=== PATIENT | male | born 1945 | race Caucasian/White ===

== ENCOUNTER 2019-11-07 08:45 | Inpatient (IN) | payer MEDICARE, BC ==
[2019-11-07] MEDS ORDERED: ASPIRIN 325 MG TAB ONE (08:57)
[2019-11-07] MEDS ORDERED: ATORVASTATIN 80 MG TAB PO STA (09:07)
[2019-11-07] MEDS ORDERED: SODIUM CHLORIDE 0.9% 1,000 ML in EMPTY BAG 1 BAG IV ONE (09:07)
[2019-11-07] MEDS ORDERED: ALPRAZolam 0.25 MG TAB PO PRN (09:07)
[2019-11-07] MEDS ORDERED: NITROGLYCERIN SL TABS 0.4 MG TAB SUBLINGUAL PRN ×2 (09:07→09:52)
[2019-11-07] MEDS ORDERED: ASPIRIN 325 MG TAB PO STA (09:07)
[2019-11-07] MEDS ORDERED: ALPRAZolam 0.5 MG TAB PO PRN (09:07)
[2019-11-07] MEDS ORDERED: VERAPAMIL SYRINGE (5 MG/10 ML) INTRAARTER ONE ×2 (09:30→09:46)
[2019-11-07] MEDS ORDERED: LIDOCAINE 1% INJ 10MG/ML (20 ML MDV) SQ ONE (09:30)
[2019-11-07] MEDS ORDERED: MIDAZOLAM 2 MG/2 ML VIAL IVP ONE (09:34)
[2019-11-07] MEDS ORDERED: CLOPIDOGREL 75 MG TAB PO ONE (09:34)
[2019-11-07] MEDS ORDERED: BIVALIRUDIN BOLUS 250 MG/50 ML IV ONE (09:36)
[2019-11-07] MEDS ORDERED: BIVALIRUDIN 250 MG in SODIUM CHLORIDE 0.9% 50 ML IV ONE (09:38)
[2019-11-07] MEDS ORDERED: NITROGLYCERIN 1000MCG/10ML SYRINGE INTRACORON ONE (09:38)
[2019-11-07] MEDS ORDERED: IV FLUID CONTINUATION 1,000 ML IV ONE (09:38)
[2019-11-07] MEDS ORDERED: IOPAMIDOL-370 125ML BTL INJ ONE (09:46)
[2019-11-07] MEDS ORDERED: ALBUTEROL NEBULIZED 2.5 MG/3 ML INHALATION PRN (09:51)
[2019-11-07] MEDS ORDERED: BENZONATATE 100 MG CAP PO PRN (09:51)
[2019-11-07] MEDS ORDERED: MAG HYDROX/AL HYDROX/SIMETH 30 ML CUP PO PRN (09:52)
[2019-11-07] MEDS ORDERED: ATROPINE SULFATE 0.1 MG/ML 10ML SYRINGE IV PRN (09:52)
[2019-11-07] MEDS ORDERED: ZOLPIDEM 5 MG TAB PO PRN (09:52)
[2019-11-07] MEDS ORDERED: RX INFO: IV CONTRAST WAS GIVEN 1 EACH MISC MISCELLANE PRN (09:52)
[2019-11-07] MEDS ORDERED: SODIUM CHLORIDE 0.9% 1,000 ML IV SCH (10:00)
--- NOTE | 2019-11-07 10:53 | PTCA ---
PERCUTANEOUSTRANS CORORONARY ANGIOGRAPHY DATE OF SERVICE: 11/07/2019 PERFORMING PHYSICIAN: Burton Marshall MD. PROCEDURE PERFORMED: Successful stenting of the mid right coronary artery using 3.5 x 23 mm Xience YULIANA with an excellent angiographic result and reduction of stenosis from 80% to 0%. INDICATION: This is a 74-year-old gentleman who was experiencing symptoms of shortness of breath with exertion and underwent an echocardiogram which revealed evidence of cardiomyopathy with EF around 40%. The symptoms were suggestive for severe underlying coronary artery disease and in view of the cardiomyopathy, a heart catheterization was advised. APPROACH: Right radial artery. COMPLICATION: None. LEVEL OF SEDATION: Moderate with sedation length of 17 minutes. PROCEDURE DESCRIPTION: Please refer to diagnostic heart catheterization was performed by myself at [facility]. Anticoagulation was initiated using Angiomax. Subsequently, I did exchange my 11 cm sheath into another 11 cm sheath, which was new one that was performed over 0.018 micro puncture wire. After that, I did engage the right coronary artery using JR3.5 guide. The RCA was wired using a run-through wire. Direct stenting was performed using 3.5 x 23 mm Xience YULIANA where the stent was positioned under fluoroscopy guidance and deployed under 14 atmospheres for 20 seconds. The following angiogram showed excellent angiographic results without any edge dissection with EDUAR-3 flow. The procedure was completed without any complication. POSTPROCEDURE MANAGEMENT: 1. Dual anti-platelet therapy. 2. Risk factor modifications. 3. Follow up with the patient. MMODL / IJN: [id number] /
[2019-11-07] MEDS: IPRATROPIUM-ALBUTEROL 3 ML NEB INHALATION SCH ×3 (11:33→20:10)
[2019-11-07] MEDS ORDERED: ASPIRIN 81 MG PO SCH (14:00)
[2019-11-07] MEDS: BUDESONIDE 0.5 MG/2 ML NEBU INHALATION SCH (20:10)
[2019-11-07] MEDS ORDERED: MONTELUKAST 10 MG TAB PO SCH (21:00)
[2019-11-08 07:02] LABS: African American GFR (CKD) >90 (>60 ml/min/1.73 sqM); Anion Gap 6 mmol/L; Blood Urea Nitrogen 10 mg/dL (9-20); Calcium 8.7 mg/dL (8.4-10.2); Carbon Dioxide 30 mmol/L (22-30); Chloride 101 mmol/L (98-107); Glucose 91 mg/dL (74-99); Non-African American GFR(CKD) >90 (>60 ml/min/1.73 sqM); Potassium 5.1 mmol/L (3.5-5.1); Sodium 137 mmol/L (137-145)
[2019-11-08 07:21] LABS: Anisocytosis Slight; Hypochromasia Marked; MCH 29.9 pg (25.0-35.0); MCHC 30.7 g/dL (31.0-37.0); MCV 97.4 fL (80.0-100.0); Macrocytosis Slight; Mean Platelet Volume 7.6; Platelet Count 148 k/uL (150-450); RBC 6.77 m/uL (4.30-5.90); RDW 17.5 % (11.5-15.5); WBC 6.5 k/uL (3.8-10.6)
[2019-11-08 07:23] LABS: HGB 20.2 gm/dL (13.0-17.5)
[2019-11-08] MEDS: IPRATROPIUM-ALBUTEROL 3 ML NEB INHALATION SCH (07:23)
[2019-11-08 07:24] LABS: HCT 65.9 % (39.0-53.0)
[2019-11-08] MEDS: BUDESONIDE 0.5 MG/2 ML NEBU INHALATION SCH (07:24)
[2019-11-08] MEDS ORDERED: PANTOPRAZOLE 40 MG TABLET PO SCH (07:30)
[2019-11-08 08:05] VITALS: BP 138/70; PULSE 86; RESP 18; TEMP 98.2
[2019-11-08 08:35] LABS: Eosinophils # (M) 0.13 k/uL (0-0.7); Lymphocytes # (M) 0.65 k/uL (1.0-4.8); Monocytes # (M) 0.65 k/uL (0-1.0); Neutrophils # (M) 5.07 k/uL (1.3-7.7); Neutrophils % (M) 78 %; Nucleated Red Blood Cells 0 /100 WBC (0-0); Total Cells Counted 100
[2019-11-08] MEDS ORDERED: lisinopriL 10 MG TAB PO SCH (09:00)
[2019-11-08] MEDS ORDERED: predniSONE 20 MG TAB PO SCH (09:00)
[2019-11-08] MEDS ORDERED: ATORVASTATIN 10 MG TAB PO SCH (09:00)
[2019-11-08] MEDS ORDERED: NICOTINE 21MG/24HR PATCH TRANSDERM SCH (09:00)
[2019-11-08] MEDS ORDERED: CLOPIDOGREL 75 MG TAB PO SCH (09:53)
== END 2019-11-08 09:46 | disposition home or self-care (01) | DRG 247 ==
LOC: 3SCARD 08:45
PROVIDERS: ADMIT Internal Medicine Interventional Cardiology; ATTEND Internal Medicine Interventional Cardiology
PROC: 027034Z Dilation of Coronary Artery, One Artery with Drug-eluting Intraluminal Device, Percutaneous Approach (ICD-10-PCS; principal; 2019-11-07 08:35)
DX: I25.10 Atherosclerotic heart disease of native coronary artery without angina pectoris (principal); I42.9 Cardiomyopathy, unspecified; J44.9 Chronic obstructive pulmonary disease, unspecified; I10 Essential (primary) hypertension; E78.5 Hyperlipidemia, unspecified; I08.1 Rheumatic disorders of both mitral and tricuspid valves; F17.210 Nicotine dependence, cigarettes, uncomplicated; Z79.82 Long term (current) use of aspirin; Z79.51 Long term (current) use of inhaled steroids; Z79.899 Other long term (current) drug therapy
CPT/HCPCS: 80048; 85025; 85347; 94640

== ENCOUNTER 2020-10-30 09:48 | Inpatient (IN) | payer BC, MEDICARE ==
[2020-10-30] MEDS ORDERED: IPRATROPIUM 0.5 MG/2.5 ML NEBU INHALATION STA (10:10)
[2020-10-30] MEDS ORDERED: ALBUTEROL NEBULIZED 2.5 MG/3 ML INHALATION STA (10:10)
[2020-10-30] MEDS ORDERED: methylPREDNISolone SOD SUCCI 125 MG/2 ML VIAL IV STA (10:10)
[2020-10-30 10:26] LABS: Anisocytosis Slight; Basophils # (A) 0.1 k/uL (0-0.2); Basophils % (A) 1 %; Eosinophils # (A) 0.1 k/uL (0-0.7); Eosinophils % (A) 1 %; HCT 42.3 % (39.0-53.0); HGB 13.3 gm/dL (13.0-17.5); Hypochromasia Moderate; Lymphocytes # (A) 0.8 k/uL (1.0-4.8); Lymphocytes % (A) 7 %; MCH 26.9 pg (25.0-35.0); MCHC 31.4 g/dL (31.0-37.0); MCV 85.7 fL (80.0-100.0); Mean Platelet Volume 7.4; Monocytes # (A) 0.7 k/uL (0-1.0); Monocytes % (A) 7 %; Neutrophils # (A) 8.5 k/uL (1.3-7.7); Neutrophils % (A) 80 %; Platelet Count 375 k/uL (150-450); Poikilocytosis Slight; RBC 4.94 m/uL (4.30-5.90); RDW 16.6 % (11.5-15.5); WBC 10.7 k/uL (3.8-10.6)
--- NOTE | 2020-10-30 10:26 | ED ---
General Adult HPI - General Chief complaint: Shortness of Breath Stated complaint: JEANNE Time Seen by Provider: 10/30/20 09:50 Source: patient, family, RN notes reviewed, old records reviewed Mode of arrival: wheelchair Limitations: no limitations - History of Present Illness Initial comments: This is a 75-year-old male who is a current smoker and has COPD per patient states he has been having difficulty breathing all summer but over the last couple weeks been getting progressively worse. Patient states today he got so bad he felt like he needed to be seen. Patient denies any fever chills per patient denies any chest pain. Patient denies any palpitations. Patient states he does have an increased cough but no sputum production. Patient states he is vaccinated for COVID. Patient denies any abdominal pain patient denies nausea vomiting diarrhea. Patient denies any lightheadedness or dizziness. Patient denies a headache patient denies numbness weakness - Related Data Home Medications Medication Instructions Recorded Confirmed Aspirin EC [Ecotrin Low Dose] 81 mg PO DAILY@59902/06/16 10/30/20 Atorvastatin [Lipitor] 10 mg PO DAILY@59902/06/16 10/30/20 Lisinopril [Zestril] 10 mg PO DAILY@59902/06/16 10/30/20 Budesonide [Pulmicort Flexhaler] 1 puff INHALATION RT-BID 11/07/19 10/30/20 Cholecalciferol [Vitamin D3 (25 1,000 unit PO DAILY@59911/07/19 10/30/20 Mcg = 1000 Iu)] Umeclidinium Brm/Vilanterol Tr 2 puff INHALATION RT-DAILY@59911/07/19 10/30/20 [Anoro Ellipta 62.5-25 Mcg INH] Albuterol Nebulized [Ventolin 2.5 mg INHALATION RT-BID 10/30/20 10/30/20 Nebulized] Cetirizine HCl [Zyrtec] 10 mg PO DAILY@59910/30/20 10/30/20 Clopidogrel [Plavix] 75 mg PO DAILY@59910/30/20 10/30/20 Montelukast [Singulair] 10 mg PO DAILY@59910/30/20 10/30/20 Pantoprazole [Protonix] 40 mg PO DAILY@0600 10/30/20 10/30/20 Spironolactone 25 mg PO DAILY@0600 10/30/20 10/30/20 Allergies Allergy/AdvReac Type Severity Reaction Status Date / Time No Known Allergies Allergy Verified 10/30/20 11:04 Review of Systems ROS Statement: Those systems with pertinent positive or pertinent negative responses have been documented in the HPI. ROS Other: All systems not noted in ROS Statement are negative. Past Medical History Past Medical History: COPD, Hyperlipidemia, Hypertension Additional Past Medical History / Comment(s): Secondary Polycythemia Vera History of Any Multi-Drug Resistant Organisms: None Reported Past Surgical History: No Surgical Hx Reported Additional Past Surgical History / Comment(s): AAA REPAIR 01/28/2016 Past Anesthesia/Blood Transfusion Reactions: No Reported Reaction Past Psychological History: No Psychological Hx Reported Smoking Status: Current every day smoker Past Alcohol Use History: None Reported Past Drug Use History: None Reported - Past Family History Father Family Medical History: Myocardial Infarction ([place]) Brother(s) Family Medical History: Cancer General Exam - General Exam Comments Initial Comments: GENERAL: Patient is well-developed and well-nourished. Patient is nontoxic and well- hydrated and is in no acute distress. ENT: Neck is soft and supple. No significant lymphadenopathy is noted. Oropharynx is clear. Moist mucous membranes. Neck has full range of motion without eliciting any pain. EYES: The sclera were anicteric and conjunctiva were pink and moist. Extraocular movements were intact and pupils were equal round and reactive to light. Eyelids were unremarkable. PULMONARY: Patient has diffuse expiratory wheezing. Patient's pulse ox is 87%. CARDIOVASCULAR: There is a regular rate and rhythm without any murmurs gallops or rubs. ABDOMEN: Soft and nontender with normal bowel sounds. SKIN: Skin is clear with no lesions or rashes and otherwise unremarkable. NEUROLOGIC: Patient is alert and oriented x3. Cranial nerves II through XII are grossly intact. Motor and sensory are also intact. Normal speech, volume and content. Symmetrical smile. MUSCULOSKELETAL: Normal extremities with adequate strength and full range of motion. LYMPHATICS: No significant lymphadenopathy is noted PSYCHIATRIC: Normal psychiatric evaluation. Limitations: no limitations Course Vital Signs 10/30/20 10/30/20 10/30/20 09:49 10:26 11:01 Temperature 97.4 F L Pulse Rate 66 67 64 Respiratory 18 22 Rate Blood Pressure 99/67 106/67 O2 Sat by Pulse 87 L 93 L Oximetry 10/30/20 10/30/20 11:22 11:23 Temperature 97.9 F Pulse Rate 66 64 Respiratory 18 Rate Blood Pressure 118/68 O2 Sat by Pulse 94 L Oximetry Medical Decision Making - Medical Decision Making EKG shows sinus rhythm at 67 bpm [place] interval is 214 QRS is 140 QT interval 390 QTC is 412. Patient's EKG shows a right bundle branch block. Patient has no ST segment elevation. Patient's sodium is 116 he did get a fluid bolus of 500 mL of normal saline. Patient's chest x-ray showed no acute abnormality. The patient received a couple breathing treatments and steroids in the emergency department. I spoke with Dr. Baez he agreed to admit the patient admitted the patient remaining orders. - Lab Data Result diagrams: 10/30/20 10:12 10/30/20 10:12 Lab Results 10/30/20 10/30/20 10/30/20 Range/Units 10:12 10:12 10:12 WBC 10.7 H (3.8-10.6) k/uL RBC 4.94 (4.30-5.90) m/uL Hgb 13.3 (13.0-17.5) gm/dL Hct 42.3 (39.0-53.0) % MCV 85.7 (80.0-100.0) fL MCH 26.9 (25.0-35.0) pg MCHC 31.4 (31.0-37.0) g/dL RDW 16.6 H (11.5-15.5) % Plt Count 375 (150-450) k/uL MPV 7.4 Neutrophils % 80 % Lymphocytes % 7 % Monocytes % 7 % Eosinophils % 1 % Basophils % 1 % Neutrophils # 8.5 H (1.3-7.7) k/uL Lymphocytes # 0.8 L (1.0-4.8) k/uL Monocytes # 0.7 (0-1.0) k/uL Eosinophils # 0.1 (0-0.7) k/uL Basophils # 0.1 (0-0.2) k/uL Hypochromasia Moderate Poikilocytosis Slight Anisocytosis Slight PT 9.9 (9.0-12.0) sec INR 0.9 (<1.2) APTT 23.7 (22.0-30.0) sec Sodium 116 L* (137-145) mmol/L Potassium 5.3 H (3.5-5.1) mmol/L Chloride 80 L (98-107) mmol/L Carbon Dioxide 27 (22-30) mmol/L Anion Gap 9 mmol/L BUN 21 H (9-20) mg/dL Creatinine 0.75 (0.66-1.25) mg/dL Est GFR (CKD-EPI)AfAm >90 (>60 ml/min/1.73 sqM) Est GFR (CKD-EPI)NonAf 89 (>60 ml/min/1.73 sqM) Glucose 109 H (74-99) mg/dL Plasma Lactic Acid Garth (0.7-2.0) mmol/L Calcium 9.3 (8.4-10.2) mg/dL Total Bilirubin 0.4 (0.2-1.3) mg/dL AST 35 (17-59) U/L ALT 18 (4-49) U/L Alkaline Phosphatase 77 (38-126) U/L Troponin I (0.000-0.034) ng/mL Total Protein 7.0 (6.3-8.2) g/dL Albumin 4.1 (3.5-5.0) g/dL 10/30/20 10/30/20 Range/Units 10:12 10:12 WBC (3.8-10.6) k/uL RBC (4.30-5.90) m/uL Hgb (13.0-17.5) gm/dL Hct (39.0-53.0) % MCV (80.0-100.0) fL MCH (25.0-35.0) pg MCHC (31.0-37.0) g/dL RDW (11.5-15.5) % Plt Count (150-450) k/uL MPV Neutrophils % % Lymphocytes % % Monocytes % % Eosinophils % % Basophils % % Neutrophils # (1.3-7.7) k/uL Lymphocytes # (1.0-4.8) k/uL Monocytes # (0-1.0) k/uL Eosinophils # (0-0.7) k/uL Basophils # (0-0.2) k/uL Hypochromasia Poikilocytosis Anisocytosis PT (9.0-12.0) sec INR (<1.2) APTT (22.0-30.0) sec Sodium (137-145) mmol/L Potassium (3.5-5.1) mmol/L Chloride (98-107) mmol/L Carbon Dioxide (22-30) mmol/L Anion Gap mmol/L BUN (9-20) mg/dL Creatinine (0.66-1.25) mg/dL Est GFR (CKD-EPI)AfAm (>60 ml/min/1.73 sqM) Est GFR (CKD-EPI)NonAf (>60 ml/min/1.73 sqM) Glucose (74-99) mg/dL Plasma Lactic Acid Garth 1.1 (0.7-2.0) mmol/L Calcium (8.4-10.2) mg/dL Total Bilirubin (0.2-1.3) mg/dL AST (17-59) U/L ALT (4-49) U/L Alkaline Phosphatase (38-126) U/L Troponin I <0.012 (0.000-0.034) ng/mL Total Protein (6.3-8.2) g/dL Albumin (3.5-5.0) g/dL Critical Care Time Critical Care Time: Yes Total Critical Care Time: 35 Disposition Clinical Impression: COPD exacerbation Disposition: ADMITTED IP TO THIS HOSP Referrals: Cheli Peñaloza [[facility]] - 1-2 days Time of Disposition: 12:31
[2020-10-30 10:34] LABS: ALT 18 U/L (4-49); AST 35 U/L (17-59); African American GFR (CKD) >90 (>60 ml/min/1.73 sqM); Albumin 4.1 g/dL (3.5-5.0); Alkaline Phosphatase 77 U/L (38-126); Anion Gap 9 mmol/L; Blood Urea Nitrogen 21 mg/dL (9-20); Calcium 9.3 mg/dL (8.4-10.2); Carbon Dioxide 27 mmol/L (22-30); Chloride 80 mmol/L (98-107); Glucose 109 mg/dL (74-99); Non-African American GFR(CKD) 89 (>60 ml/min/1.73 sqM); Potassium 5.3 mmol/L (3.5-5.1); Total Bilirubin 0.4 mg/dL (0.2-1.3)
--- NOTE | 2020-10-30 10:34 | XR ---
EXAMINATION TYPE: XR chest 2V DATE OF EXAM: 10/30/2020 COMPARISON: 01/15/2018 HISTORY: Shortness of breath TECHNIQUE: Frontal and lateral views of the chest are obtained. FINDINGS: Scattered senescent parenchymal changes noted. Hyperinflation compatible with COPD. No evidence for infiltrate. No evidence for atelectasis. Heart size is stable. Mediastinal structures are stable and grossly unremarkable. No evidence for hilar prominence. Degenerative changes dorsal spine. IMPRESSION: 1. No evidence for acute pulmonary disease.
[2020-10-30 10:42] LABS: Sodium 116 mmol/L (137-145)
[2020-10-30] MEDS ORDERED: SODIUM CHLORIDE 0.9% 500 ML 500 ML IV ONE (10:46)
[2020-10-30 10:48] LABS: INR 0.9 (<1.2); Partial Thromboplastin Time 23.7 sec (22.0-30.0); Prothrombin Time 9.9 sec (9.0-12.0)
[2020-10-30 15:31] LABS: African American GFR (CKD) >90 (>60 ml/min/1.73 sqM); Anion Gap 7 mmol/L; Blood Urea Nitrogen 18 mg/dL (9-20); Calcium 8.9 mg/dL (8.4-10.2); Carbon Dioxide 30 mmol/L (22-30); Chloride 81 mmol/L (98-107); Glucose 162 mg/dL (74-99); Non-African American GFR(CKD) 86 (>60 ml/min/1.73 sqM); Potassium 5.3 mmol/L (3.5-5.1)
[2020-10-30 16:10] LABS: Sodium 118 mmol/L (137-145)
[2020-10-30] MEDS: methylPREDNISolone SOD SUCCI 125 MG/2 ML VIAL IV SCH ×2 (17:32→23:38)
[2020-10-30] MEDS: SODIUM CHLORIDE 0.9% 1,000 ML IV SCH (17:35)
[2020-10-30 17:53] LABS: Sodium 116 mmol/L (137-145)
[2020-10-30] MEDS: IPRATROPIUM-ALBUTEROL 3 ML NEB INHALATION PRN (20:26)
[2020-10-31 05:40] LABS: African American GFR (CKD) >90 (>60 ml/min/1.73 sqM); Anion Gap 7 mmol/L; Blood Urea Nitrogen 19 mg/dL (9-20); Carbon Dioxide 28 mmol/L (22-30); Chloride 87 mmol/L (98-107); Glucose 141 mg/dL (74-99); Non-African American GFR(CKD) >90 (>60 ml/min/1.73 sqM); Potassium 5.3 mmol/L (3.5-5.1); Sodium 122 mmol/L (137-145)
[2020-10-31] MEDS ORDERED: SPIRONOLACTONE 25 MG TAB PO SCH (06:00)
[2020-10-31] MEDS ORDERED: lisinopriL 10 MG TAB PO SCH (06:00)
[2020-10-31] MEDS ORDERED: NON FORMULARY DRUG (Umeclidinium Brm/Vilanterol Tr [Anoro Ellipta 62.5-25 Mcg Inh] 1 EACH INHALATION SCH (06:00)
[2020-10-31] MEDS: methylPREDNISolone SOD SUCCI 125 MG/2 ML VIAL IV SCH ×4 (06:35→23:15)
[2020-10-31] MEDS: LORATADINE 10 MG TAB PO SCH (06:35)
[2020-10-31] MEDS: CLOPIDOGREL 75 MG TAB PO SCH (06:35)
[2020-10-31] MEDS: PANTOPRAZOLE 40 MG TABLET PO SCH (06:35)
[2020-10-31] MEDS: MONTELUKAST 10 MG TAB PO SCH (06:35)
[2020-10-31] MEDS: ASPIRIN 81 MG PO SCH (06:35)
[2020-10-31] MEDS: ATORVASTATIN 10 MG TAB PO SCH (06:35)
[2020-10-31] MEDS: CHOLECALCIFEROL 25 MCG (1000 IU) TABLET PO SCH (06:35)
[2020-10-31] MEDS: LEVOFLOXACIN 500 MG TAB PO SCH (08:18)
--- NOTE | 2020-10-31 08:18 | P.HPIM ---
History of Present Illness H&P Date: 10/31/20 Chief Complaint: Respiratory distress. This is a history of physical 75-year-old white male with known history of COPD. The patient was seen in the office 2 days ago with hypoxia but opted not to go to the hospital until yesterday. The patient's pulse oximetry was in the 80s. Chest x-ray actually does not show active disease but he was having significant respiratory failure. No significant fever but overt weakness was noted. History of asthma. Review of Systems Constitutional: Reports fatigue, Reports weakness Eyes: denies blurred vision, denies pain Cardiovascular: Reports shortness of breath, Denies lightheadedness Respiratory: Reports as per HPI, Reports cough Gastrointestinal: Denies abdominal pain, Denies diarrhea, Denies nausea, Denies vomiting Musculoskeletal: Denies myalgias Integumentary: Denies pruritus, Denies rash Neurological: Denies numbness, Denies weakness Past Medical History Past Medical History: COPD, Hyperlipidemia, Hypertension Additional Past Medical History / Comment(s): Secondary Polycythemia Vera History of Any Multi-Drug Resistant Organisms: None Reported Past Surgical History: No Surgical Hx Reported Additional Past Surgical History / Comment(s): AAA REPAIR 01/28/2016 Past Anesthesia/Blood Transfusion Reactions: No Reported Reaction Past Psychological History: No Psychological Hx Reported Smoking Status: Current every day smoker Past Alcohol Use History: None Reported Past Drug Use History: None Reported - Past Family History Father Family Medical History: Myocardial Infarction ([place]) Brother(s) Family Medical History: Cancer Medications and Allergies Home Medications Medication Instructions Recorded Confirmed Type Aspirin EC [Ecotrin Low Dose] 81 mg PO DAILY@59902/06/16 10/30/20 History Atorvastatin [Lipitor] 10 mg PO DAILY@59902/06/16 10/30/20 History Lisinopril [Zestril] 10 mg PO DAILY@59902/06/16 10/30/20 History Budesonide [Pulmicort Flexhaler] 1 puff INHALATION RT-BID 11/07/19 10/30/20 History Cholecalciferol [Vitamin D3 (25 1,000 unit PO DAILY@59911/07/19 10/30/20 Histo ry Mcg = 1000 Iu)] Umeclidinium Brm/Vilanterol Tr 2 puff INHALATION RT-DAILY@59911/07/19 10/30/20 History [Anoro Ellipta 62.5-25 Mcg INH] Albuterol Nebulized [Ventolin 2.5 mg INHALATION RT-BID 10/30/20 10/30/20 History Nebulized] Cetirizine HCl [Zyrtec] 10 mg PO DAILY@59910/30/20 10/30/20 History Clopidogrel [Plavix] 75 mg PO DAILY@59910/30/20 10/30/20 History Montelukast [Singulair] 10 mg PO DAILY@59910/30/20 10/30/20 History Pantoprazole [Protonix] 40 mg PO DAILY@59910/30/20 10/30/20 History Spironolactone 25 mg PO DAILY@59910/30/20 10/30/20 History Allergies Allergy/AdvReac Type Severity Reaction Status Date / Time No Known Allergies Allergy Verified 10/30/20 11:04 Physical Exam Vitals: Vital Signs Temp Pulse Pulse Resp BP BP Pulse Ox 10/31/20 03:49 71 18 100/45 92 L 10/31/20 00:00 94 22 115/69 85 L 10/30/20 20:37 74 10/30/20 20:26 68 10/30/20 20:00 98.1 F 72 22 136/69 92 L 10/30/20 16:00 68 20 117/65 93 L 10/30/20 15:29 20 88 L 10/30/20 13:17 76 18 150/66 98 10/30/20 12:46 98.1 F 73 20 115/67 76 L 10/30/20 11:23 97.9 F 64 18 118/68 94 L 10/30/20 11:22 66 10/30/20 11:01 64 10/30/20 10:26 67 22 106/67 93 L 10/30/20 09:49 97.4 F L 66 18 99/67 87 L Intake and Output 10/30/20 10/31/20 10/31/20 22:59 06:59 14:59 Intake Total 120 300 Output Total 300 120 Balance -180 180 Intake: Oral 120 300 Output: Urine 300 120 Other: Voiding Method Urinal # Voids 1 1 Weight 121 kg - Constitutional General appearance: morbidly obese - EENT Eyes: EOMI - Neck Neck: no lymphadenopathy - Cardiovascular Rhythm: regular Heart sounds: normal: S1, S2 Abnormal Heart Sounds: no S3 Gallop - Gastrointestinal General gastrointestinal: soft, no tenderness - Integumentary Integumentary: no cyanotic - Musculoskeletal Musculoskeletal: generalized weakness - Psychiatric Psychiatric: A&O x's 3, appropriate affect Results CBC & Chem 7: 10/30/20 10:12 10/31/20 05:05 Labs: Abnormal Lab Results - Last 24 Hours (Table) 10/30/20 10/30/20 10/30/20 Range/Units 10:12 10:12 15:04 WBC 10.7 H (3.8-10.6) k/uL RDW 16.6 H (11.5-15.5) % Neutrophils # 8.5 H (1.3-7.7) k/uL Lymphocytes # 0.8 L (1.0-4.8) k/uL Sodium 116 L* 118 L* (137-145) mmol/L Potassium 5.3 H 5.3 H (3.5-5.1) mmol/L Chloride 80 L 81 L (98-107) mmol/L BUN 21 H (9-20) mg/dL Glucose 109 H 162 H (74-99) mg/dL Osmolality (280-301) mosm/kg 10/30/20 10/30/20 10/31/20 Range/Units 15:04 20:57 00:42 WBC (3.8-10.6) k/uL RDW (11.5-15.5) % Neutrophils # (1.3-7.7) k/uL Lymphocytes # (1.0-4.8) k/uL Sodium 116 L* 120 L 120 L (137-145) mmol/L Potassium (3.5-5.1) mmol/L Chloride (98-107) mmol/L BUN (9-20) mg/dL Glucose (74-99) mg/dL Osmolality 260 L (280-301) mosm/kg 10/31/20 Range/Units 05:05 WBC (3.8-10.6) k/uL RDW (11.5-15.5) % Neutrophils # (1.3-7.7) k/uL Lymphocytes # (1.0-4.8) k/uL Sodium 122 L (137-145) mmol/L Potassium 5.3 H (3.5-5.1) mmol/L Chloride 87 L (98-107) mmol/L BUN (9-20) mg/dL Glucose 141 H (74-99) mg/dL Osmolality (280-301) mosm/kg Thrombosis Risk Factor Assmnt - Choose All That Apply Each Factor Represents 1 point: Abnormal pulmonary function (COPD), Medical pt on bed rest Each Risk Factor Represents 3 Points: Age 75 years or older Other congenital or acquired thrombophilia - If yes, enter type in comment: No Thrombosis Risk Factor Assessment Total Risk Factor Score: 5 Thrombosis Risk Factor Assessment Level: High Risk Assessment and Plan (1) COPD exacerbation Current Visit: Yes Status: Acute Code(s): J44.1 - CHRONIC OBSTRUCTIVE PULMONARY DISEASE W (ACUTE) EXACERBATION SNOMED Code(s): 877465792 (2) Hypoxia Current Visit: No Status: Acute Code(s): R09.02 - HYPOXEMIA SNOMED Code(s): 337673324 (3) Smoker Current Visit: No Status: Acute Code(s): F17.200 - NICOTINE DEPENDENCE, UNSPECIFIED, UNCOMPLICATED SNOMED Code(s): 68119345 (4) Polycythemia vera, acquired Current Visit: No Status: Chronic Priority: Medium Code(s): D75.1 - SECONDARY POLYCYTHEMIA SNOMED Code(s): 20087816 Plan: Appropriate treatment for COPD protocol. Hyponatremia was also noted Make sure urine sodium and serum and urine osmolality has been check Check CMP in a.m. Reconcile medications otherwise. Prognosis is guarded secondary to his multiple comorbidities.
[2020-10-31] MEDS: IPRATROPIUM 0.5 MG/2.5 ML NEBU INHALATION SCH ×4 (08:22→20:08)
[2020-10-31] MEDS: FORMOTEROL FUMARATE 20 MCG/2 ML NEBU INHALATION SCH ×2 (08:22→20:08)
[2020-10-31 09:35] LABS: Sodium 122 mmol/L (137-145)
--- NOTE | 2020-10-31 09:59 | P.NPCON ---
History of Present Illness - Reason for Consult hyponatremia - History of Present Illness Reason for consultation: Hyponatremia History of present illness: Patient is a 75-year-old male seen in consultation for hyponatremia. Patient presented to the hospital or shortness of breath and is currently being treated for COPD exacerbation. His sodium level was 116 on admission and has been gradually improving and is up to 122 as of this morning. He has been receiving normal saline at 75 mL an hour. Patient states his oral intake hasn't been as good recently. He does admit to drinking a pot of coffee as well as 3 bottles of water daily. Additionally he's been eating quite a bit of fruit. He denies any vomiting or diarrhea. No chest pain. Denies use of thiazide diuretics. He was taking spironolactone outpatient. Denies use of nonsteroidals. No edema. No hematuria or dysuria. No personal history of malignancy. No family history of renal disease. GFR is at baseline. Vital signs are stable. General: The patient appeared well nourished and normally developed. HEENT: Head exam is unremarkable. LUNGS: Breath sounds decreased. HEART: Rate and Rhythm are regular. ABDOMEN: Soft, no distention. EXTREMITITES: No edema. Past Medical History Past Medical History: COPD, Hyperlipidemia, Hypertension Additional Past Medical History / Comment(s): Secondary Polycythemia Vera History of Any Multi-Drug Resistant Organisms: None Reported Past Surgical History: No Surgical Hx Reported Additional Past Surgical History / Comment(s): AAA REPAIR 01/28/2016 Past Anesthesia/Blood Transfusion Reactions: No Reported Reaction Past Psychological History: No Psychological Hx Reported Smoking Status: Current every day smoker Past Alcohol Use History: None Reported Past Drug Use History: None Reported - Past Family History Father Family Medical History: Myocardial Infarction ([place]) Brother(s) Family Medical History: Cancer Medications and Allergies Home Medications Medication Instructions Recorded Confirmed Type Aspirin EC [Ecotrin Low Dose] 81 mg PO DAILY@0600 02/06/16 10/30/20 History Atorvastatin [Lipitor] 10 mg PO DAILY@0600 02/06/16 10/30/20 History Lisinopril [Zestril] 10 mg PO DAILY@0600 02/06/16 10/30/20 History Budesonide [Pulmicort Flexhaler] 1 puff INHALATION RT-BID 11/07/19 10/30/20 History Cholecalciferol [Vitamin D3 (25 1,000 unit PO DAILY@0611/07/19 10/30/20 H istory Mcg = 1000 Iu)] Umeclidinium Brm/Vilanterol Tr 2 puff INHALATION RT-DAILY@59911/07/19 10/30/20 History [Anoro Ellipta 62.5-25 Mcg INH] Albuterol Nebulized [Ventolin 2.5 mg INHALATION RT-BID 10/30/20 10/30/20 History Nebulized] Cetirizine HCl [Zyrtec] 10 mg PO DAILY@59910/30/20 10/30/20 History Clopidogrel [Plavix] 75 mg PO DAILY@59910/30/20 10/30/20 History Montelukast [Singulair] 10 mg PO DAILY@59910/30/20 10/30/20 History Pantoprazole [Protonix] 40 mg PO DAILY@59910/30/20 10/30/20 History Spironolactone 25 mg PO DAILY@59910/30/20 10/30/20 History Allergies Allergy/AdvReac Type Severity Reaction Status Date / Time No Known Allergies Allergy Verified 10/30/20 11:04 Physical Exam Vitals: Vital Signs Temp Pulse Pulse Resp BP BP Pulse Ox 10/31/20 08:52 76 10/31/20 08:32 76 10/31/20 08:31 76 10/31/20 08:22 76 10/31/20 08:15 98.2 F 82 20 101/65 92 L 10/31/20 03:49 71 18 100/45 92 L 10/31/20 00:00 94 22 115/69 85 L 10/30/20 20:37 74 10/30/20 20:26 68 10/30/20 20:00 98.1 F 72 22 136/69 92 L 10/30/20 16:00 68 20 117/65 93 L 10/30/20 15:29 20 88 L 10/30/20 13:17 76 18 150/66 98 10/30/20 12:46 98.1 F 73 20 115/67 76 L 10/30/20 11:23 97.9 F 64 18 118/68 94 L 10/30/20 11:22 66 10/30/20 11:01 64 10/30/20 10:26 67 22 106/67 93 L Intake and Output 10/30/20 10/31/20 10/31/20 22:59 06:59 14:59 Intake Total 120 300 240 Output Total 300 120 Balance -180 180 240 Intake: Oral 120 300 240 Output: Urine 300 120 Other: Voiding Method Urinal # Voids 1 1 Weight 121 kg Results - Lab Results Most recent lab results Calcium 9.0 mg/dL (8.4-10.2) 10/31/20 05:05 10/30/20 10:12 10/31/20 09:15 Assessment and Plan Plan: Assessment: 1. Hypovolemic hyponatremia initially. Now appears euvolemic. Sodium level was 116 on admission and is 122 this morning. TSH normal. 2. COPD exacerbation. 3. Mild hyperkalemia secondary to spironolactone. 4. Benign hypertension. Blood pressure on the lower side. Plan: Hep-Lock IV fluids. 1200 mL fluid restriction. Encouraged oral intake, particularly protein. Repeat sodium level this afternoon. Follow-up urine osmolality and urine sodium. Thank you for the consultation. I will continue to follow the patient with you during his hospital stay.
[2020-10-31] MEDS: NICOTINE 21MG/24HR PATCH TRANSDERM SCH (12:02)
[2020-10-31] MEDS: HEPARIN SODIUM,PORCINE/PF 5,000 UNIT/0.5 ML SYRINGE SQ SCH ×2 (12:02→21:12)
[2020-10-31 12:13] LABS: Glucose,Whole Blood 161 mg/dL (75-99)
[2020-10-31] MEDS: INSULIN ASPART (NovoLOG) 100 UNIT/ML VIAL SQ SCH ×3 (12:27→21:28)
[2020-10-31] MEDS: SODIUM CHLORIDE 0.9% 1,000 ML IV SCH (12:30)
[2020-10-31] MEDS: IPRATROPIUM-ALBUTEROL 3 ML NEB INHALATION PRN (12:37)
--- NOTE | 2020-10-31 13:13 | P.CNPUL ---
History of Present Illness Consult date: 10/31/20 Requesting physician: Jayro Peñaloza Reason for consult: dyspnea Chief complaint: Shortness of breath, cough, congestion History of present illness: This is a very pleasant 75-year-old gentleman with a known history of coronary artery disease with previous stent to the RCA, hyperlipidemia, hypertension, secondary polycythemia, previous AAA repair in 2016, significant oxygen dependent chronic obstructive pulmonary disease with an FEV1 value 36% of predicted. Chronic and ongoing tobacco dependence. He presented to the emergency room yesterday with complaints of generalized weakness, shortness of breath. He is seen today in consultation on the regular medical floor. He is currently on DuoNeb inhalations, Pulmicort and Perforomist inhalations, IV Solu- Medrol, Levaquin. He is currently sitting up in a chair at the bedside. He is a bit anxious. He states his breathing is better today compared to yesterday. Chest x-ray revealed no acute pulmonary process. White count 10.7. Hemoglobin 13.3. Platelets 375. Initial sodium 116, currently 122. Creatinine 0.72. Troponin negative times one. ProBNP 447. TSH 0.514. Review of Systems REVIEW OF SYSTEMS: CONSTITUTIONAL: Generalized weakness. Denies any recent significant weight loss or weight gain. EYES: Denies change in vision. EARS, NOSE, MOUTH, THROAT: Denies headaches, denies sore throat. CARDIOVASCULAR: Denies chest pain, palpitations or syncopal episodes. RESPIRATORY: Positive for shortness of breath, cough, congestion no hemoptysis. GASTROINTESTINAL: Denies change in appetite, denies abdominal pain GENITOURINARY: Denies hematuria, denies infections. MUSKULOSKELETAL: Denies pain, denies swelling. INTEGUMENTARY: Denies rash, denies eczema. NEUROLOGICAL: Denies recent memory loss, no recent seizure activity. PSYCHIATRIC: Denies anxiety, denies depression. HEMATOLOGIC/LYMPHATIC: Denies anemia, denies enlarged lymph nodes. Past Medical History Past Medical History: COPD, Hyperlipidemia, Hypertension Additional Past Medical History / Comment(s): Secondary Polycythemia Vera History of Any Multi-Drug Resistant Organisms: None Reported Past Surgical History: No Surgical Hx Reported Additional Past Surgical History / Comment(s): AAA REPAIR 01/28/2016 Past Anesthesia/Blood Transfusion Reactions: No Reported Reaction Past Psychological History: No Psychological Hx Reported Smoking Status: Current every day smoker Past Alcohol Use History: None Reported Past Drug Use History: None Reported - Past Family History Father Family Medical History: Myocardial Infarction ([place]) Brother(s) Family Medical History: Cancer Medications and Allergies Home Medications Medication Instructions Recorded Confirmed Type Aspirin EC [Ecotrin Low Dose] 81 mg PO DAILY@59902/06/16 10/30/20 History Atorvastatin [Lipitor] 10 mg PO DAILY@59902/06/16 10/30/20 History Lisinopril [Zestril] 10 mg PO DAILY@59902/06/16 10/30/20 History Budesonide [Pulmicort Flexhaler] 1 puff INHALATION RT-BID 11/07/19 10/30/20 History Cholecalciferol [Vitamin D3 (25 1,000 unit PO DAILY@59911/07/19 10/30/20 History Mcg = 1000 Iu)] Umeclidinium Brm/Vilanterol Tr 2 puff INHALATION RT-DAILY@59911/07/19 10/30/20 History [Anoro Ellipta 62.5-25 Mcg INH] Albuterol Nebulized [Ventolin 2.5 mg INHALATION RT-BID 10/30/20 10/30/20 History Nebulized] Cetirizine HCl [Zyrtec] 10 mg PO DAILY@59910/30/20 10/30/20 History Clopidogrel [Plavix] 75 mg PO DAILY@59910/30/20 10/30/20 History Montelukast [Singulair] 10 mg PO DAILY@59910/30/20 10/30/20 History Pantoprazole [Protonix] 40 mg PO DAILY@59910/30/20 10/30/20 History Spironolactone 25 mg PO DAILY@59910/30/20 10/30/20 History Allergies Allergy/AdvReac Type Severity Reaction Status Date / Time No Known Allergies Allergy Verified 10/30/20 11:04 Physical Exam Vitals: Vital Signs Temp Pulse Pulse Resp BP BP Pulse Ox 10/31/20 12:48 76 10/31/20 12:38 76 10/31/20 12:10 97.9 F 68 18 106/62 94 L 10/31/20 08:52 76 10/31/20 08:32 76 10/31/20 08:31 76 10/31/20 08:22 76 10/31/20 08:15 98.2 F 82 20 101/65 92 L 10/31/20 03:49 71 18 100/45 92 L 10/31/20 00:00 94 22 115/69 85 L 10/30/20 20:37 74 10/30/20 20:26 68 10/30/20 20:00 98.1 F 72 22 136/69 92 L 10/30/20 16:00 68 20 117/65 93 L 10/30/20 15:29 20 88 L 10/30/20 13:17 76 18 150/66 98 Intake and Output 10/30/20 10/31/20 10/31/20 22:59 06:59 14:59 Intake Total 120 300 240 Output Total 300 120 Balance -180 180 240 Intake: Oral 120 300 240 Output: Urine 300 120 Other: Voiding Method Urinal Urinal # Voids 1 1 Weight 121 kg GENERAL EXAM: Alert, very pleasant 75-year-old gentleman, on 4 L nasal cannula, comfortable in no apparent distress. HEAD: Normocephalic. EYES: Normal reaction of pupils, equal size. NOSE: Clear with pink turbinates. THROAT: No erythema or exudates. NECK: No masses, no JVD. CHEST: No chest wall deformity. LUNGS: Equal air entry with no bilateral end expiratory wheeze, diminished. CVS: S1 and S2 normal with no audible murmur, regular rhythm. ABDOMEN: No hepatosplenomegaly, normal bowel sounds, no guarding or rigidity. SPINE: No scoliosis or deformity SKIN: No rashes CENTRAL NERVOUS SYSTEM: No focal deficits, tone is normal in all 4 extremities. EXTREMITIES: There is no peripheral edema. No clubbing, no cyanosis. Peripheral pulses are intact. Results - Laboratory Findings CBC and BMP: 10/30/20 10:12 10/31/20 09:15 PT/INR, D-dimer PT 9.9 sec (9.0-12.0) 10/30/20 10:12 INR 0.9 (<1.2) 10/30/20 10:12 Abnormal lab findings: Abnormal Labs 10/30/20 10/30/20 10/30/20 10:12 10:12 15:04 WBC 10.7 H RDW 16.6 H Neutrophils # 8.5 H Lymphocytes # 0.8 L Sodium 116 L* 118 L* Potassium 5.3 H 5.3 H Chloride 80 L 81 L BUN 21 H Glucose 109 H 162 H POC Glucose (mg/dL) Osmolality 10/30/20 10/30/20 10/31/20 15:04 20:57 00:42 WBC RDW Neutrophils # Lymphocytes # Sodium 116 L* 120 L 120 L Potassium Chloride BUN Glucose POC Glucose (mg/dL) Osmolality 260 L 10/31/20 10/31/20 10/31/20 05:05 09:15 12:10 WBC RDW Neutrophils # Lymphocytes # Sodium 122 L 122 L Potassium 5.3 H Chloride 87 L BUN Glucose 141 H POC Glucose (mg/dL) 161 H Osmolality 265 L - Diagnostic Findings Chest x-ray: image reviewed (No acute pulmonary process) Assessment and Plan Assessment: 1 Acute on chronic hypoxemic respiratory failure secondary to an acute exacerbation of chronic obstructive pulmonary disease 2 Generalized weakness secondary to hyponatremia, presenting sodium 116, currently at 122 3 Chronic and ongoing tobacco dependence 4 Coronary artery disease with previous stent placement to the RCA 5 Secondary polycythemia 6 Hyperlipidemia 7 Hypertension 8 History of abdominal aortic aneurysm repair in 2015 Plan: The patient was seen and evaluated by Dr. Woodruff Chest x-ray and labs reviewed Sodium being gradually corrected Initiated on bronchodilators, IV Solu-Medrol, empiric antibiotics Add NicoDerm patch Titrate the FiO2 as tolerated May require CT scan of the chest, abdomen and pelvis due to poor appetite, hyponatremia We will continue to follow and make further recommendations based on his clinic al status I, the cosigning physician, performed a history & physical examination of the patient. Lungs sounds bilateral end expiratory wheeze, diminished. Maintaining good O2 saturations in the 90s on 4 L/m per nasal cannula. I discussed the assessment and plan of care with my nurse practitioner, Irene Rodriguez. I attest to the above consultation as dictated by her.
[2020-10-31 14:47] VITALS: BMI 37.2
[2020-10-31 15:14] LABS: Potassium 5.8 mmol/L (3.5-5.1)
[2020-10-31] MEDS ORDERED: DEXTROSE 50% SYRINGE 50 ML IVP STA ×2 (16:41→22:34)
[2020-10-31 16:59] LABS: Glucose,Whole Blood 155 mg/dL (75-99)
[2020-10-31] MEDS ORDERED: INSULIN REGULAR 100 UNIT/ML VIAL (IV) IV ONE ×2 (17:00→22:34)
[2020-10-31] MEDS: FLUTICASONE 110 MCG INHALER INHALATION SCH (20:08)
[2020-10-31 20:16] LABS: Glucose,Whole Blood 148 mg/dL (75-99)
[2020-10-31] MEDS ORDERED: SODIUM POLYSTYRENE SULFONATE 15 GM/60 ML BOTTLE PO STA (22:33)
[2020-11-01 05:14] LABS: Anisocytosis Slight; HCT 38.9 % (39.0-53.0); HGB 11.8 gm/dL (13.0-17.5); Hypochromasia Marked; MCHC 30.3 g/dL (31.0-37.0); MCV 88.8 fL (80.0-100.0); Mean Platelet Volume 7.2; Platelet Count 322 k/uL (150-450); Poikilocytosis Slight; RBC 4.38 m/uL (4.30-5.90)
[2020-11-01 05:26] LABS: ALT 18 U/L (4-49); AST 37 U/L (17-59); African American GFR (CKD) >90 (>60 ml/min/1.73 sqM); Albumin 3.7 g/dL (3.5-5.0); Alkaline Phosphatase 57 U/L (38-126); Anion Gap 8 mmol/L; Blood Urea Nitrogen 31 mg/dL (9-20); Calcium 9.1 mg/dL (8.4-10.2); Carbon Dioxide 29 mmol/L (22-30); Chloride 89 mmol/L (98-107); Glucose 142 mg/dL (74-99); Magnesium 1.7 mg/dL (1.6-2.3); Non-African American GFR(CKD) 79 (>60 ml/min/1.73 sqM); Potassium 5.7 mmol/L (3.5-5.1); Sodium 126 mmol/L (137-145); Total Bilirubin 0.3 mg/dL (0.2-1.3); Total Protein 6.5 g/dL (6.3-8.2)
[2020-11-01 06:13] LABS: Glucose,Whole Blood 140 mg/dL (75-99)
[2020-11-01] MEDS: PANTOPRAZOLE 40 MG TABLET PO SCH (06:20)
[2020-11-01] MEDS: MONTELUKAST 10 MG TAB PO SCH (06:20)
[2020-11-01] MEDS: CLOPIDOGREL 75 MG TAB PO SCH (06:21)
[2020-11-01] MEDS: CHOLECALCIFEROL 25 MCG (1000 IU) TABLET PO SCH (06:21)
[2020-11-01] MEDS: ATORVASTATIN 10 MG TAB PO SCH (06:21)
[2020-11-01] MEDS: ASPIRIN 81 MG PO SCH (06:21)
[2020-11-01] MEDS: methylPREDNISolone SOD SUCCI 125 MG/2 ML VIAL IV SCH ×4 (06:21→23:26)
[2020-11-01] MEDS: INSULIN ASPART (NovoLOG) 100 UNIT/ML VIAL SQ SCH ×4 (06:23→20:23)
[2020-11-01] MEDS: LORATADINE 10 MG TAB PO SCH (06:23)
--- NOTE | 2020-11-01 08:25 | P.PN ---
Subjective Principal diagnosis: Acute exacerbation of COPD The patient is a 75-year-old white male with asthma and COPD who is admitted for appropriate exacerbation. The patient states that he feels much better but is still significantly weak. No fever or chills stated. The patient seems to be tolerating diet appropriately. No voiding difficulties. Answering questions appropriately with good lucidity Objective - Vital Signs Vital signs: Vital Signs Temp 98.0 F 10/31/20 20:00 Pulse 84 11/01/20 04:00 Resp 18 11/01/20 04:00 BP 110/79 11/01/20 04:00 Pulse Ox 94 L 11/01/20 04:00 Intake & Output 10/31/20 11/01/20 11/01/20 18:59 06:59 18:59 Intake Total 960 Output Total 1120 Balance 960 -1120 Weight 121 kg 121.5 kg Intake: Oral 960 Output: Urine 1120 Other: Voiding Method Urinal # Voids 1 1 - Constitutional General appearance: Present: obese - EENT Eyes: Absent: abnormal pupil - Neck Neck: Absent: lymphadenopathy - Respiratory Respiratory: bilateral: rhonchi - Cardiovascular Rhythm: regular Heart sounds: normal: S1, S2 Abnormal Heart Sounds: Absent: S3 Gallop - Gastrointestinal General gastrointestinal: Present: soft. Absent: tenderness - Integumentary Integumentary: Absent: cellulitis - Labs CBC & Chem 7: 11/01/20 04:46 11/01/20 04:46 Labs: Abnormal Lab Results - Last 24 Hours (Table) 10/31/20 10/31/20 10/31/20 Range/Units 09:15 12:10 14:48 WBC (3.8-10.6) k/uL Hgb (13.0-17.5) gm/dL Hct (39.0-53.0) % MCHC (31.0-37.0) g/dL RDW (11.5-15.5) % Sodium 122 L 123 L (137-145) mmol/L Potassium 5.8 H (3.5-5.1) mmol/L Chloride (98-107) mmol/L BUN (9-20) mg/dL Glucose (74-99) mg/dL POC Glucose (mg/dL) 161 H (75-99) mg/dL Osmolality 265 L (280-301) mosm/kg 10/31/20 10/31/20 10/31/20 Range/Units 16:57 19:39 20:14 WBC (3.8-10.6) k/uL Hgb (13.0-17.5) gm/dL Hct (39.0-53.0) % MCHC (31.0-37.0) g/dL RDW (11.5-15.5) % Sodium (137-145) mmol/L Potassium 5.9 H (3.5-5.1) mmol/L Chloride (98-107) mmol/L BUN (9-20) mg/dL Glucose (74-99) mg/dL POC Glucose (mg/dL) 155 H 148 H (75-99) mg/dL Osmolality (280-301) mosm/kg 11/01/20 11/01/20 11/01/20 Range/Units 01:14 04:46 04:46 WBC 11.0 H (3.8-10.6) k/uL Hgb 11.8 L (13.0-17.5) gm/dL Hct 38.9 L (39.0-53.0) % MCHC 30.3 L (31.0-37.0) g/dL RDW 16.0 H (11.5-15.5) % Sodium 126 L (137-145) mmol/L Potassium 5.8 H 5.7 H (3.5-5.1) mmol/L Chloride 89 L (98-107) mmol/L BUN 31 H (9-20) mg/dL Glucose 142 H (74-99) mg/dL POC Glucose (mg/dL) (75-99) mg/dL Osmolality (280-301) mosm/kg 11/01/20 Range/Units 06:11 WBC (3.8-10.6) k/uL Hgb (13.0-17.5) gm/dL Hct (39.0-53.0) % MCHC (31.0-37.0) g/dL RDW (11.5-15.5) % Sodium (137-145) mmol/L Potassium (3.5-5.1) mmol/L Chloride (98-107) mmol/L BUN (9-20) mg/dL Glucose (74-99) mg/dL POC Glucose (mg/dL) 140 H (75-99) mg/dL Osmolality (280-301) mosm/kg Assessment and Plan (1) COPD exacerbation Current Visit: Yes Status: Acute Code(s): J44.1 - CHRONIC OBSTRUCTIVE PULMONARY DISEASE W (ACUTE) EXACERBATION SNOMED Code(s): 247360374 (2) Hypoxia Current Visit: No Status: Acute Code(s): R09.02 - HYPOXEMIA SNOMED Code(s): 936655738 (3) Smoker Current Visit: No Status: Acute Code(s): F17.200 - NICOTINE DEPENDENCE, UNSPECIFIED, UNCOMPLICATED SNOMED Code(s): 28426176 (4) Polycythemia vera, acquired Current Visit: No Status: Chronic Priority: Medium Code(s): D75.1 - SECONDARY POLYCYTHEMIA SNOMED Code(s): 66836544 Plan: Appropriate treatment for COPD protocol. Hyponatremia was also noted Make sure urine sodium and serum and urine osmolality has been check check CBC and CMP in a.m. Prognosis is guarded secondary to his multiple comorbidities.
[2020-11-01] MEDS: FORMOTEROL FUMARATE 20 MCG/2 ML NEBU INHALATION SCH ×2 (08:43→19:53)
[2020-11-01] MEDS: IPRATROPIUM 0.5 MG/2.5 ML NEBU INHALATION SCH ×4 (08:43→19:54)
[2020-11-01] MEDS: FLUTICASONE 110 MCG INHALER INHALATION SCH ×2 (08:43→19:54)
[2020-11-01] MEDS: HEPARIN SODIUM,PORCINE/PF 5,000 UNIT/0.5 ML SYRINGE SQ SCH ×2 (09:10→20:23)
[2020-11-01] MEDS: LEVOFLOXACIN 500 MG TAB PO SCH (09:10)
[2020-11-01] MEDS: NICOTINE 21MG/24HR PATCH TRANSDERM SCH (09:10)
--- NOTE | 2020-11-01 09:35 | P.PN ---
Subjective Patient is seen in follow-up for hyperkalemia and hyponatremia. Sodium level improving. Potassium level also stable. Good urine output. No vomiting or diarrhea. Vital signs are stable. General: The patient appeared well nourished and normally developed. HEENT: On nasal cannula. LUNGS: Breath sounds decreased. HEART: Rate and Rhythm are regular. ABDOMEN: Soft, no distention. Obese. EXTREMITITES: No edema. Objective - Vital Signs Vital signs: Vital Signs Temp 98.0 F 10/31/20 20:00 Pulse 90 11/01/20 09:05 Resp 20 11/01/20 09:05 BP 100/61 11/01/20 09:05 Pulse Ox 96 11/01/20 09:05 Intake & Output 10/31/20 11/01/20 11/01/20 18:59 06:59 18:59 Intake Total 960 840 Output Total 1120 Balance 960 -1120 840 Weight 121 kg 121.5 kg Intake: Oral 960 840 Output: Urine 1120 Other: Voiding Method Urinal # Voids 1 1 - Labs CBC & Chem 7: 11/01/20 04:46 11/01/20 04:46 Labs: Abnormal Lab Results - Last 24 Hours (Table) 10/31/20 10/31/20 10/31/20 Range/Units 09:15 12:10 14:48 WBC (3.8-10.6) k/uL Hgb (13.0-17.5) gm/dL Hct (39.0-53.0) % MCHC (31.0-37.0) g/dL RDW (11.5-15.5) % Sodium 122 L 123 L (137-145) mmol/L Potassium 5.8 H (3.5-5.1) mmol/L Chloride (98-107) mmol/L BUN (9-20) mg/dL Glucose (74-99) mg/dL POC Glucose (mg/dL) 161 H (75-99) mg/dL Osmolality 265 L (280-301) mosm/kg 10/31/20 10/31/20 10/31/20 Range/Units 16:57 19:39 20:14 WBC (3.8-10.6) k/uL Hgb (13.0-17.5) gm/dL Hct (39.0-53.0) % MCHC (31.0-37.0) g/dL RDW (11.5-15.5) % Sodium (137-145) mmol/L Potassium 5.9 H (3.5-5.1) mmol/L Chloride (98-107) mmol/L BUN (9-20) mg/dL Glucose (74-99) mg/dL POC Glucose (mg/dL) 155 H 148 H (75-99) mg/dL Osmolality (280-301) mosm/kg 11/01/20 11/01/20 11/01/20 Range/Units 01:14 04:46 04:46 WBC 11.0 H (3.8-10.6) k/uL Hgb 11.8 L (13.0-17.5) gm/dL Hct 38.9 L (39.0-53.0) % MCHC 30.3 L (31.0-37.0) g/dL RDW 16.0 H (11.5-15.5) % Sodium 126 L (137-145) mmol/L Potassium 5.8 H 5.7 H (3.5-5.1) mmol/L Chloride 89 L (98-107) mmol/L BUN 31 H (9-20) mg/dL Glucose 142 H (74-99) mg/dL POC Glucose (mg/dL) (75-99) mg/dL Osmolality (280-301) mosm/kg 11/01/20 Range/Units 06:11 WBC (3.8-10.6) k/uL Hgb (13.0-17.5) gm/dL Hct (39.0-53.0) % MCHC (31.0-37.0) g/dL RDW (11.5-15.5) % Sodium (137-145) mmol/L Potassium (3.5-5.1) mmol/L Chloride (98-107) mmol/L BUN (9-20) mg/dL Glucose (74-99) mg/dL POC Glucose (mg/dL) 140 H (75-99) mg/dL Osmolality (280-301) mosm/kg Assessment and Plan Plan: Assessment: 1. Hypovolemic hyponatremia initially. Now appears euvolemic. Sodium level 126 this morning. TSH normal. Urine sodium 20 and urine osmolality 324. 2. COPD exacerbation. 3. Mild hyperkalemia secondary to spironolactone. Stable. 4. Benign hypertension. Blood pressure on the lower side. Plan: 1200 mL fluid restriction. Encouraged oral intake, particularly protein. Repeat potassium level this afternoon. Low potassium diet. Hold lisinopril and spironolactone for now.
[2020-11-01 11:58] LABS: Glucose,Whole Blood 138 mg/dL (75-99)
[2020-11-01] MEDS ORDERED: LORazepam 0.5 MG TAB PO PRN (16:20)
--- NOTE | 2020-11-01 16:48 | P.PN ---
Subjective Progress Note Date: 11/01/20 Principal diagnosis: Shortness of breath, cough, congestion This is a very pleasant 75-year-old gentleman with a known history of coronary artery disease with previous stent to the RCA, hyperlipidemia, hypertension, secondary polycythemia, previous AAA repair in 2016, significant oxygen dependent chronic obstructive pulmonary disease with an FEV1 value 36% of predicted. Chronic and ongoing tobacco dependence. He presented to the emergency room yesterday with complaints of generalized weakness, shortness of breath. He is seen today in consultation on the regular medical floor. He is currently on DuoNeb inhalations, Pulmicort and Perforomist inhalations, IV Solu-Medrol, Levaquin. He is currently sitting up in a chair at the bedside. He is a bit anxious. He states his breathing is better today compared to yesterday. Chest x-ray revealed no acute pulmonary process. White count 10.7. Hemoglobin 13.3. Platelets 375. Initial sodium 116, currently 122. Creatinine 0.72. Troponin negative times one. ProBNP 447. TSH 0.514. On 11/01/2020 patient seen in follow-up on selective care unit, still mildly bronchospastic, but improving, currently on 4 L of oxygen pulse ox of 94%, he's had no acute events overnight, no fever or chills, overall breathing easier. Continues on IV steroids, nebulized bronchodilators, and antibiotics. Today's labs have been noted. Serum sodium is up to 126, potassium is 5.7, chloride is 89, BUN is 31, creatinine 0.94 Objective - Vital Signs Vital signs: Vital Signs Temp 97.6 F 11/01/20 12:05 Pulse 74 11/01/20 16:12 Resp 20 11/01/20 15:48 BP 104/62 11/01/20 15:48 Pulse Ox 94 L 11/01/20 16:06 Intake & Output 10/31/20 11/01/20 11/01/20 18:59 06:59 18:59 Intake Total 960 840 Output Total 1120 300 Balance 960 -1120 540 Weight 121 kg 121.5 kg Intake: Oral 960 840 Output: Urine 1120 300 Other: Voiding Method Urinal Urinal # Voids 1 1 - Exam GENERAL EXAM: Alert, very pleasant, 75-year-old white male, on 4 L of oxygen pulse ox of 94% comfortable in no apparent distress. HEAD: Normocephalic/atraumatic. EYES: Normal reaction of pupils, equal size. Conjunctiva pink, sclera white. NOSE: Clear with pink turbinates. THROAT: No erythema or exudates. NECK: No masses, no JVD, no thyroid enlargement, no adenopathy. CHEST: No chest wall deformity. Symmetrical expansion. LUNGS: Equal air entry with no crackles, wheeze, rhonchi or dullness. CVS: Regular rate and rhythm, normal S1 and S2, no gallops, no murmurs, no rubs ABDOMEN: Soft, nontender. No hepatosplenomegaly, normal bowel sounds, no guarding or rigidity. EXTREMITIES: No clubbing, no edema, no cyanosis, 2+ pulses and upper and lower extremities. MUSCULOSKELETAL: Muscle strength and tone normal. SPINE: No scoliosis or deformity SKIN: No rashes CENTRAL NERVOUS SYSTEM: Alert and oriented -3. No focal deficits, tone is normal in all 4 extremities. PSYCHIATRIC: Alert and oriented -3. Appropriate affect. Intact judgment and insight. - Labs CBC & Chem 7: 11/01/20 04:46 11/01/20 14:14 Labs: Abnormal Lab Results - Last 24 Hours (Table) 10/31/20 10/31/20 10/31/20 Range/Units 16:57 19:39 20:14 WBC (3.8-10.6) k/uL Hgb (13.0-17.5) gm/dL Hct (39.0-53.0) % MCHC (31.0-37.0) g/dL RDW (11.5-15.5) % Sodium (137-145) mmol/L Potassium 5.9 H (3.5-5.1) mmol/L Chloride (98-107) mmol/L BUN (9-20) mg/dL Glucose (74-99) mg/dL POC Glucose (mg/dL) 155 H 148 H (75-99) mg/dL 11/01/20 11/01/20 11/01/20 Range/Units 01:14 04:46 04:46 WBC 11.0 H (3.8-10.6) k/uL Hgb 11.8 L (13.0-17.5) gm/dL Hct 38.9 L (39.0-53.0) % MCHC 30.3 L (31.0-37.0) g/dL RDW 16.0 H (11.5-15.5) % Sodium 126 L (137-145) mmol/L Potassium 5.8 H 5.7 H (3.5-5.1) mmol/L Chloride 89 L (98-107) mmol/L BUN 31 H (9-20) mg/dL Glucose 142 H (74-99) mg/dL POC Glucose (mg/dL) (75-99) mg/dL 11/01/20 11/01/20 11/01/20 Range/Units 06:11 11:57 14:14 WBC (3.8-10.6) k/uL Hgb (13.0-17.5) gm/dL Hct (39.0-53.0) % MCHC (31.0-37.0) g/dL RDW (11.5-15.5) % Sodium (137-145) mmol/L Potassium 5.3 H (3.5-5.1) mmol/L Chloride (98-107) mmol/L BUN (9-20) mg/dL Glucose (74-99) mg/dL POC Glucose (mg/dL) 140 H 138 H (75-99) mg/dL Assessment and Plan Plan: Assessment: 1 Acute on chronic hypoxemic respiratory failure secondary to an acute exacerbation of chronic obstructive pulmonary disease 2 Generalized weakness secondary to hyponatremia, presenting sodium 116, curren tly at 122 3 Chronic and ongoing tobacco dependence 4 Coronary artery disease with previous stent placement to the RCA 5 Secondary polycythemia 6 Hyperlipidemia 7 Hypertension 8 History of abdominal aortic aneurysm repair in 2015 Plan: Continue current medical treatment, No acute events overnight Vital signs are stable Wean FiO2 as tolerated Clinically improving, still dyspneic and bronchospastic Continue to follow Time with Patient: Less than 30
[2020-11-01 17:07] LABS: Glucose,Whole Blood 167 mg/dL (75-99)
[2020-11-01 17:27] LABS: Glucose,Whole Blood 374 mg/dL (75-99)
[2020-11-01 19:51] LABS: Glucose,Whole Blood 151 mg/dL (75-99)
[2020-11-01] MEDS: IPRATROPIUM-ALBUTEROL 3 ML NEB INHALATION PRN (19:53)
[2020-11-02] MEDS: IPRATROPIUM-ALBUTEROL 3 ML NEB INHALATION PRN ×3 (00:08→16:46)
[2020-11-02 05:57] LABS: Glucose,Whole Blood 136 mg/dL (75-99)
[2020-11-02] MEDS: ASPIRIN 81 MG PO SCH (06:17)
[2020-11-02] MEDS: CHOLECALCIFEROL 25 MCG (1000 IU) TABLET PO SCH (06:17)
[2020-11-02] MEDS: ATORVASTATIN 10 MG TAB PO SCH (06:17)
[2020-11-02] MEDS: CLOPIDOGREL 75 MG TAB PO SCH (06:17)
[2020-11-02] MEDS: PANTOPRAZOLE 40 MG TABLET PO SCH (06:17)
[2020-11-02] MEDS: LORATADINE 10 MG TAB PO SCH (06:17)
[2020-11-02] MEDS: MONTELUKAST 10 MG TAB PO SCH (06:17)
[2020-11-02] MEDS: INSULIN ASPART (NovoLOG) 100 UNIT/ML VIAL SQ SCH ×4 (06:18→20:26)
[2020-11-02] MEDS: methylPREDNISolone SOD SUCCI 125 MG/2 ML VIAL IV SCH ×4 (06:18→23:35)
[2020-11-02 07:46] LABS: Anisocytosis Slight; HGB 12.1 gm/dL (13.0-17.5); Hypochromasia Marked; MCH 27.8 pg (25.0-35.0); MCV 89.7 fL (80.0-100.0); Mean Platelet Volume 7.4; Platelet Count 308 k/uL (150-450); Poikilocytosis Slight; RBC 4.34 m/uL (4.30-5.90); RDW 16.3 % (11.5-15.5); WBC 12.4 k/uL (3.8-10.6)
[2020-11-02 08:05] LABS: ALT 17 U/L (4-49); AST 28 U/L (17-59); African American GFR (CKD) >90 (>60 ml/min/1.73 sqM); Albumin 3.6 g/dL (3.5-5.0); Alkaline Phosphatase 51 U/L (38-126); Anion Gap 4 mmol/L; Blood Urea Nitrogen 33 mg/dL (9-20); Calcium 9.3 mg/dL (8.4-10.2); Carbon Dioxide 36 mmol/L (22-30); Chloride 88 mmol/L (98-107); Glucose 136 mg/dL (74-99); Magnesium 1.8 mg/dL (1.6-2.3); Non-African American GFR(CKD) 84 (>60 ml/min/1.73 sqM); Potassium 5.7 mmol/L (3.5-5.1); Sodium 128 mmol/L (137-145); Total Bilirubin 0.2 mg/dL (0.2-1.3); Total Protein 6.4 g/dL (6.3-8.2)
[2020-11-02] MEDS: FORMOTEROL FUMARATE 20 MCG/2 ML NEBU INHALATION SCH (08:24)
[2020-11-02] MEDS: IPRATROPIUM 0.5 MG/2.5 ML NEBU INHALATION SCH ×4 (08:24→19:55)
[2020-11-02] MEDS: FLUTICASONE 110 MCG INHALER INHALATION SCH ×2 (08:25→19:55)
[2020-11-02] MEDS ORDERED: FUROSEMIDE 10 MG/ML 2 ML VIAL IV ONE (08:44)
--- NOTE | 2020-11-02 08:45 | P.PN ---
Subjective Patient is seen in follow-up for hyperkalemia and hyponatremia. Sodium level improving. Potassium level is stable. Good urine output. No vomiting or diarrhea. No active complaints at this time. Vital signs are stable. General: The patient appeared well nourished and normally developed. HEENT: On nasal cannula. LUNGS: Breath sounds decreased. HEART: Rate and Rhythm are regular. ABDOMEN: Soft, no distention. Obese. EXTREMITITES: No edema. Objective - Vital Signs Vital signs: Vital Signs Temp 97.6 F 11/01/20 20:00 Pulse 92 11/02/20 08:34 Resp 18 11/02/20 08:34 BP 115/65 11/02/20 04:00 Pulse Ox 92 L 11/02/20 08:26 Intake & Output 11/01/20 11/02/20 11/02/20 18:59 06:59 18:59 Intake Total 840 540 180 Output Total 300 Balance 540 540 180 Weight 120.4 kg Intake: Oral 840 540 180 Output: Urine 300 Other: Voiding Method Urinal # Voids 1 - Labs CBC & Chem 7: 11/02/20 07:23 11/02/20 07:23 Labs: Abnormal Lab Results - Last 24 Hours (Table) 11/01/20 11/01/20 11/01/20 Range/Units 11:57 14:14 17:05 WBC (3.8-10.6) k/uL Hgb (13.0-17.5) gm/dL RDW (11.5-15.5) % Sodium (137-145) mmol/L Potassium 5.3 H (3.5-5.1) mmol/L Chloride (98-107) mmol/L Carbon Dioxide (22-30) mmol/L BUN (9-20) mg/dL Glucose (74-99) mg/dL POC Glucose (mg/dL) 138 H 167 H (75-99) mg/dL 11/01/20 11/01/20 11/02/20 Range/Units 17:25 19:50 05:56 WBC (3.8-10.6) k/uL Hgb (13.0-17.5) gm/dL RDW (11.5-15.5) % Sodium (137-145) mmol/L Potassium (3.5-5.1) mmol/L Chloride (98-107) mmol/L Carbon Dioxide (22-30) mmol/L BUN (9-20) mg/dL Glucose (74-99) mg/dL POC Glucose (mg/dL) 374 H 151 H 136 H (75-99) mg/dL 11/02/20 11/02/20 Range/Units 07:23 07:23 WBC 12.4 H (3.8-10.6) k/uL Hgb 12.1 L (13.0-17.5) gm/dL RDW 16.3 H (11.5-15.5) % Sodium 128 L (137-145) mmol/L Potassium 5.7 H (3.5-5.1) mmol/L Chloride 88 L (98-107) mmol/L Carbon Dioxide 36 H (22-30) mmol/L BUN 33 H (9-20) mg/dL Glucose 136 H (74-99) mg/dL POC Glucose (mg/dL) (75-99) mg/dL Assessment and Plan Plan: Assessment: 1. Hypovolemic hyponatremia initially. Now appears euvolemic. Sodium level 128 this morning. TSH normal. Urine sodium 20 and urine osmolality 324. 2. COPD exacerbation. 3. Mild hyperkalemia secondary to spironolactone. Stable. 4. Benign hypertension. Stable. Plan: 1200 mL fluid restriction. Encouraged oral intake, particularly protein. Lasix 20 mg IV once today. Repeat potassium level this afternoon. Low potassium diet. Continue to hold lisinopril and spironolactone for now.
[2020-11-02] MEDS: NICOTINE 21MG/24HR PATCH TRANSDERM SCH (09:42)
[2020-11-02] MEDS: HEPARIN SODIUM,PORCINE/PF 5,000 UNIT/0.5 ML SYRINGE SQ SCH ×2 (09:43→20:26)
[2020-11-02] MEDS: LEVOFLOXACIN 500 MG TAB PO SCH (09:43)
[2020-11-02 11:38] LABS: Glucose,Whole Blood 188 mg/dL (75-99)
--- NOTE | 2020-11-02 12:58 | P.PN ---
Subjective Progress Note Date: 11/02/20 This is a very pleasant 75-year-old gentleman with a known history of coronary artery disease with previous stent to the RCA, hyperlipidemia, hypertension, secondary polycythemia, previous AAA repair in 2016, significant oxygen dependent chronic obstructive pulmonary disease with an FEV1 value 36% of pr edicted. Chronic and ongoing tobacco dependence. He presented to the emergency room yesterday with complaints of generalized weakness, shortness of breath. He is seen today in consultation on the regular medical floor. He is currently on DuoNeb inhalations, Pulmicort and Perforomist inhalations, IV Solu-Medrol, Levaquin. He is currently sitting up in a chair at the bedside. He is a bit anxious. He states his breathing is better today compared to yesterday. Chest x-ray revealed no acute pulmonary process. White count 10.7. Hemoglobin 13.3. Platelets 375. Initial sodium 116, currently 122. Creatinine 0.72. Troponin negative times one. ProBNP 447. TSH 0.514. On 11/01/2020 patient seen in follow-up on selective care unit, still mildly bronchospastic, but improving, currently on 4 L of oxygen pulse ox of 94%, he's had no acute events overnight, no fever or chills, overall breathing easier. Continues on IV steroids, nebulized bronchodilators, and antibiotics. Today's labs have been noted. Serum sodium is up to 126, potassium is 5.7, chloride is 89, BUN is 31, creatinine 0.94 11/01/2020, the patient is doing well. No new complaints. Still bronchospastic and wheezy and is gradually improving. No chest pain. No angina. No palpitations. No other significant events overnight. He is gradually improving. He remains on bronchodilators and steroids. His white cell count is at 12.4. His sodium level is also improvement up to 128 and a potassium level of 5.7. The counseling program leader on the case. Is being offered fluid restriction. Objective - Vital Signs Vital signs: Vital Signs Temp 97.8 F 11/02/20 08:00 Pulse 88 11/02/20 12:21 Resp 16 11/02/20 12:21 BP 129/64 11/02/20 08:00 Pulse Ox 92 L 11/02/20 08:26 Intake & Output 11/01/20 11/02/2011/02/21 18:59 06:59 18:59 Intake Total 840 540 720 Output Total 300 Balance 540 540 720 Weight 120.4 kg Intake: Oral 840 540 720 Output: Urine 300 Other: Voiding Method Urinal # Voids 1 1 - Exam GENERAL EXAM: Alert, very pleasant, 75-year-old white male, on 4 L of oxygen pulse ox of 94% comfortable in no apparent distress. HEAD: Normocephalic/atraumatic. EYES: Normal reaction of pupils, equal size. Conjunctiva pink, sclera white. NOSE: Clear with pink turbinates. THROAT: No erythema or exudates. NECK: No masses, no JVD, no thyroid enlargement, no adenopathy. CHEST: No chest wall deformity. Symmetrical expansion. LUNGS: Equal air entry with no crackles, wheeze, rhonchi or dullness. CVS: Regular rate and rhythm, normal S1 and S2, no gallops, no murmurs, no rubs ABDOMEN: Soft, nontender. No hepatosplenomegaly, normal bowel sounds, no guarding or rigidity. EXTREMITIES: No clubbing, no edema, no cyanosis, 2+ pulses and upper and lower extremities. MUSCULOSKELETAL: Muscle strength and tone normal. SPINE: No scoliosis or deformity SKIN: No rashes CENTRAL NERVOUS SYSTEM: Alert and oriented -3. No focal deficits, tone is normal in all 4 extremities. PSYCHIATRIC: Alert and oriented -3. Appropriate affect. Intact judgment and insight. - Labs CBC & Chem 7: 11/02/20 07:23 11/02/20 07:23 Labs: Abnormal Lab Results - Last 24 Hours (Table) 11/01/20 11/01/20 11/01/20 Range/Units 14:14 17:05 17:25 WBC (3.8-10.6) k/uL Hgb (13.0-17.5) gm/dL RDW (11.5-15.5) % Sodium (137-145) mmol/L Potassium 5.3 H (3.5-5.1) mmol/L Chloride (98-107) mmol/L Carbon Dioxide (22-30) mmol/L BUN (9-20) mg/dL Glucose (74-99) mg/dL POC Glucose (mg/dL) 167 H 374 H (75-99) mg/dL 0811/02/20 11/02/20 Range/Units 19:50 05:56 07:23 WBC (3.8-10.6) k/uL Hgb (13.0-17.5) gm/dL RDW (11.5-15.5) % Sodium 128 L (137-145) mmol/L Potassium 5.7 H (3.5-5.1) mmol/L Chloride 88 L (98-107) mmol/L Carbon Dioxide 36 H (22-30) mmol/L BUN 33 H (9-20) mg/dL Glucose 136 H (74-99) mg/dL POC Glucose (mg/dL) 151 H 136 H (75-99) mg/dL 11/02/20 11/02/20 Range/Units 07:23 11:37 WBC 12.4 H (3.8-10.6) k/uL Hgb 12.1 L (13.0-17.5) gm/dL RDW 16.3 H (11.5-15.5) % Sodium (137-145) mmol/L Potassium (3.5-5.1) mmol/L Chloride (98-107) mmol/L Carbon Dioxide (22-30) mmol/L BUN (9-20) mg/dL Glucose (74-99) mg/dL POC Glucose (mg/dL) 188 H (75-99) mg/dL Assessment and Plan Plan: 1 Acute on chronic hypoxemic respiratory failure secondary to an acute exacerbation of chronic obstructive pulmonary disease, clinically improving 2 Generalized weakness secondary to hyponatremia, presenting sodium 116, cu rrently at 128 3 Chronic and ongoing tobacco dependence 4 Coronary artery disease with previous stent placement to the RCA 5 Secondary polycythemia 6 Hyperlipidemia 7 Hypertension 8 History of abdominal aortic aneurysm repair in 2016 Plan: Continue current medical treatment, Continue Solu-Medrol and switch this patient a prednisone burst taper at time of discharge Fluid restriction Lasix 40 mg IV Monitor electrolytes Discharge from medicine
--- NOTE | 2020-11-02 15:05 | P.PN ---
Subjective This is a pleasant 75 years old male with past medical history of coronary artery disease, dementia, diabetes mellitus, hyperlipidemia, hypertension, sleep apnea, hyperthyroidism. Also history of anxiety and depression which is not an active issue Presents because of respiratory issues and dyspnea found to have acute COPD exacerbation. He had no fever since admission, he had mild leukocytosis at 10.7 and today is 12.4 but also he is on steroids. Potassium is 5.7 and he received 1 dose of Lasix with close follow-up of potassium, shrink pit supervisor on the case We will discontinue Levaquin and monitor him off antibiotics, he already received 3 doses. Patient still has extensive expiratory wheezing, he wanted to be discharged to his for discharge, I advised him against leaving AMA with risks including respiratory failure, end organ damage and/or are explained to him and he verbalized understanding and acceptance and he agrees to stay in the hospital for now. Objective - Vital Signs Vital signs: Vital Signs Temp 98.0 F 11/02/20 12:00 Pulse 88 11/02/20 12:21 Resp 16 11/02/20 12:21 BP 125/63 11/02/20 12:00 Pulse Ox 93 L 11/02/20 12:00 Intake & Output 11/01/20 11/02/20 11/02/20 18:59 06:59 18:59 Intake Total 840 540 720 Output Total 300 Balance 540 540 720 Weight 120.4 kg Intake: Oral 840 540 720 Output: Urine 300 Other: Voiding Method Urinal # Voids 1 1 - Exam GENERAL: The patient is alert and oriented x3, not in any acute distress. Well developed, well nourished. HEENT: Pupils are round and equally reacting to light. EOMI. No scleral icterus. No conjunctival pallor. Normocephalic, atraumatic. No pharyngeal erythema. No thyromegaly. CARDIOVASCULAR: S1 and S2 present. No murmurs, rubs, or gallops. -PULMONARY: Chest is clear to auscultation, no bilateral extensive expiratory wheezing ABDOMEN: Soft, nontender, nondistended, normoactive bowel sounds. No palpable organomegaly. MUSCULOSKELETAL: No joint swelling or deformity. EXTREMITIES: No cyanosis, clubbing, or pedal edema. NEUROLOGICAL: Gross neurological examination did not reveal any focal deficits. SKIN: No rashes. no petechiae. - Labs CBC & Chem 7: 08/28/21 07:23 11/02/20 07:23 Labs: Abnormal Lab Results - Last 24 Hours (Table) 11/01/20 11/01/20 11/01/20 Range/Units 14:14 17:05 17:25 WBC (3.8-10.6) k/uL Hgb (13.0-17.5) gm/dL RDW (11.5-15.5) % Sodium (137-145) mmol/L Potassium 5.3 H (3.5-5.1) mmol/L Chloride (98-107) mmol/L Carbon Dioxide (22-30) mmol/L BUN (9-20) mg/dL Glucose (74-99) mg/dL POC Glucose (mg/dL) 167 H 374 H (75-99) mg/dL 11/01/20 11/02/20 11/02/20 Range/Units 19:50 05:56 07:23 WBC (3.8-10.6) k/uL Hgb (13.0-17.5) gm/dL RDW (11.5-15.5) % Sodium 128 L (137-145) mmol/L Potassium 5.7 H (3.5-5.1) mmol/L Chloride 88 L (98-107) mmol/L Carbon Dioxide 36 H (22-30) mmol/L BUN 33 H (9-20) mg/dL Glucose 136 H (74-99) mg/dL POC Glucose (mg/dL) 151 H 136 H (75-99) mg/dL 11/02/20 11/02/20 Range/Units 07:23 11:37 WBC 12.4 H (3.8-10.6) k/uL Hgb 12.1 L (13.0-17.5) gm/dL RDW 16.3 H (11.5-15.5) % Sodium (137-145) mmol/L Potassium (3.5-5.1) mmol/L Chloride (98-107) mmol/L Carbon Dioxide (22-30) mmol/L BUN (9-20) mg/dL Glucose (74-99) mg/dL POC Glucose (mg/dL) 188 H (75-99) mg/dL Assessment and Plan Assessment: Acute COPD exacerbation Hypoxic respiratory failure chronic hypoxic respiratory failure, he is on 3 L/m at home Hyponatremia Hypercalcemia Hypertension Hyperlipidemia Plan: This is a pleasant 66 years old male who presents with acute COPD exacerbation Troponin with Solu-Medrol Discontinue Levaquin as there is no strong evidence of infection Monitor Sodium and potassium and replace accordingly Labs and medication were reviewed.. Continue same treatment. Continue with symptomatic treatment. Resume home medication. Monitor lytes and vitals. DVT and GI prophylaxis. Further recommendationsas per clinical course of the patient DVT prophylaxis: Subcutaneous heparin GI Prophylaxis: Pepcid Dr. Peñaloza will resume the care of the patient on Saturday 11/04
[2020-11-02 16:50] LABS: Glucose,Whole Blood 225 mg/dL (75-99)
[2020-11-02 19:48] LABS: Glucose,Whole Blood 180 mg/dL (75-99)
[2020-11-03 05:45] LABS: Glucose,Whole Blood 125 mg/dL (75-99)
[2020-11-03] MEDS: MONTELUKAST 10 MG TAB PO SCH (06:35)
[2020-11-03] MEDS: methylPREDNISolone SOD SUCCI 125 MG/2 ML VIAL IV SCH ×4 (06:35→23:48)
[2020-11-03] MEDS: LORATADINE 10 MG TAB PO SCH (06:35)
[2020-11-03] MEDS: CHOLECALCIFEROL 25 MCG (1000 IU) TABLET PO SCH (06:35)
[2020-11-03] MEDS: ASPIRIN 81 MG PO SCH (06:35)
[2020-11-03] MEDS: CLOPIDOGREL 75 MG TAB PO SCH (06:35)
[2020-11-03] MEDS: ATORVASTATIN 10 MG TAB PO SCH (06:35)
[2020-11-03] MEDS: PANTOPRAZOLE 40 MG TABLET PO SCH (06:35)
[2020-11-03] MEDS: INSULIN ASPART (NovoLOG) 100 UNIT/ML VIAL SQ SCH ×4 (06:36→20:28)
[2020-11-03] MEDS: FLUTICASONE 110 MCG INHALER INHALATION SCH ×2 (07:45→18:39)
[2020-11-03] MEDS: IPRATROPIUM 0.5 MG/2.5 ML NEBU INHALATION SCH ×4 (07:45→18:39)
[2020-11-03 08:23] LABS: African American GFR (CKD) >90 (>60 ml/min/1.73 sqM); Anion Gap 4 mmol/L; Blood Urea Nitrogen 34 mg/dL (9-20); Carbon Dioxide 38 mmol/L (22-30); Chloride 86 mmol/L (98-107); Glucose 174 mg/dL (74-99); Magnesium 1.8 mg/dL (1.6-2.3); Non-African American GFR(CKD) 83 (>60 ml/min/1.73 sqM); Potassium 5.6 mmol/L (3.5-5.1); Sodium 128 mmol/L (137-145)
--- NOTE | 2020-11-03 09:07 | P.PN ---
Subjective Patient is seen in follow-up for hyperkalemia and hyponatremia. Sodium level stable. Potassium level 5.6 today. Good urine output. No vomiting or diarrhea. No active complaints at this time. Vital signs are stable. General: The patient appeared well nourished and normally developed. HEENT: On nasal cannula. LUNGS: Breath sounds decreased. HEART: Rate and Rhythm are regular. ABDOMEN: Soft, no distention. Obese. EXTREMITITES: No edema. Objective - Vital Signs Vital signs: Vital Signs Temp 98.2 F 11/02/20 20:00 Pulse 84 11/03/20 07:59 Resp 20 11/03/20 04:00 BP 105/68 11/03/20 04:00 Pulse Ox 91 L 11/03/20 04:00 Intake & Output 11/02/20 11/03/20 11/03/20 18:59 06:59 18:59 Intake Total 900 240 300 Output Total 300 Balance 900 240 0 Weight 121.7 kg Intake: Oral 900 240 300 Output: Urine 300 Other: # Voids 1 1 - Labs CBC & Chem 7: 11/02/20 07:23 11/03/20 07:50 Labs: Abnormal Lab Results - Last 24 Hours (Table) 11/02/20 11/02/20 11/02/20 Range/Units 11:37 15:26 16:42 Sodium (137-145) mmol/L Potassium 5.2 H (3.5-5.1) mmol/L Chloride (98-107) mmol/L Carbon Dioxide (22-30) mmol/L BUN (9-20) mg/dL Glucose (74-99) mg/dL POC Glucose (mg/dL) 188 H 225 H (75-99) mg/dL 11/02/20 11/03/20 11/03/20 Range/Units 19:46 05:43 07:50 Sodium 128 L (137-145) mmol/L Potassium 5.6 H (3.5-5.1) mmol/L Chloride 86 L (98-107) mmol/L Carbon Dioxide 38 H (22-30) mmol/L BUN 34 H (9-20) mg/dL Glucose 174 H (74-99) mg/dL POC Glucose (mg/dL) 180 H 125 H (75-99) mg/dL Assessment and Plan Plan: Assessment: 1. Hypovolemic hyponatremia initially. Now appears euvolemic. Sodium level 128 this morning. TSH normal. Urine sodium 20 and urine osmolality 324. 2. COPD exacerbation. 3. Hyperkalemia secondary to lisinopril and spironolactone. Stable. 4. Benign hypertension. Stable. Plan: 1200 mL fluid restriction. Encouraged oral intake, particularly protein. Low potassium diet. Continue to hold lisinopril and spironolactone for now. Samsca 15 mg once today. Repeat sodium and potassium level this evening.
[2020-11-03] MEDS: NICOTINE 21MG/24HR PATCH TRANSDERM SCH (09:21)
[2020-11-03] MEDS: HEPARIN SODIUM,PORCINE/PF 5,000 UNIT/0.5 ML SYRINGE SQ SCH ×2 (09:21→20:28)
[2020-11-03] MEDS ORDERED: TOLVAPTAN 15 MG 1/2 TABLET PO ONE (09:45)
--- NOTE | 2020-11-03 09:55 | P.PN ---
Subjective This is a pleasant 75 years old male with past medical history of coronary artery disease, dementia, diabetes mellitus, hyperlipidemia, hypertension, sleep apnea, hyperthyroidism. Also history of anxiety and depression which is not an active issue Presents because of respiratory issues and dyspnea found to have acute COPD exacerbation. He had no fever since admission, he had mild leukocytosis at 10.7 and today is 12.4 but also he is on steroids. Potassium is 5.7 and he received 1 dose of Lasix with close follow-up of potassium, cement rubber on the case We will discontinue Levaquin and monitor him off antibiotics, he already received 3 doses. Patient still has extensive expiratory wheezing, he wanted to be discharged to his for discharge, I advised him against leaving AMA with risks including respiratory failure, end organ damage and/or are explained to him and he verbalized understanding and acceptance and he agrees to stay in the hospital for now. 11/03/2020 Patient still with extensive wheezing and exertional dyspnea even with minimal exertion like talking are going to the bathroom. He is saturating 90s on 4 L oxygen via nasal cannula. Still slightly tachypneic. This sodium was slightly up today but at 128 and he got 1 dose By cement rubber. Potassium is stable at 5.6. Lisinopril and Aldactone are on hold. He is on subcu Medrol 60 mg daily. Objective - Vital Signs Vital signs: Vital Signs Temp 98.2 F 11/02/20 20:00 Pulse 84 11/03/20 07:59 Resp 20 11/03/20 04:00 BP 105/68 11/03/20 04:00 Pulse Ox 91 L 11/03/20 04:00 Intake & Output 11/02/20 11/03/20 11/03/20 18:59 06:59 18:59 Intake Total 900 240 300 Output Total 300 Balance 900 240 0 Weight 121.7 kg Intake: Oral 900 240 300 Output: Urine 300 Other: # Voids 1 1 - Exam GENERAL: The patient is alert and oriented x3, not in any acute distress. Well developed, well nourished. HEENT: Pupils are round and equally reacting to light. EOMI. No scleral icterus. No conjunctival pallor. Normocephalic, atraumatic. No pharyngeal erythema. No thyromegaly. CARDIOVASCULAR: S1 and S2 present. No murmurs, rubs, or gallops. -PULMONARY: Chest is clear to auscultation, no bilateral extensive expiratory wheezing ABDOMEN: Soft, nontender, nondistended, normoactive bowel sounds. No palpable organomegaly. MUSCULOSKELETAL: No joint swelling or deformity. EXTREMITIES: No cyanosis, clubbing, or pedal edema. NEUROLOGICAL: Gross neurological examination did not reveal any focal deficits. SKIN: No rashes. no petechiae. - Labs CBC & Chem 7: 11/02/20 07:23 11/03/20 07:50 Labs: Abnormal Lab Results - Last 24 Hours (Table) 11/02/20 11/02/20 11/02/20 Range/Units 11:37 15:26 16:42 Sodium (137-145) mmol/L Potassium 5.2 H (3.5-5.1) mmol/L Chloride (98-107) mmol/L Carbon Dioxide (22-30) mmol/L BUN (9-20) mg/dL Glucose (74-99) mg/dL POC Glucose (mg/dL) 188 H 225 H (75-99) mg/dL 11/02/20 11/03/20 11/03/20 Range/Units 19:46 05:43 07:50 Sodium 128 L (137-145) mmol/L Potassium 5.6 H (3.5-5.1) mmol/L Chloride 86 L (98-107) mmol/L Carbon Dioxide 38 H (22-30) mmol/L BUN 34 H (9-20) mg/dL Glucose 174 H (74-99) mg/dL POC Glucose (mg/dL) 180 H 125 H (75-99) mg/dL Assessment and Plan Assessment: Acute COPD exacerbation Hypoxic respiratory failure chronic hypoxic respiratory failure, he is on 3 L/m at home Hyponatremia Hypercalcemia Hypertension Hyperlipidemia Plan: This is a pleasant 66 years old male who presents with acute COPD exacerbation Troponin with Solu-Medrol Discontinue Levaquin as there is no strong evidence of infection Monitor Sodium and potassium and replace accordingly Labs and medication were reviewed.. Continue same treatment. Continue with symptomatic treatment. Resume home medication. Monitor lytes and vitals. DVT and GI prophylaxis. Further recommendationsas per clinical course of the patient DVT prophylaxis: Subcutaneous heparin GI Prophylaxis: Pepcid Dr. Peñaloza will resume the care of the patient on Saturday 11/04
--- NOTE | 2020-11-03 10:28 | P.PN ---
Subjective Progress Note Date: 11/03/20 This is a very pleasant 75-year-old gentleman with a known history of coronary artery disease with previous stent to the RCA, hyperlipidemia, hypertension, secondary polycythemia, previous AAA repair in 2016, significant oxygen dependent chronic obstructive pulmonary disease with an FEV1 value 36% of pr edicted. Chronic and ongoing tobacco dependence. He presented to the emergency room yesterday with complaints of generalized weakness, shortness of breath. He is seen today in consultation on the regular medical floor. He is currently on DuoNeb inhalations, Pulmicort and Perforomist inhalations, IV Solu-Medrol, Levaquin. He is currently sitting up in a chair at the bedside. He is a bit anxious. He states his breathing is better today compared to yesterday. Chest x-ray revealed no acute pulmonary process. White count 10.7. Hemoglobin 13.3. Platelets 375. Initial sodium 116, currently 122. Creatinine 0.72. Troponin negative times one. ProBNP 447. TSH 0.514. On 11/01/2020 patient seen in follow-up on selective care unit, still mildly bronchospastic, but improving, currently on 4 L of oxygen pulse ox of 94%, he's had no acute events overnight, no fever or chills, overall breathing easier. Continues on IV steroids, nebulized bronchodilators, and antibiotics. Today's labs have been noted. Serum sodium is up to 126, potassium is 5.7, chloride is 89, BUN is 31, creatinine 0.94 11/02/2020, the patient is doing well. No new complaints. Still bronchospastic and wheezy and is gradually improving. No chest pain. No angina. No palpitations. No other significant events overnight. He is gradually improving. He remains on bronchodilators and steroids. His white cell count is at 12.4. His sodium level is also improvement up to 128 and a potassium level of 5.7. The plywood stock grader on the case. Is being offered fluid restriction. 11/03/2020, the patient decided to stay in the hospital for another day for IV steroids and bronchodilator treatment. History bronchospastic and wheezy. He is gradually improving. No chest pain. His sodium level is up to 128. He is still being seen by nephrology. Potassium level is at 5.6 and the patient's off Aldactone and lisinopril for now. He remains on IV Solu Medrol 60 mg every 6 hours. He is also on bronchodilators [id number]. No chest pain. He is ambulating. He is hemodynamically stable. Objective - Vital Signs Vital signs: Vital Signs Temp 98.2 F 11/02/20 20:00 Pulse 77 11/03/20 08:00 Resp 20 11/03/20 08:00 BP 100/57 11/03/20 08:00 Pulse Ox 91 L 11/03/20 08:00 Intake & Output 11/02/20 11/03/20 11/03/20 18:59 06:59 18:59 Intake Total 900 240 300 Output Total 300 Balance 900 240 0 Weight 121.7 kg Intake: Oral 900 240 300 Output: Urine 300 Other: # Voids 1 1 - Exam GENERAL EXAM: Alert, very pleasant, 75-year-old white male, on 4 L of oxygen pulse ox of 94% comfortable in no apparent distress. HEAD: Normocephalic/atraumatic. EYES: Normal reaction of pupils, equal size. Conjunctiva pink, sclera white. NOSE: Clear with pink turbinates. THROAT: No erythema or exudates. NECK: No masses, no JVD, no thyroid enlargement, no adenopathy. CHEST: No chest wall deformity. Symmetrical expansion. LUNGS: Equal air entry with no crackles, wheeze, rhonchi or dullness. CVS: Regular rate and rhythm, normal S1 and S2, no gallops, no murmurs, no rubs ABDOMEN: Soft, nontender. No hepatosplenomegaly, normal bowel sounds, no guarding or rigidity. EXTREMITIES: No clubbing, no edema, no cyanosis, 2+ pulses and upper and lower extremities. MUSCULOSKELETAL: Muscle strength and tone normal. SPINE: No scoliosis or deformity SKIN: No rashes CENTRAL NERVOUS SYSTEM: Alert and oriented -3. No focal deficits, tone is normal in all 4 extremities. PSYCHIATRIC: Alert and oriented -3. Appropriate affect. Intact judgment and insight. - Labs CBC & Chem 7: 11/02/20 07:23 11/03/20 07:50 Labs: Abnormal Lab Results - Last 24 Hours (Table) 11/02/20 11/02/20 11/02/20 Range/Units 11:37 15:26 16:42 Sodium (137-145) mmol/L Potassium 5.2 H (3.5-5.1) mmol/L Chloride (98-107) mmol/L Carbon Dioxide (22-30) mmol/L BUN (9-20) mg/dL Glucose (74-99) mg/dL POC Glucose (mg/dL) 188 H 225 H (75-99) mg/dL 11/02/20 11/03/20 11/03/20 Range/Units 19:46 05:43 07:50 Sodium 128 L (137-145) mmol/L Potassium 5.6 H (3.5-5.1) mmol/L Chloride 86 L (98-107) mmol/L Carbon Dioxide 38 H (22-30) mmol/L BUN 34 H (9-20) mg/dL Glucose 174 H (74-99) mg/dL POC Glucose (mg/dL) 180 H 125 H (75-99) mg/dL Assessment and Plan Plan: 1 Acute on chronic hypoxemic respiratory failure secondary to an acute exa cerbation of chronic obstructive pulmonary disease, clinically improving 2 Generalized weakness secondary to hyponatremia, presenting sodium 116, currently at 128, the sodium level is improving and the patient is undergoing fluid restriction. 3 Chronic and ongoing tobacco dependence 4 Coronary artery disease with previous stent placement to the RCA 5 Secondary polycythemia 6 Hyperlipidemia 7 Hypertension 8 History of abdominal aortic aneurysm repair in 2016 Plan: Continue current medical treatment, Continue Solu-Medrol and switch this patient a prednisone burst taper at time of discharge Fluid restriction Monitor sodium level Monitor electrolytes Will stay in hospital for another 24 hours regarding his COPD exacerbation sodium levels. We'll continue to follow.
[2020-11-03 11:43] LABS: Glucose,Whole Blood 120 mg/dL (75-99)
[2020-11-03 16:17] LABS: Glucose,Whole Blood 158 mg/dL (75-99)
[2020-11-03 16:38] LABS: African American GFR (CKD) >90 (>60 ml/min/1.73 sqM); Anion Gap 4 mmol/L; Blood Urea Nitrogen 35 mg/dL (9-20); Calcium 9.3 mg/dL (8.4-10.2); Carbon Dioxide 36 mmol/L (22-30); Chloride 89 mmol/L (98-107); Glucose 160 mg/dL (74-99); Non-African American GFR(CKD) 78 (>60 ml/min/1.73 sqM); Potassium 5.4 mmol/L (3.5-5.1); Sodium 129 mmol/L (137-145)
[2020-11-03 20:19] LABS: Glucose,Whole Blood 186 mg/dL (75-99)
[2020-11-04] MEDS: MONTELUKAST 10 MG TAB PO SCH (05:00)
[2020-11-04] MEDS: CHOLECALCIFEROL 25 MCG (1000 IU) TABLET PO SCH (05:00)
[2020-11-04] MEDS: CLOPIDOGREL 75 MG TAB PO SCH (05:00)
[2020-11-04] MEDS: ASPIRIN 81 MG PO SCH (05:00)
[2020-11-04] MEDS: ATORVASTATIN 10 MG TAB PO SCH (05:00)
[2020-11-04] MEDS: PANTOPRAZOLE 40 MG TABLET PO SCH (05:00)
[2020-11-04] MEDS: LORATADINE 10 MG TAB PO SCH (05:00)
[2020-11-04] MEDS: methylPREDNISolone SOD SUCCI 125 MG/2 ML VIAL IV SCH (05:01)
[2020-11-04 06:05] LABS: Glucose,Whole Blood 135 mg/dL (75-99)
[2020-11-04] MEDS: INSULIN ASPART (NovoLOG) 100 UNIT/ML VIAL SQ SCH (06:33)
[2020-11-04 06:59] LABS: African American GFR (CKD) >90 (>60 ml/min/1.73 sqM); Anion Gap 4 mmol/L; Blood Urea Nitrogen 37 mg/dL (9-20); Calcium 9.3 mg/dL (8.4-10.2); Carbon Dioxide 38 mmol/L (22-30); Chloride 91 mmol/L (98-107); Glucose 126 mg/dL (74-99); Magnesium 1.9 mg/dL (1.6-2.3); Non-African American GFR(CKD) 86 (>60 ml/min/1.73 sqM); Potassium 5.9 mmol/L (3.5-5.1); Sodium 133 mmol/L (137-145)
[2020-11-04] MEDS: HEPARIN SODIUM,PORCINE/PF 5,000 UNIT/0.5 ML SYRINGE SQ SCH (08:17)
[2020-11-04] MEDS ORDERED: SODIUM POLYSTYRENE SULFONATE 15 GM/60 ML BOTTLE PO STA (08:18)
--- NOTE | 2020-11-04 08:18 | P.DS ---
Providers Date of admission: 10/30/20 12:31 Attending physician: Jayro Peñaloza Consults: 10/30/20 14:43 Consult Physician Routine Consulting Provider: Miah Linder Consult Reason/Comments: High potassium, elevated BUN, Low Sodium Do you want consulting provider notified?: Yes 10/30/20 14:58 Consult Physician Routine Consulting Provider: Dionisio Woodruff Consult Reason/Comments: COPD exacerbation Do you want consulting provider notified?: Yes Primary care physician: Jayro Peñaloza - Discharge Diagnosis(es) (1) COPD exacerbation Current Visit: Yes Status: Acute (2) Hypoxia Current Visit: No Status: Acute (3) Smoker Current Visit: No Status: Acute (4) Polycythemia vera, acquired Current Visit: No Status: Chronic Priority: Medium Hospital Course: The patient is a 75-year-old white male essentially admitted for exacerbation of COPD. He still continues to smoke at home and he was placed on appropriate steroid treatment. The patient states no significant new complaints. No nausea or vomiting stated. Breathing is almost back to his normal baseline. The patient has significant hypoxia on admission and was stabilized. He will be sent home on appropriate oxygen treatment. I wanted the patient's stay in next 24-48 hours for more treatment but the patient reluctant to do that at this time. He'll discharged in guarded condition to follow-up with me in about 3-5 days. Patient Condition at Discharge: Fair Plan - Discharge Summary Discharge Rx Participant: Yes New Discharge Prescriptions: New Ipratropium Nebulized [Atrovent Nebulized 0.2 MG/ML] 0.5 mg INHALATION RT-QID 30 Days #100 ampul predniSONE [Deltasone] 0 mg PO DIRECTED #18 tab Nicotine 21Mg/24Hr Patch [Habitrol] 1 patch TRANSDERM DAILY #30 patch Continue Lisinopril [Zestril] 10 mg PO DAILY@0600 Atorvastatin [Lipitor] 10 mg PO DAILY@0600 Aspirin EC [Ecotrin Low Dose] 81 mg PO DAILY@0600 Budesonide [Pulmicort Flexhaler] 1 puff INHALATION RT-BID Umeclidinium Brm/Vilanterol Tr [Anoro Ellipta 62.5-25 Mcg INH] 2 puff INHALATION RT-DAILY@0600 Cholecalciferol [Vitamin D3 (25 Mcg = 1000 Iu)] 1,000 unit PO DAILY@0600 Cetirizine HCl [Zyrtec] 10 mg PO DAILY@06 Clopidogrel [Plavix] 75 mg PO DAILY@06 Montelukast [Singulair] 10 mg PO DAILY@06 Spironolactone 25 mg PO DAILY@06 Albuterol Nebulized [Ventolin Nebulized] 2.5 mg INHALATION RT-BID Pantoprazole [Protonix] 40 mg PO DAILY@0600 Discharge Medication List Aspirin EC [Ecotrin Low Dose] 81 mg PO DAILY@0602/06/16 [History] Atorvastatin [Lipitor] 10 mg PO DAILY@0602/06/16 [History] Lisinopril [Zestril] 10 mg PO DAILY@59902/06/16 [History] Budesonide [Pulmicort Flexhaler] 1 puff INHALATION RT-BID 11/07/19 [History] Cholecalciferol [Vitamin D3 (25 Mcg = 1000 Iu)] 1,000 unit PO DAILY@59911/07/19 [History] Umeclidinium Brm/Vilanterol Tr [Anoro Ellipta 62.5-25 Mcg INH] 2 puff INHALATION RT-DAILY@59911/07/19 [History] Albuterol Nebulized [Ventolin Nebulized] 2.5 mg INHALATION RT-BID 10/30/20 [History] Cetirizine HCl [Zyrtec] 10 mg PO DAILY@0610/30/20 [History] Clopidogrel [Plavix] 75 mg PO DAILY@59910/30/20 [History] Montelukast [Singulair] 10 mg PO DAILY@59910/30/20 [History] Pantoprazole [Protonix] 40 mg PO DAILY@59910/30/20 [History] Spironolactone 25 mg PO DAILY@59910/30/20 [History] Ipratropium Nebulized [Atrovent Nebulized 0.2 MG/ML] 0.5 mg INHALATION RT-QID 30 Days #100 ampul 11/04/20 [Rx] Nicotine 21Mg/24Hr Patch [Habitrol] 1 patch TRANSDERM DAILY #30 patch 11/04/20 [Rx] predniSONE [Deltasone] 0 mg PO DIRECTED #18 tab 11/04/20 [Rx] Follow up Appointment(s)/Referral(s): Jayro Peñaloza MD [Primary Care Provider] - 1 Week Discharge Disposition: HOME WITH HOME HEALTH SERVICES
[2020-11-04] MEDS: FLUTICASONE 110 MCG INHALER INHALATION SCH (08:48)
[2020-11-04] MEDS: IPRATROPIUM 0.5 MG/2.5 ML NEBU INHALATION SCH (08:48)
[2020-11-04] MEDS ORDERED: FUROSEMIDE 10 MG/ML 2 ML VIAL IV ONE (09:13)
--- NOTE | 2020-11-04 09:14 | P.PN ---
Subjective Patient is seen in follow-up for hyperkalemia and hyponatremia. Sodium level improved. He did receive a dose of Samsca yesterday. Potassium level 5.9 today. Good urine output. No vomiting or diarrhea. No active complaints at this time. Vital signs are stable. General: The patient appeared well nourished and normally developed. HEENT: On nasal cannula. LUNGS: Breath sounds decreased. HEART: Rate and Rhythm are regular. ABDOMEN: Soft, no distention. Obese. EXTREMITITES: No edema. Objective - Vital Signs Vital signs: Vital Signs Temp 98.4 F 11/04/20 04:00 Pulse 88 11/04/20 09:02 Resp 16 11/04/20 04:00 BP 151/76 11/04/20 04:00 Pulse Ox 96 11/04/20 04:00 Intake & Output 11/03/20 11/04/20 11/04/20 18:59 06:59 18:59 Intake Total 480 100 180 Output Total 300 Balance 180 100 180 Weight 116.3 kg Intake: Oral 480 100 180 Output: Urine 300 Other: # Voids 2 1 - Labs CBC & Chem 7: 11/02/20 07:23 11/04/20 05:53 Labs: Abnormal Lab Results - Last 24 Hours (Table) 11/03/20 11/03/20 11/03/20 Range/Units 11:40 16:05 16:15 Sodium 129 L (137-145) mmol/L Potassium 5.4 H (3.5-5.1) mmol/L Chloride 89 L (98-107) mmol/L Carbon Dioxide 36 H (22-30) mmol/L BUN 35 H (9-20) mg/dL Glucose 160 H (74-99) mg/dL POC Glucose (mg/dL) 120 H 158 H (75-99) mg/dL 11/03/20 11/04/20 11/04/20 Range/Units 20:18 05:53 06:03 Sodium 133 L (137-145) mmol/L Potassium 5.9 H (3.5-5.1) mmol/L Chloride 91 L (98-107) mmol/L Carbon Dioxide 38 H (22-30) mmol/L BUN 37 H (9-20) mg/dL Glucose 126 H (74-99) mg/dL POC Glucose (mg/dL) 186 H 135 H (75-99) mg/dL Assessment and Plan Plan: Assessment: 1. Hypovolemic hyponatremia initially. Now appears euvolemic. Sodium level 128 this morning. TSH normal. Urine sodium 20 and urine osmolality 324. 2. COPD exacerbation. 3. Hyperkalemia secondary to lisinopril and spironolactone. Stable. 4. Benign hypertension. Stable. Plan: 1200 mL fluid restriction. Encouraged oral intake, particularly protein. Low potassium diet. Continue to hold lisinopril and spironolactone for now. Lasix 20 mg IV once now. He also received a dose of Kayexalate this morning. Repeat potassium level this afternoon.
[2020-11-04 09:57] VITALS: BP 117/56; PULSE 90; RESP 18; TEMP 98.2
[2020-11-04] MEDS: NICOTINE 21MG/24HR PATCH TRANSDERM SCH (10:00)
--- NOTE | 2020-11-04 12:00 | PN ---
PROGRESS NOTE PULMONARY/CRITICAL CARE PROGRESS NOTE: DATE: 11/04/20. This is a 75-year-old male who was admitted with a diagnosis of COPD exacerbation. He has acute on chronic hypoxemic respiratory failure, coronary artery disease, chronic and ongoing tobacco dependence, secondary hyperlipidemia, hypertension, and a history of abdominal aortic aneurysm repair back in 2016. The patient is apparently likely to be discharged home today. Home oxygen is already in place. The patient is feeling much improved. PHYSICAL EXAMINATION: Current vital signs are reviewed; temperature 98.2 Heart rate 88, respiratory rate 18, blood pressure 117/56 mean 76. 4 L saturation 92%. Appears in no acute distress. He is sitting in a chair. Drinking water. Nasal O2 in place. HEENT: Examination is grossly unremarkable. NECK: Supple. Full range of motion. Neck veins are flat. CARDIOVASCULAR examination: Regular rate. S1, S2 normal. No S3, S4, or murmur. Heart rate 88. LUNGS: Reveal mostly clear breath sounds. A few scattered rhonchi. No wheezes or crackles. Breath sounds are equal and diminished throughout. ABDOMEN: Obese bowel sounds are noted. EXTREMITIES are intact. No clubbing or edema. SKIN: Without rash. NEUROLOGIC: Examination is brief but nonfocal. His sodium 133, potassium 5.9, chloride 91, CO2 38, anion gap 4. BUN 37, and creatinine 0.8. Microbiology is negative. No chest x-ray to report. Medications are reviewed. ASSESSMENT: 1. Acute on chronic hypoxemic respiratory failure secondary to COPD exacerbation, much improved. 2. Generalized weakness, secondary to hyponatremia. 3. Chronic and ongoing tobacco dependence. 4. Coronary artery disease with previous stent placed right coronary artery. 5. Secondary polycythemia, caused by the patient's chronic hypoxemic respiratory failure. 6. Hyperlipidemia. 7. Obesity. 8. Hypertension. 9. Aortic aneurysm repair, 2016. PLAN: The patient will be discharged home today. No additional recommendations are made. We will continue to follow. The patient will follow up with Dr. Woodruff in an outpatient setting. The patient's sodium is up to 133 this morning. MMODL / IJN: [id number] /
== END 2020-11-04 11:18 | disposition home health service (06) | DRG 190 ==
LOC: EC 09:48 → 3SCARD 12:31
PROVIDERS: ADMIT Family Medicine; ATTEND Family Medicine
DX: J44.1 Chronic obstructive pulmonary disease with (acute) exacerbation (principal); J96.21 Acute and chronic respiratory failure with hypoxia; E87.1 Hypo-osmolality and hyponatremia; F17.200 Nicotine dependence, unspecified, uncomplicated; I25.10 Atherosclerotic heart disease of native coronary artery without angina pectoris; E87.5 Hyperkalemia; E78.49 Other hyperlipidemia; E66.9 Obesity, unspecified; I45.10 Unspecified right bundle-branch block; D45 Polycythemia vera; E86.1 Hypovolemia; E83.52 Hypercalcemia; E11.9 Type 2 diabetes mellitus without complications; F03.90 Unspecified dementia, unspecified severity, without behavioral disturbance, psychotic disturbance, mood disturbance, and anxiety; I10 Essential (primary) hypertension; Z79.82 Long term (current) use of aspirin; Z79.02 Long term (current) use of antithrombotics/antiplatelets; Z82.49 Family history of ischemic heart disease and other diseases of the circulatory system; Z95.5 Presence of coronary angioplasty implant and graft; Z99.81 Dependence on supplemental oxygen; Z86.79 Personal history of other diseases of the circulatory system; Z79.899 Other long term (current) drug therapy; T46.4X5A Adverse effect of angiotensin-converting-enzyme inhibitors, initial encounter; T50.0X5A Adverse effect of mineralocorticoids and their antagonists, initial encounter; Z68.35 Body mass index [BMI] 35.0-35.9, adult
CPT/HCPCS: 36415; 71046; 80048; 80053; 83605; 83735; 83880; 83930; 83935; 84132; 84295; 84300; 84443; 84484; 85025; 85027; 85610; 85730; 93005; 94640; 94760; 96361; 96374; 99291

== ENCOUNTER 2020-12-05 23:16 | Inpatient (IN) | payer MEDICARE ==
[2020-12-05] MEDS ORDERED: methylPREDNISolone SOD SUCCI 125 MG/2 ML VIAL IV STA (23:39)
[2020-12-05] MEDS ORDERED: SODIUM CHLORIDE 0.9% 1,000 ML IV STA (23:39)
[2020-12-05] MEDS ORDERED: ALBUTEROL NEBULIZED 2.5 MG/3 ML INHALATION STA (23:39)
[2020-12-05] MEDS ORDERED: IPRATROPIUM 0.5 MG/2.5 ML NEBU INHALATION STA (23:39)
--- NOTE | 2020-12-05 23:41 | ED ---
Weakness HPI - General Source: patient, EMS Mode of arrival: EMS Limitations: physical limitation <Adalberto Mccann - Last Filed: 12/06/20 01:50> <Ailin Wilhelm - Last Filed: 12/06/20 01:54> - General Chief complaint: Fall Stated complaint: FALL Time Seen by Provider: 12/05/20 23:18 - Related Data Home Medications Medication Instructions Recorded Confirmed Aspirin EC [Ecotrin Low Dose] 81 mg PO DAILY@59902/06/16 12/05/20 Atorvastatin [Lipitor] 10 mg PO DAILY@59902/06/16 12/05/20 Budesonide [Pulmicort Flexhaler] 1 puff INHALATION RT-BID 11/07/19 12/05/20 Cholecalciferol [Vitamin D3 (25 1,000 unit PO DAILY@59911/07/19 12/05/20 Mcg = 1000 Iu)] Umeclidinium Brm/Vilanterol Tr 2 puff INHALATION RT-DAILY@59911/07/19 12/05/20 [Anoro Ellipta 62.5-25 Mcg INH] Albuterol Nebulized [Ventolin 2.5 mg INHALATION RT-BID 10/30/20 12/05/20 Nebulized] Cetirizine HCl [Zyrtec] 10 mg PO DAILY@59910/30/20 12/05/20 Clopidogrel [Plavix] 75 mg PO DAILY@59910/30/20 12/05/20 Montelukast [Singulair] 10 mg PO DAILY@59910/30/20 12/05/20 Pantoprazole [Protonix] 40 mg PO DAILY@59910/30/20 12/05/20 Nicotine 21Mg/24Hr Patch [Habitrol] 1 patch TRANSDERM DAILY PRN 12/05/20 12/05/20 Previous Rx's Medication Instructions Recorded Furosemide [Lasix] 20 mg PO DAILY #30 tab 11/04/20 Ipratropium Nebulized [Atrovent 0.5 mg INHALATION RT-QID 30 Days 11/04/20 Nebulized 0.2 MG/ML] #100 ampul Allergies Allergy/AdvReac Type Severity Reaction Status Date / Time No Known Allergies Allergy Verified 12/05/20 23:27 Review of Systems ROS Other: All systems not noted in ROS Statement are negative. <Adalberto Mccann - Last Filed: 12/06/20 01:50> ROS Other: All systems not noted in ROS Statement are negative. <Ailin Wilhelm - Last Filed: 12/06/20 01:54> ROS Statement: Those systems with pertinent positive or pertinent negative responses have been documented in the HPI. Past Medical History Past Medical History: COPD, Hyperlipidemia, Hypertension Additional Past Medical History / Comment(s): Secondary Polycythemia Vera History of Any Multi-Drug Resistant Organisms: None Reported Past Surgical History: No Surgical Hx Reported Additional Past Surgical History / Comment(s): AAA REPAIR 01/28/2016 Past Anesthesia/Blood Transfusion Reactions: No Reported Reaction Past Psychological History: No Psychological Hx Reported Smoking Status: Current every day smoker Past Alcohol Use History: None Reported Past Drug Use History: None Reported - Past Family History Father Family Medical History: Myocardial Infarction ([place]) Brother(s) Family Medical History: Cancer <Adalberto Mccann - Last Filed: 12/06/20 01:50> General Exam Limitations: physical limitation <Adalberto Mccann - Last Filed: 12/06/20 01:50> Course Vital Signs 12/05/20 12/06/20 12/06/20 23:20 00:13 00:22 Temperature 98.2 F Pulse Rate 88 88 96 Respiratory 24 Rate Blood Pressure 131/65 O2 Sat by Pulse 93 L Oximetry 12/06/20 00:45 Temperature Pulse Rate Respiratory 28 H Rate Blood Pressure O2 Sat by Pulse Oximetry EKG Findings - EKG Comments: EKG Findings:: PG shows sinus rhythm 83 NJ 1:30 QRS 148 QTc 427 <Adalberto Mccann - Last Filed: 12/06/20 01:50> Procedures - Laceration Laceration #1 Consent Obtained: verbal consent Indication: laceration Site: other (left foot, 5th digit, plantar surface) Size (cm): 2 Description: irregular Depth: simple, single layer Anesthetic Used: lidocaine 1% Anesthesia Technique: local infiltration Amount (mls): 2 Pre-repair: wound explored, irrigated extensively Type of Sutures: vicryl Size of Sutures: 4-0 Number of Sutures: 3 Technique: simple, interrupted Patient Tolerated Procedure: well, no complications <Ailin Wilhelm - Last Filed: 12/06/20 01:54> Medical Decision Making - Lab Data Result diagrams: 12/05/20 23:51 12/05/20 23:51 <Adalberto Mccann - Last Filed: 12/06/20 01:50> - Lab Data Result diagrams: 12/05/20 23:51 12/05/20 23:51 <MelonieAilin - Last Filed: 12/06/20 01:54> - Lab Data Lab Results 12/05/20 12/05/20 12/05/20 Range/Units 23:51 23:51 23:51 WBC 11.6 H (3.8-10.6) k/uL RBC 4.12 L (4.30-5.90) m/uL Hgb 10.1 L (13.0-17.5) gm/dL Hct 35.7 L (39.0-53.0) % MCV 86.6 (80.0-100.0) fL MCH 24.4 L (25.0-35.0) pg MCHC 28.2 L (31.0-37.0) g/dL RDW 17.1 H (11.5-15.5) % Plt Count 360 (150-450) k/uL MPV 7.8 Neutrophils % (Manual) 69 % Band Neuts % (Manual) 11 % Lymphocytes % (Manual) 10 % Monocytes % (Manual) 3 % Eosinophils % (Manual) 1 % Metamyelocytes % 5 % Myelocytes % 2 % Neutrophils # (Manual) 9.20 H (1.3-7.7) k/uL Lymphocytes # (Manual) 1.16 (1.0-4.8) k/uL Monocytes # (Manual) 0.35 (0-1.0) k/uL Eosinophils # (Manual) 0.12 (0-0.7) k/uL Metamyelocytes # (Man) 0.58 H (0) k/uL Myelocytes # (Manual) 0.23 H (0) k/uL Nucleated RBCs 1 H (0-0) /100 WBC Manual Slide Review Performed Large Platelets Present Polychromasia Present Hypochromasia Marked Poikilocytosis Slight Anisocytosis Slight Target Cells Present PT 9.9 (9.0-12.0) sec INR 0.9 (<1.2) APTT 21.4 L (22.0-30.0) sec Sodium 123 L (137-145) mmol/L Potassium 5.8 H (3.5-5.1) mmol/L Chloride 80 L (98-107) mmol/L Carbon Dioxide 38 H (22-30) mmol/L Anion Gap 5 mmol/L BUN 20 (9-20) mg/dL Creatinine 0.77 (0.66-1.25) mg/dL Est GFR (CKD-EPI)AfAm >90 (>60 ml/min/1.73 sqM) Est GFR (CKD-EPI)NonAf 88 (>60 ml/min/1.73 sqM) Glucose 129 H (74-99) mg/dL Plasma Lactic Acid Garth (0.7-2.0) mmol/L Calcium 8.8 (8.4-10.2) mg/dL Magnesium 1.9 (1.6-2.3) mg/dL Total Bilirubin 0.4 (0.2-1.3) mg/dL AST 42 (17-59) U/L ALT 15 (4-49) U/L Alkaline Phosphatase 84 (38-126) U/L Creatine Kinase 40 L (55-170) U/L Troponin I (0.000-0.034) ng/mL Total Protein 6.8 (6.3-8.2) g/dL Albumin 3.5 (3.5-5.0) g/dL 12/05/20 12/05/20 Range/Units 23:51 23:51 WBC (3.8-10.6) k/uL RBC (4.30-5.90) m/uL Hgb (13.0-17.5) gm/dL Hct (39.0-53.0) % MCV (80.0-100.0) fL MCH (25.0-35.0) pg MCHC (31.0-37.0) g/dL RDW (11.5-15.5) % Plt Count (150-450) k/uL MPV Neutrophils % (Manual) % Band Neuts % (Manual) % Lymphocytes % (Manual) % Monocytes % (Manual) % Eosinophils % (Manual) % Metamyelocytes % % Myelocytes % % Neutrophils # (Manual) (1.3-7.7) k/uL Lymphocytes # (Manual) (1.0-4.8) k/uL Monocytes # (Manual) (0-1.0) k/uL Eosinophils # (Manual) (0-0.7) k/uL Metamyelocytes # (Man) (0) k/uL Myelocytes # (Manual) (0) k/uL Nucleated RBCs (0-0) /100 WBC Manual Slide Review Large Platelets Polychromasia Hypochromasia Poikilocytosis Anisocytosis Target Cells PT (9.0-12.0) sec INR (<1.2) APTT (22.0-30.0) sec Sodium (137-145) mmol/L Potassium (3.5-5.1) mmol/L Chloride (98-107) mmol/L Carbon Dioxide (22-30) mmol/L Anion Gap mmol/L BUN (9-20) mg/dL Creatinine (0.66-1.25) mg/dL Est GFR (CKD-EPI)AfAm (>60 ml/min/1.73 sqM) Est GFR (CKD-EPI)NonAf (>60 ml/min/1.73 sqM) Glucose (74-99) mg/dL Plasma Lactic Acid Garth 0.7 (0.7-2.0) mmol/L Calcium (8.4-10.2) mg/dL Magnesium (1.6-2.3) mg/dL Total Bilirubin (0.2-1.3) mg/dL AST (17-59) U/L ALT (4-49) U/L Alkaline Phosphatase (38-126) U/L Creatine Kinase (55-170) U/L Troponin I <0.012 (0.000-0.034) ng/mL Total Protein (6.3-8.2) g/dL Albumin (3.5-5.0) g/dL Disposition Is patient prescribed a controlled substance at d/c from ED?: No <Adalberto Mccann - Last Filed: 12/06/20 01:50> <Ailin Wilhelm - Last Filed: 12/06/20 01:54> Clinical Impression: Hypoxia, COPD exacerbation, Fall, Hyponatremia, Hyperkalemia, Laceration of toe, left Disposition: ADMITTED IP TO THIS HOSP Condition: Serious Referrals: Jayro Peñaloza MD [Primary Care Provider] - 1-2 days
[2020-12-05] MEDS ORDERED: LIDOCAINE 1% INJ 10MG/ML (20 ML MDV) SQ ONE (23:46)
[2020-12-06] MEDS ORDERED: DIPH,PERTUS(ACELL)TETVAC-LF 0.5 ML VIAL IM ONE (00:03)
[2020-12-06 00:13] LABS: Anisocytosis Slight; HCT 35.7 % (39.0-53.0); HGB 10.1 gm/dL (13.0-17.5); Hypochromasia Marked; MCH 24.4 pg (25.0-35.0); MCHC 28.2 g/dL (31.0-37.0); MCV 86.6 fL (80.0-100.0); Mean Platelet Volume 7.8; Platelet Count 360 k/uL (150-450); Poikilocytosis Slight; RBC 4.12 m/uL (4.30-5.90); RDW 17.1 % (11.5-15.5)
--- NOTE | 2020-12-06 00:16 | XR ---
EXAMINATION TYPE: XR chest 1V portable DATE OF EXAM: 12/06/2020 COMPARISON: 10/30/2020 HISTORY: Cough TECHNIQUE: FINDINGS: Heart is enlarged. There is some coarsening of interstitial markings. There is no definite pleural effusion. There are no hilar masses. Thoracic aorta is atheromatous. There are chest leads. IMPRESSION: Cardiomegaly and pulmonary fibrosis. No obvious heart failure. No significant change.
--- NOTE | 2020-12-06 00:17 | XR ---
EXAMINATION TYPE: XR foot complete LT DATE OF EXAM: 12/06/2020 COMPARISON: NONE HISTORY: Pain TECHNIQUE: 3 views FINDINGS: Metatarsals are intact. I see no fracture nor dislocation. The toes appear intact. There is large plantar calcaneal spur. There are no erosions. There is some thickening of the fourth metatars al that could relate to an old injury. IMPRESSION: Calcaneal spurring. No acute bony abnormality.
[2020-12-06 00:23] LABS: ALT 15 U/L (4-49); AST 42 U/L (17-59); African American GFR (CKD) >90 (>60 ml/min/1.73 sqM); Albumin 3.5 g/dL (3.5-5.0); Alkaline Phosphatase 84 U/L (38-126); Anion Gap 5 mmol/L; Blood Urea Nitrogen 20 mg/dL (9-20); Calcium 8.8 mg/dL (8.4-10.2); Carbon Dioxide 38 mmol/L (22-30); Chloride 80 mmol/L (98-107); Creatine Kinase 40 U/L (55-170); Glucose 129 mg/dL (74-99); Magnesium 1.9 mg/dL (1.6-2.3); Non-African American GFR(CKD) 88 (>60 ml/min/1.73 sqM); Potassium 5.8 mmol/L (3.5-5.1); Sodium 123 mmol/L (137-145); Total Bilirubin 0.4 mg/dL (0.2-1.3); Total Protein 6.8 g/dL (6.3-8.2)
[2020-12-06 00:41] LABS: INR 0.9 (<1.2); Prothrombin Time 9.9 sec (9.0-12.0)
[2020-12-06 00:43] LABS: Partial Thromboplastin Time 21.4 sec (22.0-30.0)
[2020-12-06] MEDS ORDERED: SODIUM CHLORIDE 0.9% 500 ML 500 ML IV STA (00:59)
[2020-12-06] MEDS ORDERED: SODIUM CHLORIDE 0.9% 1,000 ML IV STA (00:59)
[2020-12-06] MEDS ORDERED: LORazepam 2 MG/ML INJ IV STA (01:06)
[2020-12-06] MEDS ORDERED: HYDROmorphone 1 MG/ML 1 ML SYRINGE IVP STA (01:06)
[2020-12-06] MEDS ORDERED: HYDROmorphone 1 MG/ML 1 ML SYRINGE IVP PRN (01:06)
[2020-12-06 01:38] LABS: Band Neutrophils % 11 %; Eosinophils # (M) 0.12 k/uL (0-0.7); Lymphocytes # (M) 1.16 k/uL (1.0-4.8); Metamyelocytes # (M) 0.58 k/uL (0); Metamyelocytes % 5 %; Monocytes # (M) 0.35 k/uL (0-1.0); Myelocytes # (M) 0.23 k/uL (0); Myelocytes % 2 %; Neutrophils % (M) 69 %; Nucleated Red Blood Cells 1 /100 WBC (0-0); Total Cells Counted 200; WBC 11.6 k/uL (3.8-10.6)
[2020-12-06 01:43] LABS: Polychromasia Present; Target Cells Present
[2020-12-06 01:44] LABS: Large Platelets Present
[2020-12-06] MEDS ORDERED: NALOXONE 0.4 MG/ML 1 ML VIAL IV PRN (01:48)
[2020-12-06] MEDS ORDERED: ONDANSETRON 4 MG/2 ML VIAL IVP PRN (01:48)
[2020-12-06] MEDS: SODIUM CHLORIDE 0.9% 1,000 ML IV SCH ×3 (02:07→13:13)
--- NOTE | 2020-12-06 02:31 | XR ---
EXAMINATION TYPE: XR Hip Bilateral and AP pelvis DATE OF EXAM: 12/06/2020 COMPARISON: NONE HISTORY: Hip pain TECHNIQUE: 5 views FINDINGS: The pelvic ring is intact. Proximal femurs are intact. Sacroiliac joints are intact. There is no evidence of a fracture. There is aorto iliac stent noted. IMPRESSION: No acute abnormality of the pelvis and both hips. Normal hip joint spaces.
--- NOTE | 2020-12-06 08:28 | P.HPIM ---
History of Present Illness H&P Date: 12/06/20 Chief Complaint: SOB This is history and physical on 75-year-old white male with known history of COPD who was smoking and fell. Injuring his foot. He is now admitted for si gnificant respiratory failure. Evaluation did show hyponatremia. No significant voiding difficulties. No provocative or palliative issues stated as far as pain or breathing. The patient is now readmitted for COPD elements. The patient is poorly arousable at this time Review of Systems ROS unobtainable: due to mental status Past Medical History Past Medical History: COPD, Hyperlipidemia, Hypertension Additional Past Medical History / Comment(s): Secondary Polycythemia Vera History of Any Multi-Drug Resistant Organisms: None Reported Past Surgical History: No Surgical Hx Reported Additional Past Surgical History / Comment(s): AAA REPAIR 01/28/2016 Past Anesthesia/Blood Transfusion Reactions: No Reported Reaction Past Psychological History: No Psychological Hx Reported Smoking Status: Current every day smoker Past Alcohol Use History: None Reported Past Drug Use History: None Reported - Past Family History Father Family Medical History: Myocardial Infarction ([place]) Brother(s) Family Medical History: Cancer Medications and Allergies Home Medications Medication Instructions Recorded Confirmed Type Aspirin EC [Ecotrin Low Dose] 81 mg PO DAILY@59902/06/16 12/05/20 History Atorvastatin [Lipitor] 10 mg PO DAILY@59902/06/16 12/05/20 History Budesonide [Pulmicort Flexhaler] 1 puff INHALATION RT-BID 11/07/19 12/05/20 History Cholecalciferol [Vitamin D3 (25 1,000 unit PO DAILY@59911/07/19 12/05/20 History Mcg = 1000 Iu)] Umeclidinium Brm/Vilanterol Tr 2 puff INHALATION RT-DAILY@59911/07/19 12/05/20 History [Anoro Ellipta 62.5-25 Mcg INH] Albuterol Nebulized [Ventolin 2.5 mg INHALATION RT-BID 10/30/20 12/05/20 History Nebulized] Cetirizine HCl [Zyrtec] 10 mg PO DAILY@59910/30/20 12/05/20 History Clopidogrel [Plavix] 75 mg PO DAILY@59910/30/20 12/05/20 History Montelukast [Singulair] 10 mg PO DAILY@00 10/30/20 12/05/20 History Pantoprazole [Protonix] 40 mg PO DAILY@59910/30/20 12/05/20 History Furosemide [Lasix] 20 mg PO DAILY #30 tab 11/04/20 12/05/20 Rx Ipratropium Nebulized [Atrovent 0.5 mg INHALATION RT-QID 30 Days 11/04/20 12/05/20 Rx Nebulized 0.2 MG/ML] #100 ampul Nicotine 21Mg/24Hr Patch [Habitrol] 1 patch TRANSDERM DAILY PRN 12/05/20 12/05/20 History Allergies Allergy/AdvReac Type Severity Reaction Status Date / Time No Known Allergies Allergy Verified 12/05/20 23:27 Physical Exam Vitals: Vital Signs Temp Pulse Resp BP Pulse Ox 12/06/20 07:49 81 20 122/60 92 L 12/06/20 06:30 82 18 142/90 12/06/20 05:00 87 18 138/77 12/06/20 02:28 98.6 F 92 18 123/61 12/06/20 00:45 28 H 12/06/20 00:22 96 12/06/20 00:13 88 12/06/20 00:00 88 18 114/69 92 L 12/05/20 23:20 98.2 F 88 24 131/65 93 L Intake and Output 12/05/20 12/06/20 12/06/20 22:59 06:59 14:59 Other: Weight 122.016 kg - Constitutional General appearance: obese - EENT Eyes: no abnormal pupil - Neck Neck: no lymphadenopathy - Respiratory Respiratory: bilateral: diminished - Cardiovascular Rhythm: regular Heart sounds: normal: S1, S2 Abnormal Heart Sounds: no S3 Gallop - Gastrointestinal General gastrointestinal: soft, no tenderness - Psychiatric Psychiatric: no A&O x's 3 Results CBC & Chem 7: 12/05/20 23:51 12/05/20 23:51 Labs: Abnormal Lab Results - Last 24 Hours (Table) 12/05/20 12/05/20 12/05/20 Range/Units 23:51 23:51 23:51 WBC 11.6 H (3.8-10.6) k/uL RBC 4.12 L (4.30-5.90) m/uL Hgb 10.1 L (13.0-17.5) gm/dL Hct 35.7 L (39.0-53.0) % MCH 24.4 L (25.0-35.0) pg MCHC 28.2 L (31.0-37.0) g/dL RDW 17.1 H (11.5-15.5) % Neutrophils # (Manual) 9.20 H (1.3-7.7) k/uL Metamyelocytes # (Man) 0.58 H (0) k/uL Myelocytes # (Manual) 0.23 H (0) k/uL Nucleated RBCs 1 H (0-0) /100 WBC APTT 21.4 L (22.0-30.0) sec Sodium 123 L (137-145) mmol/L Potassium 5.8 H (3.5-5.1) mmol/L Chloride 80 L (98-107) mmol/L Carbon Dioxide 38 H (22-30) mmol/L Glucose 129 H (74-99) mg/dL Creatine Kinase 40 L (55-170) U/L Assessment and Plan (1) COPD exacerbation Current Visit: Yes Status: Acute Code(s): J44.1 - CHRONIC OBSTRUCTIVE PULMONARY DISEASE W (ACUTE) EXACERBATION SNOMED Code(s): 841775496 (2) Fall Current Visit: Yes Status: Acute Code(s): W19.XXXA - UNSPECIFIED FALL, INITIAL ENCOUNTER SNOMED Code(s): 9406105 (3) Hyponatremia Current Visit: Yes Status: Acute Code(s): E87.1 - HYPO-OSMOLALITY AND HYPONATREMIA SNOMED Code(s): 90455133 (4) Laceration of toe, left Current Visit: Yes Status: Acute Code(s): S91.119A - LACERATION W/O FB OF UNSP TOE W/O DAMAGE TO NAIL, INIT SNOMED Code(s): 29013322851127208 (5) Smoker Current Visit: No Status: Acute Code(s): F17.200 - NICOTINE DEPENDENCE, UNSPECIFIED, UNCOMPLICATED SNOMED Code(s): 83542352 Plan: Check urine osmolality and serum sodium and urine sodium. Consult pulmonology for COPD. Nephrology for hyponatremia per Reconcile home medications. Smoking cessation again discussed with the family. Check CBC and CMP in a.m. Prognosis is guarded secondary to his multiple comorbidities.
[2020-12-06] MEDS ORDERED: FUROSEMIDE 20 MG TAB PO SCH (09:00)
[2020-12-06 09:43] LABS: African American GFR (CKD) >90 (>60 ml/min/1.73 sqM); Anion Gap 4 mmol/L; Blood Urea Nitrogen 23 mg/dL (9-20); Calcium 8.6 mg/dL (8.4-10.2); Carbon Dioxide 36 mmol/L (22-30); Chloride 82 mmol/L (98-107); Glucose 188 mg/dL (74-99); Non-African American GFR(CKD) 82 (>60 ml/min/1.73 sqM); Sodium 122 mmol/L (137-145)
[2020-12-06 09:45] LABS: Potassium 6.9 mmol/L (3.5-5.1)
[2020-12-06] MEDS ORDERED: FUROSEMIDE 10 MG/ML 4 ML VIAL IV SCH (10:00)
[2020-12-06] MEDS ORDERED: DEXTROSE 50% SYRINGE 50 ML IVP STA ×2 (10:27→14:03)
[2020-12-06] MEDS ORDERED: INSULIN REGULAR 100 UNIT/ML VIAL (IV) IV ONE (10:27)
[2020-12-06] MEDS ORDERED: IPRATROPIUM-ALBUTEROL 3 ML NEB INHALATION PRN (10:29)
[2020-12-06 10:54] LABS: Glucose,Whole Blood 183 mg/dL (75-99)
[2020-12-06] MEDS: PANTOPRAZOLE 40 MG/10 ML VIAL IVP SCH (11:03)
[2020-12-06] MEDS ORDERED: HALOPERIDOL LACTATE 5 MG/ML 1 ML VIAL IVP STA (11:12)
[2020-12-06] MEDS: HALOPERIDOL LACTATE 5 MG/ML 1 ML VIAL IVP PRN ×3 (11:46→15:21)
[2020-12-06 11:53] LABS: ABG Base Excess 12.5 mmol/L; ABG PO2 81 mmHg (83-108); ABG TCO2 44 mmol/L (19-24); Allen Test Performed? Yes
[2020-12-06 11:54] LABS: ABG HCO3 41 mmol/L (21-25); ABG PCO2 107 mmHg (35-45); ABG PH 7.19 (7.35-7.45)
[2020-12-06] MEDS ORDERED: IPRATROPIUM 0.5 MG/2.5 ML NEBU INHALATION SCH (12:00)
[2020-12-06] MEDS: methylPREDNISolone SOD SUCCI 125 MG/2 ML VIAL IV SCH ×3 (12:04→23:12)
--- NOTE | 2020-12-06 12:11 | P.NPCON ---
History of Present Illness - Reason for Consult hyponatremia - History of Present Illness Reason for consultation: Hyponatremia History of present illness: Patient is a 75-year-old male seen in renal consultation for hyponatremia. Patient's sodium level was 123 on admission. Labs were just repeated and repeat sodium level is 122 and potassium level is up to 6.9. There is no evidence of metabolic acidosis. Creatinine is 0.91. Blood sugar is 188. Patient is currently resting in bed. He is not a reliable historian. Blood gases reveal severe respiratory acidosis with a pCO2 of 107 and a pH of 7.19. Blood pressure is stable. No fever. I don't see any nonsteroidals and his home medication lis t. He does have lower exam edema. Patient was receiving IV fluids overnight and additionally received 2 L of normal saline on admission as well. IV fluids were stopped this morning due to edema. Oral diuretics were ordered but the patient is able to take oral medications at this time. Vital signs are stable. General: The patient appeared well nourished and normally developed. HEENT: Head exam is unremarkable. LUNGS: Breath sounds decreased. HEART: Rate and Rhythm are regular. ABDOMEN: Soft, no distention. EXTREMITITES: 1+ edema. Past Medical History Past Medical History: No Reported History (Family no), COPD, Hyperlipidemia, Hypertension Additional Past Medical History / Comment(s): Secondary Polycythemia Vera History of Any Multi-Drug Resistant Organisms: None Reported Past Surgical History: No Surgical Hx Reported Additional Past Surgical History / Comment(s): AAA REPAIR 01/28/2016 Past Anesthesia/Blood Transfusion Reactions: No Reported Reaction Past Psychological History: No Psychological Hx Reported Smoking Status: Current every day smoker Past Alcohol Use History: None Reported Past Drug Use History: None Reported - Past Family History Father Family Medical History: Myocardial Infarction ([place]) Brother(s) Family Medical History: Cancer Medications and Allergies Home Medications Medication Instructions Recorded Confirmed Type Aspirin EC [Ecotrin Low Dose] 81 mg PO DAILY@0600 02/06/16 12/05/20 History Atorvastatin [Lipitor] 10 mg PO DAILY@0600 02/06/16 12/05/20 History Budesonide [Pulmicort Flexhaler] 1 puff INHALATION RT-BID 11/07/19 12/05/20 History Cholecalciferol [Vitamin D3 (25 1,000 unit PO DAILY@0600 11/07/19/30/21 History Mcg = 1000 Iu)] Umeclidinium Brm/Vilanterol Tr 2 puff INHALATION RT-DAILY@59911/07/19 12/05/20 History [Anoro Ellipta 62.5-25 Mcg INH] Albuterol Nebulized [Ventolin 2.5 mg INHALATION RT-BID 10/30/20 12/05/20 History Nebulized] Cetirizine HCl [Zyrtec] 10 mg PO DAILY@59910/30/20 12/05/20 History Clopidogrel [Plavix] 75 mg PO DAILY@59910/30/20 12/05/20 History Montelukast [Singulair] 10 mg PO DAILY@59910/30/20 12/05/20 History Pantoprazole [Protonix] 40 mg PO DAILY@59910/30/20 12/05/20 History Furosemide [Lasix] 20 mg PO DAILY #30 tab 11/04/20 12/05/20 Rx Ipratropium Nebulized [Atrovent 0.5 mg INHALATION RT-QID 30 Days 11/04/20 12/05/20 Rx Nebulized 0.2 MG/ML] #100 ampul Nicotine 21Mg/24Hr Patch [Habitrol] 1 patch TRANSDERM DAILY PRN 12/05/20 12/05/20 History Allergies Allergy/AdvReac Type Severity Reaction Status Date / Time No Known Allergies Allergy Verified 12/05/20 23:27 Physical Exam Vitals: Vital Signs Temp Pulse Resp BP Pulse Ox 12/06/20 11:20 98.1 F 84 24 128/76 96 12/06/20 10:59 84 18 111/61 96 12/06/20 09:21 77 22 12/06/20 09:11 79 22 12/06/20 07:49 81 20 122/60 92 L 12/06/20 06:30 82 18 142/90 12/06/20 05:00 87 18 138/77 12/06/20 02:28 98.6 F 92 18 123/61 12/06/20 00:45 28 H 12/06/20 00:22 96 12/06/20 00:13 88 12/06/20 00:00 88 18 114/69 92 L 12/05/20 23:20 98.2 F 88 24 131/65 93 L Intake and Output 12/05/20 12/06/20 12/06/20 22:59 06:59 14:59 Other: Weight 122.016 kg Results - Lab Results Most recent lab results ABG pH 7.19 (7.35-7.45) L* 12/06/20 11:41 ABG pCO2 107 mmHg (35-45) H* 12/06/20 11:41 ABG pO2 81 mmHg (83-108) L 12/06/20 11:41 ABG HCO3 41 mmol/L (21-25) H* 12/06/20 11:41 ABG O2 Saturation 95.0 % (94-97) 12/06/20 11:41 Calcium 8.6 mg/dL (8.4-10.2) 12/06/20 08:48 Magnesium 2.0 mg/dL (1.6-2.3) 12/06/20 08:48 12/05/20 23:51 12/06/20 08:48 Assessment and Plan Plan: Assessment: 1. Hyponatremia. Hypervolemic. Sodium level 122 this morning. TSH normal. 2. Hyperkalemia secondary to acidemia. Rule out urinary retention. Lactic acid normal. 3. Acute hypercapnic respiratory failure. Plan: 1 g IV calcium gluconate now. Patient did receive IV insulin with D50. Check bladder scan to rule out urinary retention. To insert Montague catheter greater than 250 mL of urine present. Check renal ultrasound. Add Lasix 40 mg IV once daily. Check serum and urine osmolality and urine sodium level. Repeat BMP this afternoon. Thank you for the consultation. I will continue to follow the patient with you during his hospital stay.
--- NOTE | 2020-12-06 12:23 | P.CNPUL ---
<Katerin Mitchell M - Last Filed: 12/06/20 12:23> History of Present Illness Consult date: 12/06/20 Requesting physician: Jayro Peñaloza Chief complaint: Altered mental status, shortness of breath, fall, injury to the left fifth History of present illness: A 75-year-old male patient with history of severe COPD, with chronic hypoxic and hypercapnic respiratory failure, polycythemia vera, and baseline FEV1 of 36% of predicted, chronic and ongoing history of smoking, hypertension, hyperlipidemia, previous history of abdominal aortic aneurysm repair in 2016, who had a recent hospitalization for acute exacerbation of COPD, and discharged home on 11/04/2020. Patient was supposed to go home with health services however his and the patient himself had turned it down. He was also insistent on getting discharged a few days earlier than recommended. That same hospitalization he was noted to be hyponatremic with a serum sodium at 128 at [facility] which was thought to be hypovolemic and patient was followed nephrology service. His potassium was elevated and Aldactone and lisinopril were both placed on hold. Patient presented to the emergency department on 12/05/2020 for evaluation of wound on his left foot which he sustained during a fall at home. However according to his patient was also having increased difficulty breathing. In the emergency department patient received a few sutures to fifth digit wound on the left foot, and he also received procedural sedation in the form of lorazepam and dilaudid. He then became very sleepy, lethargic, he was placed on 100% nonrebreather mask briefly, and then switched over to 5 L/m per nasal cannula. He was noted to be very obtunded this morning, with labored breathing, diffuse wheezing throughout the lung rabago, stat blood gas was obtained showing pH of 7.1, pCO2 of 110, and pO2 of 32, and this was done on 5 L low nasal cannula subsequently patient was placed on BiPAP support with pressures of 14 of 5 and FiO2 of 50%. His initial chest x-ray in the emergency department showed cardiomegaly and pulmonary fibrosis, no obvious sign of heart failure. No hilar masses. His left foot x-ray showed no acute bony abnormality, x-RAY of the lateral hips and pelvis showed no acute abnormality of the pelvis and both hips, and normal hip joint spaces. EKG showed sinus rhythm, right atrial enlargement, and right bundle branch, T wave inservion in inferolateral leads. Lab work was reviewed showing white blood cell count of 11.6, hemoglobin 0.1, serum sodium of 123, this symptom of 5.8, rate is 80, CO2 is 8, 3 sets of troponins were 0.012, 0.017, and 0.019, LFTs were within normal limits, proBNP level is pending, CK level is 40, TSH level was within normal limits at 0.887. COVID 19 PCR was negative. Has been afebrile in the emergency department, blood pressure is stable at 111/61, patient remains in sinus mechanism although he is very obtunded, he was placed on BiPAP, repeat blood gases pending. he appears to be generally swollen, he was started on IV Lasix o f 40 mg daily, urine sodium and osmolality studies are pending, Montague catheter has been placed with return of 600 mL of dark jose urine. Review of Systems All systems: negative Constitutional: Denies chills, Denies fever Eyes: denies blurred vision, denies pain Ears, nose, mouth and throat: Denies headache, Denies sore throat Cardiovascular: Denies chest pain, Denies shortness of breath Respiratory: Reports dyspnea, Reports home oxygen, Reports respiratory infections, Reports wheezing, Denies cough Gastrointestinal: Denies abdominal pain, Denies diarrhea, Denies nausea, Denies vomiting Musculoskeletal: Denies myalgias Integumentary: Denies pruritus, Denies rash Neurological: Reports change in mentation (The finally allowed he is taking sulindac with low sodium), Reports confusion, Denies numbness, Denies weakness Psychiatric: Denies anxiety, Denies depression Endocrine: Denies fatigue, Denies weight change Past Medical History Past Medical History: No Reported History (Family no), COPD, Hyperlipidemia, Hypertension Additional Past Medical History / Comment(s): Secondary Polycythemia Vera History of Any Multi-Drug Resistant Organisms: None Reported Past Surgical History: No Surgical Hx Reported Additional Past Surgical History / Comment(s): AAA REPAIR 01/28/2016 Past Anesthesia/Blood Transfusion Reactions: No Reported Reaction Past Psychological History: No Psychological Hx Reported Smoking Status: Current every day smoker Past Alcohol Use History: None Reported Past Drug Use History: None Reported - Past Family History Father Family Medical History: Myocardial Infarction ([place]) Brother(s) Family Medical History: Cancer Medications and Allergies Home Medications Medication Instructions Recorded Confirmed Type Aspirin EC [Ecotrin Low Dose] 81 mg PO DAILY@59902/06/16 12/05/20 History Atorvastatin [Lipitor] 10 mg PO DAILY@59902/06/16 12/05/20 History Budesonide [Pulmicort Flexhaler] 1 puff INHALATION RT-BID 11/07/19 12/05/20 History Cholecalciferol [Vitamin D3 (25 1,000 unit PO DAILY@59911/07/19 12/05/20 History Mcg = 1000 Iu)] Umeclidinium Brm/Vilanterol Tr 2 puff INHALATION RT-DAILY@59911/07/19 12/05/20 History [Anoro Ellipta 62.5-25 Mcg INH] Albuterol Nebulized [Ventolin 2.5 mg INHALATION RT-BID 10/30/20 12/05/20 History Nebulized] Cetirizine HCl [Zyrtec] 10 mg PO DAILY@59910/30/20 12/05/20 History Clopidogrel [Plavix] 75 mg PO DAILY@59910/30/20 12/05/20 History Montelukast [Singulair] 10 mg PO DAILY@59910/30/20 12/05/20 History Pantoprazole [Protonix] 40 mg PO DAILY@59910/30/20 12/05/20 History Furosemide [Lasix] 20 mg PO DAILY #30 tab 11/04/20 12/05/20 Rx Ipratropium Nebulized [Atrovent 0.5 mg INHALATION RT-QID 30 Days 11/04/20 12/05/20 Rx Nebulized 0.2 MG/ML] #100 ampul Nicotine 21Mg/24Hr Patch [Habitrol] 1 patch TRANSDERM DAILY PRN 12/05/20 12/05/20 History Allergies Allergy/AdvReac Type Severity Reaction Status Date / Time No Known Allergies Allergy Verified 12/05/20 23:27 Physical Exam Vitals: Vital Signs Temp Pulse Resp BP Pulse Ox 12/06/20 09:21 77 22 12/06/20 09:11 79 22 12/06/20 07:49 81 20 122/60 92 L 12/06/20 06:30 82 18 142/90 12/06/20 05:00 87 18 138/77 12/06/20 02:28 98.6 F 92 18 123/61 12/06/20 00:45 28 H 12/06/20 00:22 96 12/06/20 00:13 88 12/06/20 00:00 88 18 114/69 92 L 12/05/20 23:20 98.2 F 88 24 131/65 93 L Intake and Output 12/05/20 12/06/20 12/06/20 22:59 06:59 14:59 Other: Weight 122.016 kg GENERAL EXAM: Obtunded, 75-year-old overweight white male, currently on 5 L of oxygen, being placed on BiPAP support, appears to be dyspneic, wheezy HEAD: Normocephalic/atraumatic. EYES: Normal reaction of pupils, equal size. Conjunctiva pink, sclera white. NOSE: Clear with pink turbinates. THROAT: No erythema or exudates. NECK: No masses, no JVD, no thyroid enlargement, no adenopathy. CHEST: No chest wall deformity. Symmetrical expansion. LUNGS: Equal air entry with diffuse wheezes CVS: Regular rate and rhythm, normal S1 and S2, no gallops, no murmurs, no rubs ABDOMEN: Soft, nontender. No hepatosplenomegaly, normal bowel sounds, no guarding or rigidity. EXTREMITIES: No clubbing, no edema, no cyanosis, 2+ pulses and upper and lower extremities. MUSCULOSKELETAL: Muscle strength and tone normal. SPINE: No scoliosis or deformity SKIN: No rashes, laceration to the fifth small toe on left foot CENTRAL NERVOUS SYSTEM: Obtunded No focal deficits, tone is normal in all 4 extremities. PSYCHIATRIC: Obtunded. Results - Laboratory Findings CBC and BMP: 12/05/20 23:51 12/06/20 08:48 ABG WBC 11.6 k/uL (3.8-10.6) H 12/05/20 23:51 RBC 4.12 m/uL (4.30-5.90) L 12/05/20 23:51 Hgb 10.1 gm/dL (13.0-17.5) L 12/05/20 23:51 Hct 35.7 % (39.0-53.0) L 12/05/20 23:51 MCV 86.6 fL (80.0-100.0) 12/05/20 23:51 MCH 24.4 pg (25.0-35.0) L 12/05/20 23:51 MCHC 28.2 g/dL (31.0-37.0) L 12/05/20 23:51 RDW 17.1 % (11.5-15.5) H 12/05/20 23:51 Plt Count 360 k/uL (150-450) 12/05/20 23:51 MPV 7.8 12/05/20 23:51 Neutrophils % (Manual) 69 % 12/05/20 23:51 Band Neuts % (Manual) 11 % 12/05/20 23:51 Lymphocytes % (Manual) 10 % 12/05/20 23:51 Monocytes % (Manual) 3 % 12/05/20 23:51 Eosinophils % (Manual) 1 % 12/05/20 23:51 Metamyelocytes % 5 % 12/05/20 23:51 Myelocytes % 2 % 12/05/20 23:51 Neutrophils # (Manual) 9.20 k/uL (1.3-7.7) H 12/05/20 23:51 Lymphocytes # (Manual) 1.16 k/uL (1.0-4.8) 12/05/20 23:51 Monocytes # (Manual) 0.35 k/uL (0-1.0) 12/05/20 23:51 Eosinophils # (Manual) 0.12 k/uL (0-0.7) 12/05/20 23:51 Metamyelocytes # (Man) 0.58 k/uL (0) H 12/05/20 23:51 Myelocytes # (Manual) 0.23 k/uL (0) H 12/05/20 23:51 Nucleated RBCs 1 /100 WBC (0-0) H 12/05/20 23:51 Manual Slide Review Performed 12/05/20 23:51 Large Platelets Present 12/05/20 23:51 Polychromasia Present 12/05/20 23:51 Hypochromasia Marked 12/05/20 23:51 Poikilocytosis Slight 12/05/20 23:51 Anisocytosis Slight 12/05/20 23:51 Target Cells Present 12/05/20 23:51 PT 9.9 sec (9.0-12.0) 12/05/20 23:51 INR 0.9 (<1.2) 12/05/20 23:51 APTT 21.4 sec (22.0-30.0) L 12/05/20 23:51 Sodium 122 mmol/L (137-145) L 12/06/20 08:48 Potassium 6.9 mmol/L (3.5-5.1) H* 12/06/20 08:48 Chloride 82 mmol/L (98-107) L 12/06/20 08:48 Carbon Dioxide 36 mmol/L (22-30) H 12/06/20 08:48 Anion Gap 4 mmol/L 12/06/20 08:48 BUN 23 mg/dL (9-20) H 12/06/20 08:48 Creatinine 0.91 mg/dL (0.66-1.25) 12/06/20 08:48 Est GFR (CKD-EPI)AfAm >90 (>60 ml/min/1.73 sqM) 12/06/20 08:48 Est GFR (CKD-EPI)NonAf 82 (>60 ml/min/1.73 sqM) 12/06/20 08:48 Glucose 188 mg/dL (74-99) H 12/06/20 08:48 Plasma Lactic Acid Garth 0.7 mmol/L (0.7-2.0) 12/05/20 23:51 Calcium 8.6 mg/dL (8.4-10.2) 12/06/20 08:48 Magnesium 2.0 mg/dL (1.6-2.3) 12/06/20 08:48 Total Bilirubin 0.4 mg/dL (0.2-1.3) 12/05/20 23:51 AST 42 U/L (17-59) 12/05/20 23:51 ALT 15 U/L (4-49) 12/05/20 23:51 Alkaline Phosphatase 84 U/L (38-126) 12/05/20 23:51 Creatine Kinase 40 U/L (55-170) L 12/05/20 23:51 Troponin I 0.019 ng/mL (0.000-0.034) 12/06/20 06:55 Total Protein 6.8 g/dL (6.3-8.2) 12/05/20 23:51 Albumin 3.5 g/dL (3.5-5.0) 12/05/20 23:51 TSH 0.887 mIU/L (0.465-4.680) 12/06/20 08:48 Coronavirus (PCR) Not Detected (Not Detectd) 12/06/20 02:37 PT/INR, D-dimer PT 9.9 sec (9.0-12.0) 12/05/20 23:51 INR 0.9 (<1.2) 12/05/20 23:51 Abnormal lab findings: Abnormal Labs 12/05/20 12/05/20 12/05/20 23:51 23:51 23:51 WBC 11.6 H RBC 4.12 L Hgb 10.1 L Hct 35.7 L MCH 24.4 L MCHC 28.2 L RDW 17.1 H Neutrophils # (Manual) 9.20 H Metamyelocytes # (Man) 0.58 H Myelocytes # (Manual) 0.23 H Nucleated RBCs 1 H APTT 21.4 L Sodium 123 L Potassium 5.8 H Chloride 80 L Carbon Dioxide 38 H BUN Glucose 129 H Creatine Kinase 40 L 12/06/20 08:48 WBC RBC Hgb Hct MCH MCHC RDW Neutrophils # (Manual) Metamyelocytes # (Man) Myelocytes # (Manual) Nucleated RBCs APTT Sodium 122 L Potassium 6.9 H* Chloride 82 L Carbon Dioxide 36 H BUN 23 H Glucose 188 H Creatine Kinase - Diagnostic Findings Chest x-ray: report reviewed, image reviewed Additional studies: Left foot x-ray results, x-ray of the bilateral hips, abdomen and pelvis reviewed, EKG reviewed Assessment and Plan Plan: Assessment: #1. Acute on chronic hypercapnic and hypoxic respiratory failure related to acute exacerbation of COPD, in combination with a dose of lorazepam and Dilaudid given for procedural sedation for application of sutures on the left foot injury, patient has been placed on BiPAP support. COVID 19 PCR is negative, chest x-ray shows COPD and pulmonary fibrosis, no definite acute infiltrates, no definite sign of acute CHF exacerbation #2. Recent hospitalization in October 2020 for acute COPD exacerbation #3. Fall at home, and injuries to the small toe on the left foot, requiring application of sutures, imaging of the left foot abdomen and bilateral hips shows no acute fracture #4. Severe COPD, with chronic hypoxic and hypercapnic respiratory failure and baseline FEV1 of 36% of predicted #5. Poor medical compliance, according to the patient has not taken his medications for the past several days, is unknown whether he is compliant with home O2 #6. Chronic and ongoing history of smoking #7. Hyponatremia, possibly hypervolemia, proBNP is pending, urine sodium and urine osmolality studies are pending, patient has been started on IV Lasix per nephrology, appears to be generally swollen #8. Hyperkalemia, likely exacerbated by respiratory acidosis, patient has been placed on BiPAP, he is being treated with D50 and regular insulin, we'll repeat a blood gas and labs in 2 hours #9. Hypertension #10. Hyperlipidemia #11. History of coronary artery disease with previous stenting of the RCA #12. History of abdominal aortic aneurysm repair in 2016 #13. Secondary polycythemia vera Plan: Continue with IV Lasix We'll give 1 amp of D50, and 10 units of regular insulin Urine sodium and osmolality studies are pending We'll repeat BMP and blood gas We'll restart steroids with Solu-Medrol 60 mg every [address] the patient on bronchodilators We'll send a proBNP level Patient has been placed on BiPAP with pressures of 14 and 5 and FiO2 of 50% We'll repeat blood gases in half an hour, but clinically patient is becoming more arousable, he is becoming agitated and remains confused, we'll discontinue lorazepam and Dilaudid, we'll give Haldol 2-4 mg IVP for agitation we'll send appropriate calcitonin level patient's thinks that patient would not want to be intubated and placed on mechanical ventilator She also told the nursing that patient has not been taking his medications, smoking heavily and only eating toast and water We'll continue supportive medical measures right now, we'll need to clarify CODE STATUS we'll continue to closely follow I performed a history & physical examination of the patient and discussed their management with my nurse practitioner, Katerin Mitchell. I reviewed the nurse practitioner's note and agree with the documented findings and plan of care. Lung sounds are positive for diffuse wheezes throughout the lung rabago. The findings and the impression was discussed with the patient. I attest to the documentation by the nurse practitioner. <Dionisio Woodruff - Last Filed: 12/06/20 15:27> Physical Exam Vitals: Vital Signs Temp Pulse Resp BP Pulse Ox 12/06/20 15:02 84 24 12/06/20 15:00 102 H 24 120/81 95 12/06/20 14:53 81 28 H 12/06/20 14:30 101 H 26 H 94/60 86 L 12/06/20 12:00 91 24 127/70 96 12/06/20 11:20 98.1 F 84 24 128/76 96 12/06/20 10:59 84 18 111/61 96 12/06/20 09:21 77 22 12/06/20 09:11 79 22 12/06/20 07:49 81 20 122/60 92 L 12/06/20 06:30 82 18 142/90 12/06/20 05:00 87 18 138/77 12/06/20 02:28 98.6 F 92 18 123/61 12/06/20 00:45 28 H 12/06/20 00:22 96 12/06/20 00:13 88 12/06/20 00:00 88 18 114/69 92 L 12/05/20 23:20 98.2 F 88 24 131/65 93 L Intake and Output 12/06/20 12/06/20 12/06/20 06:59 14:59 22:59 Other: Weight 122.016 kg Results - Laboratory Findings CBC and BMP: 12/05/20 23:51 12/06/20 14:12 ABG ABG pH 7.19 (7.35-7.45) L* 12/06/20 11:41 ABG pCO2 107 mmHg (35-45) H* 12/06/20 11:41 ABG pO2 81 mmHg (83-108) L 12/06/20 11:41 ABG O2 Saturation 95.0 % (94-97) 12/06/20 11:41 PT/INR, D-dimer PT 9.9 sec (9.0-12.0) 12/05/20 23:51 INR 0.9 (<1.2) 12/05/20 23:51 Abnormal lab findings: Abnormal Labs 12/05/20 12/05/20 12/05/20 23:51 23:51 23:51 WBC 11.6 H RBC 4.12 L Hgb 10.1 L Hct 35.7 L MCH 24.4 L MCHC 28.2 L RDW 17.1 H Neutrophils # (Manual) 9.20 H Metamyelocytes # (Man) 0.58 H Myelocytes # (Manual) 0.23 H Nucleated RBCs 1 H APTT 21.4 L ABG pH ABG pCO2 ABG pO2 ABG HCO3 ABG Total CO2 Sodium 123 L Potassium 5.8 H Chloride 80 L Carbon Dioxide 38 H BUN Glucose 129 H POC Glucose (mg/dL) Osmolality AST Creatine Kinase 40 L Albumin Urine Protein Calcium Oxalate Crystal Urine Bacteria Hyaline Casts Urine Mucus 12/06/20 12/06/20 12/06/20 08:48 10:53 11:41 WBC RBC Hgb Hct MCH MCHC RDW Neutrophils # (Manual) Metamyelocytes # (Man) Myelocytes # (Manual) Nucleated RBCs APTT ABG pH 7.19 L* ABG pCO2 107 H* ABG pO2 81 L ABG HCO3 41 H* ABG Total CO2 44 H Sodium 122 L Potassium 6.9 H* Chloride 82 L Carbon Dioxide 36 H BUN 23 H Glucose 188 H POC Glucose (mg/dL) 183 H Osmolality 271 L AST Creatine Kinase Albumin Urine Protein Calcium Oxalate Crystal Urine Bacteria Hyaline Casts Urine Mucus 12/06/20 12/06/20 12/06/20 12:38 13:30 14:12 WBC RBC Hgb Hct MCH MCHC RDW Neutrophils # (Manual) Metamyelocytes # (Man) Myelocytes # (Manual) Nucleated RBCs APTT ABG pH ABG pCO2 ABG pO2 ABG HCO3 ABG Total CO2 Sodium 121 L 125 L Potassium 7.4 H* 6.3 H* Chloride 85 L 83 L Carbon Dioxide 34 H BUN 25 H 25 H Glucose 137 H 129 H POC Glucose (mg/dL) Osmolality AST 60 H Creatine Kinase Albumin 3.4 L Urine Protein 1+ H Calcium Oxalate Crystal Many H Urine Bacteria Few H Hyaline Casts 15 H Urine Mucus Rare H Assessment and Plan Plan: Joint evaluation that was done along with a nurse practitioner. Quite compli cated case with advanced COPD and a DNR/DNI CODE STATUS. Currently on a BiPAP. Follow-up blood gases still showing respiratory acidosis. Quite restless and agitated. Given Haldol. Will be transferred to the intensive care unit. Will be started on Precedex. We'll continue the bronchodilators and steroids. We'll diurese the patient. We'll give empiric antibiotic coverage and IV Rocephin. No intubation or mechanical ventilation per patient and family wishes. CODE STATUS is been established. He has advanced COPD. We'll continue to follow.
[2020-12-06] MEDS ORDERED: CALCIUM GLUCONATE 1 GM in SODIUM CHLORIDE 0.9% 100 ML IVPB ONE (12:30)
--- NOTE | 2020-12-06 12:46 | US ---
EXAMINATION TYPE: US kidneys/renal and bladder DATE OF EXAM: 12/06/2020 COMPARISON: NONE CLINICAL HISTORY: tristan. EXAM MEASUREMENTS: Right Kidney: 11.0x5.8x5.1 cm Left Kidney: 10.9x6.2x4.4 cm Right Kidney: Limited due to patient mobility. Left Kidney: Mid cyst measures 2.7x2.8x2.5cm Bladder: Montague Bilateral Jets seen: No There is no evidence for hydronephrosis at this point in time. No nephrolithiasis is seen. No kvng s are identified. The urinary bladder is anechoic. Bilateral ureteral jets are seen. Limited due to patient patient position/ combative. IMPRESSION: 1. Mid left kidney simple appearing cortical renal cyst.
[2020-12-06 13:13] LABS: African American GFR (CKD) >90 (>60 ml/min/1.73 sqM); Anion Gap 6 mmol/L; Blood Urea Nitrogen 25 mg/dL (9-20); Calcium 8.5 mg/dL (8.4-10.2); Carbon Dioxide 30 mmol/L (22-30); Chloride 85 mmol/L (98-107); Glucose 137 mg/dL (74-99); Non-African American GFR(CKD) 78 (>60 ml/min/1.73 sqM); Sodium 121 mmol/L (137-145)
[2020-12-06 13:23] LABS: Potassium 7.4 mmol/L (3.5-5.1)
[2020-12-06 13:55] LABS: Appearance,Urine Cloudy (Clear); Bacteria,Urine Few /hpf; Bilirubin,Urine Negative (Negative); Blood,Urine Negative (Negative); Calcium Oxalate Crystals,Urine Many /hpf; Color,Urine Yellow; Glucose,Urine (UA) Negative (Negative); Hyaline Casts,Urine 15 /lpf (0-2); Ketones,Urine Negative (Negative); Leukocyte Esterase,Urine Negative (Negative); Mucus,Urine Rare /hpf; Nitrite,Urine Negative (Negative); PH, Urine 5.5 (5.0-8.0); Protein,Urine 1+ (Negative); RBC,Urine 5 /hpf (0-5); Specific Gravity,Urine 1.021 (1.001-1.035); Squamous Epithelial Cell,Urine 1 /hpf (0-4); WBC,Urine 3 /hpf (0-5)
[2020-12-06] MEDS ORDERED: INSULIN REGULAR 100 UNIT/ML VIAL (IV) IV STA (14:02)
[2020-12-06] MEDS ORDERED: CALCIUM GLUCONATE 1 GM in SODIUM CHLORIDE 0.9% 100 ML IVPB STA (14:03)
[2020-12-06] MEDS ORDERED: SODIUM BICARB 8.4% 50 ML SYR (1 MEQ/ML) IV STA (14:04)
[2020-12-06 14:35] LABS: Albumin 3.4 g/dL (3.5-5.0); Total Bilirubin 0.6 mg/dL (0.2-1.3); Total Protein 6.7 g/dL (6.3-8.2)
[2020-12-06 14:42] LABS: Potassium 6.3 mmol/L (3.5-5.1)
[2020-12-06] MEDS: IPRATROPIUM-ALBUTEROL 3 ML NEB INHALATION SCH ×3 (14:49→20:25)
[2020-12-06] MEDS ORDERED: FUROSEMIDE 10 MG/ML 4 ML VIAL IV STA (15:20)
[2020-12-06] MEDS: DEXMEDETOMIDINE/0.9% NACL(PMX) 400 MCG in EMPTY BAG 1 BAG IV SCH ×2 (16:22→19:20)
[2020-12-06 19:28] LABS: Potassium 5.5 mmol/L (3.5-5.1)
[2020-12-06] MEDS ORDERED: FLUTICASONE 110 MCG INHALER INHALATION SCH (20:00)
[2020-12-06] MEDS: FUROSEMIDE 10 MG/ML 4 ML VIAL IV SCH (20:04)
[2020-12-06] MEDS: BUDESONIDE 1 MG/2 ML NEBU INHALATION SCH (20:25)
[2020-12-06] MEDS: FORMOTEROL FUMARATE 20 MCG/2 ML NEBU INHALATION SCH (20:25)
[2020-12-07] MEDS: DEXMEDETOMIDINE/0.9% NACL(PMX) 400 MCG in EMPTY BAG 1 BAG IV SCH ×3 (00:30→11:59)
[2020-12-07] MEDS: HALOPERIDOL LACTATE 5 MG/ML 1 ML VIAL IVP PRN ×3 (03:16→22:38)
[2020-12-07 05:42] LABS: Anisocytosis Slight; Basophils # (A) 0.1 k/uL (0-0.2); Basophils % (A) 1 %; Eosinophils % (A) 0 %; HCT 32.4 % (39.0-53.0); HGB 9.4 gm/dL (13.0-17.5); Hypochromasia Marked; Lymphocytes # (A) 0.4 k/uL (1.0-4.8); Lymphocytes % (A) 4 %; MCH 24.9 pg (25.0-35.0); MCHC 29.1 g/dL (31.0-37.0); MCV 85.6 fL (80.0-100.0); Mean Platelet Volume 7.2; Monocytes # (A) 0.5 k/uL (0-1.0); Monocytes % (A) 4 %; Neutrophils # (A) 9.6 k/uL (1.3-7.7); Neutrophils % (A) 91 %; Platelet Count 300 k/uL (150-450); Poikilocytosis Slight; RBC 3.78 m/uL (4.30-5.90); RDW 17.3 % (11.5-15.5); WBC 10.5 k/uL (3.8-10.6)
[2020-12-07 05:59] LABS: Calcium 8.8 mg/dL (8.4-10.2); Magnesium 1.9 mg/dL (1.6-2.3); Phosphorus 4.8 mg/dL (2.5-4.5); Potassium 5.3 mmol/L (3.5-5.1); Total Bilirubin 0.4 mg/dL (0.2-1.3); Total Protein 5.9 g/dL (6.3-8.2)
[2020-12-07] MEDS ORDERED: CHOLECALCIFEROL 25 MCG (1000 IU) TABLET PO SCH (06:00)
[2020-12-07] MEDS ORDERED: ATORVASTATIN 10 MG TAB PO SCH (06:00)
[2020-12-07] MEDS ORDERED: PANTOPRAZOLE 40 MG TABLET PO SCH (06:00)
[2020-12-07] MEDS ORDERED: LORATADINE 10 MG TAB PO SCH (06:00)
[2020-12-07] MEDS ORDERED: MONTELUKAST 10 MG TAB PO SCH (06:00)
[2020-12-07] MEDS ORDERED: CLOPIDOGREL 75 MG TAB PO SCH (06:00)
[2020-12-07] MEDS ORDERED: ASPIRIN 81 MG PO SCH (06:00)
[2020-12-07] MEDS: methylPREDNISolone SOD SUCCI 125 MG/2 ML VIAL IV SCH ×4 (06:28→23:00)
--- NOTE | 2020-12-07 06:45 | XR ---
EXAMINATION TYPE: XR chest 1V portable DATE OF EXAM: 12/07/2020 CLINICAL HISTORY: Difficulty breathing progress study. TECHNIQUE: Single AP portable semiupright view of the chest is obtained. COMPARISON: Chest x-ray from one day earlier and older studies. CT chest January 16, 2018 FINDINGS: Cardiomegaly with ectatic thoracic aorta redemonstrated. Background chronic emphysematous and pulmonary fibrotic changes without suspicious new focal airspace opacity, pleural effusion, or pn eumothorax seen bilaterally. Osseous structures are intact. IMPRESSION: Chronic changes and cardiomegaly without acute pulmonary process. No significant change f rom one day earlier.
[2020-12-07] MEDS: IPRATROPIUM-ALBUTEROL 3 ML NEB INHALATION SCH ×4 (07:07→19:16)
[2020-12-07] MEDS: FORMOTEROL FUMARATE 20 MCG/2 ML NEBU INHALATION SCH ×2 (07:07→19:15)
[2020-12-07] MEDS: BUDESONIDE 1 MG/2 ML NEBU INHALATION SCH ×2 (07:07→19:15)
[2020-12-07] MEDS ORDERED: FORMOTEROL FUMARATE 20 MCG/2 ML NEBU INHALATION SCH (08:00)
[2020-12-07] MEDS: FUROSEMIDE 10 MG/ML 4 ML VIAL IV SCH ×2 (08:46→21:16)
[2020-12-07] MEDS: PANTOPRAZOLE 40 MG/10 ML VIAL IVP SCH (08:46)
--- NOTE | 2020-12-07 08:54 | P.PN ---
Subjective Patient is seen in follow-up for hyponatremia and hyperkalemia. Maintained on IV Lasix. Nonoliguric. Sodium levels up to 128 and potassium level is down to 5.3. He is on BiPAP. Quite agitated overnight. Vital signs are stable. General: on BiPAP. HEENT: Head exam is unremarkable. LUNGS: Breath sounds decreased. HEART: Rate and Rhythm are regular. ABDOMEN: Soft, no distention. Obese. EXTREMITITES: Trace edema. Objective - Vital Signs Vital signs: Vital Signs Temp 98.6 F 12/07/20 04:00 Pulse 67 12/07/20 07:28 Resp 36 H 12/07/20 07:28 BP 104/53 12/07/20 07:00 Pulse Ox 99 12/07/20 07:09 Intake & Output 12/06/20 12/07/20 12/07/20 18:59 06:59 18:59 Intake Total 0.102 162.025 Output Total 1800 2760 100 Balance -1799.898 -2597.975 -100 Weight 119.5 kg Intake: Intake, IV Titration 0.102 162.025 Amount Dexmedetomidine/0.9% NaCl 0.102 162.025 (Pmx) 400 mcg In Empty Bag 1 bag @ 0.2 MCG/KG/HR 6.101 mls/hr IV .[id number] [facility] Rx#:[id number] Output: Urine 1800 2760 100 Other: Voiding Method Indwelling Catheter - Labs CBC & Chem 7: 12/07/20 04:47 12/07/20 04:47 Labs: Abnormal Lab Results - Last 24 Hours (Table) 12/06/20 12/06/20 12/06/20 Range/Units 08:48 10:53 11:30 RBC (4.30-5.90) m/uL Hgb (13.0-17.5) gm/dL Hct (39.0-53.0) % MCH (25.0-35.0) pg MCHC (31.0-37.0) g/dL RDW (11.5-15.5) % Neutrophils # (1.3-7.7) k/uL Lymphocytes # (1.0-4.8) k/uL ABG pH (7.35-7.45) ABG pCO2 (35-45) mmHg ABG pO2 (83-108) mmHg ABG HCO3 (21-25) mmol/L ABG Total CO2 (19-24) mmol/L Sodium 122 L (137-145) mmol/L Potassium 6.9 H* (3.5-5.1) mmol/L Chloride 82 L (98-107) mmol/L Carbon Dioxide 36 H (22-30) mmol/L BUN 23 H (9-20) mg/dL Glucose 188 H (74-99) mg/dL POC Glucose (mg/dL) 183 H (75-99) mg/dL Osmolality 271 L (280-301) mosm/kg Phosphorus (2.5-4.5) mg/dL AST (17-59) U/L Total Protein (6.3-8.2) g/dL Albumin (3.5-5.0) g/dL Urine Protein (Negative) Calcium Oxalate Crystal (None) /hpf Urine Bacteria (None) /hpf Hyaline Casts (0-2) /lpf Urine Mucus (None) /hpf Ur Random Sodium <20 L (40-220) mmol/L 12/06/20 12/06/20 12/06/20 Range/Units 11:41 12:38 13:30 RBC (4.30-5.90) m/uL Hgb (13.0-17.5) gm/dL Hct (39.0-53.0) % MCH (25.0-35.0) pg MCHC (31.0-37.0) g/dL RDW (11.5-15.5) % Neutrophils # (1.3-7.7) k/uL Lymphocytes # (1.0-4.8) k/uL ABG pH 7.19 L* (7.35-7.45) ABG pCO2 107 H* (35-45) mmHg ABG pO2 81 L (83-108) mmHg ABG HCO3 41 H* (21-25) mmol/L ABG Total CO2 44 H (19-24) mmol/L Sodium 121 L (137-145) mmol/L Potassium 7.4 H* (3.5-5.1) mmol/L Chloride 85 L (98-107) mmol/L Carbon Dioxide (22-30) mmol/L BUN 25 H (9-20) mg/dL Glucose 137 H (74-99) mg/dL POC Glucose (mg/dL) (75-99) mg/dL Osmolality (280-301) mosm/kg Phosphorus (2.5-4.5) mg/dL AST (17-59) U/L Total Protein (6.3-8.2) g/dL Albumin (3.5-5.0) g/dL Urine Protein 1+ H (Negative) Calcium Oxalate Crystal Many H (None) /hpf Urine Bacteria Few H (None) /hpf Hyaline Casts 15 H (0-2) /lpf Urine Mucus Rare H (None) /hpf Ur Random Sodium (40-220) mmol/L 12/06/20 12/06/20 12/07/20 Range/Units 14:12 18:58 04:47 RBC 3.78 L (4.30-5.90) m/uL Hgb 9.4 L (13.0-17.5) gm/dL Hct 32.4 L (39.0-53.0) % MCH 24.9 L (25.0-35.0) pg MCHC 29.1 L (31.0-37.0) g/dL RDW 17.3 H (11.5-15.5) % Neutrophils # 9.6 H (1.3-7.7) k/uL Lymphocytes # 0.4 L (1.0-4.8) k/uL ABG pH (7.35-7.45) ABG pCO2 (35-45) mmHg ABG pO2 (83-108) mmHg ABG HCO3 (21-25) mmol/L ABG Total CO2 (19-24) mmol/L Sodium 125 L 125 L (137-145) mmol/L Potassium 6.3 H* 5.5 H (3.5-5.1) mmol/L Chloride 83 L 81 L (98-107) mmol/L Carbon Dioxide 34 H 38 H (22-30) mmol/L BUN 25 H (9-20) mg/dL Glucose 129 H (74-99) mg/dL POC Glucose (mg/dL) (75-99) mg/dL Osmolality (280-301) mosm/kg Phosphorus (2.5-4.5) mg/dL AST 60 H (17-59) U/L Total Protein (6.3-8.2) g/dL Albumin 3.4 L (3.5-5.0) g/dL Urine Protein (Negative) Calcium Oxalate Crystal (None) /hpf Urine Bacteria (None) /hpf Hyaline Casts (0-2) /lpf Urine Mucus (None) /hpf Ur Random Sodium (40-220) mmol/L 12/07/20 Range/Units 04:47 RBC (4.30-5.90) m/uL Hgb (13.0-17.5) gm/dL Hct (39.0-53.0) % MCH (25.0-35.0) pg MCHC (31.0-37.0) g/dL RDW (11.5-15.5) % Neutrophils # (1.3-7.7) k/uL Lymphocytes # (1.0-4.8) k/uL ABG pH (7.35-7.45) ABG pCO2 (35-45) mmHg ABG pO2 (83-108) mmHg ABG HCO3 (21-25) mmol/L ABG Total CO2 (19-24) mmol/L Sodium 128 L (137-145) mmol/L Potassium 5.3 H (3.5-5.1) mmol/L Chloride 81 L (98-107) mmol/L Carbon Dioxide 41 H* (22-30) mmol/L BUN 31 H (9-20) mg/dL Glucose 150 H (74-99) mg/dL POC Glucose (mg/dL) (75-99) mg/dL Osmolality (280-301) mosm/kg Phosphorus 4.8 H (2.5-4.5) mg/dL AST (17-59) U/L Total Protein 5.9 L (6.3-8.2) g/dL Albumin 3.0 L (3.5-5.0) g/dL Urine Protein (Negative) Calcium Oxalate Crystal (None) /hpf Urine Bacteria (None) /hpf Hyaline Casts (0-2) /lpf Urine Mucus (None) /hpf Ur Random Sodium (40-220) mmol/L Assessment and Plan Plan: Assessment: 1. Hyponatremia. Hypervolemic. Sodium level 128 this morning. TSH normal. 2. Hyperkalemia secondary to acidemia. Also component of urinary retention. Improved. 3. Acute hypercapnic respiratory failure. On BiPAP. Plan: Maintain IV Lasix. Monitor bicarb. This is elevated and is mostly compensatory for underlying respiratory acidosis.
--- NOTE | 2020-12-07 08:55 | P.PN ---
Subjective Progress Note Date: 12/07/20, the patient is being seen for a follow-up. As mentioned, this patient is a case of advanced COPD with respiratory failure who is a DNR/DNI CODE STATUS. Since he came in, he had severe hypoxic and hypercapnic respiratory failure with CO2 narcosis. He was falling at home. He also had altered mentation. For that reason, he was kept on a BiPAP and is currently at a pressure of 14/5 cm of water with an FiO2 of 50%. His current pulse ox is 94%. He did have a lipid amount of agitation or restlessness while on the BiPAP. Based on that, I started him on Precedex and currently it is running at 0.7 mcg/kg per minute. At the same time, the patient receives few doses of Haldol overnight and in the emergency department. She is much more comfortable and suggested a BiPAP machine. His generator tidal volume is above 500. His current respiratory rate is around 20 and his minute ventilation is 10 L per minute. A follow-up blood gases still pending for now. He was also diuresed with IV Lasix. He remains in a negative fluid balance. Serum bicarbs at 41. His potassium level is down to 5.3. His white cell count is at 10.4 with a hemoglobin of 0.4. The patient remains on empiric antibiotic coverage with a combination of Rocephin and Zithromax. He remains on bronchodilators. He remains on steroids. Chest x-ray showing chronic changes with cardiomegaly without evidence of any acute pulmonary edema. There is no consolidation or airspace disease. He is lethargic. Is quite sleepy still. Seems to be restless although improved compared to yesterday. Family is aware. Objective - Vital Signs Vital signs: Vital Signs Temp 98.6 F 12/07/20 04:00 Pulse 67 12/07/20 07:28 Resp 36 H 12/07/20 07:28 BP 104/53 12/07/20 07:00 Pulse Ox 99 12/07/20 07:09 Intake & Output 12/06/20 12/07/20 12/07/20 18:59 06:59 18:59 Intake Total 0.102 162.025 Output Total 1800 2760 100 Balance -1799.898 -2597.975 -100 Weight 119.5 kg Intake: Intake, IV Titration 0.102 162.025 Amount Dexmedetomidine/0.9% NaCl 0.102 162.025 (Pmx) 400 mcg In Empty Bag 1 bag @ 0.2 MCG/KG/HR 6.101 mls/hr IV .[id number] [facility] Rx#:[id number] Output: Urine 1800 2760 100 Other: Voiding Method Indwelling Catheter - Exam The patient is currently sedated, calm and comfortable, tolerating a full face BiPAP mask at a pressure of 14/5 cm of water. Breathing is less labored. Occasional agitation. HEAD: Normocephalic/atraumatic. EYES: Normal reaction of pupils, equal size. Conjunctiva pink, sclera white. NOSE: Clear with pink turbinates. THROAT: No erythema or exudates. NECK: No masses, no JVD, no thyroid enlargement, no adenopathy. CHEST: No chest wall deformity. Symmetrical expansion. LUNGS: Equal air entry with diffuse wheezes CVS: Regular rate and rhythm, normal S1 and S2, no gallops, no murmurs, no rubs ABDOMEN: Soft, nontender. No hepatosplenomegaly, normal bowel sounds, no guarding or rigidity. EXTREMITIES: No clubbing, no edema, no cyanosis, 2+ pulses and upper and lower extremities. MUSCULOSKELETAL: Muscle strength and tone normal. SPINE: No scoliosis or deformity SKIN: No rashes, laceration to the fifth small toe on left foot CENTRAL NERVOUS SYSTEM: Obtunded No focal deficits, tone is normal in all 4 extremities. - Labs CBC & Chem 7: 12/07/20 04:47 12/07/20 04:47 Labs: Abnormal Lab Results - Last 24 Hours (Table) 12/06/20 12/06/20 12/06/20 Range/Units 08:48 10:53 11:30 RBC (4.30-5.90) m/uL Hgb (13.0-17.5) gm/dL Hct (39.0-53.0) % MCH (25.0-35.0) pg MCHC (31.0-37.0) g/dL RDW (11.5-15.5) % Neutrophils # (1.3-7.7) k/uL Lymphocytes # (1.0-4.8) k/uL ABG pH (7.35-7.45) ABG pCO2 (35-45) mmHg ABG pO2 (83-108) mmHg ABG HCO3 (21-25) mmol/L ABG Total CO2 (19-24) mmol/L Sodium 122 L (137-145) mmol/L Potassium 6.9 H* (3.5-5.1) mmol/L Chloride 82 L (98-107) mmol/L Carbon Dioxide 36 H (22-30) mmol/L BUN 23 H (9-20) mg/dL Glucose 188 H (74-99) mg/dL POC Glucose (mg/dL) 183 H (75-99) mg/dL Osmolality 271 L (280-301) mosm/kg Phosphorus (2.5-4.5) mg/dL AST (17-59) U/L Total Protein (6.3-8.2) g/dL Albumin (3.5-5.0) g/dL Urine Protein (Negative) Calcium Oxalate Crystal (None) /hpf Urine Bacteria (None) /hpf Hyaline Casts (0-2) /lpf Urine Mucus (None) /hpf Ur Random Sodium <20 L (40-220) mmol/L 12/06/20 12/06/20 12/06/20 Range/Units 11:41 12:38 13:30 RBC (4.30-5.90) m/uL Hgb (13.0-17.5) gm/dL Hct (39.0-53.0) % MCH (25.0-35.0) pg MCHC (31.0-37.0) g/dL RDW (11.5-15.5) % Neutrophils # (1.3-7.7) k/uL Lymphocytes # (1.0-4.8) k/uL ABG pH 7.19 L* (7.35-7.45) ABG pCO2 107 H* (35-45) mmHg ABG pO2 81 L (83-108) mmHg ABG HCO3 41 H* (21-25) mmol/L ABG Total CO2 44 H (19-24) mmol/L Sodium 121 L (137-145) mmol/L Potassium 7.4 H* (3.5-5.1) mmol/L Chloride 85 L (98-107) mmol/L Carbon Dioxide (22-30) mmol/L BUN 25 H (9-20) mg/dL Glucose 137 H (74-99) mg/dL POC Glucose (mg/dL) (75-99) mg/dL Osmolality (280-301) mosm/kg Phosphorus (2.5-4.5) mg/dL AST (17-59) U/L Total Protein (6.3-8.2) g/dL Albumin (3.5-5.0) g/dL Urine Protein 1+ H (Negative) Calcium Oxalate Crystal Many H (None) /hpf Urine Bacteria Few H (None) /hpf Hyaline Casts 15 H (0-2) /lpf Urine Mucus Rare H (None) /hpf Ur Random Sodium (40-220) mmol/L 12/06/20 12/06/20 12/07/20 Range/Units 14:12 18:58 04:47 RBC 3.78 L (4.30-5.90) m/uL Hgb 9.4 L (13.0-17.5) gm/dL Hct 32.4 L (39.0-53.0) % MCH 24.9 L (25.0-35.0) pg MCHC 29.1 L (31.0-37.0) g/dL RDW 17.3 H (11.5-15.5) % Neutrophils # 9.6 H (1.3-7.7) k/uL Lymphocytes # 0.4 L (1.0-4.8) k/uL ABG pH (7.35-7.45) ABG pCO2 (35-45) mmHg ABG pO2 (83-108) mmHg ABG HCO3 (21-25) mmol/L ABG Total CO2 (19-24) mmol/L Sodium 125 L 125 L (137-145) mmol/L Potassium 6.3 H* 5.5 H (3.5-5.1) mmol/L Chloride 83 L 81 L (98-107) mmol/L Carbon Dioxide 34 H 38 H (22-30) mmol/L BUN 25 H (9-20) mg/dL Glucose 129 H (74-99) mg/dL POC Glucose (mg/dL) (75-99) mg/dL Osmolality (280-301) mosm/kg Phosphorus (2.5-4.5) mg/dL AST 60 H (17-59) U/L Total Protein (6.3-8.2) g/dL Albumin 3.4 L (3.5-5.0) g/dL Urine Protein (Negative) Calcium Oxalate Crystal (None) /hpf Urine Bacteria (None) /hpf Hyaline Casts (0-2) /lpf Urine Mucus (None) /hpf Ur Random Sodium (40-220) mmol/L 12/07/20 Range/Units 04:47 RBC (4.30-5.90) m/uL Hgb (13.0-17.5) gm/dL Hct (39.0-53.0) % MCH (25.0-35.0) pg MCHC (31.0-37.0) g/dL RDW (11.5-15.5) % Neutrophils # (1.3-7.7) k/uL Lymphocytes # (1.0-4.8) k/uL ABG pH (7.35-7.45) ABG pCO2 (35-45) mmHg ABG pO2 (83-108) mmHg ABG HCO3 (21-25) mmol/L ABG Total CO2 (19-24) mmol/L Sodium 128 L (137-145) mmol/L Potassium 5.3 H (3.5-5.1) mmol/L Chloride 81 L (98-107) mmol/L Carbon Dioxide 41 H* (22-30) mmol/L BUN 31 H (9-20) mg/dL Glucose 150 H (74-99) mg/dL POC Glucose (mg/dL) (75-99) mg/dL Osmolality (280-301) mosm/kg Phosphorus 4.8 H (2.5-4.5) mg/dL AST (17-59) U/L Total Protein 5.9 L (6.3-8.2) g/dL Albumin 3.0 L (3.5-5.0) g/dL Urine Protein (Negative) Calcium Oxalate Crystal (None) /hpf Urine Bacteria (None) /hpf Hyaline Casts (0-2) /lpf Urine Mucus (None) /hpf Ur Random Sodium (40-220) mmol/L Assessment and Plan Plan: #1. Acute on chronic hypercapnic and hypoxic respiratory failure related to acute exacerbation of COPD, with possibly component of fluid overload. The patient has acute on top of chronic hypoxic and hypercapnic respiratory failure with significant respiratory acidosis. He got transferred to the intensive care unit, managed with BiPAP. He was quite agitated and he was given Precedex for agitation. Follow-up blood gases are pending for now. Chest x-ray from today shows no evidence of an acute interstitial edema and there is cardiomegaly. No evidence of any pneumonia. Less bronchospastic and wheezy compared to yesterday. CBC much more synchronous with the BiPAP machine and he was on BiPAP throughout the night yesterday. Receiving bronchodilators, steroids, antibi otics and diuretics. #2. Recent hospitalization in October 2020 for acute COPD exacerbation #3. Fall at home, and injuries to the small toe on the left foot, requiring application of sutures, imaging of the left foot abdomen and bilateral hips shows no acute fracture #4. Severe COPD, with chronic hypoxic and hypercapnic respiratory failure and baseline FEV1 of 36% of predicted #5. Poor medical compliance, according to the patient has not taken his medications for the past several days, is unknown whether he is compliant with home O2 #6. Chronic and ongoing history of smoking #7. Hyponatremia, improving and his sodium level is up to 128 #8. Hyperkalemia, improving and the potassium level is down to 5.3 #9. Hypertension #10. Hyperlipidemia #11. History of coronary artery disease with previous stenting of the RCA #12. 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 Time with Patient: Greater than 30
[2020-12-07] MEDS: ASPIRIN 81 MG PO SCH (09:14)
[2020-12-07] MEDS: ATORVASTATIN 10 MG TAB PO SCH (09:14)
[2020-12-07] MEDS: CHOLECALCIFEROL 25 MCG (1000 IU) TABLET PO SCH (09:14)
[2020-12-07] MEDS: CLOPIDOGREL 75 MG TAB PO SCH (09:15)
[2020-12-07] MEDS: MONTELUKAST 10 MG TAB PO SCH (09:15)
[2020-12-07 10:03] LABS: ABG Base Excess 24.7 mmol/L; ABG Oxygen Saturation 80.3 % (94-97); ABG TCO2 52 mmol/L (19-24); Allen Test Performed? Yes
[2020-12-07 10:07] LABS: ABG HCO3 50 mmol/L (21-25); ABG PCO2 81 mmHg (35-45); ABG PO2 46 mmHg (83-108)
--- NOTE | 2020-12-07 13:59 | P.PN ---
Subjective Progress Note Date: 12/07/20 This is history and physical on 75-year-old white male with known history of COPD who was smoking and fell. Injuring his foot. He is now admitted for significant respiratory failure. Evaluation did show hyponatremia. No significant voiding difficulties. No provocative or palliative issues stated as far as pain or breathing. The patient is now readmitted for COPD elements. The patient is poorly arousable at this time. 12/07/2020 Patient is evaluated today in the ICU, he is maintained on a BiPAP at 14 /5 with FiO2 50%. Vital signs include a temp of 98.2, heart rate 67, blood pressure 123/63. While he is awake he is on 5 L nasal cannula with an oxygen saturation of 94%. Chest x-ray today shows chronic changes and cardiomegaly without acute pulmonary process. Stable from yesterday. Labs today include a hemoglobin of 9.4, sodium of 128, potassium 5.3, chloride 81, CO2 41. Acute and creatinine are stable at 31 and 1.02. Repeat blood glasses today; pH is 7.4 pCO2 is 81, O2 saturation 80.3 which is decreased. p02 is now 46, HCO3 is now 50. Patient is on IV antibiotics for a questionable pneumonia however infection is unlikely, and his white blood cell count is normalized at 10.5, urinalysis was essentially negative for infection, and a lactic acid was 0.7 at admission. Troponins were negative 3. His proBNP was 2780. Patient is receiving IV Lasix. Patient is maintained on Precedex for some acute agitation, additional Haldol as needed. His last dose was at 3 this morning. ROS: Unable to complete a full review of systems at this time as patient is on BiPAP, appears lethargic, with minimal arousal. All inpatient medications were reviewed and appropriate changes in these medications as dictated in the interval history and assessment and plan. PHYSICAL EXAMINATION: GENERAL: The patient is sedated at this time however he does appear comfortable with a BiPAP on. Breathing is not labored at the time of my assessment. HEENT: Pupils are round and equally reacting to light. EOMI. CARDIOVASCULAR: S1 and S2 present. No murmurs, rubs, or gallops. PULMONARY: There are some scattered infiltrate wheezing. No crackles. ABDOMEN: Soft, nontender, nondistended, normoactive bowel sounds. No palpable organomegaly. MUSCULOSKELETAL: No joint swelling or deformity. EXTREMITIES: No cyanosis, clubbing, or pedal edema. NEUROLOGICAL: Complete neurological exam is difficult to obtain at this time. SKIN: No rashes. Assessment and Plan Acute metabolic encephalopathy most likely related to respiratory acidosis secondary to a COPD exacerbation, on Precedex and Haldol for some acute agitation Acute on chronic hypercapnic and hypoxic respiratory failure secondary to COPD exacerbation, on IV steroids and empiric Rocephin COPD with acute exacerbation, component of noncompliance with medications, with home oxygen Leukocytosis, reactive, resolved Recent fall at home probably due to overall medical debility hyponatremia secondary to hypervolemia, on IV Lasix Hyperkalemia, improving Questionable fluid overload state, unknown ejection fraction, BNP 2780 Coronary artery disease status post stent to the RCA Laceration of the toe status post fall with suture repair Chronic tobacco use Leukocytosis Anemia, microcytic will repeat hemoglobin morning Secondary polycythemia vera Hypertension Hyperlipidemia GI prophylaxis: Protonix DVT prophylaxis: Plan Patient will continue on BiPAP and continue to monitor blood gases. We will continue with all other medications. We'll repeat labs in the morning patient will continue in ICU with Precedex and Haldol for an acute agitation as needed. PT OT consultation, patient will need subacute rehab on discharge once medically clear. There is a pro-calcitonin level that is still pending. Objective - Vital Signs Vital signs: Vital Signs Temp 98.2 F 12/07/20 12:00 Pulse 67 12/07/20 12:00 Resp 12 12/07/20 12:00 BP 123/63 12/07/20 12:00 Pulse Ox 94 L 12/07/20 12:00 Intake & Output 12/06/20 12/07/20 12/07/20 18:59 06:59 18:59 Intake Total 0.102 162.025 390 Output Total 1800 2760 1375 Balance -1799.898 -2597.975 -985 Weight 119.5 kg Intake: Intake, IV Titration 0.102 162.025 150 Amount Dexmedetomidine/0.9% NaCl 0.102 162.025 100 (Pmx) 400 mcg In Empty Bag 1 bag @ 0.2 MCG/KG/HR 6.101 mls/hr IV .[id number] [facility] Rx#:[id number] cefTRIAXone 1 gm In 50 Sodium Chloride 0.9% 50 ml @ 100 mls/hr IVPB Q24HR [facility] Rx#:[id number] Oral 240 Output: Urine 1800 2760 1375 Other: Voiding Method Indwelling Catheter Indwelling Catheter - Labs CBC & Chem 7: 12/07/20 04:47 12/07/20 04:47 Labs: Abnormal Lab Results - Last 24 Hours (Table) 12/06/20 12/06/20 12/06/20 Range/Units 08:48 11:30 13:30 RBC (4.30-5.90) m/uL Hgb (13.0-17.5) gm/dL Hct (39.0-53.0) % MCH (25.0-35.0) pg MCHC (31.0-37.0) g/dL RDW (11.5-15.5) % Neutrophils # (1.3-7.7) k/uL Lymphocytes # (1.0-4.8) k/uL ABG pCO2 (35-45) mmHg ABG pO2 (83-108) mmHg ABG HCO3 (21-25) mmol/L ABG Total CO2 (19-24) mmol/L ABG O2 Saturation (94-97) % Sodium (137-145) mmol/L Potassium (3.5-5.1) mmol/L Chloride (98-107) mmol/L Carbon Dioxide (22-30) mmol/L BUN (9-20) mg/dL Glucose (74-99) mg/dL Osmolality 271 L (280-301) mosm/kg Phosphorus (2.5-4.5) mg/dL AST (17-59) U/L Total Protein (6.3-8.2) g/dL Albumin (3.5-5.0) g/dL Urine Protein 1+ H (Negative) Calcium Oxalate Crystal Many H (None) /hpf Urine Bacteria Few H (None) /hpf Hyaline Casts 15 H (0-2) /lpf Urine Mucus Rare H (None) /hpf Ur Random Sodium <20 L (40-220) mmol/L 12/06/20 12/06/20 12/07/20 Range/Units 14:12 18:58 04:47 RBC 3.78 L (4.30-5.90) m/uL Hgb 9.4 L (13.0-17.5) gm/dL Hct 32.4 L (39.0-53.0) % MCH 24.9 L (25.0-35.0) pg MCHC 29.1 L (31.0-37.0) g/dL RDW 17.3 H (11.5-15.5) % Neutrophils # 9.6 H (1.3-7.7) k/uL Lymphocytes # 0.4 L (1.0-4.8) k/uL ABG pCO2 (35-45) mmHg ABG pO2 (83-108) mmHg ABG HCO3 (21-25) mmol/L ABG Total CO2 (19-24) mmol/L ABG O2 Saturation (94-97) % Sodium 125 L 125 L (137-145) mmol/L Potassium 6.3 H* 5.5 H (3.5-5.1) mmol/L Chloride 83 L 81 L (98-107) mmol/L Carbon Dioxide 34 H 38 H (22-30) mmol/L BUN 25 H (9-20) mg/dL Glucose 129 H (74-99) mg/dL Osmolality (280-301) mosm/kg Phosphorus (2.5-4.5) mg/dL AST 60 H (17-59) U/L Total Protein (6.3-8.2) g/dL Albumin 3.4 L (3.5-5.0) g/dL Urine Protein (Negative) Calcium Oxalate Crystal (None) /hpf Urine Bacteria (None) /hpf Hyaline Casts (0-2) /lpf Urine Mucus (None) /hpf Ur Random Sodium (40-220) mmol/L 12/07/20 12/07/20 Range/Units 04:47 10:00 RBC (4.30-5.90) m/uL Hgb (13.0-17.5) gm/dL Hct (39.0-53.0) % MCH (25.0-35.0) pg MCHC (31.0-37.0) g/dL RDW (11.5-15.5) % Neutrophils # (1.3-7.7) k/uL Lymphocytes # (1.0-4.8) k/uL ABG pCO2 81 H* (35-45) mmHg ABG pO2 46 L* (83-108) mmHg ABG HCO3 50 H* (21-25) mmol/L ABG Total CO2 52 H (19-24) mmol/L ABG O2 Saturation 80.3 L (94-97) % Sodium 128 L (137-145) mmol/L Potassium 5.3 H (3.5-5.1) mmol/L Chloride 81 L (98-107) mmol/L Carbon Dioxide 41 H* (22-30) mmol/L BUN 31 H (9-20) mg/dL Glucose 150 H (74-99) mg/dL Osmolality (280-301) mosm/kg Phosphorus 4.8 H (2.5-4.5) mg/dL AST (17-59) U/L Total Protein 5.9 L (6.3-8.2) g/dL Albumin 3.0 L (3.5-5.0) g/dL Urine Protein (Negative) Calcium Oxalate Crystal (None) /hpf Urine Bacteria (None) /hpf Hyaline Casts (0-2) /lpf Urine Mucus (None) /hpf Ur Random Sodium (40-220) mmol/L Assessment and Plan Time with Patient: Greater than 30
[2020-12-08] MEDS: HALOPERIDOL LACTATE 5 MG/ML 1 ML VIAL IVP PRN (01:06)
[2020-12-08 04:38] LABS: African American GFR (CKD) >90 (>60 ml/min/1.73 sqM); Blood Urea Nitrogen 31 mg/dL (9-20); Calcium 8.7 mg/dL (8.4-10.2); Chloride 80 mmol/L (98-107); Glucose 124 mg/dL (74-99); Non-African American GFR(CKD) 83 (>60 ml/min/1.73 sqM); Potassium 4.3 mmol/L (3.5-5.1); Sodium 130 mmol/L (137-145)
[2020-12-08 04:42] LABS: Anisocytosis Slight; Basophils % (A) 0 %; Eosinophils % (A) 0 %; HGB 9.8 gm/dL (13.0-17.5); Hypochromasia Marked; Lymphocytes # (A) 0.3 k/uL (1.0-4.8); Lymphocytes % (A) 2 %; MCH 25.1 pg (25.0-35.0); MCHC 30.5 g/dL (31.0-37.0); MCV 82.3 fL (80.0-100.0); Mean Platelet Volume 8.7; Monocytes # (A) 0.7 k/uL (0-1.0); Monocytes % (A) 5 %; Neutrophils # (A) 13.4 k/uL (1.3-7.7); Neutrophils % (A) 92 %; Platelet Count 311 k/uL (150-450); Poikilocytosis Moderate; RBC 3.89 m/uL (4.30-5.90); RDW 17.9 % (11.5-15.5); WBC 14.5 k/uL (3.8-10.6)
[2020-12-08 04:45] LABS: Anion Gap 6 mmol/L
[2020-12-08 04:59] LABS: Carbon Dioxide 44 mmol/L (22-30)
[2020-12-08] MEDS: methylPREDNISolone SOD SUCCI 125 MG/2 ML VIAL IV SCH ×2 (07:18→13:18)
[2020-12-08] MEDS: FORMOTEROL FUMARATE 20 MCG/2 ML NEBU INHALATION SCH ×2 (07:19→19:12)
[2020-12-08] MEDS: IPRATROPIUM-ALBUTEROL 3 ML NEB INHALATION SCH ×4 (07:19→19:11)
[2020-12-08] MEDS: BUDESONIDE 1 MG/2 ML NEBU INHALATION SCH ×2 (07:19→19:11)
--- NOTE | 2020-12-08 09:02 | P.PN ---
Subjective Progress Note Date: 12/08/20 12/08/2020, the patient is awake and alert and following commands and answering questions appropriately. The patient was taken off the chiropractor. Is currently on oxygen. She is running at 5 L by nasal cannula and his current pulse ox is around 86%. He is off the BiPAP for now. Doing well. Tolerating his diet. No nausea. No vomiting. Less bronchospastic and wheezy compared to yesterday. His chest discomfort is also subsided. Noted the patient was diuresed with IV Lasix throughout the day yesterday and the patient is a negative fluid balance of 2.8 L. Blood gases improved and there is improvement and acid base status. Noted the patient's pCO2 is up to 80 with a pH of 7.4. He remains on bronchodilators. He remains on IV Solu Medrol. He remains on IV Lasix. His chest x-ray from yesterday showed cardiomegaly without any airspace disease or consolidation. Hemodynamically stable. No hypotension. No tachycardia. No other significant issues otherwise. Mentation is improved c onsiderably and there is no signs of any ongoing CO2 narcosis. Objective - Vital Signs Vital signs: Vital Signs Temp 98.4 F 12/08/20 04:00 Pulse 78 12/08/20 07:45 Resp 22 12/08/20 07:00 BP 155/78 12/08/20 07:00 Pulse Ox 93 L 12/08/20 07:00 Intake & Output 12/07/20 12/08/20 12/08/20 18:59 06:59 18:59 Intake Total 1081.766 700 Output Total 2675 1910 100 Balance -1593.234 -1210 -100 Weight 117.7 kg Intake: Intake, IV Titration 241.766 Amount Dexmedetomidine/0.9% NaCl 191.766 (Pmx) 400 mcg In Empty Bag 1 bag @ 0.2 MCG/KG/HR 6.101 mls/hr IV .[id number] NISA Rx#:[id number] cefTRIAXone 1 gm In 50 Sodium Chloride 0.9% 50 ml @ 100 mls/hr IVPB Q24HR NISA Rx#:[id number] Oral 840 700 Output: Urine 2675 1910 100 Other: Voiding Method Indwelling Catheter Indwelling Catheter # Bowel Movements 1 - Exam The patient is currently sedated, calm and comfortable, tolerating 5 L of oxygen by nasal cannula and the patient was taken off the BiPAP. He had no agitation. Mentation is improved significantly. HEAD: Normocephalic/atraumatic. EYES: Normal reaction of pupils, equal size. Conjunctiva pink, sclera white. NOSE: Clear with pink turbinates. THROAT: No erythema or exudates. NECK: No masses, no JVD, no thyroid enlargement, no adenopathy. CHEST: No chest wall deformity. Symmetrical expansion. LUNGS: Equal air entry with diffuse wheezes CVS: Regular rate and rhythm, normal S1 and S2, no gallops, no murmurs, no rubs ABDOMEN: Soft, nontender. No hepatosplenomegaly, normal bowel sounds, no guarding or rigidity. EXTREMITIES: No clubbing, no edema, no cyanosis, 2+ pulses and upper and lower extremities. MUSCULOSKELETAL: Muscle strength and tone normal. SPINE: No scoliosis or deformity SKIN: No rashes, laceration to the fifth small toe on left foot CENTRAL NERVOUS SYSTEM: Awake and alert and following simple commands. No focal deficits, tone is normal in all 4 extremities. - Labs CBC & Chem 7: 12/08/20 03:58 12/08/20 03:58 Labs: Abnormal Lab Results - Last 24 Hours (Table) 12/06/20 12/07/20 12/08/20 Range/Units 08:48 10:00 03:58 WBC 14.5 H (3.8-10.6) k/uL RBC 3.89 L (4.30-5.90) m/uL Hgb 9.8 L (13.0-17.5) gm/dL Hct 32.0 L (39.0-53.0) % MCHC 30.5 L (31.0-37.0) g/dL RDW 17.9 H (11.5-15.5) % Neutrophils # 13.4 H (1.3-7.7) k/uL Lymphocytes # 0.3 L (1.0-4.8) k/uL ABG pCO2 81 H* (35-45) mmHg ABG pO2 46 L* (83-108) mmHg ABG HCO3 50 H* (21-25) mmol/L ABG Total CO2 52 H (19-24) mmol/L ABG O2 Saturation 80.3 L (94-97) % Sodium (137-145) mmol/L Chloride (98-107) mmol/L Carbon Dioxide (22-30) mmol/L BUN (9-20) mg/dL Glucose (74-99) mg/dL Procalcitonin 0.56 H (0.02-0.09) ng/mL 12/08/20 Range/Units 03:58 WBC (3.8-10.6) k/uL RBC (4.30-5.90) m/uL Hgb (13.0-17.5) gm/dL Hct (39.0-53.0) % MCHC (31.0-37.0) g/dL RDW (11.5-15.5) % Neutrophils # (1.3-7.7) k/uL Lymphocytes # (1.0-4.8) k/uL ABG pCO2 (35-45) mmHg ABG pO2 (83-108) mmHg ABG HCO3 (21-25) mmol/L ABG Total CO2 (19-24) mmol/L ABG O2 Saturation (94-97) % Sodium 130 L (137-145) mmol/L Chloride 80 L (98-107) mmol/L Carbon Dioxide 44 H* (22-30) mmol/L BUN 31 H (9-20) mg/dL Glucose 124 H (74-99) mg/dL Procalcitonin (0.02-0.09) ng/mL Assessment and Plan Plan: #1. Acute on chronic hypercapnic and hypoxic respiratory failure related to acute exacerbation of COPD, with possibly component of fluid overload. The patient has acute on top of chronic hypoxic and hypercapnic respiratory failure with significant respiratory acidosis. He got transferred to the intensive care unit, managed with BiPAP. He was quite agitated and he was given Precedex for agitation. Follow-up blood gases are pending for now. Chest x-ray from today shows no evidence of an acute interstitial edema and there is cardiomegaly. No evidence of any pneumonia. Less bronchospastic and wheezy compared to yesterday. Subsequently, the patient's condition improved. The patient was taken off the BiPAP and currently is on 5 L about 2 by nasal cannula. Less bronchospastic. Less wheezy. Improvement and acid base status and his chronic hypercapnic respiratory failure is compensated for now. His pH is at 7.4. He'll be kept on the bronchodilators and steroids. Will be weaned off. #2. Recent hospitalization in October 2020 for acute COPD exacerbation #3. Fall at home, and injuries to the small toe on the left foot, requiring application of sutures, imaging of the left foot abdomen and bilateral hips shows no acute fracture #4. Severe COPD, with chronic hypoxic and hypercapnic respiratory failure and baseline FEV1 of 36% of predicted #5. Poor medical compliance, according to the patient has not taken his medications for the past several days, is unknown whether he is compliant with home O2 #6. Chronic and ongoing history of smoking #7. Hyponatremia, improving #8. Hyperkalemia, improving #9. Hypertension #10. Hyperlipidemia #11. History of coronary artery disease with previous stenting of the RCA #12. History of abdominal aortic aneurysm repair in 2016 #13. Secondary polycythemia vera Plan: May continue the oxygen at 5 L per minute nasal cannula. May continue using the BiPAP overnight. Continue bronchodilators Continue steroids Lasix will be switched to oral 40 mg by mouth daily and he will be taken off the IV Solu-Medrol Continue antibiotics for another 24 hours DNR/DNI CODE STATUS Increase mobility and he'll be able to sit up on a chair Provide diet. May transfer to a regular floor today
--- NOTE | 2020-12-08 09:23 | P.PN ---
Subjective Patient is seen in follow-up for hyponatremia and hyperkalemia. Maintained on IV Lasix. Nonoliguric. Sodium levels up to 130 and potassium level is down to 4.3. Mentation improved today. On nasal cannula. Vital signs are stable. General: on BiPAP. HEENT: Head exam is unremarkable. LUNGS: Breath sounds decreased. HEART: Rate and Rhythm are regular. ABDOMEN: Soft, no distention. Obese. EXTREMITITES: Trace edema. Objective - Vital Signs Vital signs: Vital Signs Temp 98.4 F 12/08/20 04:00 Pulse 78 12/08/20 07:45 Resp 22 12/08/20 07:00 BP 155/78 12/08/20 07:00 Pulse Ox 93 L 12/08/20 07:00 Intake & Output 12/07/20 12/08/20 12/08/20 18:59 06:59 18:59 Intake Total 1081.766 700 Output Total 2675 1910 100 Balance -1593.234 -1210 -100 Weight 117.7 kg Intake: Intake, IV Titration 241.766 Amount Dexmedetomidine/0.9% NaCl 191.766 (Pmx) 400 mcg In Empty Bag 1 bag @ 0.2 MCG/KG/HR 6.101 mls/hr IV .[id number] NISA Rx#:[id number] cefTRIAXone 1 gm In 50 Sodium Chloride 0.9% 50 ml @ 100 mls/hr IVPB Q24HR NISA Rx#:[id number] Oral 840 700 Output: Urine 2675 1910 100 Other: Voiding Method Indwelling Catheter Indwelling Catheter # Bowel Movements 1 - Labs CBC & Chem 7: 12/08/20 03:58 12/08/20 03:58 Labs: Abnormal Lab Results - Last 24 Hours (Table) 12/06/20 12/07/20 12/08/20 Range/Units 08:48 10:00 03:58 WBC 14.5 H (3.8-10.6) k/uL RBC 3.89 L (4.30-5.90) m/uL Hgb 9.8 L (13.0-17.5) gm/dL Hct 32.0 L (39.0-53.0) % MCHC 30.5 L (31.0-37.0) g/dL RDW 17.9 H (11.5-15.5) % Neutrophils # 13.4 H (1.3-7.7) k/uL Lymphocytes # 0.3 L (1.0-4.8) k/uL ABG pCO2 81 H* (35-45) mmHg ABG pO2 46 L* (83-108) mmHg ABG HCO3 50 H* (21-25) mmol/L ABG Total CO2 52 H (19-24) mmol/L ABG O2 Saturation 80.3 L (94-97) % Sodium (137-145) mmol/L Chloride (98-107) mmol/L Carbon Dioxide (22-30) mmol/L BUN (9-20) mg/dL Glucose (74-99) mg/dL Procalcitonin 0.56 H (0.02-0.09) ng/mL 12/08/20 Range/Units 03:58 WBC (3.8-10.6) k/uL RBC (4.30-5.90) m/uL Hgb (13.0-17.5) gm/dL Hct (39.0-53.0) % MCHC (31.0-37.0) g/dL RDW (11.5-15.5) % Neutrophils # (1.3-7.7) k/uL Lymphocytes # (1.0-4.8) k/uL ABG pCO2 (35-45) mmHg ABG pO2 (83-108) mmHg ABG HCO3 (21-25) mmol/L ABG Total CO2 (19-24) mmol/L ABG O2 Saturation (94-97) % Sodium 130 L (137-145) mmol/L Chloride 80 L (98-107) mmol/L Carbon Dioxide 44 H* (22-30) mmol/L BUN 31 H (9-20) mg/dL Glucose 124 H (74-99) mg/dL Procalcitonin (0.02-0.09) ng/mL Assessment and Plan Plan: Assessment: 1. Hyponatremia. Hypervolemic. Sodium level 130 this morning. TSH normal. Urine sodium less than 20 and urine osmolality 517. 2. Hyperkalemia secondary to acidemia. Also component of urinary retention. Improved. 3. Acute on chronic hypercapnic respiratory failure. 4. Metabolic alkalosis. Due to diuresis and also compensatory for underlying respiratory acidosis. Plan: Hold Lasix. Encouraged oral intake. 1200 mL fluid restriction. Discussed with chemical plant operator.
[2020-12-08] MEDS: NICOTINE 21MG/24HR PATCH TRANSDERM PRN (09:51)
[2020-12-08] MEDS: PANTOPRAZOLE 40 MG/10 ML VIAL IVP SCH (09:51)
[2020-12-08] MEDS: ASPIRIN 81 MG PO SCH (09:52)
[2020-12-08] MEDS: CHOLECALCIFEROL 25 MCG (1000 IU) TABLET PO SCH (09:52)
[2020-12-08] MEDS: CLOPIDOGREL 75 MG TAB PO SCH (09:52)
[2020-12-08] MEDS: MONTELUKAST 10 MG TAB PO SCH (09:52)
[2020-12-08] MEDS: ATORVASTATIN 10 MG TAB PO SCH (09:53)
[2020-12-08] MEDS: FUROSEMIDE 40 MG TAB PO SCH (09:54)
[2020-12-08] MEDS ORDERED: NICOTINE 14MG/24HR PATCH TRANSDERM SCH (10:00)
--- NOTE | 2020-12-08 10:36 | P.PN ---
Subjective Progress Note Date: 12/08/20 This is history and physical on 75-year-old white male with known history of COPD who was smoking and fell. Injuring his foot. He is now admitted for significant respiratory failure. Evaluation did show hyponatremia. No significant voiding difficulties. No provocative or palliative issues stated as far as pain or breathing. The patient is now readmitted for COPD elements. The patient is poorly arousable at this time. 12/07/2020 Patient is evaluated today in the ICU, he is maintained on a BiPAP at 14 /5 with FiO2 50%. Vital signs include a temp of 98.2, heart rate 67, blood pressure 123/63. While he is awake he is on 5 L nasal cannula with an oxygen saturation of 94%. Chest x-ray today shows chronic changes and cardiomegaly without acute pulmonary process. Stable from yesterday. Labs today include a hemoglobin of 9.4, sodium of 128, potassium 5.3, chloride 81, CO2 41. Acute and creatinine are stable at 31 and 1.02. Repeat blood glasses today; pH is 7.4 pCO2 is 81, O2 saturation 80.3 which is decreased. p02 is now 46, HCO3 is now 50. Patient is on IV antibiotics for a questionable pneumonia however infection is unlikely, and his white blood cell count is normalized at 10.5, urinalysis was essentially negative for infection, and a lactic acid was 0.7 at admission. Troponins were negative 3. His proBNP was 2780. Patient is receiving IV Lasix. Patient is maintained on Precedex for some acute agitation, additional Haldol as needed. His last dose was at 3 this morning. 12/08/2020 Patient is evaluated today resting in bed in the ICU. He is off the BiPAP and is on a 5 L nasal cannula with oxygen saturation of 93%. Patient states that he is breathing much better today, he denies any chest pain or chest pressure. He does report some cough; nonproductive. Labs reviewed today include a white count of 14.5, hemoglobin of 9.8. His sodium level is 130, potassium 4.3, chloride 80, CO2 44, BUN 31, creatinine 0.89. Patient hasn't received any Precedex since yesterday. He does continue to receive some IV Haldol for an acute agitation last dose was at 1 AM this morning. He is not agitated and is alert and appropriate 3. His vital signs today include a blood pressure 155/68, sinus rhythm 78, afebrile. Patient states that he has not been able to eat yet, and is hoping he can today since he is off the BiPAP. Continue with a 1200 mL fluid restriction, and hold lasix today. ROS Constitutional: Denied any fatigue denied any fever. Cardio vascular: denied any chest pain, palpitations Gastrointestinal denied any nausea vomiting, denies abdominal pain and diarrhea Pulmonary: Reports shortness of breath at rest, reports a productive cough Neurologic denied any new focal deficits All inpatient medications were reviewed and appropriate changes in these medications as dictated in the interval history and assessment and plan. All inpatient medications were reviewed and appropriate changes in these medications as dictated in the interval history and assessment and plan. PHYSICAL EXAMINATION: GENERAL: Patient does not appear in any acute distress is alert and oriented 3, and assessment. He is on a nasal cannula. HEENT: Pupils are round and equally reacting to light. EOMI. CARDIOVASCULAR: S1 and S2 present. No murmurs, rubs, or gallops. PULMONARY: There are some scattered infiltrate wheezing. No crackles. ABDOMEN: Soft, nontender, nondistended, normoactive bowel sounds. No palpable organomegaly. MUSCULOSKELETAL: No joint swelling or deformity. EXTREMITIES: No cyanosis, clubbing, or pedal edema. NEUROLOGICAL: Patient some generalized weakness there is no focal neurological deficits. SKIN: No rashes. Assessment and Plan Acute metabolic encephalopathy most likely related to respiratory acidosis s econdary to a COPD exacerbation, Precedex Hold, Continue His IV Haldol, Mentation Is Improving Acute on chronic hypercapnic and hypoxic respiratory failure secondary to COPD exacerbation, on IV steroids and empiric Rocephin COPD with acute exacerbation, component of noncompliance with medications, with home oxygen Leukocytosis, most likely reactive, monitor Recent fall at home probably due to overall medical debility hyponatremia secondary to hypervolemia, sodium level today is 130, hold lasix, cont. 1200 cc fluid restriction Hyperkalemia, improving Questionable fluid overload state, unknown ejection fraction, BNP 2780 Coronary artery disease status post stent to the RCA Laceration of the toe status post fall with suture repair Chronic tobacco use, nicotine patch Anemia, microcytic will repeat hemoglobin morning Secondary polycythemia vera Hypertension Hyperlipidemia GI prophylaxis: Protonix DVT prophylaxis: Plan Patient appears to be doing better on nasal cannula, his mentation is improved and was able to complete a review of systems and assessment this patient today. Patient will be able to have a heart healthy diet today with a 1200 mL fluid resection. Continue on empiric antibiotics as well as bronchodilators. Plan is to wean patient off of the steroids. Continue with PT OT evaluation. Patient is okay from pulmonary/critical care services to transfer to medical floor today. Objective - Vital Signs Vital signs: Vital Signs Temp 98.4 F 12/08/20 04:00 Pulse 78 12/08/20 07:45 Resp 22 12/08/20 07:00 BP 155/78 12/08/20 07:00 Pulse Ox 93 L 12/08/20 07:00 Intake & Output 12/07/20 12/08/20 12/08/20 18:59 06:59 18:59 Intake Total 1081.766 700 Output Total 2675 1910 100 Balance -1593.234 -1210 -100 Weight 117.7 kg Intake: Intake, IV Titration 241.766 Amount Dexmedetomidine/0.9% NaCl 191.766 (Pmx) 400 mcg In Empty Bag 1 bag @ 0.2 MCG/KG/HR 6.101 mls/hr IV .[id number] NISA Rx#:[id number] cefTRIAXone 1 gm In 50 Sodium Chloride 0.9% 50 ml @ 100 mls/hr IVPB Q24HR NISA Rx#:[id number] Oral 840 700 Output: Urine 2675 1910 100 Other: Voiding Method Indwelling Catheter Indwelling Catheter # Bowel Movements 1 - Labs CBC & Chem 7: 12/08/20 03:58 12/08/20 03:58 Labs: Abnormal Lab Results - Last 24 Hours (Table) 12/06/20 12/08/20 12/08/20 Range/Units 08:48 03:58 03:58 WBC 14.5 H (3.8-10.6) k/uL RBC 3.89 L (4.30-5.90) m/uL Hgb 9.8 L (13.0-17.5) gm/dL Hct 32.0 L (39.0-53.0) % MCHC 30.5 L (31.0-37.0) g/dL RDW 17.9 H (11.5-15.5) % Neutrophils # 13.4 H (1.3-7.7) k/uL Lymphocytes # 0.3 L (1.0-4.8) k/uL Sodium 130 L (137-145) mmol/L Chloride 80 L (98-107) mmol/L Carbon Dioxide 44 H* (22-30) mmol/L BUN 31 H (9-20) mg/dL Glucose 124 H (74-99) mg/dL Procalcitonin 0.56 H (0.02-0.09) ng/mL Assessment and Plan Time with Patient: Greater than 30
[2020-12-09 05:45] VITALS: TEMP 97.9
[2020-12-09] MEDS: BUDESONIDE 1 MG/2 ML NEBU INHALATION SCH (07:43)
[2020-12-09] MEDS: IPRATROPIUM-ALBUTEROL 3 ML NEB INHALATION SCH ×2 (07:43→11:36)
[2020-12-09] MEDS: ATORVASTATIN 10 MG TAB PO SCH (08:04)
[2020-12-09] MEDS: FORMOTEROL FUMARATE 20 MCG/2 ML NEBU INHALATION SCH (08:04)
[2020-12-09] MEDS: NICOTINE 21MG/24HR PATCH TRANSDERM PRN (08:04)
[2020-12-09] MEDS: ASPIRIN 81 MG PO SCH (08:04)
[2020-12-09] MEDS: CLOPIDOGREL 75 MG TAB PO SCH (08:04)
[2020-12-09] MEDS: FUROSEMIDE 40 MG TAB PO SCH (08:04)
[2020-12-09] MEDS: CHOLECALCIFEROL 25 MCG (1000 IU) TABLET PO SCH (08:05)
[2020-12-09] MEDS: MONTELUKAST 10 MG TAB PO SCH (08:05)
[2020-12-09] MEDS: PANTOPRAZOLE 40 MG/10 ML VIAL IVP SCH (08:06)
[2020-12-09] MEDS: DEXMEDETOMIDINE/0.9% NACL(PMX) 400 MCG in EMPTY BAG 1 BAG IV SCH (08:06)
[2020-12-09 08:30] VITALS: BP 104/65; RESP 18
[2020-12-09 11:49] VITALS: PULSE 85
--- NOTE | 2020-12-09 11:49 | P.PN ---
Subjective Progress Note Date: 12/09/20 Principal diagnosis: Acute on chronic hypercapnic and hypoxic respiratory failure, COPD exacerbation A 75-year-old male patient with history of severe COPD, with chronic hypoxic and hypercapnic respiratory failure, polycythemia vera, and baseline FEV1 of 36% of predicted, chronic and ongoing history of smoking, hypertension, hyperlipidemia, previous history of abdominal aortic aneurysm repair in 2016, who had a recent hospitalization for acute exacerbation of COPD, and discharged home on 11/04/2020. Patient was supposed to go home with health services however his and the patient himself had turned it down. He was also insistent on getting discharged a few days earlier than recommended. That same hospitalization he was noted to be hyponatremic with a serum sodium at 128 at discharge which was thought to be hypovolemic and patient was followed nephrology service. His potassium was elevated and Aldactone and lisinopril were both placed on hold. Patient presented to the emergency department on 12/05/2020 for evaluation of wound on his left foot which he sustained during a fall at home. However according to his patient was also having increased difficulty breathing. In the emergency department patient received a few sutures to fifth digit wound on the left foot, and he also received procedural sedation in the form of lorazepam and dilaudid. He then became very sleepy, lethargic, he was placed on 100% nonrebreather mask briefly, and then switched over to 5 L/m per nasal cannula. He was noted to be very obtunded this morning, with labored breathing, diffuse wheezing throughout the lung rabago, stat blood gas was obtained showing pH of 7.1, pCO2 of 110, and pO2 of 32, and this was done on 5 L low nasal cannula subsequently patient was placed on BiPAP support with pressures of 14 of 5 and FiO2 of 50%. His initial chest x-ray in the located within [facility] department showed cardiomegaly and pulmonary fibrosis, no obvious sign of heart failure. No hilar masses. His left foot x-ray showed no acute bony abnormality, x-RAY of the lateral hips and pelvis showed no acute abnormality of the pelvis and both hips, and normal hip joint spaces. EKG showed sinus rhythm, right atrial enlargement, and right bundle branch, T wave inservion in inferolateral leads. Lab work was reviewed showing white blood cell count of 11.6, hemoglobin 0.1, serum sodium of 123, this symptom of 5.8, rate is 80, CO2 is 8, 3 sets of troponins were 0.012, 0.017, and 0.019, LFTs were within normal limits, proBNP level is pending, CK level is 40, TSH level was within normal limits at 0.887. COVID 19 PCR was negative. Has been afebrile in the emergency department, blood pressure is stable at 111/61, patient remains in sinus mechanism although he is very obtunded, he was placed on BiPAP, repeat blood gases pending. he appears to be generally swollen, he was started on IV Lasix of 40 mg daily, urine sodium and osmolality studies are pending, Montague catheter has been placed with return of 600 mL of dark jose urine. , the patient is being seen for a follow-up. As mentioned, this patient is a case of advanced COPD with respiratory failure who is a DNR/DNI CODE STATUS. Since he came in, he had severe hypoxic and hypercapnic respiratory failure with CO2 narcosis. He was falling at home. He also had altered mentation. For that reason, he was kept on a BiPAP and is currently at a pressure of 14/5 cm of water with an FiO2 of 50%. His current pulse ox is 94%. He did have a lipid amount of agitation or restlessness while on the BiPAP. Based on that, I started him on Precedex and currently it is running at 0.7 mcg/kg per minute. At the same time, the patient receives few doses of Haldol overnight and in the emergency department. She is much more comfortable and suggested a BiPAP machine. His generator tidal volume is above 500. His current respiratory rate is around 20 and his minute ventilation is 10 L per minute. A follow-up blood gases still pending for now. He was also diuresed with IV Lasix. He remains in a negative fluid balance. Serum bicarbs at 41. His potassium level is down to 5.3. His white cell count is at 10.4 with a hemoglobin of 0.4. The patient remains on empiric antibiotic coverage with a combination of Rocephin and Zithromax. He remains on bronchodilators. He remains on steroids. Chest x-ray showing chronic changes with cardiomegaly without evidence of any acute pulmonary edema. There is no consolidation or airspace disease. He is lethargic. Is quite sleepy still. Seems to be restless although improved compared to yesterday. Family is aware. 12/08/2020, the patient is awake and alert and following commands and answering questions appropriately. The patient was taken off the chiropractor. Is currently on oxygen. She is running at 5 L by nasal cannula and his current pulse ox is around 86%. He is off the BiPAP for now. Doing well. Tolerating his diet. No nausea. No vomiting. Less bronchospastic and wheezy compared to yesterday. His chest discomfort is also subsided. Noted the patient was diuresed with IV Lasix throughout the day yesterday and the patient is a negative fluid balance of 2.8 L. Blood gases improved and there is improvement and acid base status. Noted the patient's pCO2 is up to 80 with a pH of 7.4. He remains on bronchodilators. He remains on IV Solu Medrol. He remains on IV Lasix. His chest x-ray from yesterday showed cardiomegaly without any airspace disease or consolidation. Hemodynamically stable. No hypotension. No tachycardia. No other significant issues otherwise. Mentation is improved considerably and there is no signs of any ongoing CO2 narcosis. On 12/09/2020 patient seen in follow-up in the intensive care unit, he has been in medical surgical floor overflow for last 24 hours, he sitting up in the chair, breathing comfortable, is currently on 5 L of oxygen with pulse ox of 90%, and this is his home dose oxygen. He is afebrile, hemodynamically stable. Awake and alert, oriented 3. he is currently working with physical therapy, his chest x-ray from 12/07/2000 showed chronic changes and cardiomegaly without acute cardiopulmonary process. No fever or chills, he did not require BiPAP support last night. Today's labs have been reviewed, his white blood cell count is 14.5, hemoglobin is 9.8, platelet count 311, serum sodium is improving and is up to 1:30 from 123 on admission, CO2 is 44, BUN is 31 creatinine 0.89. Pro- calcitonin level is 0.73, up from 0.56 on admission. Patient continues on antibiotics in form of Rocephin, he is on oral Lasix 40 mg daily, he is on nebulized bronchodilators. He is in -153 mL net fluid balance over the last 24 hours. Has indwelling catheter in place, and he did produce over 2 L in the urine output over the last 24 hours. No complaints of chest pain, no phlegm production, no hemoptysis. Objective - Vital Signs Vital signs: Vital Signs Temp 97.9 F 12/09/20 08:00 Pulse 85 12/09/20 08:14 Resp 18 12/09/20 08:00 BP 104/65 12/09/20 08:00 Pulse Ox 90 L 12/09/20 08:00 Intake & Output 12/08/20 12/09/20 12/09/20 18:59 06:59 18:59 Intake Total 1370 480 Output Total 1653 350 Balance -283 130 Intake: Intake, IV Titration 50 Amount cefTRIAXone 1 gm In 50 Sodium Chloride 0.9% 50 ml @ 100 mls/hr IVPB Q24HR [facility] Rx#:[id number] Oral 1320 480 Output: Urine 1650 350 Stool 3 Other: Voiding Method Indwelling Catheter Indwelling Catheter Indwelling Catheter - Exam GENERAL EXAM: Alert, very pleasant, 75-year-old white male, 5 L of oxygen and the pulse ox of 90% comfortable in no apparent distress. HEAD: Normocephalic/atraumatic. EYES: Normal reaction of pupils, equal size. Conjunctiva pink, sclera white. NOSE: Clear with pink turbinates. THROAT: No erythema or exudates. NECK: No masses, no JVD, no thyroid enlargement, no adenopathy. CHEST: No chest wall deformity. Symmetrical expansion. LUNGS: Equal air entry with no crackles, wheeze, rhonchi or dullness. CVS: Regular rate and rhythm, normal S1 and S2, no gallops, no murmurs, no rubs ABDOMEN: Soft, nontender. No hepatosplenomegaly, normal bowel sounds, no guarding or rigidity. EXTREMITIES: No clubbing, no edema, no cyanosis, 2+ pulses and upper and lower extremities. MUSCULOSKELETAL: Muscle strength and tone normal. SPINE: No scoliosis or deformity SKIN: No rashes CENTRAL NERVOUS SYSTEM: Alert and oriented -3. No focal deficits, tone is normal in all 4 extremities. PSYCHIATRIC: Alert and oriented -3. Appropriate affect. Intact judgment and insight. - Labs CBC & Chem 7: 12/08/20 03:58 12/08/20 03:58 Labs: Abnormal Lab Results - Last 24 Hours (Table) 12/08/20 Range/Units 03:58 Procalcitonin 0.73 H (0.02-0.09) ng/mL Assessment and Plan Plan: Assessment: #1. Acute on chronic hypercapnic and hypoxic respiratory failure related to acute exacerbation of COPD, with possibly component of fluid overload. He was quite agitated and he was given Precedex for agitation. Follow-up blood gases are pending for now. Chest x-ray from today shows no evidence of an acute interstitial edema and there is cardiomegaly. No evidence of any pneumonia. Less bronchospastic and wheezy compared to yesterday. Subsequently, the patient's condition improved. The patient was taken off the BiPAP and currently is on 5 L about 2 by nasal cannula. Less bronchospastic. Less wheezy. Improvement and acid base status and his chronic hypercapnic respiratory failure is compensated for now. His pH is at 7.4. He'll be kept on the bronchodilators and steroids. Precedex has been weaned off. Fluid volume status is improving, generalized edema is improving, his weight is down by around 5 kg since admission, serum sodium is improved and is up to 1:30 #2. Recent hospitalization in October 2020 for acute COPD exacerbation #3. Fall at home, and injuries to the small toe on the left foot, requiring application of sutures, imaging of the left foot abdomen and bilateral hips shows no acute fracture #4. Severe COPD, with chronic hypoxic and hypercapnic respiratory failure and baseline FEV1 of 36% of predicted #5. Poor medical compliance, according to the patient has not taken his medications for the past several days, is unknown whether he is compliant with home O2 #6. Chronic and ongoing history of smoking #7. Hyponatremia, possibly hypervolemic, improved with diuresis #8. Hyperkalemia, improved #9. Hypertension #10. Hyperlipidemia #11. History of coronary artery disease with previous stenting of the RCA #12. History of abdominal aortic aneurysm repair in 2016 #13. Secondary polycythemia vera Plan: Continue oral dose Lasix Patient is back on his home dose FiO2 of 5 L/m Did not require BiPAP support last night Vital signs have been stable No fever or chills Increase activity as tolerated Stable for transfer out of intensive care unit to medical surgical floor today Possible discharge home if cleared by medicine I performed a history & physical examination of the patient and discussed their management with my nurse practitioner, Katerin Mitchell. I reviewed the nurse practitioner's note and agree with the documented findings and plan of care. Lung sounds are positive for diffuse wheezes throughout the lung rabago. The findings and the impression was discussed with the patient. I attest to the documentation by the nurse practitioner. Time with Patient: Less than 30
[2020-12-09] MEDS ORDERED: acetaZOLAMIDE 250 MG TAB PO SCH (12:45)
--- NOTE | 2020-12-10 11:32 | PN ---
PROGRESS NOTE Patient is seen for followup for hyponatremia. His serum sodium has improved. Sodium is up to 130 today. The patient was also hyperkalemic. His has improved as well. The patient has been hypervolemic and is currently being diuresed. He is maintained on oral Lasix. On examination today, blood pressure was 104/65, heart rate 90 per minute. Patient is afebrile. EXAMINATION OF THE HEART: S1 and S2. EXAMINATION OF LUNGS: Decreased breath sounds at the bases. ABDOMEN: Soft, nontender. LOWER EXTREMITIES: Examination of lower extremities shows edema 1+ bilaterally. HOUSE CARPENTER EXAM: Grossly intact. Labs show sodium 130, potassium 4.3. CO2 is 44, BUN of 31, serum creatinine 0.89. ASSESSMENT: 1. Hypervolemic hyponatremia, currently improved, maintained on oral Lasix, which I will continue. 2. Metabolic alkalosis associated with some degree of respiratory acidosis and diuresis. Will add Diamox, as we need to continue with the Lasix. 3. Acute on chronic hypercapnic respiratory failure. 4. Hyperkalemia associated with urine retention. Blood sugars were also elevated, currently improved. The loop diuretics will also help with the hyperkalemia. PLAN: Continue with Lasix. Add a couple of doses of Diamox. Repeat labs in a.m. MMODL / IJN: [id number] /
== END 2020-12-09 13:35 | disposition home or self-care (01) | DRG 190 ==
LOC: EC 23:16 → 3SCARD 12-06 01:48 → 2SICU 12-06 12:29
PROVIDERS: ADMIT Family Medicine; ATTEND Family Medicine
PROC: 0HQNXZZ Repair Left Foot Skin, External Approach (ICD-10-PCS; principal; 2020-12-06)
PROC: 5A09457 Assistance with Respiratory Ventilation, 24-96 Consecutive Hours, Continuous Positive Airway Pressure (ICD-10-PCS; 2020-12-06)
DX: J44.1 Chronic obstructive pulmonary disease with (acute) exacerbation (principal); J96.21 Acute and chronic respiratory failure with hypoxia; J96.22 Acute and chronic respiratory failure with hypercapnia; G93.41 Metabolic encephalopathy; E87.1 Hypo-osmolality and hyponatremia; E87.4 Mixed disorder of acid-base balance; D50.9 Iron deficiency anemia, unspecified; D75.1 Secondary polycythemia; D72.829 Elevated white blood cell count, unspecified; E66.9 Obesity, unspecified; E78.5 Hyperlipidemia, unspecified; W19.XXXA Unspecified fall, initial encounter; E87.5 Hyperkalemia; E87.70 Fluid overload, unspecified; J84.10 Pulmonary fibrosis, unspecified; I25.10 Atherosclerotic heart disease of native coronary artery without angina pectoris; Z66 Do not resuscitate; Z20.822 Contact with and (suspected) exposure to COVID-19; T50.2X5A Adverse effect of carbonic-anhydrase inhibitors, benzothiadiazides and other diuretics, initial encounter; I11.9 Hypertensive heart disease without heart failure; F17.200 Nicotine dependence, unspecified, uncomplicated; S91.115A Laceration without foreign body of left lesser toe(s) without damage to nail, initial encounter; Z95.5 Presence of coronary angioplasty implant and graft; Z86.79 Personal history of other diseases of the circulatory system; Z82.49 Family history of ischemic heart disease and other diseases of the circulatory system; Z79.899 Other long term (current) drug therapy; Z79.82 Long term (current) use of aspirin; Z79.02 Long term (current) use of antithrombotics/antiplatelets; Z91.14 Patient's other noncompliance with medication regimen; Z99.81 Dependence on supplemental oxygen; Y92.009 Unspecified place in unspecified non-institutional (private) residence as the place of occurrence of the external cause; Z71.6 Tobacco abuse counseling; Z98.890 Other specified postprocedural states
CPT/HCPCS: 12001; 36415; 36600; 71045; 73521; 76770; 80048; 80051; 80053; 81001; 82550; 82805; 83605; 83735; 83880; 83930; 83935; 84100; 84145; 84300; 84443; 84484; 85025; 85610; 85730; 87635; 90471; 90715; 93005; 94640; 94660; 96361; 96374; 99285

== ENCOUNTER 2021-02-17 05:57 | Inpatient (IN) | payer MEDICARE ==
[2021-02-17] MEDS: SODIUM CHLORIDE 0.9% 500 ML 500 ML IV STA (06:16)
[2021-02-17 06:35] LABS: Anisocytosis Slight; Basophils # (A) 0.1 k/uL (0-0.2); Basophils % (A) 1 %; Eosinophils # (A) 0.3 k/uL (0-0.7); Eosinophils % (A) 3 %; HCT 31.8 % (39.0-53.0); HGB 9.3 gm/dL (13.0-17.5); Hypochromasia Marked; Lymphocytes # (A) 1.1 k/uL (1.0-4.8); Lymphocytes % (A) 9 %; MCH 23.4 pg (25.0-35.0); MCHC 29.1 g/dL (31.0-37.0); MCV 80.4 fL (80.0-100.0); Mean Platelet Volume 6.8; Microcytosis Slight; Monocytes # (A) 0.7 k/uL (0-1.0); Monocytes % (A) 5 %; Neutrophils # (A) 10.4 k/uL (1.3-7.7); Neutrophils % (A) 80 %; Platelet Count 468 k/uL (150-450); Poikilocytosis Slight; RBC 3.95 m/uL (4.30-5.90); RDW 19.1 % (11.5-15.5)
--- NOTE | 2021-02-17 06:42 | XR ---
EXAMINATION TYPE: XR chest 2V DATE OF EXAM: 02/17/2021 COMPARISON: Chest x-ray December 07, 2020 and January 10, 2021. Chest CT January 16, 2015 HISTORY: Weakness and pain. TECHNIQUE: Frontal and lateral views of the chest are obtained. FINDINGS: The osseous structures remain demineralized. Cardiomegaly again seen. There is prominent e mphysematous change with new right basilar opacity. Bilateral hilar fullness consistent with underlyi ng pulmonary artery hypertension and ectatic thoracic aorta are redemonstrated. IMPRESSION: Chronic emphysematous change and cardiomegaly with developing right basilar acute infilt rate and/or atelectasis.
--- NOTE | 2021-02-17 06:42 | ED ---
Weakness HPI - General Chief complaint: Weakness Stated complaint: Weakness Time Seen by Provider: 02/17/21 06:12 Source: patient, EMS, RN notes reviewed Mode of arrival: EMS Limitations: no limitations - History of Present Illness Initial comments: 75-year-old male presents emergency department via EMS chief complaint of fall. Patient states he fell yesterday of while going out to load his wood stove. Patient states that he fell he injured his left knee, right shoulder. Patient states that he had no head injury no loss conscious. He is able to get up and ambulate states that the night been increasing in pain. Per EMS report, stated that he was slightly weak or patient suffers no complaints denies any chest pain or shortness breath are the usual he has severe COPD on 5 L of oxygen. Patient has nausea vomiting diarrhea constipation no chest pain no neck pain no back pain - Related Data Home Medications Medication Instructions Recorded Confirmed Aspirin EC [Ecotrin Low Dose] 81 mg PO DAILY@0600 02/06/16 12/05/20 Atorvastatin [Lipitor] 10 mg PO DAILY@59902/06/16 12/05/20 Budesonide [Pulmicort Flexhaler] 1 puff INHALATION RT-BID 11/07/19 12/05/20 Cholecalciferol [Vitamin D3 (25 1,000 unit PO DAILY@59911/07/19 12/05/20 Mcg = 1000 Iu)] Umeclidinium Brm/Vilanterol Tr 2 puff INHALATION RT-DAILY@59911/07/19 12/05/20 [Anoro Ellipta 62.5-25 Mcg INH] Albuterol Nebulized [Ventolin 2.5 mg INHALATION RT-BID 10/30/20 12/05/20 Nebulized] Cetirizine HCl [Zyrtec] 10 mg PO DAILY@59910/30/20 12/05/20 Clopidogrel [Plavix] 75 mg PO DAILY@59910/30/20 12/05/20 Montelukast [Singulair] 10 mg PO DAILY@59910/30/20 12/05/20 Pantoprazole [Protonix] 40 mg PO DAILY@59910/30/20 12/05/20 Nicotine 21Mg/24Hr Patch [Habitrol] 1 patch TRANSDERM DAILY PRN 09/30/21 09/30/21 Previous Rx's Medication Instructions Recorded Furosemide [Lasix] 20 mg PO DAILY #30 tab 11/04/20 Ipratropium Nebulized [Atrovent 0.5 mg INHALATION RT-QID 30 Days 11/04/20 Nebulized 0.2 MG/ML] #100 ampul Cefuroxime Axetil [Ceftin] 500 mg PO BID 7 Days #14 tab 12/09/20 Formoterol Fumarate [Perforomist] 20 mcg INHALATION RT-BID #60 ml 12/09/20 Furosemide [Lasix] 40 mg PO DAILY #30 tab 12/09/20 acetaZOLAMIDE [Diamox] 250 mg PO DAILY #30 tab 12/09/20 Allergies Allergy/AdvReac Type Severity Reaction Status Date / Time No Known Allergies Allergy Verified 12/05/20 23:27 Review of Systems ROS Statement: Those systems with pertinent positive or pertinent negative responses have been documented in the HPI. ROS Other: All systems not noted in ROS Statement are negative. Past Medical History Past Medical History: COPD, Hyperlipidemia, Hypertension Additional Past Medical History / Comment(s): Secondary Polycythemia Vera History of Any Multi-Drug Resistant Organisms: None Reported Past Surgical History: No Surgical Hx Reported Additional Past Surgical History / Comment(s): AAA REPAIR 01/28/2016 Past Anesthesia/Blood Transfusion Reactions: No Reported Reaction Past Psychological History: No Psychological Hx Reported Smoking Status: Former smoker Past Alcohol Use History: None Reported Past Drug Use History: None Reported - Past Family History Father Family Medical History: Myocardial Infarction ([place]) Brother(s) Family Medical History: Cancer General Exam General appearance: alert, in no apparent distress Head exam: Present: atraumatic, normocephalic, normal inspection Eye exam: Present: normal appearance, PERRL, EOMI. Absent: scleral icterus, conjunctival injection, periorbital swelling ENT exam: Present: normal exam, mucous membranes moist Neck exam: Present: normal inspection, full ROM. Absent: tenderness, meningismus, lymphadenopathy Respiratory exam: Present: normal lung sounds bilaterally. Absent: respiratory distress, wheezes, rales, rhonchi, stridor Cardiovascular Exam: Present: regular rate, normal rhythm, normal heart sounds. Absent: systolic murmur, diastolic murmur, rubs, gallop, clicks Extremities exam: Present: other (Left knee there is moderate swelling, tenderness with palpation, neurovascular intact there is pedal edema noted mild right shoulder pain) Back exam: Present: full ROM. Absent: tenderness, paraspinal tenderness, vertebral tenderness Neurological exam: Present: alert, oriented X3 Skin exam: Present: warm, dry, intact, normal color. Absent: rash Course Vital Signs 02/17/21 02/17/21 05:59 07:32 Temperature 98.3 F Pulse Rate 73 83 Respiratory 24 28 H Rate Blood Pressure 126/84 133/78 O2 Sat by Pulse 99 92 L Oximetry Medical Decision Making - Medical Decision Making Chest x-ray shows evidence of atelectasis versus infiltrate. Patient's been having increasing fashion demand at home per her daughter. Patient had difficu lt time standing up and ambulating due to increasing weakness. Patient will be admitted for physical therapy, COPD exacerbation - Lab Data Result diagrams: 02/17/21 06:19 02/17/21 06:19 Lab Results 02/17/21 02/17/21 02/17/21 Range/Units 06:19 06:19 06:19 WBC 13.0 H (3.8-10.6) k/uL RBC 3.95 L (4.30-5.90) m/uL Hgb 9.3 L (13.0-17.5) gm/dL Hct 31.8 L (39.0-53.0) % MCV 80.4 (80.0-100.0) fL MCH 23.4 L (25.0-35.0) pg MCHC 29.1 L (31.0-37.0) g/dL RDW 19.1 H (11.5-15.5) % Plt Count 468 H (150-450) k/uL MPV 6.8 Neutrophils % 80 % Lymphocytes % 9 % Monocytes % 5 % Eosinophils % 3 % Basophils % 1 % Neutrophils # 10.4 H (1.3-7.7) k/uL Lymphocytes # 1.1 (1.0-4.8) k/uL Monocytes # 0.7 (0-1.0) k/uL Eosinophils # 0.3 (0-0.7) k/uL Basophils # 0.1 (0-0.2) k/uL Hypochromasia Marked Poikilocytosis Slight Anisocytosis Slight Microcytosis Slight PT 9.9 (9.0-12.0) sec INR 0.9 (<1.2) APTT 22.5 (22.0-30.0) sec Sodium (137-145) mmol/L Potassium (3.5-5.1) mmol/L Chloride (98-107) mmol/L Carbon Dioxide (22-30) mmol/L Anion Gap mmol/L BUN (9-20) mg/dL Creatinine (0.66-1.25) mg/dL Est GFR (CKD-EPI)AfAm (>60 ml/min/1.73 sqM) Est GFR (CKD-EPI)NonAf (>60 ml/min/1.73 sqM) Glucose (74-99) mg/dL Plasma Lactic Acid Garth (0.7-2.0) mmol/L Calcium (8.4-10.2) mg/dL Magnesium (1.6-2.3) mg/dL Total Bilirubin (0.2-1.3) mg/dL AST (17-59) U/L ALT (4-49) U/L Alkaline Phosphatase (38-126) U/L Troponin I (0.000-0.034) ng/mL NT-Pro-B Natriuret Pep pg/mL Total Protein (6.3-8.2) g/dL Albumin (3.5-5.0) g/dL Urine Color Yellow Urine Appearance Clear (Clear) Urine pH 6.5 (5.0-8.0) Ur Specific Diller 1.009 (1.001-1.035) Urine Protein Negative (Negative) Urine Glucose (UA) Negative (Negative) Urine Ketones Negative (Negative) Urine Blood Negative (Negative) Urine Nitrite Negative (Negative) Urine Bilirubin Negative (Negative) Urine Urobilinogen <2.0 (<2.0) mg/dL Ur Leukocyte Esterase Negative (Negative) Coronavirus (PCR) (Not Detectd) 02/17/21 02/17/21 02/17/21 Range/Units 06:19 06:19 06:19 WBC (3.8-10.6) k/uL RBC (4.30-5.90) m/uL Hgb (13.0-17.5) gm/dL Hct (39.0-53.0) % MCV (80.0-100.0) fL MCH (25.0-35.0) pg MCHC (31.0-37.0) g/dL RDW (11.5-15.5) % Plt Count (150-450) k/uL MPV Neutrophils % % Lymphocytes % % Monocytes % % Eosinophils % % Basophils % % Neutrophils # (1.3-7.7) k/uL Lymphocytes # (1.0-4.8) k/uL Monocytes # (0-1.0) k/uL Eosinophils # (0-0.7) k/uL Basophils # (0-0.2) k/uL Hypochromasia Poikilocytosis Anisocytosis Microcytosis PT (9.0-12.0) sec INR (<1.2) APTT (22.0-30.0) sec Sodium 130 L (137-145) mmol/L Potassium 4.5 (3.5-5.1) mmol/L Chloride 89 L (98-107) mmol/L Carbon Dioxide 34 H (22-30) mmol/L Anion Gap 7 mmol/L BUN 21 H (9-20) mg/dL Creatinine 1.16 (0.66-1.25) mg/dL Est GFR (CKD-EPI)AfAm 71 (>60 ml/min/1.73 sqM) Est GFR (CKD-EPI)NonAf 61 (>60 ml/min/1.73 sqM) Glucose 117 H (74-99) mg/dL Plasma Lactic Acid Garth 1.1 (0.7-2.0) mmol/L Calcium 8.9 (8.4-10.2) mg/dL Magnesium 1.6 (1.6-2.3) mg/dL Total Bilirubin 0.4 (0.2-1.3) mg/dL AST 27 (17-59) U/L ALT 15 (4-49) U/L Alkaline Phosphatase 75 (38-126) U/L Troponin I <0.012 (0.000-0.034) ng/mL NT-Pro-B Natriuret Pep pg/mL Total Protein 6.9 (6.3-8.2) g/dL Albumin 3.5 (3.5-5.0) g/dL Urine Color Urine Appearance (Clear) Urine pH (5.0-8.0) Ur Specific Diller (1.001-1.035) Urine Protein (Negative) Urine Glucose (UA) (Negative) Urine Ketones (Negative) Urine Blood (Negative) Urine Nitrite (Negative) Urine Bilirubin (Negative) Urine Urobilinogen (<2.0) mg/dL Ur Leukocyte Esterase (Negative) Coronavirus (PCR) (Not Detectd) 02/17/21 02/17/21 Range/Units 06:19 06:19 WBC (3.8-10.6) k/uL RBC (4.30-5.90) m/uL Hgb (13.0-17.5) gm/dL Hct (39.0-53.0) % MCV (80.0-100.0) fL MCH (25.0-35.0) pg MCHC (31.0-37.0) g/dL RDW (11.5-15.5) % Plt Count (150-450) k/uL MPV Neutrophils % % Lymphocytes % % Monocytes % % Eosinophils % % Basophils % % Neutrophils # (1.3-7.7) k/uL Lymphocytes # (1.0-4.8) k/uL Monocytes # (0-1.0) k/uL Eosinophils # (0-0.7) k/uL Basophils # (0-0.2) k/uL Hypochromasia Poikilocytosis Anisocytosis Microcytosis PT (9.0-12.0) sec INR (<1.2) APTT (22.0-30.0) sec Sodium (137-145) mmol/L Potassium (3.5-5.1) mmol/L Chloride (98-107) mmol/L Carbon Dioxide (22-30) mmol/L Anion Gap mmol/L BUN (9-20) mg/dL Creatinine (0.66-1.25) mg/dL Est GFR (CKD-EPI)AfAm (>60 ml/min/1.73 sqM) Est GFR (CKD-EPI)NonAf (>60 ml/min/1.73 sqM) Glucose (74-99) mg/dL Plasma Lactic Acid Garth (0.7-2.0) mmol/L Calcium (8.4-10.2) mg/dL Magnesium (1.6-2.3) mg/dL Total Bilirubin (0.2-1.3) mg/dL AST (17-59) U/L ALT (4-49) U/L Alkaline Phosphatase (38-126) U/L Troponin I (0.000-0.034) ng/mL NT-Pro-B Natriuret Pep 236 pg/mL Total Protein (6.3-8.2) g/dL Albumin (3.5-5.0) g/dL Urine Color Urine Appearance (Clear) Urine pH (5.0-8.0) Ur Specific Diller (1.001-1.035) Urine Protein (Negative) Urine Glucose (UA) (Negative) Urine Ketones (Negative) Urine Blood (Negative) Urine Nitrite (Negative) Urine Bilirubin (Negative) Urine Urobilinogen (<2.0) mg/dL Ur Leukocyte Esterase (Negative) Coronavirus (PCR) Not Detected (Not Detectd) Disposition Clinical Impression: Fall, COPD exacerbation, Weakness Disposition: ADMITTED IP TO THIS HOSP Condition: Fair Referrals: Jayro Peñaloza MD [Primary Care Provider] - 1-2 days
--- NOTE | 2021-02-17 06:43 | XR ---
EXAMINATION TYPE: XR knee complete LT DATE OF EXAM: 02/17/2021 CLINICAL HISTORY: Weakness and pain. TECHNIQUE: Three views of the left knee are obtained. COMPARISON: None. FINDINGS: There is no acute fracture/dislocation evident in left knee. Mild tricompartmental joint s pace loss and spurring. Posterior calcifications are present, probable phleboliths. IMPRESSION: As above.
--- NOTE | 2021-02-17 06:45 | XR ---
EXAMINATION TYPE: XR shoulder complete RT DATE OF EXAM: 02/17/2021 CLINICAL HISTORY: Weakness with pain TECHNIQUE: Three views of the right shoulder are obtained. COMPARISON: None. FINDINGS: There is no acute fracture/dislocation evident in the right shoulder. Moderate to severe n arrowing acromioclavicular joint with mild to moderate spurring and superior capsular hypertrophy. Mo derate narrowing glenohumeral joint. 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 The visualized ribs are intact . IMPRESSION: As above.
[2021-02-17 07:01] LABS: Albumin 3.5 g/dL (3.5-5.0); Calcium 8.9 mg/dL (8.4-10.2); Magnesium 1.6 mg/dL (1.6-2.3); Potassium 4.5 mmol/L (3.5-5.1); Total Bilirubin 0.4 mg/dL (0.2-1.3); Total Protein 6.9 g/dL (6.3-8.2)
[2021-02-17 07:18] LABS: INR 0.9 (<1.2); Partial Thromboplastin Time 22.5 sec (22.0-30.0); Prothrombin Time 9.9 sec (9.0-12.0)
[2021-02-17 07:36] LABS: Appearance,Urine Clear (Clear); Bilirubin,Urine Negative (Negative); Blood,Urine Negative (Negative); Color,Urine Yellow; Glucose,Urine (UA) Negative (Negative); Ketones,Urine Negative (Negative); Leukocyte Esterase,Urine Negative (Negative); Nitrite,Urine Negative (Negative); PH, Urine 6.5 (5.0-8.0); Protein,Urine Negative (Negative); Specific Gravity,Urine 1.009 (1.001-1.035); Urobilinogen,Urine <2.0 mg/dL (<2.0)
[2021-02-17] MEDS ORDERED: methylPREDNISolone SOD SUCCI 125 MG/2 ML VIAL IV STA (08:01)
[2021-02-17] MEDS: IPRATROPIUM-ALBUTEROL 3 ML NEB INHALATION SCH ×3 (14:16→20:12)
[2021-02-17 19:37] LABS: ABG Base Excess 9.2 mmol/L; ABG HCO3 34 mmol/L (21-25); ABG Oxygen Saturation 92.1 % (94-97); ABG PCO2 56 mmHg (35-45); ABG PH 7.39 (7.35-7.45); ABG PO2 65 mmHg (83-108); ABG TCO2 36 mmol/L (19-24); Allen Test Performed? Yes
[2021-02-17] MEDS ORDERED: MELATONIN 1 MG TAB PO PRN (21:01)
[2021-02-17] MEDS ORDERED: ACETAMINOPHEN TAB 500 MG TAB PO PRN (21:01)
--- NOTE | 2021-02-17 21:01 | P.HPIM ---
History of Present Illness H&P Date: 02/17/21 Chief Complaint: Shortness of breath The patient is a former smoker who has been following and had significant weakness. Significant bruising is noted on his lower extremities. He has an underlying history of COPD. He is admitted essentially for respiratory distress and exacerbation. The patient has an underlying horse history of COPD heart failure coronary artery disease hyperlipidemia hypertension. Former smoker. Review of Systems Constitutional: Denies chills, Denies fever Eyes: denies blurred vision, denies pain Ears, nose, mouth and throat: Denies headache, Denies sore throat Cardiovascular: Denies chest pain, Denies shortness of breath Respiratory: Reports as per HPI, Reports cough, Reports home oxygen Gastrointestinal: Denies abdominal pain, Denies diarrhea, Denies nausea, Denies vomiting Musculoskeletal: Denies myalgias Integumentary: Denies pruritus, Denies rash Past Medical History Past Medical History: Blood Disorder, Coronary Artery Disease (CAD), Heart Failure, COPD, Hyperlipidemia, Hypertension, Pneumonia, Vascular Disorder Additional Past Medical History / Comment(s): Pt admitted to [facility] 12/06/20 with exacerbation COPD/respiratory failure/bipap, hyponatremia. Other hx: Severe COPD, home oxygen at 5L/[place] ATC, bilateral lower leg/pedal edema, cardiomyopathy per past medical record, 2ndary polycythemia vera, past AAA with surgery. History of Any Multi-Drug Resistant Organisms: None Reported Past Surgical History: Heart Catheterization With Stent Additional Past Surgical History / Comment(s): AAA REPAIR 01/28/2016 Past Anesthesia/Blood Transfusion Reactions: No Reported Reaction Additional Past Anesthesia/Blood Transfusion Reaction / Comment(s): Pt has clausterphobia. Date of Last Stent Placement:: 11/06/20 Smoking Status: Former smoker - Past Family History Father Family Medical History: Myocardial Infarction ([place]) Brother(s) Family Medical History: Cancer Additional Family Medical History / Comment(s): Brother had colon cancer. Mother Family Medical History: Blood Disorder, Diabetes Mellitus Additional Family Medical History / Comment(s): Polycthemia vera. Medications and Allergies Home Medications Medication Instructions Recorded Confirmed Type Aspirin EC [Ecotrin Low Dose] 81 mg PO DAILY@0600 02/06/16 02/17/21 History Atorvastatin [Lipitor] 10 mg PO DAILY@0600 02/06/16 02/17/21 History Cholecalciferol [Vitamin D3 (25 1,000 unit PO DAILY@0600 11/07/19 02/17/21 History Mcg = 1000 Iu)] Cetirizine HCl [Zyrtec] 10 mg PO DAILY@0600 10/30/20 02/17/21 History Pantoprazole [Protonix] 40 mg PO DAILY@0600 10/30/20 02/17/21 History Acetaminophen Tab [Tylenol Tab] 500 mg PO Q6HR PRN 02/17/21 02/17/21 History Fluticasone/Umeclidin/Vilanter 1 puff INHALATION RT-DAILY 02/17/21 02/17/21 History [Trelegy Ellipta 100-62.5-25] Furosemide [Lasix] 40 mg PO BID 02/17/21 02/17/21 History Ipratropium Nebulized [Atrovent 0.5 mg INHALATION RT-QID 02/17/21 02/17/21 History Nebulized 0.2 MG/ML] Melatonin 1 mg PO HS PRN 02/17/21 02/17/21 History buPROPion SR [Wellbutrin SR] 150 mg PO BID 02/17/21 02/17/21 History Allergies Allergy/AdvReac Type Severity Reaction Status Date / Time No Known Allergies Allergy Verified 02/17/21 11:04 Physical Exam Vitals: Vital Signs Temp Pulse Resp BP Pulse Ox 02/17/21 20:25 92 02/17/21 20:12 98 02/17/21 16:31 79 02/17/21 16:21 88 02/17/21 13:00 90 26 H 136/76 92 L 02/17/21 12:00 87 18 120/68 94 L 02/17/21 10:00 88 127/62 93 L 02/17/21 09:00 85 26 H 125/69 93 L 02/17/21 07:32 83 28 H 133/78 92 L 02/17/21 05:59 98.3 F 73 24 126/84 99 Intake and Output 02/17/21 02/17/21 02/17/21 06:59 14:59 22:59 Other: Weight 111.13 kg 111.13 kg - Constitutional General appearance: obese - EENT Eyes: no abnormal pupil - Neck Neck: no lymphadenopathy - Respiratory Respiratory: bilateral: diminished - Cardiovascular Rhythm: regular Heart sounds: normal: S1, S2 Abnormal Heart Sounds: no S3 Gallop - Gastrointestinal General gastrointestinal: soft, no tenderness - Integumentary Integumentary: no jaundiced Results CBC & Chem 7: 02/17/21 06:19 02/17/21 06:19 Labs: Abnormal Lab Results - Last 24 Hours (Table) 02/17/21 02/17/21 02/17/21 Range/Units 06:19 06:19 19:32 WBC 13.0 H (3.8-10.6) k/uL RBC 3.95 L (4.30-5.90) m/uL Hgb 9.3 L (13.0-17.5) gm/dL Hct 31.8 L (39.0-53.0) % MCH 23.4 L (25.0-35.0) pg MCHC 29.1 L (31.0-37.0) g/dL RDW 19.1 H (11.5-15.5) % Plt Count 468 H (150-450) k/uL Neutrophils # 10.4 H (1.3-7.7) k/uL ABG pCO2 56 H (35-45) mmHg ABG pO2 65 L (83-108) mmHg ABG HCO3 34 H (21-25) mmol/L ABG Total CO2 36 H (19-24) mmol/L ABG O2 Saturation 92.1 L (94-97) % Sodium 130 L (137-145) mmol/L Chloride 89 L (98-107) mmol/L Carbon Dioxide 34 H (22-30) mmol/L BUN 21 H (9-20) mg/dL Glucose 117 H (74-99) mg/dL Thrombosis Risk Factor Assmnt - Choose All That Apply Any of the Below Risk Factors Present?: Yes Each Factor Represents 1 point: Abnormal pulmonary function (COPD), Obesity (BMI >25) Other Risk Factors: Yes Each Risk Factor Represents 3 Points: Age 75 years or older Other congenital or acquired thrombophilia - If yes, enter type in comment: No Thrombosis Risk Factor Assessment Total Risk Factor Score: 5 Thrombosis Risk Factor Assessment Level: High Risk Assessment and Plan (1) COPD exacerbation Current Visit: Yes Status: Acute Code(s): J44.1 - CHRONIC OBSTRUCTIVE PULMONARY DISEASE W (ACUTE) EXACERBATION SNOMED Code(s): 568298551 (2) Fall Current Visit: Yes Status: Acute Code(s): W19.XXXA - UNSPECIFIED FALL, INITIAL ENCOUNTER SNOMED Code(s): 6089620 (3) Weakness Current Visit: Yes Status: Acute Code(s): R53.1 - WEAKNESS SNOMED Code(s): 90403455 (4) Hypoxia Current Visit: No Status: Acute Code(s): R09.02 - HYPOXEMIA SNOMED Code(s): 212751328 Plan: Continue current regimen of COPD empiric treatment. Reconcile home medications. Check CBC and CMP in a.m. Consult pulmonology as requested. See orders otherwise.
[2021-02-17] MEDS: methylPREDNISolone SOD SUCCI 40 MG/ML 1 ML VIAL IV SCH (23:27)
[2021-02-18] MEDS: LORATADINE 10 MG TAB PO SCH (05:26)
[2021-02-18] MEDS: PANTOPRAZOLE 40 MG TABLET PO SCH (05:26)
[2021-02-18] MEDS: CHOLECALCIFEROL 25 MCG (1000 IU) TABLET PO SCH (05:26)
[2021-02-18] MEDS: ATORVASTATIN 10 MG TAB PO SCH (05:27)
[2021-02-18] MEDS: ASPIRIN 81 MG PO SCH (05:27)
[2021-02-18] MEDS: methylPREDNISolone SOD SUCCI 40 MG/ML 1 ML VIAL IV SCH ×4 (05:27→23:53)
[2021-02-18 07:27] LABS: Glucose,Whole Blood 139 mg/dL (75-99)
[2021-02-18] MEDS: FUROSEMIDE 40 MG TAB PO SCH ×2 (08:10→15:44)
[2021-02-18] MEDS: buPROPion SR 150 MG TABLET.ER PO SCH ×2 (08:10→21:49)
--- NOTE | 2021-02-18 08:20 | P.PN ---
Subjective Principal diagnosis: Exacerbation of COPD This is a continue progress on a 75-year-old white male with known history of oxygen dependency COPD. Multiple falls are noted. We will start physical therapy to ascertain gait stability. Otherwise, he is on his baseline oxygen level. We will continue richard Hurtado. Objective - Vital Signs Vital signs: Vital Signs Temp 97.3 F L 02/18/21 06:01 Pulse 77 02/18/21 06:01 Resp 18 02/18/21 06:01 BP 107/62 02/18/21 06:01 Pulse Ox 95 02/18/21 06:01 Intake & Output 02/17/21 02/18/21 02/18/21 18:59 06:59 18:59 Weight 111.13 kg Other: # Voids 4 # Bowel Movements 2 - Constitutional General appearance: Present: obese - EENT Eyes: Absent: abnormal pupil - Neck Neck: Absent: lymphadenopathy - Respiratory Respiratory: bilateral: diminished - Cardiovascular Rhythm: regular Heart sounds: normal: S1, S2 Abnormal Heart Sounds: Absent: S3 Gallop - Gastrointestinal General gastrointestinal: Present: soft. Absent: tenderness - Integumentary Integumentary: Absent: cyanotic - Labs CBC & Chem 7: 02/17/21 06:19 02/17/21 06:19 Labs: Abnormal Lab Results - Last 24 Hours (Table) 02/17/21 02/18/21 Range/Units 19:32 07:26 ABG pCO2 56 H (35-45) mmHg ABG pO2 65 L (83-108) mmHg ABG HCO3 34 H (21-25) mmol/L ABG Total CO2 36 H (19-24) mmol/L ABG O2 Saturation 92.1 L (94-97) % POC Glucose (mg/dL) 139 H (75-99) mg/dL Assessment and Plan (1) COPD exacerbation Current Visit: Yes Status: Acute Code(s): J44.1 - CHRONIC OBSTRUCTIVE PULM ONARY DISEASE W (ACUTE) EXACERBATION SNOMED Code(s): 313830784 (2) Fall Current Visit: Yes Status: Acute Code(s): W19.XXXA - UNSPECIFIED FALL, INITIAL ENCOUNTER SNOMED Code(s): 3386354 (3) Weakness Current Visit: Yes Status: Acute Code(s): R53.1 - WEAKNESS SNOMED Code(s): 53771036 (4) Hypoxia Current Visit: No Status: Acute Code(s): R09.02 - HYPOXEMIA SNOMED Code(s): 338266744 Plan: Continue current regimen of COPD empiric treatment. Reconcile home medications. Check CBC and CMP in a.m. Consult pulmonology as requested. See orders otherwise.
[2021-02-18 09:39] LABS: HCT 28.8 % (39.6-50.0); MCH 22.4 pg (27.0-32.0); MCHC 27.8 g/dL (32.0-37.0); MCV 80.7 fL (80.0-97.0); Mean Platelet Volume 8.8 fL (9.5-12.2); Platelet Count 401 X 10*3/uL (140-440); RBC 3.57 X 10*6/uL (4.40-5.60); RDW 20.2 % (11.5-14.5); WBC 11.96 X 10*3/uL (4.50-10.00)
[2021-02-18] MEDS: IPRATROPIUM 0.5 MG/2.5 ML NEBU INHALATION SCH ×4 (09:53→20:49)
[2021-02-18] MEDS: SYMBICORT 80-4.5 MCG INHALER INHALATION SCH ×2 (09:54→20:49)
[2021-02-18] MEDS: IPRATROPIUM-ALBUTEROL 3 ML NEB INHALATION SCH ×4 (09:54→20:49)
[2021-02-18 11:10] LABS: African American GFR (CKD) 82.4 (60.0-200.0); Albumin 3.5 g/dL (3.8-4.9); Albumin/Globulin Ratio 1.21 (1.60-3.17); Anion Gap 12.3 mmol/L (10.00-18.00); BUN/Creat Ratio 16.96 Ratio (12.00-20.00); Blood Urea Nitrogen 17.3 mg/dL (9.0-27.0); Carbon Dioxide 27.8 mmol/L (20.0-27.5); Globulin 2.9 g/dL (1.6-3.3); Non-African American GFR(CKD) 71.1 (60.0-200.0); Potassium 4.9 mmol/L (3.5-5.5); Total Bilirubin 0.2 mg/dL (0.30-1.20); Total Protein 6.4 g/dL (6.2-8.2)
[2021-02-18 11:48] LABS: Glucose,Whole Blood 163 mg/dL (75-99)
--- NOTE | 2021-02-18 14:42 | P.CNPUL ---
History of Present Illness Consult date: 02/18/21 Requesting physician: Jayro Peñaloza Reason for consult: dyspnea Chief complaint: Weakness, fall History of present illness: 75-year-old white male patient with past medical history of advanced COPD, with baseline FEV1 of 1.4 L and 45% of predicted, stage III COPD with chronic hypoxic respiratory failure, patient wears 5 L of oxygen on a regular basis. He follows with Dr. Woodruff in the pulmonary clinic. Patient has a former history of smoking currently in remission, he is maintained on Trelegy Ellipta, and nebulized albuterol treatments around the clock. he is status post completed vaccination for COVID-19, he has received Moderna vaccines back in June 2020, and had a recent blister shot. Other medical history includes history of chronic systolic CHF with an EF of 40%, morbid obesity, hypertension, hyperlipidemia, and secondary polycythemia. Patient presented to the emergency department on 02/17/2021 with a complaint of a fall. Patient was going in the house, and he got tangled in the oxygen cord and fell on the pavement sustaining an injury to his left knee and right shoulder. This was a mechanical fall, no reports of lightheadedness, no loss of consciousness. States his breathing is stable, no worsening dyspnea, his cough is occasional, not any worse than usual. No fever or chills, he states his breathing is not a problem. He remains on his 5 L of oxygen. He tested negative for COVID 19. His chest x-ray showed chronic emphysematous changes and cardiomegaly with developing right basilar acute infiltrate and/or atelectasis. His left knee x-ray showed no acute fracture or dislocation, and mild tricompartmental joint space loss and spurring. 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 His admission labs have been reviewed, his white blood cell count is 13, hemoglobin is 9.3, platelet count is 468, his coordination profile was within normal limits, sodium is 1:30, potassium is 4.5, chloride is 89, CO2 is 34, B1 is 21 creatinine 1.16 his proBNP was 236, troponin was negative at less than 0.0.2, LFTs were unremarkable, urinalysis was clear and negative for any sign of infection. Review of Systems All systems: negative Constitutional: Denies chills, Denies fever Eyes: denies blurred vision, denies pain Ears, nose, mouth and throat: Denies headache, Denies sore throat Cardiovascular: Denies chest pain, Denies shortness of breath Respiratory: Denies cough Gastrointestinal: Denies abdominal pain, Denies diarrhea, Denies nausea, Denies vomiting Musculoskeletal: Denies myalgias Musculoskeletal: right: shoulder pain, left: knee pain Integumentary: Denies pruritus, Denies rash Neurological: Denies numbness, Denies weakness Psychiatric: Denies anxiety, Denies depression Endocrine: Denies fatigue, Denies weight change Past Medical History Past Medical History: Blood Disorder, Coronary Artery Disease (CAD), Heart Failure, COPD, Hyperlipidemia, Hypertension, Pneumonia, Vascular Disorder Additional Past Medical History / Comment(s): Pt admitted to [facility] 12/06/20 with exacerbation COPD/respiratory failure/bipap, hyponatremia. Other hx: Severe COPD, home oxygen at 5L/[place] ATC, bilateral lower leg/pedal edema, cardiomyopathy per past medical record, 2ndary polycythemia vera, past AAA with surgery. History of Any Multi-Drug Resistant Organisms: None Reported Past Surgical History: Heart Catheterization With Stent Additional Past Surgical History / Comment(s): AAA REPAIR 01/28/2016 Past Anesthesia/Blood Transfusion Reactions: No Reported Reaction Additional Past Anesthesia/Blood Transfusion Reaction / Comment(s): Pt has clausterphobia. Date of Last Stent Placement:: 11/06/20 Smoking Status: Former smoker - Past Family History Father Family Medical History: Myocardial Infarction ([place]) Brother(s) Family Medical History: Cancer Additional Family Medical History / Comment(s): Brother had colon cancer. Mother Family Medical History: Blood Disorder, Diabetes Mellitus Additional Family Medical History / Comment(s): Polycthemia vera. Medications and Allergies Home Medications Medication Instructions Recorded Confirmed Type Aspirin EC [Ecotrin Low Dose] 81 mg PO DAILY@0600 02/06/16 02/17/21 History Atorvastatin [Lipitor] 10 mg PO DAILY@0600 02/06/16 02/17/21 History Cholecalciferol [Vitamin D3 (25 1,000 unit PO DAILY@0600 11/07/19 02/17/21 History Mcg = 1000 Iu)] Cetirizine HCl [Zyrtec] 10 mg PO DAILY@0600 10/30/20 02/17/21 History Pantoprazole [Protonix] 40 mg PO DAILY@0600 10/30/20 02/17/21 History Acetaminophen Tab [Tylenol Tab] 500 mg PO Q6HR PRN 02/17/21 02/17/21 History Fluticasone/Umeclidin/Vilanter 1 puff INHALATION RT-DAILY 02/17/21 02/17/21 History [Trelegy Ellipta 100-62.5-25] Furosemide [Lasix] 40 mg PO BID 02/17/21 02/17/21 History Ipratropium Nebulized [Atrovent 0.5 mg INHALATION RT-QID 02/17/21 02/17/21 History Nebulized 0.2 MG/ML] Melatonin 1 mg PO HS PRN 02/17/21 02/17/21 History buPROPion SR [Wellbutrin SR] 150 mg PO BID 02/17/21 02/17/21 History Allergies Allergy/AdvReac Type Severity Reaction Status Date / Time No Known Allergies Allergy Verified 02/17/21 11:04 Physical Exam Vitals: Vital Signs Temp Pulse Pulse Resp BP BP Pulse Ox 02/18/21 12:18 90 18 02/18/21 12:08 90 18 02/18/21 10:04 92 18 02/18/21 09:54 90 18 02/18/21 06:01 97.3 F L 77 18 107/62 95 02/18/21 01:29 98.2 F 89 20 107/55 90 L 02/17/21 23:33 98.2 F 85 16 124/69 91 L 02/17/21 21:00 91 20 131/75 93 L 02/17/21 20:25 92 02/17/21 20:12 98 02/17/21 16:31 79 02/17/21 16:21 88 Intake and Output 02/17/21 02/18/21 02/18/21 22:59 06:59 14:59 Other: # Voids 4 1 # Bowel Movements 2 Weight 111.13 kg GENERAL EXAM: Alert, very pleasant, 75-year-old white male, on 5 L of oxygen with a pulse ox of 95% comfortable in no apparent distress. HEAD: Normocephalic/atraumatic. EYES: Normal reaction of pupils, equal size. Conjunctiva pink, sclera white. NOSE: Clear with pink turbinates. THROAT: No erythema or exudates. NECK: No masses, no JVD, no thyroid enlargement, no adenopathy. CHEST: No chest wall deformity. Symmetrical expansion. LUNGS: Equal air entry with no crackles, wheeze, rhonchi or dullness. CVS: Regular rate and rhythm, normal S1 and S2, no gallops, no murmurs, no rubs ABDOMEN: Soft, nontender. No hepatosplenomegaly, normal bowel sounds, no guarding or rigidity. EXTREMITIES: No clubbing, swelling of left knee with bruising is noted no cyanosis, 2+ pulses and upper and lower extremities. MUSCULOSKELETAL: Muscle strength and tone normal. SPINE: No scoliosis or deformity SKIN: No rashes CENTRAL NERVOUS SYSTEM: Alert and oriented -3. No focal deficits, tone is normal in all 4 extremities. PSYCHIATRIC: Alert and oriented -3. Appropriate affect. Intact judgment and insight. Results - Laboratory Findings CBC and BMP: 02/18/21 06:50 02/18/21 06:50 ABG ABG pH 7.39 (7.35-7.45) 02/17/21 19:32 ABG pCO2 56 mmHg (35-45) H 02/17/21 19:32 ABG pO2 65 mmHg (83-108) L 02/17/21 19:32 ABG O2 Saturation 92.1 % (94-97) L 02/17/21 19:32 PT/INR, D-dimer PT 9.9 sec (9.0-12.0) 02/17/21 06:19 INR 0.9 (<1.2) 02/17/21 06:19 Abnormal lab findings: Abnormal Labs 02/17/21 02/17/21 02/17/21 06:19 06:19 19:32 WBC 13.0 H RBC 3.95 L Hgb 9.3 L Hct 31.8 L MCH 23.4 L MCHC 29.1 L RDW 19.1 H Plt Count 468 H MPV Neutrophils # 10.4 H ABG pCO2 56 H ABG pO2 65 L ABG HCO3 34 H ABG Total CO2 36 H ABG O2 Saturation 92.1 L Sodium 130 L Chloride 89 L Carbon Dioxide 34 H BUN 21 H Glucose 117 H POC Glucose (mg/dL) Total Bilirubin Albumin Albumin/Globulin Ratio 02/18/21 02/18/21 02/18/21 06:50 06:50 07:26 WBC 11.96 H RBC 3.57 L Hgb 8.0 L Hct 28.8 L MCH 22.4 L MCHC 27.8 L RDW 20.2 H Plt Count MPV 8.8 L Neutrophils # ABG pCO2 ABG pO2 ABG HCO3 ABG Total CO2 ABG O2 Saturation Sodium 134 L Chloride 94 L Carbon Dioxide 27.8 H BUN Glucose 136 H POC Glucose (mg/dL) 139 H Total Bilirubin 0.20 L Albumin 3.5 L Albumin/Globulin Ratio 1.21 L 02/18/21 11:47 WBC RBC Hgb Hct MCH MCHC RDW Plt Count MPV Neutrophils # ABG pCO2 ABG pO2 ABG HCO3 ABG Total CO2 ABG O2 Saturation Sodium Chloride Carbon Dioxide BUN Glucose POC Glucose (mg/dL) 163 H Total Bilirubin Albumin Albumin/Globulin Ratio - Diagnostic Findings Chest x-ray: report reviewed, image reviewed Assessment and Plan Plan: Assessment: #1. Chronic COPD, stable. Chest x-ray shows chronic emphysematous changes, cardiomegaly and developing right basilar acute infiltrate or atelectasis. COVID-19 PCR was negative #2. Mechanical fall at home, patient tripped on oxygen tubing and injured left knee and right shoulder, x-rays show no acute fracture or dislocation #3. History of chronic systolic CHF #4. History of stage III COPD with a baseline FEV1 of 45% of predicted on most recent PFT on home oxygen at 5 L #5. Former smoker #6. Morbid obesity with BMI 34.2 kg/m #7. Secondary polycythemia #8. Hypertension #9. Coronary artery disease with previous history of stenting Plan: Patient's breathing is stable His COPD is stable Chest x-ray has been reviewed The patient is likely developing atelectasis at the right base Pain management per primary care service May continue on Symbicort Continue DuoNeb nebulized treatments Continue home dose Lasix We'll continue to follow his clinical course I performed a history & physical examination of the patient and discussed their management with my nurse practitioner, Katerin Mitchell. I reviewed the nurse practitioner's note and agree with the documented findings and plan of care. Lung sounds are positive for clear breath sounds throughout the lung rabago. The findings and the impression was discussed with the patient. I attest to the documentation by the nurse practitioner. Time with Patient: Greater than 30
[2021-02-18 15:15] VITALS: BMI 34.2
[2021-02-18 17:06] LABS: Glucose,Whole Blood 142 mg/dL (75-99)
[2021-02-18 21:19] LABS: Glucose,Whole Blood 160 mg/dL (75-99)
[2021-02-19] MEDS: ATORVASTATIN 10 MG TAB PO SCH (05:22)
[2021-02-19] MEDS: ASPIRIN 81 MG PO SCH (05:22)
[2021-02-19] MEDS: LORATADINE 10 MG TAB PO SCH (05:22)
[2021-02-19] MEDS: methylPREDNISolone SOD SUCCI 40 MG/ML 1 ML VIAL IV SCH ×4 (05:22→22:57)
[2021-02-19] MEDS: PANTOPRAZOLE 40 MG TABLET PO SCH (05:23)
[2021-02-19] MEDS: CHOLECALCIFEROL 25 MCG (1000 IU) TABLET PO SCH (05:23)
[2021-02-19 07:40] LABS: Glucose,Whole Blood 131 mg/dL (75-99)
[2021-02-19] MEDS: buPROPion SR 150 MG TABLET.ER PO SCH ×2 (08:13→19:59)
[2021-02-19] MEDS: FUROSEMIDE 40 MG TAB PO SCH ×2 (08:14→17:22)
[2021-02-19] MEDS: SYMBICORT 80-4.5 MCG INHALER INHALATION SCH ×2 (09:01→19:53)
[2021-02-19] MEDS: IPRATROPIUM 0.5 MG/2.5 ML NEBU INHALATION SCH ×2 (09:01→12:48)
[2021-02-19] MEDS: IPRATROPIUM-ALBUTEROL 3 ML NEB INHALATION SCH ×4 (09:01→19:52)
[2021-02-19 09:43] LABS: HCT 31.9 % (39.6-50.0); HGB 8.6 g/dL (13.0-17.0); MCH 22.1 pg (27.0-32.0); MCV 81.8 fL (80.0-97.0); Mean Platelet Volume 9.2 fL (9.5-12.2); Platelet Count 451 X 10*3/uL (140-440); RDW 19.9 % (11.5-14.5); WBC 14.23 X 10*3/uL (4.50-10.00)
[2021-02-19 11:00] LABS: African American GFR (CKD) 75.2 (60.0-200.0); Albumin 3.7 g/dL (3.8-4.9); Albumin/Globulin Ratio 1.06 (1.60-3.17); BUN/Creat Ratio 23.36 Ratio (12.00-20.00); Blood Urea Nitrogen 25.7 mg/dL (9.0-27.0); Globulin 3.5 g/dL (1.6-3.3); Non-African American GFR(CKD) 64.9 (60.0-200.0); Potassium 4.8 mmol/L (3.5-5.5); Total Bilirubin 0.3 mg/dL (0.30-1.20); Total Protein 7.2 g/dL (6.2-8.2)
[2021-02-19 11:34] LABS: Glucose,Whole Blood 158 mg/dL (75-99)
--- NOTE | 2021-02-19 13:51 | P.PN ---
Subjective Progress Note Date: 02/19/21 75-year-old white male patient with past medical history of advanced COPD, with baseline FEV1 of 1.4 L and 45% of predicted, stage III COPD with chronic hypoxic respiratory failure, patient wears 5 L of oxygen on a regular basis. He follows with Dr. Woodruff in the pulmonary clinic. Patient has a former history of smoking currently in remission, he is maintained on Trelegy Ellipta, and nebulized albuterol treatments around the clock. he is status post completed vaccination for COVID-19, he has received Moderna vaccines back in June 2020, and had a recent blister shot. Other medical history includes history of chronic systolic CHF with an EF of 40%, morbid obesity, hypertension, hyperlipidemia, and secondary polycythemia. Patient presented to the emergency department on 02/17/2021 with a complaint of a fall. Patient was going in the house, and he got tangled in the oxygen cord and fell on the pavement sustaining an injury to his left knee and right shoulder. This was a mechanical fall, no reports of lightheadedness, no loss of consciousness. States his breathing is stable, no worsening dyspnea, his cough is occasional, not any worse than usual. No fever or chills, he states his breathing is not a problem. He remains on his 5 L of oxygen. He tested negative for COVID 19. His chest x-ray showed chronic emphysematous changes and cardiomegaly with developing right basilar acu te infiltrate and/or atelectasis. His left knee x-ray showed no acute fracture or dislocation, and mild tricompartmental joint space loss and spurring. 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 His admission labs have been reviewed, his white blood cell count is 13, hemoglobin is 9.3, platelet count is 468, his coordination profile was within normal limits, sodium is 1:30, potassium is 4.5, chloride is 89, CO2 is 34, B1 is 21 creatinine 1.16 his proBNP was 236, troponin was negative at less than 0.0.2, LFTs were unremarkable, urinalysis was clear and negative for any sign of infection. On 02/19/2021 patient seen in follow-up on medical surgical floor, he is breathing comfortably, his breathing is at his baseline according to the patient, no increased shortness of breath or coughing, patient does have occasional cough, no phlegm production, he is currently on 6 L of oxygen with a pulse ox of 92%. He normally wears 5 L of oxygen at home. Lung sounds reveal mild rhonchi at the bases, no wheezing, his been afebrile, vital signs have been stable. He continues on Symbicort and DuoNeb nebulized treatments, his pain from his injuries on the left shoulder and right knee are fairly well controlled, patient was able to walk with a walker today he is anticipated to be going home tomorrow Objective - Vital Signs Vital signs: Vital Signs Temp 97.4 F L 02/19/21 07:30 Pulse 85 02/19/21 13:04 Resp 18 02/19/21 07:30 BP 117/75 02/19/21 07:30 Pulse Ox 94 L 02/19/21 10:00 Intake & Output 02/18/21 02/19/21 02/19/21 18:59 06:59 18:59 Weight 111.13 kg Other: Voiding Method Toilet # Voids 1 4 - Exam GENERAL EXAM: Alert, very pleasant, 75-year-old white male, on 6 L of oxygen with a pulse ox of 92% comfortable in no apparent distress. HEAD: Normocephalic/atraumatic. EYES: Normal reaction of pupils, equal size. Conjunctiva pink, sclera white. NOSE: Clear with pink turbinates. THROAT: No erythema or exudates. NECK: No masses, no JVD, no thyroid enlargement, no adenopathy. CHEST: No chest wall deformity. Symmetrical expansion. LUNGS: Equal air entry with no crackles, wheeze, rhonchi or dullness. CVS: Regular rate and rhythm, normal S1 and S2, no gallops, no murmurs, no rubs ABDOMEN: Soft, nontender. No hepatosplenomegaly, normal bowel sounds, no guarding or rigidity. EXTREMITIES: No clubbing, swelling of left knee with bruising is noted no cyanosis, 2+ pulses and upper and lower extremities. MUSCULOSKELETAL: Muscle strength and tone normal. SPINE: No scoliosis or deformity SKIN: No rashes CENTRAL NERVOUS SYSTEM: Alert and oriented -3. No focal deficits, tone is normal in all 4 extremities. PSYCHIATRIC: Alert and oriented -3. Appropriate affect. Intact judgment and insight. - Labs CBC & Chem 7: 02/19/21 06:40 02/19/21 06:40 Labs: Abnormal Lab Results - Last 24 Hours (Table) 02/18/21 02/18/21 02/19/21 Range/Units 17:04 21:16 06:40 WBC 14.23 H (4.50-10.00) X 10*3/uL RBC 3.90 L (4.40-5.60) X 10*6/uL Hgb 8.6 L (13.0-17.0) g/dL Hct 31.9 L (39.6-50.0) % MCH 22.1 L (27.0-32.0) pg MCHC 27.0 L (32.0-37.0) g/dL RDW 19.9 H (11.5-14.5) % Plt Count 451 H (140-440) X 10*3/uL MPV 9.2 L (9.5-12.2) fL Chloride (96-109) mmol/L Carbon Dioxide (20.0-27.5) mmol/L BUN/Creatinine Ratio (12.00-20.00) Ratio Glucose (70-110) mg/dL POC Glucose (mg/dL) 142 H 160 H (75-99) mg/dL Albumin (3.8-4.9) g/dL Globulin (1.6-3.3) g/dL Albumin/Globulin Ratio (1.60-3.17) g/dL 02/19/21 02/19/21 02/19/21 Range/Units 06:40 07:23 11:22 WBC (4.50-10.00) X 10*3/uL RBC (4.40-5.60) X 10*6/uL Hgb (13.0-17.0) g/dL Hct (39.6-50.0) % MCH (27.0-32.0) pg MCHC (32.0-37.0) g/dL RDW (11.5-14.5) % Plt Count (140-440) X 10*3/uL MPV (9.5-12.2) fL Chloride 93 L (96-109) mmol/L Carbon Dioxide 28.0 H (20.0-27.5) mmol/L BUN/Creatinine Ratio 23.36 H (12.00-20.00) Ratio Glucose 130 H (70-110) mg/dL POC Glucose (mg/dL) 131 H 158 H (75-99) mg/dL Albumin 3.7 L (3.8-4.9) g/dL Globulin 3.5 H (1.6-3.3) g/dL Albumin/Globulin Ratio 1.06 L (1.60-3.17) g/dL Assessment and Plan Plan: Assessment: #1. Chronic COPD, stable. Chest x-ray shows chronic emphysematous changes, cardiomegaly and developing right basilar acute infiltrate or atelectasis. COVID-19 PCR was negative #2. Mechanical fall at home, patient tripped on oxygen tubing and injured left knee and right shoulder, x-rays show no acute fracture or dislocation #3. History of chronic systolic CHF #4. History of stage III COPD with a baseline FEV1 of 45% of predicted on most recent PFT on home oxygen at 5 L #5. Former smoker #6. Morbid obesity with BMI 34.2 kg/m #7. Secondary polycythemia #8. Hypertension #9. Coronary artery disease with previous history of stenting Plan: No acute events overnight Provide incentive spirometer and instructed patient on the use Vital signs have been stable Continue DuoNeb and Symbicort His pain is fairly well controlled, patient was able to ambulate He stable for discharge home when cleared by medicine possibly tomorrow I performed a history & physical examination of the patient and discussed their management with my nurse practitioner, Katerin Mitchell. I reviewed the nurse practitioner's note and agree with the documented findings and plan of care. Lung sounds are positive for clear breath sounds throughout the lung rabago. Th e findings and the impression was discussed with the patient. I attest to the documentation by the nurse practitioner. Time with Patient: Less than 30
[2021-02-19 14:19] VITALS: RESP 17
--- NOTE | 2021-02-19 14:20 | P.PN ---
Subjective Principal diagnosis: Exacerbation of COPD This is a continue progress on a 75-year-old white male with known history of oxygen dependency COPD. Multiple falls are noted. We will start physical therapy to ascertain gait stability. Otherwise, he is on his baseline oxygen level. We will continue soluMedrol. The patient seems in better spirits. Objective - Vital Signs Vital signs: Vital Signs Temp 98.0 F 02/19/21 14:00 Pulse 92 02/19/21 14:00 Resp 17 02/19/21 14:00 BP 132/67 02/19/21 14:00 Pulse Ox 94 L 02/19/21 14:00 Intake & Output 02/18/21 02/19/21 02/19/21 18:59 06:59 18:59 Weight 111.13 kg Other: Voiding Method Toilet # Voids 1 4 - Constitutional General appearance: Present: mild distress, obese - EENT Eyes: Absent: abnormal pupil - Neck Neck: Absent: lymphadenopathy - Respiratory Respiratory: bilateral: wheezing - Cardiovascular Rhythm: regular Heart sounds: normal: S1, S2 Abnormal Heart Sounds: Absent: S3 Gallop - Gastrointestinal General gastrointestinal: Present: soft. Absent: tenderness - Integumentary Integumentary: Absent: cellulitis - Labs CBC & Chem 7: 02/19/21 06:40 02/19/21 06:40 Labs: Abnormal Lab Results - Last 24 Hours (Table) 02/18/21 02/18/21 02/19/21 Range/Units 17:04 21:16 06:40 WBC 14.23 H (4.50-10.00) X 10*3/uL RBC 3.90 L (4.40-5.60) X 10*6/uL Hgb 8.6 L (13.0-17.0) g/dL Hct 31.9 L (39.6-50.0) % MCH 22.1 L (27.0-32.0) pg MCHC 27.0 L (32.0-37.0) g/dL RDW 19.9 H (11.5-14.5) % Plt Count 451 H (140-440) X 10*3/uL MPV 9.2 L (9.5-12.2) fL Chloride (96-109) mmol/L Carbon Dioxide (20.0-27.5) mmol/L BUN/Creatinine Ratio (12.00-20.00) Ratio Glucose (70-110) mg/dL POC Glucose (mg/dL) 142 H 160 H (75-99) mg/dL Albumin (3.8-4.9) g/dL Globulin (1.6-3.3) g/dL Albumin/Globulin Ratio (1.60-3.17) g/dL 02/19/21 02/19/21 02/19/21 Range/Units 06:40 07:23 11:22 WBC (4.50-10.00) X 10*3/uL RBC (4.40-5.60) X 10*6/uL Hgb (13.0-17.0) g/dL Hct (39.6-50.0) % MCH (27.0-32.0) pg MCHC (32.0-37.0) g/dL RDW (11.5-14.5) % Plt Count (140-440) X 10*3/uL MPV (9.5-12.2) fL Chloride 93 L (96-109) mmol/L Carbon Dioxide 28.0 H (20.0-27.5) mmol/L BUN/Creatinine Ratio 23.36 H (12.00-20.00) Ratio Glucose 130 H (70-110) mg/dL POC Glucose (mg/dL) 131 H 158 H (75-99) mg/dL Albumin 3.7 L (3.8-4.9) g/dL Globulin 3.5 H (1.6-3.3) g/dL Albumin/Globulin Ratio 1.06 L (1.60-3.17) g/dL Assessment and Plan (1) COPD exacerbation Current Visit: Yes Status: Acute Code(s): J44.1 - CHRONIC OBSTRUCTIVE PULMONARY DISEASE W (ACUTE) EXACERBATION SNOMED Code(s): 191887918 (2) Fall Current Visit: Yes Status: Acute Code(s): W19.XXXA - UNSPECIFIED FALL, INITIAL ENCOUNTER SNOMED Code(s): 9716847 (3) Weakness Current Visit: Yes Status: Acute Code(s): R53.1 - WEAKNESS SNOMED Code(s): 32852675 (4) Hypoxia Current Visit: No Status: Acute Code(s): R09.02 - HYPOXEMIA SNOMED Code(s): 028250531 Plan: Continue current regimen of COPD empiric treatment. Reconcile home medications. Check CBC and CMP in a.m. Appreciate pulmonology input. See orders otherwise.
[2021-02-19 16:38] LABS: Glucose,Whole Blood 123 mg/dL (75-99)
[2021-02-19 20:52] LABS: Glucose,Whole Blood 187 mg/dL (75-99)
[2021-02-20] MEDS: ATORVASTATIN 10 MG TAB PO SCH (05:15)
[2021-02-20] MEDS: LORATADINE 10 MG TAB PO SCH (05:15)
[2021-02-20] MEDS: CHOLECALCIFEROL 25 MCG (1000 IU) TABLET PO SCH (05:15)
[2021-02-20] MEDS: ASPIRIN 81 MG PO SCH (05:15)
[2021-02-20] MEDS: methylPREDNISolone SOD SUCCI 40 MG/ML 1 ML VIAL IV SCH ×2 (05:15→12:17)
[2021-02-20] MEDS: PANTOPRAZOLE 40 MG TABLET PO SCH (05:16)
[2021-02-20 07:09] LABS: Glucose,Whole Blood 161 mg/dL (75-99)
[2021-02-20] MEDS: buPROPion SR 150 MG TABLET.ER PO SCH (08:51)
[2021-02-20] MEDS: FUROSEMIDE 40 MG TAB PO SCH (08:51)
[2021-02-20] MEDS: SYMBICORT 80-4.5 MCG INHALER INHALATION SCH (09:55)
[2021-02-20] MEDS: IPRATROPIUM-ALBUTEROL 3 ML NEB INHALATION SCH ×2 (09:56→13:07)
[2021-02-20 10:37] LABS: Glucose,Whole Blood 197 mg/dL (75-99)
--- NOTE | 2021-02-20 13:39 | P.PN ---
Subjective Progress Note Date: 02/20/21 75-year-old white male patient with past medical history of advanced COPD, with baseline FEV1 of 1.4 L and 45% of predicted, stage III COPD with chronic hypoxic respiratory failure, patient wears 5 L of oxygen on a regular basis. He follows with Dr. Woodruff in the pulmonary clinic. Patient has a former history of smoking currently in remission, he is maintained on Trelegy Ellipta, and nebulized albuterol treatments around the clock. he is status post completed vaccination for COVID-19, he has received Moderna vaccines back in June 2020, and had a recent blister shot. Other medical history includes history of chronic systolic CHF with an EF of 40%, morbid obesity, hypertension, hyperlipidemia, and secondary polycythemia. Patient presented to the emergency department on 02/17/2021 with a complaint of a fall. Patient was going in the house, and he got tangled in the oxygen cord and fell on the pavement sustaining an injury to his left knee and right shoulder. This was a mechanical fall, no reports of lightheadedness, no loss of consciousness. States his breathing is stable, no worsening dyspnea, his cough is occasional, not any worse than usual. No fever or chills, he states his breathing is not a problem. He remains on his 5 L of oxygen. He tested negative for COVID 19. His chest x-ray showed chronic emphysematous changes and cardiomegaly with developing right basilar acu te infiltrate and/or atelectasis. His left knee x-ray showed no acute fracture or dislocation, and mild tricompartmental joint space loss and spurring. 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 His admission labs have been reviewed, his white blood cell count is 13, hemoglobin is 9.3, platelet count is 468, his coordination profile was within normal limits, sodium is 1:30, potassium is 4.5, chloride is 89, CO2 is 34, B1 is 21 creatinine 1.16 his proBNP was 236, troponin was negative at less than 0.0.2, LFTs were unremarkable, urinalysis was clear and negative for any sign of infection. On 02/19/2021 patient seen in follow-up on medical surgical floor, he is breathing comfortably, his breathing is at his baseline according to the patient, no increased shortness of breath or coughing, patient does have occasional cough, no phlegm production, he is currently on 6 L of oxygen with a pulse ox of 92%. He normally wears 5 L of oxygen at home. Lung sounds reveal mild rhonchi at the bases, no wheezing, his been afebrile, vital signs have been stable. He continues on Symbicort and DuoNeb nebulized treatments, his pain from his injuries on the left shoulder and right knee are fairly well controlled, patient was able to walk with a walker today he is anticipated to be going home tomorrow On 02/20/2021 patient seen in follow-up on medical surgical floor, he is breathing comfortable, his breathing is at his baseline, no worsening cough or congestion, lung sounds reveal some crackles at bilateral bases, vital signs have been stable. Patient has been afebrile, blood pressure has been stable, his pain is controlled. His left knee and inner left thigh is extensively bruised, but patient has been tolerating ambulation with a walker. Patient is currently on 5 L of oxygen pulse ox is 94%, his had no acute events overnight. He continues on his Symbicort, he is on IV steroids with Solu-Medrol 40 mg every 6 hours which we can switch over to prednisone, he is on home dose Lasix, and he is on DuoNeb. Objective - Vital Signs Vital signs: Vital Signs Temp 98.8 F 02/20/21 08:00 Pulse 91 02/20/21 08:00 Resp 17 02/20/21 08:00 BP 131/74 02/20/21 08:00 Pulse Ox 94 L 02/20/21 08:00 Intake & Output 02/19/21 02/20/21 02/20/21 18:59 06:59 18:59 Intake Total 300 Balance 300 Intake: Oral 300 Other: Voiding Method Toilet # Voids 3 2 # Bowel Movements 1 - Exam GENERAL EXAM: Alert, very pleasant, 75-year-old white male, on 5 L of oxygen with a pulse ox of 94% comfortable in no apparent distress. HEAD: Normocephalic/atraumatic. EYES: Normal reaction of pupils, equal size. Conjunctiva pink, sclera white. NOSE: Clear with pink turbinates. THROAT: No erythema or exudates. NECK: No masses, no JVD, no thyroid enlargement, no adenopathy. CHEST: No chest wall deformity. Symmetrical expansion. LUNGS: Equal air entry with no crackles, wheeze, rhonchi or dullness. CVS: Regular rate and rhythm, normal S1 and S2, no gallops, no murmurs, no rubs ABDOMEN: Soft, nontender. No hepatosplenomegaly, normal bowel sounds, no guarding or rigidity. EXTREMITIES: No clubbing, swelling of left knee with bruising is noted no cyanosis, 2+ pulses and upper and lower extremities. MUSCULOSKELETAL: Muscle strength and tone normal. SPINE: No scoliosis or deformity SKIN: No rashes CENTRAL NERVOUS SYSTEM: Alert and oriented -3. No focal deficits, tone is normal in all 4 extremities. PSYCHIATRIC: Alert and oriented -3. Appropriate affect. Intact judgment and insight. - Labs CBC & Chem 7: 02/19/21 06:40 02/19/21 06:40 Labs: Abnormal Lab Results - Last 24 Hours (Table) 02/19/21 02/19/21 02/20/21 Range/Units 16:36 20:49 07:07 POC Glucose (mg/dL) 123 H 187 H 161 H (75-99) mg/dL 02/20/21 Range/Units 10:35 POC Glucose (mg/dL) 197 H (75-99) mg/dL Assessment and Plan Plan: Assessment: #1. Chronic COPD, stable. Chest x-ray shows chronic emphysematous changes, cardiomegaly and developing right basilar acute infiltrate or atelectasis. COVI D-19 PCR was negative #2. Mechanical fall at home, patient tripped on oxygen tubing and injured left knee and right shoulder, x-rays show no acute fracture or dislocation #3. History of chronic systolic CHF #4. History of stage III COPD with a baseline FEV1 of 45% of predicted on most recent PFT on home oxygen at 5 L #5. Former smoker #6. Morbid obesity with BMI 34.2 kg/m #7. Secondary polycythemia #8. Hypertension #9. Coronary artery disease with previous history of stenting Plan: No acute events overnight Encourage incentive spirometer use Vitals have been stable May switch IV steroids to oral prednisone His pain is fairly well controlled His COPD is stable From pulmonary perspective she can be considered for discharge home when cleared by medicine Outpatient follow-up with Dr. Woodruff in the office when necessary I performed a history & physical examination of the patient and discussed their management with my nurse practitioner, Katerin Mitchell. I reviewed the nurse practitioner's note and agree with the documented findings and plan of care. Lung sounds are positive for clear breath sounds throughout the lung rabago. The findings and the impression was discussed with the patient. I attest to the documentation by the nurse practitioner. Time with Patient: Less than 30
[2021-02-20 13:44] VITALS: BP 136/74; PULSE 84; TEMP 97.9
--- NOTE | 2021-02-20 13:46 | P.DS ---
Providers Date of admission: 02/17/21 08:15 Attending physician: Jayro Peñaloza Consults: 02/17/21 19:17 Consult Physician Stat Consulting Provider: Dionisio Woodruff Consult Reason/Comments: COPD Do you want consulting provider notified?: Yes Primary care physician: Jayro Peñaloza - Discharge Diagnosis(es) (1) COPD exacerbation Current Visit: Yes Status: Acute (2) Fall Current Visit: Yes Status: Acute (3) Weakness Current Visit: Yes Status: Acute (4) Hypoxia Current Visit: No Status: Acute Hospital Course: This is a discharge summary 75-year-old white male male who has an underlying history of severe COPD who was having smoked multiple falls. He is admitted for exacerbation. The patient did well pulmonology consulted and she is stabilized on appropriate steroid treatment. He'll follow-up with me in about 5 days Patient Condition at Discharge: Fair Plan - Discharge Summary Discharge Rx Participant: No New Discharge Prescriptions: No Action Atorvastatin [Lipitor] 10 mg PO DAILY@0600 Aspirin EC [Ecotrin Low Dose] 81 mg PO DAILY@0600 Cholecalciferol [Vitamin D3 (25 Mcg = 1000 Iu)] 1,000 unit PO DAILY@0600 Cetirizine HCl [Zyrtec] 10 mg PO DAILY@0600 Melatonin 1 mg PO HS PRN PRN Reason: Insomnia Acetaminophen Tab [Tylenol Tab] 500 mg PO Q6HR PRN PRN Reason: Pain buPROPion SR [Wellbutrin SR] 150 mg PO BID Furosemide [Lasix] 40 mg PO BID Fluticasone/Umeclidin/Vilanter [Trelegy Ellipta 100-62.5-25] 1 puff INHALATION RT-DAILY Pantoprazole [Protonix] 40 mg PO DAILY@0600 Ipratropium Nebulized [Atrovent Nebulized 0.2 MG/ML] 0.5 mg INHALATION RT-QID Discharge Medication List Aspirin EC [Ecotrin Low Dose] 81 mg PO DAILY@0602/06/16 [History] Atorvastatin [Lipitor] 10 mg PO DAILY@0602/06/16 [History] Cholecalciferol [Vitamin D3 (25 Mcg = 1000 Iu)] 1,000 unit PO DAILY@0600 11/07/19 [History] Cetirizine HCl [Zyrtec] 10 mg PO DAILY@0610/30/20 [History] Pantoprazole [Protonix] 40 mg PO DAILY@0600 10/30/20 [History] Acetaminophen Tab [Tylenol Tab] 500 mg PO Q6HR PRN 02/17/21 [History] Fluticasone/Umeclidin/Vilanter [Trelegy Ellipta 100-62.5-25] 1 puff INHALATION RT-DAILY 02/17/21 [History] Furosemide [Lasix] 40 mg PO BID 02/17/21 [History] Ipratropium Nebulized [Atrovent Nebulized 0.2 MG/ML] 0.5 mg INHALATION RT-QID 02/17/21 [History] Melatonin 1 mg PO HS PRN 02/17/21 [History] buPROPion SR [Wellbutrin SR] 150 mg PO BID 02/17/21 [History] Follow up Appointment(s)/Referral(s): Jayro Peñaloza MD [Primary Care Provider] - 1-2 days
== END 2021-02-20 15:23 | disposition home health service (06) | DRG 191 ==
LOC: EC 05:57 → 4SSUR 08:15
PROVIDERS: ADMIT Family Medicine; ATTEND Family Medicine
DX: J44.1 Chronic obstructive pulmonary disease with (acute) exacerbation (principal); I50.22 Chronic systolic (congestive) heart failure; I42.9 Cardiomyopathy, unspecified; J96.11 Chronic respiratory failure with hypoxia; J98.11 Atelectasis; D75.1 Secondary polycythemia; E66.01 Morbid (severe) obesity due to excess calories; Z68.34 Body mass index [BMI] 34.0-34.9, adult; E78.5 Hyperlipidemia, unspecified; I25.10 Atherosclerotic heart disease of native coronary artery without angina pectoris; I11.0 Hypertensive heart disease with heart failure; K59.00 Constipation, unspecified; R29.6 Repeated falls; W18.30XA Fall on same level, unspecified, initial encounter; Y92.009 Unspecified place in unspecified non-institutional (private) residence as the place of occurrence of the external cause; Z20.822 Contact with and (suspected) exposure to COVID-19; Z79.02 Long term (current) use of antithrombotics/antiplatelets; Z79.82 Long term (current) use of aspirin; Z79.899 Other long term (current) drug therapy; Z80.0 Family history of malignant neoplasm of digestive organs; Z82.49 Family history of ischemic heart disease and other diseases of the circulatory system; Z83.3 Family history of diabetes mellitus; Z87.891 Personal history of nicotine dependence; Z99.81 Dependence on supplemental oxygen
CPT/HCPCS: 36415; 36600; 71046; 80053; 81003; 82805; 83605; 83735; 83880; 84484; 85025; 85027; 85610; 85730; 87635; 93005; 94640; 96360; 99285

== ENCOUNTER 2021-03-17 10:42 | Inpatient (IN) | payer MEDICARE ==
--- NOTE | 2021-03-17 11:43 | XR ---
EXAMINATION TYPE: XR chest 2V DATE OF EXAM: 03/17/2021 COMPARISON: 02/17/2021 TECHNIQUE: PA and lateral views submitted. HISTORY: Shortness of breath FINDINGS: Interstitial pattern with basilar subsegmental consolidation. Heart size is stable. No pneumothorax. Arthropathy of the shoulders with diffuse osteopenia. Pulmonary arteries appear to be enlarged correl ate for pulmonary arterial hypertension. IMPRESSION: 1. COPD correlate for chronic pulmonary arterial hypertension. However, there is a findings suggestiv e of chronic interstitial lung disease. 2. Basilar atelectasis versus early infiltrate.
[2021-03-17] MEDS ORDERED: HYDROcodone/APAP 5-325MG 1 EACH TAB PO STA (12:26)
[2021-03-17] MEDS ORDERED: IPRATROPIUM-ALBUTEROL 3 ML NEB INHALATION STA (12:34)
--- NOTE | 2021-03-17 12:35 | ED ---
General Adult HPI - General Chief complaint: Shortness of Breath Stated complaint: weakness Time Seen by Provider: 03/17/21 12:20 Source: patient, family (daughters), RN notes reviewed, old records reviewed Mode of arrival: wheelchair - History of Present Illness Initial comments: 75-year-old male patient, alert and oriented 4, presents to the emergency room with his daughter complaining of left knee pain and swelling. Patient had a fall February 17 and sustained some abrasions, xr was done at that time and negative. He states the knee has been increasingly more swollen and painful and red. He denies any fevers. He states it is only painful with movement or palpation. He also states he has been short of breath which is why he came into the emergency room today. He is on 5 L of oxygen at home for COPD. He denies any recent sick contacts. He does have history of coronary artery disease, COPD, hypertension, AAA repair. -: week(s) Location: left, lower extremity (knee) Severity scale (1-10): 0 Quality: aching Consistency: now resolved Improves with: immobilization Worsens with: movement, other (palpation) Associated Symptoms: cough, shortness of breath (COPD) Treatments Prior to Arrival: none - Related Data Home Medications Medication Instructions Recorded Confirmed Aspirin EC [Ecotrin Low Dose] 81 mg PO DAILY@59902/06/16 03/17/21 Atorvastatin [Lipitor] 10 mg PO DAILY@00 02/06/16 03/17/21 Cholecalciferol [Vitamin D3 (25 1,000 unit PO DAILY@59911/07/19 03/17/21 Mcg = 1000 Iu)] Cetirizine HCl [Zyrtec] 10 mg PO DAILY@59910/30/20 03/17/21 Pantoprazole [Protonix] 40 mg PO DAILY@59910/30/20 03/17/21 Acetaminophen Tab [Tylenol] 500 mg PO Q6HR PRN 02/17/21 03/17/21 Fluticasone/Umeclidin/Vilanter 1 puff INHALATION RT-DAILY 02/17/21 03/17/21 [Trelegy Ellipta 100-62.5-25] Furosemide [Lasix] 40 mg PO BID@0500,1400 02/17/21 03/17/21 Ipratropium Nebulized [Atrovent 0.5 mg INHALATION RT-QID 02/17/21 03/17/21 Nebulized 0.2 MG/ML] Melatonin 1 mg PO HS PRN 02/17/21 03/17/21 buPROPion SR [Wellbutrin SR] 150 mg PO BID 02/17/21 03/17/21 Allergies Allergy/AdvReac Type Severity Reaction Status Date / Time No Known Allergies Allergy Verified 03/17/21 13:52 Review of Systems ROS Statement: Those systems with pertinent positive or pertinent negative responses have been documented in the HPI. ROS Other: All systems not noted in ROS Statement are negative. Past Medical History Past Medical History: Blood Disorder, Coronary Artery Disease (CAD), Heart Failure, COPD, Hyperlipidemia, Hypertension, Pneumonia, Vascular Disorder Additional Past Medical History / Comment(s): Pt admitted to [facility] 12/06/20 with exacerbation COPD/respiratory failure/bipap, hyponatremia. Other hx: Severe COPD, home oxygen at 5L/NC ATC, bilateral lower leg/pedal edema, cardiomyopathy per past medical record, 2ndary polycythemia vera, past AAA with surgery. History of Any Multi-Drug Resistant Organisms: None Reported Past Surgical History: Heart Catheterization With Stent Additional Past Surgical History / Comment(s): AAA REPAIR 01/28/2016 Past Anesthesia/Blood Transfusion Reactions: No Reported Reaction Additional Past Anesthesia/Blood Transfusion Reaction / Comment(s): Pt has clausterphobia. Date of Last Stent Placement:: 11/06/20 Past Psychological History: No Psychological Hx Reported Smoking Status: Former smoker - Past Family History Father Family Medical History: Myocardial Infarction ([place]) Brother(s) Family Medical History: Cancer Additional Family Medical History / Comment(s): Brother had colon cancer. Mother Family Medical History: Blood Disorder, Diabetes Mellitus Additional Family Medical History / Comment(s): Polycthemia vera. General Exam Limitations: no limitations General appearance: alert, in no apparent distress Head exam: Present: atraumatic, normocephalic, normal inspection Eye exam: Present: EOMI. Absent: scleral icterus, conjunctival injection, periorbital swelling, periorbital tenderness ENT exam: Present: normal exam, normal oropharynx, mucous membranes moist Neck exam: Present: normal inspection, full ROM. Absent: tenderness, meningismus, lymphadenopathy, thyromegaly Respiratory exam: Present: wheezes (right side), decreased breath sounds. Absent: respiratory distress, rhonchi, stridor, chest wall tenderness, accessory muscle use Cardiovascular Exam: Present: regular rate. Absent: JVD GI/Abdominal exam: Present: soft, normal bowel sounds. Absent: distended, tenderness, guarding, rebound, rigid Extremities exam: Present: normal capillary refill Left Knee exam: Present: tenderness, swelling, erythema (Dried scaled abrasions, no purulent drainage or bleeding, surrounding erythema). Absent: full ROM, deformity Lower Leg exam: Absent: tenderness, erythema, Homans' sign Neurovascular tendon exam: Present: no vascular compromise. Absent: abnormal cap refill, extremity cold to touch, foot drop Back exam: Present: normal inspection, full ROM. Absent: tenderness, CVA tenderness (R), CVA tenderness (L), rash noted Neurological exam: Present: alert, oriented X3 Psychiatric exam: Present: normal affect, normal mood Skin exam: Present: warm, dry, intact, normal color, erythema (Left knee), abrasion (Dried scale Abrasions left knee), other (bruising left wrist). Absent: rash, cyanosis, diaphoretic Course Vital Signs 03/17/21 03/17/21 03/17/21 11:12 13:32 13:33 Temperature 99.3 F Pulse Rate 94 95 Respiratory 24 25 H 20 Rate Blood Pressure 108/77 104/61 O2 Sat by Pulse 97 95 Oximetry 03/17/21 17:33 Temperature Pulse Rate 90 Respiratory 18 Rate Blood Pressure 99/54 O2 Sat by Pulse 95 Oximetry Medical Decision Making - Medical Decision Making 75-year-old male presents with his daughter complaining of left knee pain and swelling after a fall February 17. He states it is increasingly more swollen, painful and red. He also states he has been short of breath and has history of COPD on 5l n/c at home. He denies any sputum change or fevers. He does have a history of coronary artery disease, COPD, hypertension. White blood cell count is 17.6 and the left knee is swollen and erythematous, consistent with cellulitis. Antibiotics were started in the ED. He does have a low-grade fever of 99.3. Ultrasound of the left leg to about DVT was negative. Chest x-ray shows COPD however there is findings suggestive of chronic interstitial lung disease basilar atelectasis versus early infiltrate. Patient's oxygen level is 97% on 5 L. Patient and daughter are agreeable to being admitted for IV antibiotics for cellulitis. Case was discussed with Dr. Chin. - Lab Data Result diagrams: 03/17/21 12:47 03/17/21 12:47 Lab Results 03/17/21 03/17/21 03/17/21 Range/Units 12:47 12:47 13:30 WBC 17.6 H (3.8-10.6) k/uL RBC 4.39 (4.30-5.90) m/uL Hgb 9.7 L (13.0-17.5) gm/dL Hct 34.9 L (39.0-53.0) % MCV 79.5 L (80.0-100.0) fL MCH 22.1 L (25.0-35.0) pg MCHC 27.7 L (31.0-37.0) g/dL RDW 18.6 H (11.5-15.5) % Plt Count 482 H (150-450) k/uL MPV 6.5 Neutrophils % 87 % Lymphocytes % 5 % Monocytes % 5 % Eosinophils % 1 % Basophils % 0 % Neutrophils # 15.3 H (1.3-7.7) k/uL Lymphocytes # 0.9 L (1.0-4.8) k/uL Monocytes # 0.8 (0-1.0) k/uL Eosinophils # 0.1 (0-0.7) k/uL Basophils # 0.0 (0-0.2) k/uL Hypochromasia Marked Poikilocytosis Slight Anisocytosis Slight Microcytosis Slight Sodium 131 L (137-145) mmol/L Potassium 4.3 (3.5-5.1) mmol/L Chloride 93 L (98-107) mmol/L Carbon Dioxide 34 H (22-30) mmol/L Anion Gap 4 mmol/L BUN 18 (9-20) mg/dL Creatinine 1.09 (0.66-1.25) mg/dL Est GFR (CKD-EPI)AfAm 76 (>60 ml/min/1.73 sqM) Est GFR (CKD-EPI)NonAf 66 (>60 ml/min/1.73 sqM) Glucose 124 H (74-99) mg/dL Calcium 8.9 (8.4-10.2) mg/dL Total Bilirubin 0.8 (0.2-1.3) mg/dL AST 28 (17-59) U/L ALT 13 (4-49) U/L Alkaline Phosphatase 84 (38-126) U/L Total Protein 7.0 (6.3-8.2) g/dL Albumin 3.5 (3.5-5.0) g/dL Coronavirus (PCR) Not Detected (Not Detectd) Disposition Clinical Impression: Cellulitis Disposition: ADMITTED IP TO THIS HOSP Decision Date: 03/17/21 Decision Time: 20:12
[2021-03-17] MEDS ORDERED: ALBUTEROL HFA INHALER INHALATION STA (13:10)
[2021-03-17 13:22] LABS: Albumin 3.5 g/dL (3.5-5.0); Calcium 8.9 mg/dL (8.4-10.2); Potassium 4.3 mmol/L (3.5-5.1); Total Bilirubin 0.8 mg/dL (0.2-1.3)
--- NOTE | 2021-03-17 13:24 | US ---
EXAMINATION TYPE: US venous doppler duplex LE LT DATE OF EXAM: 03/17/2021 1:13 PM COMPARISON: NONE CLINICAL HISTORY: pain swelling post trauma. Knee pain. Not on blood thinners. SIDE PERFORMED: Left TECHNIQUE: The lower extremity deep venous system is examined utilizing real time linear array sonog zayda with graded compression, doppler sonography and color-flow sonography. VESSELS IMAGED: Common Femoral Vein Deep Femoral Vein Greater Saphenous Vein * Femoral Vein Popliteal Vein Small Saphenous Vein * Proximal Calf Veins (* superficial vessels) Left Leg: Negative for DVT IMPRESSION: Grayscale, color doppler, spectral doppler imaging performed of the deep veins of the lo wer extremities. There is normal flow, compressibility, vascular waveforms.
[2021-03-17 13:40] LABS: Anisocytosis Slight; Basophils % (A) 0 %; Eosinophils # (A) 0.1 k/uL (0-0.7); Eosinophils % (A) 1 %; HCT 34.9 % (39.0-53.0); HGB 9.7 gm/dL (13.0-17.5); Hypochromasia Marked; Lymphocytes # (A) 0.9 k/uL (1.0-4.8); Lymphocytes % (A) 5 %; MCH 22.1 pg (25.0-35.0); MCHC 27.7 g/dL (31.0-37.0); MCV 79.5 fL (80.0-100.0); Mean Platelet Volume 6.5; Microcytosis Slight; Monocytes # (A) 0.8 k/uL (0-1.0); Monocytes % (A) 5 %; Neutrophils # (A) 15.3 k/uL (1.3-7.7); Neutrophils % (A) 87 %; Platelet Count 482 k/uL (150-450); Poikilocytosis Slight; RBC 4.39 m/uL (4.30-5.90); RDW 18.6 % (11.5-15.5); WBC 17.6 k/uL (3.8-10.6)
[2021-03-17] MEDS ORDERED: NALOXONE 0.4 MG/ML 1 ML VIAL IV PRN (14:10)
[2021-03-17] MEDS ORDERED: HYDROcodone/APAP 5-325MG 1 EACH TAB PO PRN (14:10)
[2021-03-17] MEDS ORDERED: MELATONIN 1 MG TAB PO PRN (22:59)
[2021-03-18] MEDS: buPROPion SR 150 MG TABLET.ER PO SCH ×3 (00:11→21:32)
[2021-03-18 06:52] LABS: Anisocytosis Slight; HCT 32.8 % (39.0-53.0); Hypochromasia Marked; MCH 22.1 pg (25.0-35.0); MCHC 27.6 g/dL (31.0-37.0); MCV 80.1 fL (80.0-100.0); Mean Platelet Volume 8.2; Microcytosis Slight; Platelet Count 454 k/uL (150-450); RBC 4.09 m/uL (4.30-5.90); RDW 18.5 % (11.5-15.5); WBC 15.4 k/uL (3.8-10.6)
[2021-03-18] MEDS: LORATADINE 10 MG TAB PO SCH (08:22)
[2021-03-18] MEDS: ASPIRIN 81 MG PO SCH (08:22)
[2021-03-18] MEDS: PANTOPRAZOLE 40 MG TABLET PO SCH (08:22)
[2021-03-18] MEDS: FUROSEMIDE 40 MG TAB PO SCH ×2 (08:22→16:29)
[2021-03-18] MEDS: CHOLECALCIFEROL 25 MCG (1000 IU) TABLET PO SCH (08:22)
[2021-03-18] MEDS: ATORVASTATIN 10 MG TAB PO SCH (08:23)
[2021-03-18] MEDS: SYMBICORT 80-4.5 MCG INHALER INHALATION SCH ×2 (08:46→19:42)
[2021-03-18] MEDS: IPRATROPIUM 0.5 MG/2.5 ML NEBU INHALATION SCH ×4 (08:46→19:42)
[2021-03-18 09:00] LABS: African American GFR (CKD) 61.4 (60.0-200.0); Albumin 3.4 g/dL (3.8-4.9); Albumin/Globulin Ratio 1.21 (1.60-3.17); Anion Gap 12.3 mmol/L (10.00-18.00); BUN/Creat Ratio 14.15 Ratio (12.00-20.00); Blood Urea Nitrogen 18.4 mg/dL (9.0-27.0); Carbon Dioxide 30.7 mmol/L (20.0-27.5); Globulin 2.8 g/dL (1.6-3.3); Potassium 4.2 mmol/L (3.5-5.5); Total Bilirubin 0.4 mg/dL (0.30-1.20); Total Protein 6.2 g/dL (6.2-8.2)
--- NOTE | 2021-03-18 09:00 | P.HPIM ---
History of Present Illness H&P Date: 03/18/21 Chief Complaint: Left knee fall/abrasion This is a history of physical 75-year-old white male with known history of COPD. He states his oxygen became tangled and he fell on a brick fireplace base. He is now admitted for significant cellulitis of the knee. Breathing is nominal. No fever or chills. The wound is itching. It is primarily on the patellar surface. No previous injury or cellulitis in the past Review of Systems Constitutional: Denies chills, Denies fever Eyes: denies blurred vision, denies pain Ears, nose, mouth and throat: Denies headache, Denies sore throat Cardiovascular: Denies chest pain, Denies shortness of breath Respiratory: Reports as per HPI Gastrointestinal: Denies abdominal pain, Denies diarrhea, Denies nausea, Denies vomiting Musculoskeletal: Denies myalgias Integumentary: Reports rash, Reports wounds Neurological: Denies numbness, Denies weakness Psychiatric: Denies anxiety, Denies depression Past Medical History Past Medical History: Blood Disorder, Coronary Artery Disease (CAD), Heart Failure, COPD, Hyperlipidemia, Hypertension, Pneumonia, Vascular Disorder Additional Past Medical History / Comment(s): Pt admitted to [facility] 12/06/20 with exacerbation COPD/respiratory failure/bipap, hyponatremia. Other hx: Severe COPD, home oxygen at 5L/[place] ATC, bilateral lower leg/pedal edema, cardiomyopathy per past medical record, 2ndary polycythemia vera, past AAA with surgery. History of Any Multi-Drug Resistant Organisms: None Reported Past Surgical History: Heart Catheterization With Stent Additional Past Surgical History / Comment(s): AAA REPAIR 01/28/2016 Past Anesthesia/Blood Transfusion Reactions: No Reported Reaction Additional Past Anesthesia/Blood Transfusion Reaction / Comment(s): Pt has clausterphobia. Date of Last Stent Placement:: 11/06/20 Past Psychological History: No Psychological Hx Reported Smoking Status: Former smoker - Past Family History Father Family Medical History: Myocardial Infarction ([place]) Brother(s) Family Medical History: Cancer Additional Family Medical History / Comment(s): Brother had colon cancer. Mother Family Medical History: Blood Disorder, Diabetes Mellitus Additional Family Medical History / Comment(s): Polycthemia vera. Medications and Allergies Home Medications Medication Instructions Recorded Confirmed Type Aspirin EC [Ecotrin Low Dose] 81 mg PO DAILY@0600 02/06/16 03/17/21 History Atorvastatin [Lipitor] 10 mg PO DAILY@0600 02/06/16 03/17/21 History Cholecalciferol [Vitamin D3 (25 1,000 unit PO DAILY@0600 11/07/19 03/17/21 History Mcg = 1000 Iu)] Cetirizine HCl [Zyrtec] 10 mg PO DAILY@0600 10/30/20 03/17/21 History Pantoprazole [Protonix] 40 mg PO DAILY@0600 10/30/20 03/17/21 History Acetaminophen Tab [Tylenol] 500 mg PO Q6HR PRN 02/17/21 03/17/21 History Fluticasone/Umeclidin/Vilanter 1 puff INHALATION RT-DAILY 02/17/21 03/17/21 History [Trelegy Ellipta 100-62.5-25] Furosemide [Lasix] 40 mg PO BID@0500,1400 02/17/21 03/17/21 History Ipratropium Nebulized [Atrovent 0.5 mg INHALATION RT-QID 02/17/21 03/17/21 History Nebulized 0.2 MG/ML] Melatonin 1 mg PO HS PRN 02/17/21 03/17/21 History buPROPion SR [Wellbutrin SR] 150 mg PO BID 02/17/21 03/17/21 History Allergies Allergy/AdvReac Type Severity Reaction Status Date / Time No Known Allergies Allergy Verified 03/17/21 13:52 Physical Exam Vitals: Vital Signs Temp Pulse Pulse Resp BP BP Pulse Ox 03/18/21 08:56 90 03/18/21 08:47 90 03/18/21 08:20 90 140/78 93 L 03/18/21 08:00 90 03/18/21 06:16 97.9 F 89 18 140/81 96 03/17/21 20:00 98.7 F 88 18 143/88 95 03/17/21 17:33 90 18 99/54 95 03/17/21 13:33 95 20 104/61 95 03/17/21 13:32 25 H 03/17/21 11:12 99.3 F 94 24 108/77 97 Intake and Output 03/17/21 03/18/21 03/18/21 22:59 06:59 14:59 Intake Total 640 Balance 640 Intake: Intake, IV Titration 100 Amount ceFAZolin 1,000 mg In 100 Sodium Chloride 0.9% 50 ml @ 100 mls/hr IVPB Q8H [facility] Rx#:[id number] Oral 540 Other: Voiding Method Indwelling Catheter Weight 122.47 kg - Constitutional General appearance: morbidly obese - EENT Eyes: EOMI - Neck Neck: no lymphadenopathy - Respiratory Respiratory: bilateral: CTA - Cardiovascular Rhythm: regular Heart sounds: normal: S1, S2 Abnormal Heart Sounds: no S3 Gallop - Gastrointestinal General gastrointestinal: soft, no tenderness - Integumentary Integumentary: cellulitis - Psychiatric Psychiatric: A&O x's 3 Results CBC & Chem 7: 03/18/21 06:32 03/17/21 12:47 Labs: Abnormal Lab Results - Last 24 Hours (Table) 03/17/21 03/17/21 03/18/21 Range/Units 12:47 12:47 06:32 WBC 17.6 H 15.4 H (3.8-10.6) k/uL RBC 4.09 L (4.30-5.90) m/uL Hgb 9.7 L 9.0 L (13.0-17.5) gm/dL Hct 34.9 L 32.8 L (39.0-53.0) % MCV 79.5 L (80.0-100.0) fL MCH 22.1 L 22.1 L (25.0-35.0) pg MCHC 27.7 L 27.6 L (31.0-37.0) g/dL RDW 18.6 H 18.5 H (11.5-15.5) % Plt Count 482 H 454 H (150-450) k/uL Neutrophils # 15.3 H (1.3-7.7) k/uL Lymphocytes # 0.9 L (1.0-4.8) k/uL Sodium 131 L (137-145) mmol/L Chloride 93 L (98-107) mmol/L Carbon Dioxide 34 H (22-30) mmol/L Glucose 124 H (74-99) mg/dL Thrombosis Risk Factor Assmnt - Choose All That Apply Any of the Below Risk Factors Present?: Yes Each Factor Represents 1 point: Abnormal pulmonary function (COPD), Obesity (BMI >25), Swollen legs (current) Other Risk Factors: Yes Each Risk Factor Represents 3 Points: Age 75 years or older Thrombosis Risk Factor Assessment Total Risk Factor Score: 6 Thrombosis Risk Factor Assessment Level: High Risk Assessment and Plan (1) Cellulitis Current Visit: Yes Status: Acute Code(s): L03.90 - CELLULITIS, UNSPECIFIED SNOMED Code(s): 194326223 (2) Fall Current Visit: No Status: Acute Code(s): W19.XXXA - UNSPECIFIED FALL, INITIAL ENCOUNTER SNOMED Code(s): 9650872 (3) Weakness Current Visit: No Status: Acute Code(s): R53.1 - WEAKNESS SNOMED Code(s): 22443165 Plan: Appropriate antibiotic treatment with wound control. consult infectious disease. Reconcile home medications. Check CBC and CMP in a.m. Prognosis is guarded.
--- NOTE | 2021-03-19 00:06 | P.CONS ---
History of Present Illness - Reason for Consult Consult date: 03/18/21 left leg cellulitis Requesting physician: Jayro Peñaloza - Chief Complaint left leg/knee area pain and swellig x days - History of Present Illness History of present illness : Patient is a 75-year-old male presenting to the hospital yesterday afternoon for evaluation of left knee pain and swelling apparently the patient had a fall on February 17, 2021 and has susta ined an abrasion to the left knee area for the patient did have x-ray done at that time that was negative for any fracture patient has been brought to the hospital for increasing pain swelling and some discoloration as well as pain on movement patient describes the pain to be more of a dull aching 4-5 out of 10 and no radiation with associated swelling or redness patient on presentation to the hospital have low-grade fever of 99.3 F patient did have white count of 17.6 with a left shift kidney function has been normal chronic PCR was negative patient did have a chest x-ray COPD correlate for chronic pulmonary arterial hypertension patient did have a lower extremity Doppler that was negative for DVT patient was started on cefazolin infectious disease was consulted for further management of left lower extremity cellulitis Review of system: CONSTITUTIONAL: Positive for weakness denies high-grade fever. EYES: No complaint. ENT: No complaint. RESPIRATORY: No complaint. CARDIOVASCULAR: No complaint. GENITOURINARY: No complaint. GASTROINTESTINAL: No complaint. MUSCULOSKELETAL: As per history of present illness. INTEGUMENTARY: No complaint. PSYCHOLOGIC: No complaint. ENDOCRINE: No complaint. NEUROLOGIC: No complaint. Past medical history : Reviewed, documented below Past surgical history : Reviewed, documented below Social history: Reviewed, documented below Medications: Reviewed, as documented below EXAMINATION: Vital sigans= Reviewed and documented below GENERAL DESCRIPTION: Elderly male lying in bed, no distress. No tachypnea or accessory muscle of respiration use. HEENT: Shows Pallor , no scleral icterus. Oral mucous membrane is dry. NECK: Trachea central, no thyromegaly. LUNGS: Unlabored breathing. Decreased breath sound at the base. No wheeze or crackle. HEART: S1, S2, regular rate and rhythm. ABDOMEN: Soft, no tenderness , guarding or rigidity EXTREMITIES: Left knee did have a laceration with surrounding swelling and redness slightly warm to touch. SKIN: No rash, no masses palpable. NEUROLOGICAL: The patient is awake, alert, oriented x3, mood and affect normal. LABS AND RADIOLOGY: Reviewed results see below Assessment : Patient with left lower extremity cellulitis this patient did have a laceration to the left knee on February 17 with subsequent nonhealing and area of the wound with surrounding cellulitis more likely from gram-positive skin kalyani they seem to have failed to respond to outpatient conservative therapy Plan: 1-marked the area of the redness 2-we will increase the cefazolin to 2 g every 8 hours We will follow on clinical condition and cultures to further adjust medication if needed Thank you for this consultation we will follow the patient along with you Past Medical History Past Medical History: Blood Disorder, Coronary Artery Disease (CAD), Heart Failure, COPD, Hyperlipidemia, Hypertension, Pneumonia, Vascular Disorder Additional Past Medical History / Comment(s): Pt admitted to [facility] 12/06/20 with exacerbation COPD/respiratory failure/bipap, hyponatremia. Other hx: Severe COPD, home oxygen at 5L/[place] ATC, bilateral lower leg/pedal edema, cardiomyopathy per past medical record, 2ndary polycythemia vera, past AAA with surgery. History of Any Multi-Drug Resistant Organisms: None Reported Past Surgical History: Heart Catheterization With Stent Additional Past Surgical History / Comment(s): AAA REPAIR 01/28/2016 Past Anesthesia/Blood Transfusion Reactions: No Reported Reaction Additional Past Anesthesia/Blood Transfusion Reaction / Comm: Pt has clausterphobia. Date of Last Stent Placement:: 11/06/20 Past Psychological History: No Psychological Hx Reported Smoking Status: Former smoker - Past Family History Father Family Medical History: Myocardial Infarction ([place]) Brother(s) Family Medical History: Cancer Additional Family Medical History / Comment(s): Brother had colon cancer. Mother Family Medical History: Blood Disorder, Diabetes Mellitus Additional Family Medical History / Comment(s): Polycthemia vera. Medications and Allergies Home Medications Medication Instructions Recorded Confirmed Type Aspirin EC [Ecotrin Low Dose] 81 mg PO DAILY@0600 02/06/16 03/17/21 History Atorvastatin [Lipitor] 10 mg PO DAILY@0600 02/06/16 03/17/21 History Cholecalciferol [Vitamin D3 (25 1,000 unit PO DAILY@0600 11/07/19 03/17/21 History Mcg = 1000 Iu)] Cetirizine HCl [Zyrtec] 10 mg PO DAILY@0600 10/30/20 03/17/21 History Pantoprazole [Protonix] 40 mg PO DAILY@0600 10/30/20 03/17/21 History Acetaminophen Tab [Tylenol] 500 mg PO Q6HR PRN 02/17/21 03/17/21 History Fluticasone/Umeclidin/Vilanter 1 puff INHALATION RT-DAILY 02/17/21 03/17/21 History [Trelegy Ellipta 100-62.5-25] Furosemide [Lasix] 40 mg PO BID@0500,1400 02/17/21 03/17/21 History Ipratropium Nebulized [Atrovent 0.5 mg INHALATION RT-QID 02/17/21 03/17/21 History Nebulized 0.2 MG/ML] Melatonin 1 mg PO HS PRN 02/17/21 03/17/21 History buPROPion SR [Wellbutrin SR] 150 mg PO BID 02/17/21 03/17/21 History Allergies Allergy/AdvReac Type Severity Reaction Status Date / Time No Known Allergies Allergy Verified 03/17/21 13:52 Physical Exam Vitals: Vital Signs Temp Pulse Pulse Resp BP BP Pulse Ox 03/18/21 10:48 95 03/18/21 08:56 90 03/18/21 08:47 90 03/18/21 08:20 90 140/78 93 L 03/18/21 08:00 90 03/18/21 06:16 97.9 F 89 18 140/81 96 03/17/21 20:00 98.7 F 88 18 143/88 95 03/17/21 17:33 90 18 99/54 95 03/17/21 13:33 95 20 104/61 95 03/17/21 13:32 25 H 03/17/21 11:12 99.3 F 94 24 108/77 97 Intake and Output 03/17/21 03/18/21 03/18/21 22:59 06:59 14:59 Intake Total 640 Balance 640 Intake: Intake, IV Titration 100 Amount ceFAZolin 1,000 mg In 100 Sodium Chloride 0.9% 50 ml @ 100 mls/hr IVPB Q8H [facility] Rx#:[id number] Oral 540 Other: Voiding Method Bedside Commode # Voids 1 # Bowel Movements 1 Weight 122.47 kg Results CBC & Chem 7: 03/18/21 06:32 03/18/21 06:32 Labs: Abnormal Lab Results - Last 24 Hours (Table) 03/17/21 03/17/21 03/18/21 Range/Units 12:47 12:47 06:32 WBC 17.6 H 15.4 H (3.8-10.6) k/uL RBC 4.09 L (4.30-5.90) m/uL Hgb 9.7 L 9.0 L (13.0-17.5) gm/dL Hct 34.9 L 32.8 L (39.0-53.0) % MCV 79.5 L (80.0-100.0) fL MCH 22.1 L 22.1 L (25.0-35.0) pg MCHC 27.7 L 27.6 L (31.0-37.0) g/dL RDW 18.6 H 18.5 H (11.5-15.5) % Plt Count 482 H 454 H (150-450) k/uL Neutrophils # 15.3 H (1.3-7.7) k/uL Lymphocytes # 0.9 L (1.0-4.8) k/uL Sodium 131 L (137-145) mmol/L Chloride 93 L (98-107) mmol/L Carbon Dioxide 34 H (22-30) mmol/L Est GFR (CKD-EPI)NonAf (60.0-200.0) Glucose 124 H (74-99) mg/dL Albumin (3.8-4.9) g/dL Albumin/Globulin Ratio (1.60-3.17) g/dL 03/18/21 Range/Units 06:32 WBC (3.8-10.6) k/uL RBC (4.30-5.90) m/uL Hgb (13.0-17.5) gm/dL Hct (39.0-53.0) % MCV (80.0-100.0) fL MCH (25.0-35.0) pg MCHC (31.0-37.0) g/dL RDW (11.5-15.5) % Plt Count (150-450) k/uL Neutrophils # (1.3-7.7) k/uL Lymphocytes # (1.0-4.8) k/uL Sodium (137-145) mmol/L Chloride 92 L (98-107) mmol/L Carbon Dioxide 30.7 H (22-30) mmol/L Est GFR (CKD-EPI)NonAf 53.0 L (60.0-200.0) Glucose 120 H (74-99) mg/dL Albumin 3.4 L (3.8-4.9) g/dL Albumin/Globulin Ratio 1.21 L (1.60-3.17) g/dL
[2021-03-19 06:59] LABS: Anisocytosis Slight; HCT 32.7 % (39.0-53.0); HGB 9.3 gm/dL (13.0-17.5); Hypochromasia Marked; MCH 22.7 pg (25.0-35.0); MCHC 28.4 g/dL (31.0-37.0); MCV 79.8 fL (80.0-100.0); Mean Platelet Volume 7.3; Microcytosis Slight; Platelet Count 469 k/uL (150-450); Poikilocytosis Slight; RDW 18.4 % (11.5-15.5); WBC 17.5 k/uL (3.8-10.6)
[2021-03-19] MEDS: PANTOPRAZOLE 40 MG TABLET PO SCH (08:13)
[2021-03-19] MEDS: FUROSEMIDE 40 MG TAB PO SCH ×2 (08:13→16:46)
[2021-03-19] MEDS: ASPIRIN 81 MG PO SCH (08:13)
[2021-03-19] MEDS: LORATADINE 10 MG TAB PO SCH (08:13)
[2021-03-19] MEDS: ATORVASTATIN 10 MG TAB PO SCH (08:13)
[2021-03-19] MEDS: buPROPion SR 150 MG TABLET.ER PO SCH ×2 (08:13→21:59)
[2021-03-19] MEDS: CHOLECALCIFEROL 25 MCG (1000 IU) TABLET PO SCH (08:13)
--- NOTE | 2021-03-19 08:41 | CDI ---
Documentation Clarification Form Date: 03/19/2021 08:27:47 AM From: Denita Gonzalez RN CCDS Admit Date: 03/17/2021 02:17:00 PM Patient Name: Julio C Garcia Visit Number: [id number] Discharge Date: ATTENTION: The Clinical Documentation Specialists (CDI) and [facility] Coding Staff appreciate your assistance in clarifying documentation. Please respond to the clarification below the line at the bottom and electronically sign. The CDI & [facility] Coding staff will review the response and follow-up if needed. Please note: Queries are made part of the Legal Health Record. If you have any questions, please contact the author of this message via ITS. Dr. Jayro Peñaloza Your patient has home oxygen at 5L nasal cannula ATC, 03/18, H&P. Based on this information and the findings below, is there an additional diagnosis that is clinically appropriate for this patient? History/Risk Factors: 75-year-old male presents to the ED for shortness of breath and knee pain and swelling. Medical history: Severe COPD and home oxygen at 5L/NC ATC. 03/18, H&P. Tobacco use: Former smoker; H&P, 03/18 Home oxygen: 5L nasal cannula ATC. Clinical Indicators: Vital signs: 03/17 B/P 108/77; HR 94; Temp 99.3 F Oral; RR 24; SpO2 97% 6L nc. Lung/Breathing assessment: 03/18 H&P Clear to Auscultation. Treatment: Breathing TX: 03/18 to current Symbicort 80-4.5 Mcg Inhaler 2 puff Inhalation RT BID; 03/18 Atrovent Nebulized 0.5mg Inhalation RT QID NISA. Oxygen: 5L to 6L nasal cannula Is there an additional diagnosis that is clinically appropriate for this patient? [ x ] Chronic Respiratory Failure [ ] Other Diagnosis, please specify [ ] Unable to determine (Template Last Revised: May 2020) MTDD
--- NOTE | 2021-03-19 08:54 | P.PN ---
Subjective Principal diagnosis: Cellulitis This is a continue prednisone a 75-year-old white male essentially been for cellulitis after having fallen home. At a long discussion with his yesterday and he has been having significant falls at home. I suspect he would do well with continue rehabilitation but given his overlying COPD. he is becoming very difficult to take care of at home. Discharge planning will be consulted Objective - Vital Signs Vital signs: Vital Signs Temp 98.3 F 03/19/21 05:00 Pulse 90 03/19/21 05:00 Resp 18 03/19/21 05:00 BP 133/78 03/19/21 05:00 Pulse Ox 94 L 03/19/21 05:00 Intake & Output 03/18/21 03/19/21 03/19/21 18:59 06:59 18:59 Other: Voiding Method Bedside Commode Bedside Commode # Voids 1 3 # Bowel Movements 1 - Constitutional General appearance: Present: morbidly obese - EENT Eyes: Absent: abnormal pupil - Respiratory Respiratory: bilateral: diminished - Cardiovascular Rhythm: regular Heart sounds: normal: S1, S2 Abnormal Heart Sounds: Absent: S3 Gallop - Gastrointestinal General gastrointestinal: Present: soft. Absent: tenderness - Integumentary Integumentary: Present: cellulitis - Labs CBC & Chem 7: 03/19/21 06:22 03/18/21 06:32 Labs: Abnormal Lab Results - Last 24 Hours (Table) 03/18/21 03/19/21 Range/Units 06:32 06:22 WBC 17.5 H (3.8-10.6) k/uL RBC 4.10 L (4.30-5.90) m/uL Hgb 9.3 L (13.0-17.5) gm/dL Hct 32.7 L (39.0-53.0) % MCV 79.8 L (80.0-100.0) fL MCH 22.7 L (25.0-35.0) pg MCHC 28.4 L (31.0-37.0) g/dL RDW 18.4 H (11.5-15.5) % Plt Count 469 H (150-450) k/uL Chloride 92 L (96-109) mmol/L Carbon Dioxide 30.7 H (20.0-27.5) mmol/L Est GFR (CKD-EPI)NonAf 53.0 L (60.0-200.0) Glucose 120 H (70-110) mg/dL Albumin 3.4 L (3.8-4.9) g/dL Albumin/Globulin Ratio 1.21 L (1.60-3.17) g/dL Microbiology - Last 24 Hours (Table) 03/17/21 12:45 Blood Culture - Preliminary Blood No Growth after 24 hours 03/17/21 12:47 Blood Culture - Preliminary Blood No Growth after 24 hours Assessment and Plan (1) Cellulitis Current Visit: Yes Status: Acute Code(s): L03.90 - CELLULITIS, UNSPECIFIED SNOMED Code(s): 387379363 (2) Fall Current Visit: No Status: Acute Code(s): W19.XXXA - UNSPECIFIED FALL, INITIAL ENCOUNTER SNOMED Code(s): 3492785 (3) Weakness Current Visit: No Status: Acute Code(s): R53.1 - WEAKNESS SNOMED Code(s): 91929029 Plan: Appropriate antibiotic treatment with wound control. consult infectious disease. Reconcile home medications. Check CBC and CMP in a.m. Prognosis is guarded. Discharge planning to be also consulted for possible
[2021-03-19] MEDS: IPRATROPIUM 0.5 MG/2.5 ML NEBU INHALATION SCH ×4 (09:14→20:13)
[2021-03-19] MEDS: SYMBICORT 80-4.5 MCG INHALER INHALATION SCH ×2 (09:14→20:13)
[2021-03-19 10:46] LABS: African American GFR (CKD) 56.2 (60.0-200.0); Albumin 3.5 g/dL (3.8-4.9); Albumin/Globulin Ratio 1.18 (1.60-3.17); Anion Gap 13.8 mmol/L (10.00-18.00); BUN/Creat Ratio 14.57 Ratio (12.00-20.00); Blood Urea Nitrogen 20.4 mg/dL (9.0-27.0); Calcium 9.1 mg/dL (8.7-10.3); Carbon Dioxide 29.7 mmol/L (20.0-27.5); Non-African American GFR(CKD) 48.5 (60.0-200.0); Potassium 4.2 mmol/L (3.5-5.5); Total Bilirubin 0.3 mg/dL (0.30-1.20); Total Protein 6.5 g/dL (6.2-8.2)
--- NOTE | 2021-03-19 15:00 | PN ---
PROGRESS NOTE DATE OF SERVICE: 03/19/2021 REASON FOR FOLLOWUP: Left leg cellulitis. INTERVAL HISTORY: The patient is afebrile. The patient is breathing comfortably. The patient's left leg swelling and redness have slightly decreased. The patient denies having any chest pain, shortness of breath or cough. No abdominal pain or any diarrhea. PHYSICAL EXAMINATION: Blood pressure is /78 with a pulse of 90, temperature 98.3. nasal cannula. General description is an elderly male up in the chair in no distress. Examination of the left leg below the knee area: Laceration which is drying out. no drainage. LABS: Hemoglobin white count 17.5. blood culture has been negative. DIAGNOSTIC IMPRESSION AND PLAN: Patient with left lower extremity cellulitis with laceration from a fall and trauma, but the area is currently drying out white count slightly trending up, which will be monitored closely. We will continue with cefazolin for now. antibiotics and monitor his clinical course closely. MMODL / IJN: [id number] /
[2021-03-20 04:38] VITALS: BP 105/65; RESP 16; TEMP 98.3
[2021-03-20 06:27] LABS: Anisocytosis Slight; HCT 33.4 % (39.0-53.0); HGB 9.2 gm/dL (13.0-17.5); Hypochromasia Marked; MCH 22.2 pg (25.0-35.0); MCHC 27.5 g/dL (31.0-37.0); MCV 80.8 fL (80.0-100.0); Mean Platelet Volume 7.5; Microcytosis Slight; Platelet Count 429 k/uL (150-450); Poikilocytosis Slight; RBC 4.13 m/uL (4.30-5.90); RDW 18.5 % (11.5-15.5); Reticulocyte % 3.1 % (0.5-2.0); WBC 12.6 k/uL (3.8-10.6)
[2021-03-20] MEDS: SYMBICORT 80-4.5 MCG INHALER INHALATION SCH (07:43)
[2021-03-20] MEDS: IPRATROPIUM 0.5 MG/2.5 ML NEBU INHALATION SCH ×2 (07:43→11:18)
[2021-03-20] MEDS: ATORVASTATIN 10 MG TAB PO SCH (10:10)
[2021-03-20] MEDS: CHOLECALCIFEROL 25 MCG (1000 IU) TABLET PO SCH (10:10)
[2021-03-20] MEDS: buPROPion SR 150 MG TABLET.ER PO SCH (10:10)
[2021-03-20] MEDS: FUROSEMIDE 40 MG TAB PO SCH (10:10)
[2021-03-20] MEDS: LORATADINE 10 MG TAB PO SCH (10:10)
[2021-03-20] MEDS: ASPIRIN 81 MG PO SCH (10:11)
[2021-03-20] MEDS: PANTOPRAZOLE 40 MG TABLET PO SCH (10:15)
[2021-03-20 11:24] VITALS: PULSE 98
[2021-03-20 11:24] LABS: % Iron Saturation 3.4 (15.00-50.00); African American GFR (CKD) 67.7 (60.0-200.0); Albumin 3.4 g/dL (3.8-4.9); Albumin/Globulin Ratio 1.13 (1.60-3.17); Anion Gap 11.6 mmol/L (10.00-18.00); BUN/Creat Ratio 15.67 Ratio (12.00-20.00); Blood Urea Nitrogen 18.8 mg/dL (9.0-27.0); Calcium 8.9 mg/dL (8.7-10.3); Carbon Dioxide 32.4 mmol/L (20.0-27.5); Non-African American GFR(CKD) 58.4 (60.0-200.0); Total Bilirubin 0.3 mg/dL (0.30-1.20); Total Protein 6.4 g/dL (6.2-8.2)
== END 2021-03-20 13:24 | disposition home health service (06) | DRG 603 ==
LOC: EC 10:42 → 5NMEDONC 14:17
PROVIDERS: ADMIT Family Medicine; ATTEND Family Medicine
DX: L03.116 Cellulitis of left lower limb (principal); I42.9 Cardiomyopathy, unspecified; J96.11 Chronic respiratory failure with hypoxia; W19.XXXA Unspecified fall, initial encounter; J44.9 Chronic obstructive pulmonary disease, unspecified; D45 Polycythemia vera; I71.4 Abdominal aortic aneurysm, without rupture; R60.0 Localized edema; Z20.822 Contact with and (suspected) exposure to COVID-19; I11.0 Hypertensive heart disease with heart failure; R53.1 Weakness; I50.9 Heart failure, unspecified; I25.10 Atherosclerotic heart disease of native coronary artery without angina pectoris; E78.5 Hyperlipidemia, unspecified; Z79.82 Long term (current) use of aspirin; Z79.899 Other long term (current) drug therapy; Z80.0 Family history of malignant neoplasm of digestive organs; Z82.49 Family history of ischemic heart disease and other diseases of the circulatory system; Z83.3 Family history of diabetes mellitus; Z87.891 Personal history of nicotine dependence
CPT/HCPCS: 36415; 71046; 80053; 83540; 83550; 85025; 85027; 85045; 87040; 87635; 94640; 96365; 99285

== ENCOUNTER 2021-03-31 14:13 | Observation (INO) | payer MEDICARE ==
--- NOTE | 2021-03-31 15:11 | ED ---
General Adult HPI - General Source: patient, EMS, RN notes reviewed, old records reviewed Mode of arrival: EMS Limitations: no limitations <Adalberto Vasquez - Last Filed: 03/31/21 16:11> <Lyssa Zuñiga - Last Filed: 03/31/21 18:16> - General Chief complaint: Weakness Stated complaint: falls, weakness Time Seen by Provider: 03/31/21 14:25 - History of Present Illness Initial comments: This is a 75-year-old male who presents emergency Department stating lately he's had multiple falls. Patient also is complaining shortness of breath is getting worse over the last 2 days. Patient is normally on 5 L and he is on 5 L here in the emergency department and is oxygenating at about 92%. Patient states he fell the other day and hit the arm of a chair into his chest and he has a contusion on the left side of his chest which is tender to palpation. Patient states he also has some bruising on his arms but no significant pain. Patient denies any abdominal pain. Patient denies any back pain. Patient denies any hip or leg pain. Patient denies ever hitting his head or neck. Patient does believe he is getting a little bit weaker as time goes on his legs give out. (Adalberto Vasquez) - Related Data Home Medications Medication Instructions Recorded Confirmed Aspirin EC [Ecotrin Low Dose] 81 mg PO DAILY@0600 02/06/16 03/31/21 Atorvastatin [Lipitor] 10 mg PO DAILY@0600 02/06/16 03/31/21 Cholecalciferol [Vitamin D3 (25 1,000 unit PO DAILY@59911/07/19 03/31/21 Mcg = 1000 Iu)] Cetirizine HCl [Zyrtec] 10 mg PO DAILY@0600 10/30/20 03/31/21 Pantoprazole [Protonix] 40 mg PO DAILY@59910/30/20 03/31/21 Acetaminophen Tab [Tylenol] 500 mg PO Q6HR PRN 02/17/21 03/31/21 Fluticasone/Umeclidin/Vilanter 1 puff INHALATION RT-DAILY 02/17/21 03/31/21 [Trelegy Ellipta 100-62.5-25] Furosemide [Lasix] 40 mg PO BID@0500,1400 02/17/21 03/31/21 Ipratropium Nebulized [Atrovent 0.5 mg INHALATION RT-QID 02/17/21 03/31/21 Nebulized 0.2 MG/ML] Melatonin 1 mg PO HS PRN 02/17/21 03/31/21 buPROPion SR [Wellbutrin SR] 150 mg PO BID 02/17/21 03/31/21 Previous Rx's Medication Instructions Recorded Cephalexin [Keflex] 500 mg PO Q6HR 1 Days #28 cap 03/20/21 Ferrous Sulfate [Feosol] 325 mg PO DAILY #30 tab 03/20/21 Allergies Allergy/AdvReac Type Severity Reaction Status Date / Time No Known Allergies Allergy Verified 03/31/21 16:36 Review of Systems ROS Other: All systems not noted in ROS Statement are negative. <Adalberto Vasquez - Last Filed: 03/31/21 16:11> ROS Other: All systems not noted in ROS Statement are negative. <Lyssa Zuñiga - Last Filed: 03/31/21 18:16> ROS Statement: Those systems with pertinent positive or pertinent negative responses have been documented in the HPI. Past Medical History Past Medical History: Blood Disorder, Coronary Artery Disease (CAD), Heart Failure, COPD, Hyperlipidemia, Hypertension, Pneumonia, Vascular Disorder Additional Past Medical History / Comment(s): Pt admitted to [facility] 12/06/20 with exacerbation COPD/respiratory failure/bipap, hyponatremia. Other hx: Severe COPD, home oxygen at 5L/NC ATC, bilateral lower leg/pedal edema, cardiomyopathy per past medical record, 2ndary polycythemia vera, past AAA with surgery. History of Any Multi-Drug Resistant Organisms: None Reported Past Surgical History: Heart Catheterization With Stent Additional Past Surgical History / Comment(s): AAA REPAIR 01/28/2016 Past Anesthesia/Blood Transfusion Reactions: No Reported Reaction Additional Past Anesthesia/Blood Transfusion Reaction / Comment(s): Pt has clausterphobia. Date of Last Stent Placement:: 11/06/20 Past Psychological History: No Psychological Hx Reported Smoking Status: Former smoker Past Alcohol Use History: None Reported Past Drug Use History: None Reported - Past Family History Father Family Medical History: Myocardial Infarction ([place]) Brother(s) Family Medical History: Cancer Additional Family Medical History / Comment(s): Brother had colon cancer. Mother Family Medical History: Blood Disorder, Diabetes Mellitus Additional Family Medical History / Comment(s): Polycthemia vera. <Adalberto Vasquez - Last Filed: 03/31/21 16:11> General Exam Limitations: no limitations <Adalberto Vasquez - Last Filed: 03/31/21 16:11> - General Exam Comments Initial Comments: GENERAL: Patient is well-developed and well-nourished. Patient is nontoxic and well- hydrated and is in mild distress. ENT: Neck is soft and supple. No significant lymphadenopathy is noted. Oropharynx is clear. Moist mucous membranes. Neck has full range of motion without eliciting any pain. EYES: The sclera were anicteric and conjunctiva were pink and moist. Extraocular movements were intact and pupils were equal round and reactive to light. Eyelids were unremarkable. PULMONARY: Patient has significant decreased breath sounds. Patient also has bilateral wheezing. CARDIOVASCULAR: There is a regular rate and rhythm without any murmurs gallops or rubs. ABDOMEN: Soft and nontender with normal bowel sounds. SKIN: Skin is clear with no lesions or rashes and otherwise unremarkable. NEUROLOGIC: Patient is alert and oriented x3. Cranial nerves II through XII are grossly in tact. Motor and sensory are also intact. Normal speech, volume and content. Symmetrical smile. MUSCULOSKELETAL: Normal extremities with adequate strength and full range of motion. 1+ edema bilaterally LYMPHATICS: No significant lymphadenopathy is noted PSYCHIATRIC: Normal psychiatric evaluation. (Adalberto Vasquez) Course Vital Signs 03/31/21 03/31/21 03/31/21 14:23 15:56 16:10 Temperature 97.0 F L Pulse Rate 80 75 76 Respiratory 16 Rate Blood Pressure 118/72 O2 Sat by Pulse 90 L Oximetry Medical Decision Making - Lab Data Result diagrams: 03/31/21 15:25 03/31/21 15:25 <Adalberto Vasquez - Last Filed: 03/31/21 16:11> - Lab Data Result diagrams: 03/31/21 15:25 03/31/21 15:25 <Lyssa Zuñiga - Last Filed: 03/31/21 18:16> - Medical Decision Making EKG shows normal sinus rhythm with a right bundle branch block at 80 bpm NE interval 180 [place] is on a 58 QT interval is 416 QTC is 479. Patient's EKG shows some T-wave inversions in II, III, and F aVF as well as precordial leads diffusely. Dr. Zuñiga will be taking over care of this patient at 4 PM (Adalberto Vasquez) Patient was sent over me from Dr. Vasquez. I evaluated the patient in the room. I did follow-up on the patient's laboratory studies and imaging results. Patient had been given a DuoNeb breathing treatments due to his wheezing and shortness of breath. I did order 125 Solu-Medrol. Chest x-ray does demonstrate pulmonary opacities consistent with possible pulmonary ventricular congestion. I did or marilu a BNP which returns as 473. I evaluated the patient myself. Patient will be admitted to Dr. Peñaloza who accepts admission for the patient. We'll consult pulmonology and physical therapy. Patient agreed to the treatment plan and is currently waiting but on the floor (Lyssa Zuñiga) - Lab Data Lab Results 03/31/21 03/31/21 03/31/21 Range/Units 15:25 15:25 15:25 WBC 9.7 (3.8-10.6) k/uL RBC 3.88 L (4.30-5.90) m/uL Hgb 8.7 L (13.0-17.5) gm/dL Hct 31.4 L (39.0-53.0) % MCV 80.9 (80.0-100.0) fL MCH 22.4 L (25.0-35.0) pg MCHC 27.7 L (31.0-37.0) g/dL RDW 19.8 H (11.5-15.5) % Plt Count 515 H (150-450) k/uL MPV 7.5 Neutrophils % 79 % Lymphocytes % 10 % Monocytes % 5 % Eosinophils % 3 % Basophils % 1 % Neutrophils # 7.7 (1.3-7.7) k/uL Lymphocytes # 0.9 L (1.0-4.8) k/uL Monocytes # 0.5 (0-1.0) k/uL Eosinophils # 0.3 (0-0.7) k/uL Basophils # 0.1 (0-0.2) k/uL Hypochromasia Marked Poikilocytosis Slight Anisocytosis Slight Microcytosis Slight PT 10.0 (9.0-12.0) sec INR 0.9 (<1.2) APTT 22.6 (22.0-30.0) sec Sodium (137-145) mmol/L Potassium (3.5-5.1) mmol/L Chloride (98-107) mmol/L Carbon Dioxide (22-30) mmol/L Anion Gap mmol/L BUN (9-20) mg/dL Creatinine (0.66-1.25) mg/dL Est GFR (CKD-EPI)AfAm (>60 ml/min/1.73 sqM) Est GFR (CKD-EPI)NonAf (>60 ml/min/1.73 sqM) Glucose (74-99) mg/dL Plasma Lactic Acid Garth (0.7-2.0) mmol/L Calcium (8.4-10.2) mg/dL Total Bilirubin (0.2-1.3) mg/dL AST (17-59) U/L ALT (4-49) U/L Alkaline Phosphatase (38-126) U/L Troponin I (0.000-0.034) ng/mL NT-Pro-B Natriuret Pep pg/mL Total Protein (6.3-8.2) g/dL Albumin (3.5-5.0) g/dL Urine Color Yellow Urine Appearance Clear (Clear) Urine pH 7.0 (5.0-8.0) Ur Specific [place] 1.014 (1.001-1.035) Urine Protein Negative (Negative) Urine Glucose (UA) Negative (Negative) Urine Ketones Negative (Negative) Urine Blood Negative (Negative) Urine Nitrite Negative (Negative) Urine Bilirubin Negative (Negative) Urine Urobilinogen <2.0 (<2.0) mg/dL Ur Leukocyte Esterase Negative (Negative) 03/31/21 03/31/21 03/31/21 Range/Units 15:25 15:25 15:25 WBC (3.8-10.6) k/uL RBC (4.30-5.90) m/uL Hgb (13.0-17.5) gm/dL Hct (39.0-53.0) % MCV (80.0-100.0) fL MCH (25.0-35.0) pg MCHC (31.0-37.0) g/dL RDW (11.5-15.5) % Plt Count (150-450) k/uL MPV Neutrophils % % Lymphocytes % % Monocytes % % Eosinophils % % Basophils % % Neutrophils # (1.3-7.7) k/uL Lymphocytes # (1.0-4.8) k/uL Monocytes # (0-1.0) k/uL Eosinophils # (0-0.7) k/uL Basophils # (0-0.2) k/uL Hypochromasia Poikilocytosis Anisocytosis Microcytosis PT (9.0-12.0) sec INR (<1.2) APTT (22.0-30.0) sec Sodium 136 L (137-145) mmol/L Potassium 4.9 (3.5-5.1) mmol/L Chloride 95 L (98-107) mmol/L Carbon Dioxide 38 H (22-30) mmol/L Anion Gap 3 mmol/L BUN 23 H (9-20) mg/dL Creatinine 1.30 H (0.66-1.25) mg/dL Est GFR (CKD-EPI)AfAm 61 (>60 ml/min/1.73 sqM) Est GFR (CKD-EPI)NonAf 53 (>60 ml/min/1.73 sqM) Glucose 88 (74-99) mg/dL Plasma Lactic Acid Garth 1.2 (0.7-2.0) mmol/L Calcium 8.5 (8.4-10.2) mg/dL Total Bilirubin 0.6 (0.2-1.3) mg/dL AST 33 (17-59) U/L ALT 11 (4-49) U/L Alkaline Phosphatase 80 (38-126) U/L Troponin I <0.012 (0.000-0.034) ng/mL NT-Pro-B Natriuret Pep pg/mL Total Protein 7.3 (6.3-8.2) g/dL Albumin 3.3 L (3.5-5.0) g/dL Urine Color Urine Appearance (Clear) Urine pH (5.0-8.0) Ur Specific [place] (1.001-1.035) Urine Protein (Negative) Urine Glucose (UA) (Negative) Urine Ketones (Negative) Urine Blood (Negative) Urine Nitrite (Negative) Urine Bilirubin (Negative) Urine Urobilinogen (<2.0) mg/dL Ur Leukocyte Esterase (Negative) 03/31/21 Range/Units 15:25 WBC (3.8-10.6) k/uL RBC (4.30-5.90) m/uL Hgb (13.0-17.5) gm/dL Hct (39.0-53.0) % MCV (80.0-100.0) fL MCH (25.0-35.0) pg MCHC (31.0-37.0) g/dL RDW (11.5-15.5) % Plt Count (150-450) k/uL MPV Neutrophils % % Lymphocytes % % Monocytes % % Eosinophils % % Basophils % % Neutrophils # (1.3-7.7) k/uL Lymphocytes # (1.0-4.8) k/uL Monocytes # (0-1.0) k/uL Eosinophils # (0-0.7) k/uL Basophils # (0-0.2) k/uL Hypochromasia Poikilocytosis Anisocytosis Microcytosis PT (9.0-12.0) sec INR (<1.2) APTT (22.0-30.0) sec Sodium (137-145) mmol/L Potassium (3.5-5.1) mmol/L Chloride (98-107) mmol/L Carbon Dioxide (22-30) mmol/L Anion Gap mmol/L BUN (9-20) mg/dL Creatinine (0.66-1.25) mg/dL Est GFR (CKD-EPI)AfAm (>60 ml/min/1.73 sqM) Est GFR (CKD-EPI)NonAf (>60 ml/min/1.73 sqM) Glucose (74-99) mg/dL Plasma Lactic Acid Garth (0.7-2.0) mmol/L Calcium (8.4-10.2) mg/dL Total Bilirubin (0.2-1.3) mg/dL AST (17-59) U/L ALT (4-49) U/L Alkaline Phosphatase (38-126) U/L Troponin I (0.000-0.034) ng/mL NT-Pro-B Natriuret Pep 473 pg/mL Total Protein (6.3-8.2) g/dL Albumin (3.5-5.0) g/dL Urine Color Urine Appearance (Clear) Urine pH (5.0-8.0) Ur Specific [place] (1.001-1.035) Urine Protein (Negative) Urine Glucose (UA) (Negative) Urine Ketones (Negative) Urine Blood (Negative) Urine Nitrite (Negative) Urine Bilirubin (Negative) Urine Urobilinogen (<2.0) mg/dL Ur Leukocyte Esterase (Negative) Disposition <Adalberto Vasquez - Last Filed: 03/31/21 16:11> Is patient prescribed a controlled substance at d/c from ED?: No Decision to Admit Reason: Admit from EC Decision Date: 03/31/21 Decision Time: 18:00 <Lyssa Zuñiga - Last Filed: 03/31/21 18:16> Clinical Impression: COPD exacerbation, Hypoxia, Fall, Chest wall pain Disposition: ADMITTED IP TO THIS HOSP Condition: Stable Referrals: Jayro Peñaloza MD [Primary Care Provider] - 1-2 days
[2021-03-31] MEDS ORDERED: IPRATROPIUM-ALBUTEROL 3 ML NEB INHALATION STA ×2 (15:12→22:00)
[2021-03-31 15:37] LABS: Anisocytosis Slight; Basophils # (A) 0.1 k/uL (0-0.2); Basophils % (A) 1 %; Eosinophils # (A) 0.3 k/uL (0-0.7); Eosinophils % (A) 3 %; HCT 31.4 % (39.0-53.0); HGB 8.7 gm/dL (13.0-17.5); Hypochromasia Marked; Lymphocytes # (A) 0.9 k/uL (1.0-4.8); Lymphocytes % (A) 10 %; MCH 22.4 pg (25.0-35.0); MCHC 27.7 g/dL (31.0-37.0); MCV 80.9 fL (80.0-100.0); Mean Platelet Volume 7.5; Microcytosis Slight; Monocytes # (A) 0.5 k/uL (0-1.0); Monocytes % (A) 5 %; Neutrophils # (A) 7.7 k/uL (1.3-7.7); Neutrophils % (A) 79 %; Platelet Count 515 k/uL (150-450); Poikilocytosis Slight; RBC 3.88 m/uL (4.30-5.90); RDW 19.8 % (11.5-15.5); WBC 9.7 k/uL (3.8-10.6)
[2021-03-31 15:47] LABS: Albumin 3.3 g/dL (3.5-5.0); Calcium 8.5 mg/dL (8.4-10.2); Total Bilirubin 0.6 mg/dL (0.2-1.3); Total Protein 7.3 g/dL (6.3-8.2)
[2021-03-31 15:48] LABS: INR 0.9 (<1.2); Partial Thromboplastin Time 22.6 sec (22.0-30.0); Potassium 4.9 mmol/L (3.5-5.1)
[2021-03-31 16:39] LABS: Appearance,Urine Clear (Clear); Bilirubin,Urine Negative (Negative); Blood,Urine Negative (Negative); Color,Urine Yellow; Glucose,Urine (UA) Negative (Negative); Ketones,Urine Negative (Negative); Leukocyte Esterase,Urine Negative (Negative); Nitrite,Urine Negative (Negative); Protein,Urine Negative (Negative); Specific Gravity,Urine 1.014 (1.001-1.035); Urobilinogen,Urine <2.0 mg/dL (<2.0)
--- NOTE | 2021-03-31 16:42 | XR ---
EXAMINATION TYPE: XR chest 2V DATE OF EXAM: 03/31/2021 4:28 PM COMPARISON:Multiple radiographs, with the most recent on 12/25/2021 TECHNIQUE: Frontal and lateral views of the chest. CLINICAL INDICATION:Male, 75 years old with history of Weakness; FINDINGS: Lungs/Pleura: There is no evidence of pleural effusion, focal consolidation, or pneumothorax. Inters titial prominence seen and multiple priors is also present. Pulmonary vascularity: Mild pulmonary vascular congestion. Heart/mediastinum: Cardiomediastinal silhouette is enlarged and stable. Musculoskeletal:No acute osseous pathology. Other findings: None IMPRESSION: Cardiomegaly and mild pulmonary vascular congestion. Correlate with BNP for congestive heart failure. There are superimposed chronic changes also present.
[2021-03-31] MEDS ORDERED: methylPREDNISolone SOD SUCCI 125 MG/2 ML VIAL IV STA (17:54)
[2021-03-31] MEDS ORDERED: NALOXONE 0.4 MG/ML 1 ML VIAL IV PRN (18:00)
[2021-03-31] MEDS ORDERED: MELATONIN 1 MG TAB PO PRN (18:17)
[2021-03-31] MEDS ORDERED: FUROSEMIDE 10 MG/ML 10 ML VIAL IV STA (18:18)
[2021-03-31] MEDS: ACETAMINOPHEN TAB 500 MG TAB PO PRN (19:25)
[2021-03-31] MEDS: IPRATROPIUM 0.5 MG/2.5 ML NEBU INHALATION SCH (19:58)
[2021-03-31] MEDS: buPROPion SR 150 MG TABLET.ER PO SCH (20:59)
[2021-04-01] MEDS ORDERED: CEPHALEXIN 500 MG CAP PO SCH
[2021-04-01] MEDS: ACETAMINOPHEN TAB 500 MG TAB PO PRN (02:06)
[2021-04-01] MEDS ORDERED: methylPREDNISolone SOD SUCCI 40 MG/ML 1 ML VIAL IV SCH ×2 (06:00)
[2021-04-01] MEDS: LORATADINE 10 MG TAB PO SCH (06:02)
[2021-04-01] MEDS: ASPIRIN 81 MG PO SCH (06:02)
[2021-04-01] MEDS: PANTOPRAZOLE 40 MG TABLET PO SCH (06:02)
[2021-04-01] MEDS: CHOLECALCIFEROL 25 MCG (1000 IU) TABLET PO SCH (06:03)
[2021-04-01] MEDS: ATORVASTATIN 10 MG TAB PO SCH (06:03)
[2021-04-01] MEDS: FUROSEMIDE 40 MG TAB PO SCH ×2 (06:03→13:39)
[2021-04-01] MEDS ORDERED: SYMBICORT 80-4.5 MCG INHALER INHALATION SCH (08:00)
--- NOTE | 2021-04-01 08:27 | P.HPIM ---
History of Present Illness H&P Date: 04/01/21 Chief Complaint: Frailty, multiple falls, COPD The patient 75-year-old white male with known history of oxygen dependent COPD who is been struggling with multiple falls. Palliative care was started last week as he has had recent hospitalization. When I talked to the daughter and recently, more confusion is noted and this was observed last night during this hospitalization. Had a long discussion with the patient about possible hospice. At this point, he seems agreeable with this given his overall prognosis. He claims functionality at home but is definitely not independent. However, he has very good family support. No overt chest pressure anginal pichardo. However, he does improve with significant steroid use. Review of Systems Constitutional: Denies chills, Denies fever Eyes: denies blurred vision, denies pain Ears, nose, mouth and throat: Denies headache, Denies sore throat Cardiovascular: Reports as per HPI Respiratory: Reports as per HPI, Reports dyspnea, Reports home oxygen, Reports pleurisy, Reports respiratory infections Gastrointestinal: Denies abdominal pain, Denies diarrhea, Denies nausea, Denies vomiting Musculoskeletal: Reports frequent falls Integumentary: Denies pruritus, Denies rash Neurological: Denies numbness, Denies weakness Past Medical History Past Medical History: Blood Disorder, Coronary Artery Disease (CAD), Heart Failure, COPD, Hyperlipidemia, Hypertension, Pneumonia, Vascular Disorder Additional Past Medical History / Comment(s): Pt admitted to [facility] 12/06/20 with exacerbation COPD/respiratory failure/bipap, hyponatremia. Other hx: Severe COPD, home oxygen at 5L/NC ATC, bilateral lower leg/pedal edema, cardiomyopathy per past medical record, 2ndary polycythemia vera, past AAA with surgery. History of Any Multi-Drug Resistant Organisms: None Reported Past Surgical History: Heart Catheterization With Stent Additional Past Surgical History / Comment(s): AAA REPAIR 01/28/2016 Past Anesthesia/Blood Transfusion Reactions: No Reported Reaction Additional Past Anesthesia/Blood Transfusion Reaction / Comment(s): Pt has clausterphobia. Date of Last Stent Placement:: 11/06/20 Past Psychological History: No Psychological Hx Reported Additional Psychological History / Comment(s): Pt resides with his spouse. His spouse manages his medications. His spouse/clif assist with ADLs Smoking Status: Former smoker Past Alcohol Use History: None Reported Additional Past Alcohol Use History / Comment(s): Pt started smoking in 1959 and quit recently in 2020 Past Drug Use History: None Reported - Past Family History Father Family Medical History: Myocardial Infarction ([place]) Brother(s) Family Medical History: Cancer Additional Family Medical History / Comment(s): Brother had colon cancer. Mother Family Medical History: Blood Disorder, Diabetes Mellitus Additional Family Medical History / Comment(s): Polycthemia vera. Medications and Allergies Home Medications Medication Instructions Recorded Confirmed Type Aspirin EC [Ecotrin Low Dose] 81 mg PO DAILY@0600 02/06/16 03/31/21 History Atorvastatin [Lipitor] 10 mg PO DAILY@0600 02/06/16 03/31/21 History Cholecalciferol [Vitamin D3 (25 1,000 unit PO DAILY@59911/07/19 03/31/21 History Mcg = 1000 Iu)] Cetirizine HCl [Zyrtec] 10 mg PO DAILY@0600 10/30/20 03/31/21 History Pantoprazole [Protonix] 40 mg PO DAILY@0600 10/30/20 03/31/21 History Acetaminophen Tab [Tylenol] 500 mg PO Q6HR PRN 02/17/21 03/31/21 History Fluticasone/Umeclidin/Vilanter 1 puff INHALATION RT-DAILY 02/17/21 03/31/21 History [Trelegy Ellipta 100-62.5-25] Furosemide [Lasix] 40 mg PO BID@0500,1400 02/17/21 03/31/21 History Ipratropium Nebulized [Atrovent 0.5 mg INHALATION RT-QID 02/17/21 03/31/21 History Nebulized 0.2 MG/ML] Melatonin 1 mg PO HS PRN 02/17/21 03/31/21 History buPROPion SR [Wellbutrin SR] 150 mg PO BID 02/17/21 03/31/21 History Cephalexin [Keflex] 500 mg PO Q6HR 1 Days #28 cap 03/20/21 03/31/21 Rx Ferrous Sulfate [Feosol] 325 mg PO DAILY #30 tab 03/20/21 03/31/21 Rx Allergies Allergy/AdvReac Type Severity Reaction Status Date / Time No Known Allergies Allergy Verified 03/31/21 16:36 Physical Exam Vitals: Vital Signs Temp Pulse Pulse Resp BP BP Pulse Ox 04/01/21 05:39 95 04/01/21 02:11 20 04/01/21 02:02 98.2 F 90 18 119/71 91 L 03/31/21 23:52 20 93 L 03/31/21 23:08 98 03/31/21 23:00 92 03/31/21 22:37 67 20 140/72 88 L 03/31/21 20:08 90 03/31/21 20:00 75 20 93 L 03/31/21 19:59 88 03/31/21 16:10 76 03/31/21 15:56 75 03/31/21 14:23 97.0 F L 80 16 118/72 90 L Intake and Output 03/31/21 04/01/21 04/01/21 22:59 06:59 14:59 Other: Voiding Method Urinal # Voids 1 # Bowel Movements 1 Weight 118.841 kg - Constitutional General appearance: mild distress, obese - EENT Eyes: EOMI - Neck Neck: no lymphadenopathy - Respiratory Respiratory: bilateral: diminished - Cardiovascular Rhythm: regular Heart sounds: normal: S1, S2 Abnormal Heart Sounds: no S3 Gallop - Gastrointestinal General gastrointestinal: soft, no tenderness - Neurologic Neurologic: CNII-XII intact - Psychiatric Psychiatric: appropriate affect Results CBC & Chem 7: 03/31/21 15:25 03/31/21 15:25 Labs: Abnormal Lab Results - Last 24 Hours (Table) 03/31/21 03/31/21 Range/Units 15:25 15:25 RBC 3.88 L (4.30-5.90) m/uL Hgb 8.7 L (13.0-17.5) gm/dL Hct 31.4 L (39.0-53.0) % MCH 22.4 L (25.0-35.0) pg MCHC 27.7 L (31.0-37.0) g/dL RDW 19.8 H (11.5-15.5) % Plt Count 515 H (150-450) k/uL Lymphocytes # 0.9 L (1.0-4.8) k/uL Sodium 136 L (137-145) mmol/L Chloride 95 L (98-107) mmol/L Carbon Dioxide 38 H (22-30) mmol/L BUN 23 H (9-20) mg/dL Creatinine 1.30 H (0.66-1.25) mg/dL Albumin 3.3 L (3.5-5.0) g/dL Thrombosis Risk Factor Assmnt - Choose All That Apply Any of the Below Risk Factors Present?: Yes Each Factor Represents 1 point: Abnormal pulmonary function (COPD), Obesity (BMI >25), Swollen legs (current) Each Risk Factor Represents 3 Points: Age 75 years or older Other congenital or acquired thrombophilia - If yes, enter type in comment: No Thrombosis Risk Factor Assessment Total Risk Factor Score: 6 Thrombosis Risk Factor Assessment Level: High Risk Assessment and Plan (1) COPD exacerbation Current Visit: Yes Status: Acute Code(s): J44.1 - CHRONIC OBSTRUCTIVE PULMONARY DISEASE W (ACUTE) EXACERBATION SNOMED Code(s): 577855063 (2) Chest wall pain Current Visit: Yes Status: Acute Code(s): R07.89 - OTHER CHEST PAIN SNOMED Code(s): 932460505 (3) Fall Current Visit: Yes Status: Acute Code(s): W19.XXXA - UNSPECIFIED FALL, INITIAL ENCOUNTER SNOMED Code(s): 1691525 (4) Hypoxia Current Visit: Yes Status: Acute Code(s): R09.02 - HYPOXEMIA SNOMED Code(s): 610905782 (5) Smoker Current Visit: No Status: Acute Code(s): F17.200 - NICOTINE DEPENDENCE, UNSPECIFIED, UNCOMPLICATED SNOMED Code(s): 15992783 (6) Weakness Current Visit: No Status: Acute Code(s): R53.1 - WEAKNESS SNOMED Code(s): 88617575
[2021-04-01] MEDS ORDERED: IBUPROFEN 200 MG TAB PO PRN (08:29)
[2021-04-01] MEDS: IPRATROPIUM 0.5 MG/2.5 ML NEBU INHALATION SCH ×5 (08:46→21:10)
[2021-04-01] MEDS: buPROPion SR 150 MG TABLET.ER PO SCH ×2 (09:23→23:36)
[2021-04-01] MEDS: FERROUS SULFATE 325 MG TAB PO SCH (09:23)
[2021-04-01] MEDS: traMADol 50 MG TAB PO SCH ×4 (09:23→23:36)
[2021-04-01 10:57] LABS: HCT 30.9 % (39.6-50.0); HGB 8.4 g/dL (13.0-17.0); MCHC 27.2 g/dL (32.0-37.0); MCV 81.1 fL (80.0-97.0); Mean Platelet Volume 8.8 fL (9.5-12.2); Platelet Count 534 X 10*3/uL (140-440); RBC 3.81 X 10*6/uL (4.40-5.60); RDW 21.9 % (11.5-14.5); WBC 8.26 X 10*3/uL (4.50-10.00)
[2021-04-01 11:09] LABS: African American GFR (CKD) 61.4 (60.0-200.0); Anion Gap 12.8 mmol/L (10.00-18.00); BUN/Creat Ratio 16.85 Ratio (12.00-20.00); Blood Urea Nitrogen 21.9 mg/dL (9.0-27.0); Calcium 9.2 mg/dL (8.7-10.3); Carbon Dioxide 32.2 mmol/L (20.0-27.5); Potassium 4.6 mmol/L (3.5-5.5)
[2021-04-01 11:30] LABS: Anisocytosis (M) 2+; Basophils # (A) 0.01 X 10*3/uL (0.00-0.10); Basophils % (A) 0.1 %; Eosinophils # (A) 0 X 10*3/uL (0.04-0.35); Eosinophils % (A) 0 %; Hypochromasia (M) 2+; Lymphocytes # (A) 0.46 X 10*3/uL (0.90-5.00); Lymphocytes % (A) 5.6 %; Monocytes # (A) 0.07 X 10*3/uL (0.20-1.00); Monocytes % (A) 0.8 %; Neutrophils # (A) 7.66 X 10*3/uL (1.80-7.70); Neutrophils % (A) 92.8 %
--- NOTE | 2021-04-01 13:34 | P.CNPUL ---
History of Present Illness Consult date: 04/01/21 Requesting physician: Jayro Peñaloza Chief complaint: Chest wall pain. History of present illness: Pulmonary consult dated 03/31/2021. 75-year-old male, who presents to the emergency department, with weakness, and multiple falls. The patient also apparently complaining of increasing shortness of breath although he denied that to me today. The patient arrived to the ER on 5 L nasal cannula, which is his usual home dose, and his saturations were in the low 90s. Currently, the patient's major complaint is pain to the left anterior chest area. There is a bruise to left anterior chest region fell against something, when he lost his balance. He denies any abdominal pain. He denies any back pain. He denies any pain to the extremities. The patient appears relatively comfortable from the pulmonary standpoint. Currently, he's on 8 L oxygen with saturations 90-93%. White count 8.3, hemoglobin 8.4, hematocrit 30 .9, and platelet count 534,000. Sodium 136, potassium 4.6, chlorides 91, CO2 32, anion gap 13, BUN 22, and creatinine 1.3. Troponin was negative. Urine was negative. Testing for coronavirus was negative. Chest x-ray suggested cardiomegaly and possible underlying CHF. The N-terminal proBNP though, was only 473. Review of Systems REVIEW OF SYSTEMS: CONSTITUTIONAL: [Negative.] NEUROLOGIC: [ Negative.] HEENT: [ Negative.] CARDIAC: Chest wall pain, with bruise, left anterior chest. PULMONARY: Chronic shortness of breath, currently at baseline. GI: [Negative.] : [Negative.] RHEUMATOLOGIC: [ Negative.] IMMUNOLOGIC: [ Negative.] ENDOCRINE: [Negative. ] DERMATOLOGIC: [Negative.] Past Medical History Past Medical History: Blood Disorder, Coronary Artery Disease (CAD), Heart Failure, COPD, Hyperlipidemia, Hypertension, Pneumonia, Vascular Disorder Additional Past Medical History / Comment(s): Pt admitted to [facility] 12/06/20 with exacerbation COPD/respiratory failure/bipap, hyponatremia. Other hx: Severe COPD, home oxygen at 5L/NC ATC, bilateral lower leg/pedal edema, cardiomyopathy per past medical record, 2ndary polycythemia vera, past AAA with surgery. History of Any Multi-Drug Resistant Organisms: None Reported Past Surgical History: Heart Catheterization With Stent Additional Past Surgical History / Comment(s): AAA REPAIR 01/28/2016 Past Anesthesia/Blood Transfusion Reactions: No Reported Reaction Additional Past Anesthesia/Blood Transfusion Reaction / Comment(s): Pt has clausterphobia. Date of Last Stent Placement:: 11/06/20 Smoking Status: Current some day smoker - Past Family History Father Family Medical History: Myocardial Infarction ([place]) Brother(s) Family Medical History: Cancer Additional Family Medical History / Comment(s): Brother had colon cancer. Mother Family Medical History: Blood Disorder, Diabetes Mellitus Additional Family Medical History / Comment(s): Polycthemia vera. Medications and Allergies Home Medications Medication Instructions Recorded Confirmed Type Aspirin EC [Ecotrin Low Dose] 81 mg PO DAILY@0600 02/06/16 03/31/21 History Atorvastatin [Lipitor] 10 mg PO DAILY@0600 02/06/16 03/31/21 History Cholecalciferol [Vitamin D3 (25 1,000 unit PO DAILY@0600 11/07/19 03/31/21 History Mcg = 1000 Iu)] Cetirizine HCl [Zyrtec] 10 mg PO DAILY@0600 10/30/20 03/31/21 History Pantoprazole [Protonix] 40 mg PO DAILY@0600 10/30/20 03/31/21 History Acetaminophen Tab [Tylenol] 500 mg PO Q6HR PRN 02/17/21 03/31/21 History Fluticasone/Umeclidin/Vilanter 1 puff INHALATION RT-DAILY 02/17/21 03/31/21 History [[place] Ellipta 100-62.5-25] Furosemide [Lasix] 40 mg PO BID@0500,1400 02/17/21 03/31/21 History Ipratropium Nebulized [Atrovent 0.5 mg INHALATION RT-QID 02/17/21 03/31/21 History Nebulized 0.2 MG/ML] Melatonin 1 mg PO HS PRN 02/17/21 03/31/21 History buPROPion SR [Wellbutrin SR] 150 mg PO BID 02/17/21 03/31/21 History Cephalexin [Keflex] 500 mg PO Q6HR 1 Days #28 cap 03/20/21 03/31/21 Rx Ferrous Sulfate [Feosol] 325 mg PO DAILY #30 tab 03/20/21 03/31/21 Rx Allergies Allergy/AdvReac Type Severity Reaction Status Date / Time No Known Allergies Allergy Verified 03/31/21 16:36 Physical Exam Osteopathic Statement: *. No significant issues noted on an osteopathic structural exam other than those noted in the History and Physical/Consult. Vitals: Vital Signs Temp Pulse Pulse Resp BP BP Pulse Ox 04/01/21 11:47 92 04/01/21 11:38 89 04/01/21 08:57 95 04/01/21 08:46 93 90 L 04/01/21 07:00 97.6 F 84 16 109/65 96 04/01/21 05:39 95 04/01/21 02:11 20 04/01/21 02:02 98.2 F 90 18 119/71 91 L 03/31/21 23:52 20 93 L 03/31/21 23:08 98 03/31/21 23:00 92 03/31/21 22:37 67 20 140/72 88 L 03/31/21 20:08 90 03/31/21 20:00 75 20 93 L 03/31/21 19:59 88 03/31/21 16:10 76 03/31/21 15:56 75 03/31/21 14:23 97.0 F L 80 16 118/72 90 L Intake and Output 03/31/21 04/01/21 04/01/21 22:59 06:59 14:59 Intake Total 236 Balance 236 Intake: Oral 236 Other: Voiding Method Urinal # Voids 1 # Bowel Movements 1 Weight 118.841 kg No acute distress, oriented 3. No use of accessory muscles, or conversational dyspnea. The patient's on 8 L high flow nasal O2. Saturations are 90-93%. HEENT examination is grossly unremarkable. Neck supple. Full range of motion. No adenopathy thyromegaly or neck vein distention. Cardiovascular examination reveals regular rhythm rate. S1-S2 normal. No S3 or S4. No discernible murmur noted. Heart rate 92 bpm. There is in the left chest area. There is tenderness to palpation in the left chest area. Lungs reveal scattered bilateral rhonchi. No wheezes. No crackles. Breath sounds equal bilaterally but diminished throughout. Abdomen soft bowel sounds are heard. No masses or tenderness. Extremities are intact. No cyanosis clubbing or edema. Skin is without rash or lesion. Neurologic examination is brief but nonfocal. Results - Laboratory Findings CBC and BMP: 04/01/21 07:43 04/01/21 07:43 PT/INR, D-dimer PT 10.0 sec (9.0-12.0) 03/31/21 15:25 INR 0.9 (<1.2) 03/31/21 15:25 Abnormal lab findings: Abnormal Labs 03/31/21 03/31/21 04/01/21 15:25 15:25 07:43 RBC 3.88 L 3.81 L Hgb 8.7 L 8.4 L Hct 31.4 L 30.9 L MCH 22.4 L 22.0 L MCHC 27.7 L 27.2 L RDW 19.8 H 21.9 H Plt Count 515 H 534 H Plt Count Comment INCREASED A MPV 8.8 L Immature Gran # 0.06 H Lymphocytes # 0.9 L 0.46 L Monocytes # 0.07 L Eosinophils # 0 L Sodium 136 L Chloride 95 L Carbon Dioxide 38 H BUN 23 H Creatinine 1.30 H Est GFR (CKD-EPI)NonAf Glucose Albumin 3.3 L 04/01/21 07:43 RBC Hgb Hct MCH MCHC RDW Plt Count Plt Count Comment MPV Immature Gran # Lymphocytes # Monocytes # Eosinophils # Sodium Chloride 91 L Carbon Dioxide 32.2 H BUN Creatinine Est GFR (CKD-EPI)NonAf 53.0 L Glucose 133 H Albumin - Diagnostic Findings Chest x-ray: image reviewed Assessment and Plan Assessment: Status post fall, with injury to the left anterior chest area. History of COPD, with chronic hypoxemic respiratory failure. History of CAD, status post stent. History of CHF. History of hyperlipidemia. History of hypertension. History of cardiomyopathy. History of secondary polycythemia. History of morbid obesity. Prior history of tobacco use. Plan: Plan dated 04/01/2021. Currently, the patient is on albuterol sulfate and ipratropium bromide breathing treatments 4 times a day. In addition, the patient is receiving Symbicort. Given the severity of his disease, higher doses Symbicort would be appropriate. In my opinion, the patient does not require corticosteroids. Patient be discontinued. Nothing on the chest x-ray would suggest an infection. I will check a pro-calcitonin level. The N-terminal proBNP was normal. Additional recommendations and suggestions are forthcoming. I do recommend an incentive spirometer to be used every hour while awake. Time with Patient: Greater than 30
[2021-04-01] MEDS: methylPREDNISolone SOD SUCCI 40 MG/ML 1 ML VIAL IV SCH ×2 (16:58→23:37)
[2021-04-01] MEDS: SYMBICORT 160-4.5 MCG INHALER INHALATION SCH (21:10)
[2021-04-02 01:55] VITALS: PULSE 89
[2021-04-02] MEDS: CHOLECALCIFEROL 25 MCG (1000 IU) TABLET PO SCH (05:45)
[2021-04-02] MEDS: ATORVASTATIN 10 MG TAB PO SCH (05:45)
[2021-04-02] MEDS: FUROSEMIDE 40 MG TAB PO SCH (05:45)
[2021-04-02] MEDS: ASPIRIN 81 MG PO SCH (05:45)
[2021-04-02] MEDS: PANTOPRAZOLE 40 MG TABLET PO SCH (05:45)
[2021-04-02] MEDS: LORATADINE 10 MG TAB PO SCH (05:46)
[2021-04-02 06:58] VITALS: BP 112/75; RESP 16; TEMP 97.3
[2021-04-02] MEDS: IPRATROPIUM 0.5 MG/2.5 ML NEBU INHALATION SCH (08:18)
[2021-04-02] MEDS: SYMBICORT 160-4.5 MCG INHALER INHALATION SCH (08:18)
[2021-04-02] MEDS: traMADol 50 MG TAB PO SCH (08:40)
[2021-04-02] MEDS: buPROPion SR 150 MG TABLET.ER PO SCH (08:40)
[2021-04-02] MEDS: FERROUS SULFATE 325 MG TAB PO SCH (08:40)
[2021-04-02] MEDS: methylPREDNISolone SOD SUCCI 40 MG/ML 1 ML VIAL IV SCH (08:53)
[2021-04-02 09:07] LABS: HCT 30.7 % (39.6-50.0); HGB 8.4 g/dL (13.0-17.0); MCH 21.5 pg (27.0-32.0); MCHC 27.4 g/dL (32.0-37.0); MCV 78.7 fL (80.0-97.0); Mean Platelet Volume 8.8 fL (9.5-12.2); Platelet Count 567 X 10*3/uL (140-440); RDW 21.8 % (11.5-14.5); WBC 13.38 X 10*3/uL (4.50-10.00)
[2021-04-02 09:25] LABS: African American GFR (CKD) 61.4 (60.0-200.0); Albumin 3.6 g/dL (3.8-4.9); Albumin/Globulin Ratio 0.92 (1.60-3.17); Anion Gap 13.1 mmol/L (10.00-18.00); Blood Urea Nitrogen 29.9 mg/dL (9.0-27.0); Calcium 9.4 mg/dL (8.7-10.3); Carbon Dioxide 29.9 mmol/L (20.0-27.5); Globulin 3.9 g/dL (1.6-3.3); Potassium 4.7 mmol/L (3.5-5.5); Total Bilirubin 0.3 mg/dL (0.30-1.20); Total Protein 7.5 g/dL (6.2-8.2)
--- NOTE | 2021-04-02 10:37 | P.PN ---
Subjective Progress Note Date: 04/02/21 Principal diagnosis: Chest trauma. Pulmonary consult dated 04/01/2021. 75-year-old male, who presents to the emergency department, with weakness, and multiple falls. The patient also apparently complaining of increasing shortness of breath although he denied that to me today. The patient arrived to the ER on 5 L nasal cannula, which is his usual home dose, and his saturations were in the low 90s. Currently, the patient's major complaint is pain to the left anterior chest area. There is a bruise to left anterior chest region fell against something, when he lost his balance. He denies any abdominal pain. He denies any back pain. He denies any pain to the extremities. The patient appears relatively comfortable from the pulmonary standpoint. Currently, he's on 8 L oxygen with saturations 90-93%. White count 8.3, hemoglobin 8.4, hematocrit 30.9, and platelet count 534,000. Sodium 136, potassium 4.6, chlorides 91, CO2 32, anion gap 13, BUN 22, and creatinine 1.3. Troponin was negative. Urine was negative. Testing for coronavirus was negative. Chest x-ray suggested cardiomegaly and possible underlying CHF. The N-terminal proBNP though, was only 473. Progress note dated 04/02/2021. 75-year-old male, seen yesterday in consultation. He is again seen today in room 629. Currently, he's back to 5 L nasal cannula. That is his home oxygen dose. The patient apparently fell and injured his left chest. He's feeling better from that standpoint. There was a bruise in the left anterior chest area. He states that his breathing is back to baseline. He denies any fever or chills. No shortness of breath. No chest pain or chest discomfort other than the chest wall pain as previously noted. White count 13.4, hemoglobin 8.4, hematocrit 30.7 and platelet count 567,000. Sodium 131, potassium 4.7, chloride 88, CO2 30, anion gap 13, BUN 30, creatinine 1.3. Objective - Vital Signs Vital signs: Vital Signs Temp 97.3 F L 04/02/21 06:55 Pulse 89 04/02/21 06:55 Resp 16 04/02/21 08:00 BP 112/75 04/02/21 06:55 Pulse Ox 93 L 04/02/21 08:18 Intake & Output 04/01/21 04/02/21 04/02/21 18:59 06:59 18:59 Intake Total 594 358 Output Total 200 Balance 394 358 Intake: Oral 594 358 Output: Urine 200 Other: # Voids 1 2 - Exam No acute distress, oriented 3. No use of accessory muscles, or conversational dyspnea. The patient's on 8 L high flow nasal O2. Saturations are 93%. HEENT examination is grossly unremarkable. Neck supple. Full range of motion. No adenopathy thyromegaly or neck vein distention. Cardiovascular examination reveals regular rhythm rate. S1-S2 normal. No S3 or S4. No discernible murmur noted. Heart rate 89 bpm. There is in the left chest area. There is tenderness to palpation in the left chest area. Lungs reveal scattered bilateral rhonchi. No wheezes. No crackles. Breath sounds equal bilaterally but diminished throughout. Abdomen soft bowel sounds are heard. No masses or tenderness. Extremities are intact. No cyanosis clubbing or edema. Skin is without rash or lesion. Neurologic examination is brief but nonfocal. - Labs CBC & Chem 7: 04/02/21 06:48 04/02/21 06:48 Labs: Abnormal Lab Results - Last 24 Hours (Table) 04/01/21 04/01/21 04/02/21 Range/Units 07:43 07:43 06:48 WBC 13.38 H (4.50-10.00) X 10*3/uL RBC 3.81 L 3.90 L (4.40-5.60) X 10*6/uL Hgb 8.4 L 8.4 L (13.0-17.0) g/dL Hct 30.9 L 30.7 L (39.6-50.0) % MCV 78.7 L (80.0-97.0) fL MCH 22.0 L 21.5 L (27.0-32.0) pg MCHC 27.2 L 27.4 L (32.0-37.0) g/dL RDW 21.9 H 21.8 H (11.5-14.5) % Plt Count 534 H 567 H (140-440) X 10*3/uL Plt Count Comment INCREASED A MPV 8.8 L 8.8 L (9.5-12.2) fL Immature Gran # 0.06 H (0.00-0.04) X 10*3/uL Lymphocytes # 0.46 L (0.90-5.00) X 10*3/uL Monocytes # 0.07 L (0.20-1.00) X 10*3/uL Eosinophils # 0 L (0.04-0.35) X 10*3/uL Sodium (135-145) mmol/L Chloride 91 L (96-109) mmol/L Carbon Dioxide 32.2 H (20.0-27.5) mmol/L BUN (9.0-27.0) mg/dL Est GFR (CKD-EPI)NonAf 53.0 L (60.0-200.0) BUN/Creatinine Ratio (12.00-20.00) Ratio Glucose 133 H (70-110) mg/dL Albumin (3.8-4.9) g/dL Globulin (1.6-3.3) g/dL Albumin/Globulin Ratio (1.60-3.17) g/dL 04/02/21 Range/Units 06:48 WBC (4.50-10.00) X 10*3/uL RBC (4.40-5.60) X 10*6/uL Hgb (13.0-17.0) g/dL Hct (39.6-50.0) % MCV (80.0-97.0) fL MCH (27.0-32.0) pg MCHC (32.0-37.0) g/dL RDW (11.5-14.5) % Plt Count (140-440) X 10*3/uL Plt Count Comment MPV (9.5-12.2) fL Immature Gran # (0.00-0.04) X 10*3/uL Lymphocytes # (0.90-5.00) X 10*3/uL Monocytes # (0.20-1.00) X 10*3/uL Eosinophils # (0.04-0.35) X 10*3/uL Sodium 131 L (135-145) mmol/L Chloride 88 L (96-109) mmol/L Carbon Dioxide 29.9 H (20.0-27.5) mmol/L BUN 29.9 H (9.0-27.0) mg/dL Est GFR (CKD-EPI)NonAf 53.0 L (60.0-200.0) BUN/Creatinine Ratio 23.00 H (12.00-20.00) Ratio Glucose 121 H (70-110) mg/dL Albumin 3.6 L (3.8-4.9) g/dL Globulin 3.9 H (1.6-3.3) g/dL Albumin/Globulin Ratio 0.92 L (1.60-3.17) g/dL Microbiology - Last 24 Hours (Table) 03/31/21 15:25 Blood Culture - Preliminary Blood No Growth after 24 hours 03/31/21 15:25 Blood Culture - Preliminary Blood No Growth after 24 hours Assessment and Plan Assessment: Status post fall, with injury to the left anterior chest area. History of COPD, with chronic hypoxemic respiratory failure. History of CAD, status post stent. History of CHF. History of hyperlipidemia. History of hypertension. History of cardiomyopathy. History of secondary polycythemia. History of morbid obesity. Prior history of tobacco use. Plan: Plan dated 04/01/2021. Currently, the patient is on albuterol sulfate and ipratropium bromide breathing treatments 4 times a day. In addition, the patient is receiving Symbicort. Given the severity of his disease, higher doses Symbicort would be appropriate. In my opinion, the patient does not require corticosteroids. Patient be discontinued. Nothing on the chest x-ray would suggest an infection. I will check a pro-calcitonin level. The N-terminal proBNP was normal. Additional recommendations and suggestions are forthcoming. I do recommend an incentive spirometer to be used every hour while awake. Plan dated 04/02/2001. The patient is feeling better. The patient's pain in the left anterior chest area is improved. I encouraged patient to take deep breaths, and use the incentive spirometer every hour while awake. The patient is back down to 5 L nasal cannula. This is his home oxygen dose. Yesterday he was 8 liters. Labs, x-rays, and medications are all reviewed. I will continue to follow the patient make recommendations where appropriate. Time with Patient: Less than 30
== END 2021-04-02 11:00 | disposition hospice, home (50) ==
LOC: EC 14:13 → 6NMEDSUR 18:00
PROVIDERS: ADMIT Family Medicine; ATTEND Family Medicine
DX: J44.1 Chronic obstructive pulmonary disease with (acute) exacerbation (principal); J96.11 Chronic respiratory failure with hypoxia; R29.6 Repeated falls; I25.10 Atherosclerotic heart disease of native coronary artery without angina pectoris; I11.0 Hypertensive heart disease with heart failure; I50.9 Heart failure, unspecified; E78.5 Hyperlipidemia, unspecified; E87.1 Hypo-osmolality and hyponatremia; I42.9 Cardiomyopathy, unspecified; I45.10 Unspecified right bundle-branch block; R54 Age-related physical debility; E66.01 Morbid (severe) obesity due to excess calories; Z68.36 Body mass index [BMI] 36.0-36.9, adult; M79.89 Other specified soft tissue disorders; S20.212A Contusion of left front wall of thorax, initial encounter; D75.1 Secondary polycythemia; Z20.822 Contact with and (suspected) exposure to COVID-19; Z99.81 Dependence on supplemental oxygen; W19.XXXA Unspecified fall, initial encounter; Z79.82 Long term (current) use of aspirin; Z79.899 Other long term (current) drug therapy; Z95.5 Presence of coronary angioplasty implant and graft; Z87.01 Personal history of pneumonia (recurrent); Z87.891 Personal history of nicotine dependence; Z82.49 Family history of ischemic heart disease and other diseases of the circulatory system; Z80.0 Family history of malignant neoplasm of digestive organs; Z83.3 Family history of diabetes mellitus; Z83.2 Family history of diseases of the blood and blood-forming organs and certain disorders involving the immune mechanism
CPT/HCPCS: 96376; 96374; 96375; 99285; 36415; 94640 ×4; 94760; 93005; 83880; 80053 ×2; 80048; 82550; 83605; 84484; 85025 ×2; 85027; 85610; 85730; 81003; 87040; 87635; 71046; G0378 ×3; J1940; J2920; J2930; S0106 ×3